=== PATIENT | female | born 1980 ===

== ENCOUNTER → 2019-11-25 14:48 | Outpatient (BNVA) | payer MEDICAID, SELFPAY | PROVIDERS: PCP Nurse Practitioner Family; Referring Provider Nurse Practitioner Family; Visit Provider Internal Medicine Gastroenterology | DX: K59.09 Other constipation (principal); K21.9 Gastro-esophageal reflux disease without esophagitis; K76.0 Fatty (change of) liver, not elsewhere classified; E73.9 Lactose intolerance, unspecified; D50.0 Iron deficiency anemia secondary to blood loss (chronic); N92.0 Excessive and frequent menstruation with regular cycle; Z79.899 Other long term (current) drug therapy | CPT/HCPCS: 99213 ==

== ENCOUNTER 2019-12-08 10:47 | Outpatient (REF) | payer MEDICAID, SELFPAY ==
[2019-12-08 11:55] LABS: MANUAL DIFF FLAG NO
[2019-12-08 12:06] LABS: Basophils Percent Auto 0.7 % (0-2); Eosinophils Absolute Auto 0.1 X10*3/uL (0.0-0.4); Eosinophils Percent Auto 1.3 % (0-4); Hematocrit 30.6 % (37-47); Hemoglobin 9.3 g/dl (12.0-16.0); Imm Gran Abs Auto 0.03 X10*3/uL (0.00-0.03); Imm Gran Pct Auto 0.6 % (0.0-0.4); Lymphocytes Percent Auto 36.5 % (20-40); Mean Corpuscular HGB Conc 30.4 g/dl (31.0-35.0); Mean Corpuscular Hemoglobin 23.3 pg (27.0-33.0); Mean Corpuscular Volume 76.7 fL (80-98); Mean Platelet Volume 9.5 fL (9.4-12.3); Monocytes Absolute Auto 0.5 X10*3/uL (0.1-1.2); Monocytes Percent Auto 9.3 % (2-11); Neutrophils Absolute Auto 2.8 X10*3/uL (2.0-8.3); Neutrophils Percent Auto 51.6 % (45-73); Platelet Count 429 X10*3/uL (160-400); Red Blood Count 3.99 X10*6/uL (4.20-5.50); Red Cell Distribution Width 25.5 % (11.0-16.0); White Blood Count 5.4 X10*3/uL (4.8-10.8)
[2019-12-08 12:50] LABS: Ferritin 25 ng/mL (10-122)
== END 2019-12-08 10:48 | disposition home or self-care (01) ==
LOC: HO.LAB 10:47
PROVIDERS: Internal Medicine Gastroenterology; PCP Nurse Practitioner Family; Visit Provider Obstetrics & Gynecology
DX: D64.9 Anemia, unspecified (principal); N92.6 Irregular menstruation, unspecified
CPT/HCPCS: 36415; 82728; 85025

== ENCOUNTER 2019-12-16 13:53 | Outpatient (REF) | payer MEDICAID, SELFPAY ==
[2019-12-17 09:00] LABS: CT PCR NOT DETECTED (Not Detect.); NG PCR NOT DETECTED (Not Detect.)
[2019-12-17 10:33] LABS: BV Int Neg Control Negative (Negative); BV Int Pos Control Positive (Positive)
== END 2019-12-16 13:54 | disposition home or self-care (01) ==
LOC: HO.LAB 13:53
PROVIDERS: Visit Provider Obstetrics & Gynecology
DX: N93.9 Abnormal uterine and vaginal bleeding, unspecified (principal); Z11.3 Encounter for screening for infections with a predominantly sexual mode of transmission
CPT/HCPCS: 58100; 87480; 87491; 87510; 87591; 87660; 88305; 99212

== ENCOUNTER 2019-12-25 10:50 | Outpatient (REF) | payer MEDICAID, SELFPAY | END 2019-12-25 10:51 | disposition home or self-care (01) | LOC: HO.LAB 10:50 | PROVIDERS: Visit Provider Internal Medicine | DX: Z20.828 Contact with and (suspected) exposure to other viral communicable diseases (principal) | CPT/HCPCS: C9803; U0003 ==

== ENCOUNTER 2019-12-26 22:12 | Emergency (ER) | payer MEDICAID, SELFPAY ==
--- NOTE | 2019-12-26 22:51 | ED_ITS ---
HPI - Chest Pain General Chief Complaint: Chest Pain Stated Complaint: chest pain Time Seen by Provider: 12/26/19 22:51 Source: patient Mode of arrival: ambulatory Limitations: no limitations History of Present Illness HPI narrative: chest pain improved with flovent, patient states that her symptoms also remind her of her GERD MD complaint: chest pain and chest heaviness Onset (ago): hour(s) (10) Timing of current episode: constant Onset: during rest Quality: tightness Risk Factors Coronary artery disease risk factors: none Related Data Home Medications Medication Instructions Recorded Confirmed albuterol sulfate 90 mcg/actuation 2 puff INHALATION Q6H PRN 11/25/19 11/25/19 aerosol inhaler ferrous sulfate 300 mg (60 mg 300 mg PO DAILY 11/25/19 11/25/19 iron)/5 mL oral liquid lidocaine 4 % topical patch 1 patch TOPICAL DAILY PRN 11/25/19 11/25/19 omeprazole 40 mg capsule,delayed 40 mg PO BID 11/25/19 11/25/19 release Previous Rx's Medication Instructions Recorded bisacodyl 5 mg tablet,delayed 5 mg PO BEDTIME 60 Days #60 tab 11/25/19 release senna 8.6 mg capsule 8.6 mg PO DAILY 60 Days #60 cap NS 11/25/19 metronidazole 500 mg tablet 500 mg PO BID 7 Days #14 tab 12/21/19 naproxen [Naprosyn] 500 mg PO BID #20 tab 12/26/19 Allergies Allergy/AdvReac Type Severity Reaction Status Date / Time mussels Allergy Severe DIFFICULTY Verified 12/26/19 22:55 BREATHING Review of Systems Constitutional: Constitutional: Reports no additional constitutional complaints Eyes: Eyes: Reports no additional eye complaints ENT: Denies dizziness Cardiovascular: Cardiovascular: Reports no additional cardiovascular complaints Respiratory: Respiratory: Reports as per HPI Gastrointestinal: Gastrointestinal: Reports no additional gastrointestinal complaints Genitourinary: Genitourinary: Reports no additional female genitourinary complaints Musculoskeletal: Musculoskeletal: Reports no additional musculoskeletal complaints Integumentary/Breasts: Skin/Breast: Denies rash Neurologic: Reports system reviewed and no additional complaints, except as documented, Denies dizziness and Denies Sensory deficit (Neuro) Psychiatric: Psychiatric: Denies anxiety 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 Social History Social History (Updated 11/25/19 @ 15:00 by Perri Sullivan MA) Alcohol intake: never Smoking Status: Never smoker Physical Exam Const: General: healthy appearing Nutritional Appearance: average body habitus Orientation/consciousness: oriented to person and patient oriented x3 Limitations: no limitations HENMT: Head: Yes normal to inspection Ears: external ears normal General nose exam: Normal external nose present Mouth: Normal oral and palatal mucosa present and oropharynx normal Throat: Yes posterior oropharynx normal Eyes: General: appearance normal, both eyes and all related structures Neck: Other: supple Neck: Yes normal visual inspection Chest: Other: reproducible chest pain on palpation Chest palpation & inspection: normal inspection of the chest Resp: Auscultation: clear to auscultation bilaterally Cardio: Jugular venous distension: no JVD Rate: regular rate Rhythm: regular rhythm Heart sounds: S1 normal heart sound present and S2 normal heart sound present GI: Inspection: Yes normal to inspection Palpation (GI): Soft to palpation, nontender and No hepatosplenomegaly present Auscultation: normal bowel sounds : General: Yes no CVA tenderness Back/Spine/Pelvis: Back: no CVA tenderness Skin: General skin exam: no rashes or lesions noted Neuro: General: oriented to person and patient oriented x3 Cranial nerves: Yes CN's II-XII intact bilaterally Motor exam (neuro): 5/5 motor strength present throughout Sensory Exam: No Sensory deficit (Neuro) Extrem: General: Yes normal to inspection Psych: Appearance: grossly normal Course Course Course Narrative: will give patient a toradol shot for costrochondritis MDM - Chest Pain MDM Narrative Medical decision making narrative: patient with normal EKG, normal vital, soft abdomen and reproducible chest pain to palpation, will dc on NSAIDS Differential Diagnosis Differential diagnosis: Likely atypical chest pain, costochondritis and chest pain ECG Data ECG #1: Attestation: I personally reviewed and interpreted this ECG as follows: Interpretation: normal sinus rhythm rate of 90, no st or twave changes Discharge Plan Discharge Clinical Impression: Costochondritis, acute Chest pain Qualifiers: Chest pain type: other chest pain Qualified Code(s): R07.89 - Other chest pain Patient Disposition: Home, Self-Care Instructions: Costochondritis (ED) Prescriptions: New naproxen [Naprosyn] 500 mg tablet 500 mg PO BID Qty: 20 RF: 0 No Action metronidazole [Flagyl] 500 mg tablet 500 mg PO BID 7 Days Qty: 14 RF: 0 ferrous sulfate 300 mg (60 mg iron)/5 mL liquid 300 mg PO DAILY RF: 0 lidocaine 4 % adhesive patch,medicated 1 patch topical DAILY PRNRF: 0 albuterol sulfate [ProAir HFA] 90 mcg/actuation HFA aerosol inhaler 2 puff inhalation Q6H PRNRF: 0 omeprazole 40 mg capsule,delayed release(DR/EC) 40 mg PO BID RF: 0 senna 8.6 mg capsule 8.6 mg PO DAILY 60 Days Qty: 60 RF: 3 bisacodyl [Dulcolax (bisacodyl)] 5 mg tablet,delayed release (DR/EC) 5 mg PO BEDTIME 60 Days Qty: 60 RF: 3
[2019-12-26 22:52] VITALS: BP 101/71; PULSE 98; RESP 18; TEMP 37.1; O2SAT 99; BMI 39.6
[2019-12-26] MEDS: Ketorolac Tromethamine 60 MG/2 ML VIAL IM (23:14)
--- NOTE | 2019-12-27 07:51 | ECG_ITS ---
Test Reason : CARDIAC STATUS Blood Pressure : / mmHG Vent. Rate : 092 BPM Atrial Rate : 092 BPM P-R Int : 150 ms QRS Dur : 088 ms QT Int : 348 ms P-R-T Axes : 053 012 031 degrees QTc Int : 430 ms Normal sinus rhythm Normal ECG When compared with ECG of 21-APR-2019 07:21, No significant change was found Referred By: Omkar Reynoso Electronically Signed By:CAMILLA REESE MD
== END 2019-12-26 23:26 | disposition home or self-care (01) ==
LOC: HO.ED 23:16
PROVIDERS: Emergency Provider Emergency Medicine
DX: M94.0 Chondrocostal junction syndrome [Tietze] (principal); R07.89 Other chest pain; Z79.899 Other long term (current) drug therapy
CPT/HCPCS: 93005; 96372; 99284; J1885

== ENCOUNTER → 2019-12-31 11:16 | Outpatient (BNVA) | payer MEDICAID, SELFPAY | PROVIDERS: Visit Provider Obstetrics & Gynecology | DX: Z76.89 Persons encountering health services in other specified circumstances (principal) ==

== ENCOUNTER 2020-01-06 15:41 | Outpatient (REF) | payer MEDICAID, SELFPAY | END 2020-01-06 15:42 | disposition home or self-care (01) | LOC: HO.LAB 15:41 | PROVIDERS: Visit Provider Internal Medicine | DX: Z20.828 Contact with and (suspected) exposure to other viral communicable diseases (principal) | CPT/HCPCS: C9803; U0003 ==

== ENCOUNTER → 2020-01-31 14:58 | Outpatient (BNVA) | payer MEDICAID, SELFPAY | PROVIDERS: Visit Provider Obstetrics & Gynecology | DX: N93.9 Abnormal uterine and vaginal bleeding, unspecified (principal) | CPT/HCPCS: 99212 ==

== ENCOUNTER 2020-02-03 07:08 | Day surgery (SDC) | payer MEDICAID, SELFPAY ==
--- NOTE | 2020-02-02 11:55 | P.CONAN_ITS ---
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 Surgical History Surgical History History of breast lump/mass excision History of colonoscopy History of esophagogastroduodenoscopy (EGD) Hx of arthroscopic knee surgery Status post laparoscopic cholecystectomy Social History Social History Alcohol intake: never Smoking Status: Never smoker Second Hand Smoke Exposure: No Use of substances other than those prescribed or required for medical reasons: No Advance Directives: No Advance Directives Information Provided: No Advance Directives on File: No Meds Allergies Allergy/AdvReac Type Severity Reaction Status Date / Time mussels Allergy Severe DIFFICULTY Verified 02/03/20 07:22 BREATHING Home Medications Medication Instructions Recorded Confirmed Type albuterol sulfate 90 mcg/actuation 2 puff INHALATION Q6H PRN 11/25/19 02/03/20 History aerosol inhaler ferrous sulfate 300 mg (60 mg 300 mg PO DAILY 11/25/19 02/03/20 History iron)/5 mL oral liquid lidocaine 4 % topical patch 1 patch TOPICAL DAILY PRN 11/25/19 02/03/20 History omeprazole 40 mg capsule,delayed 40 mg PO BID 11/25/19 02/03/20 History release Exam Exam Date and Time: February 02, 2020 1155 Narrative Narrative: EK 12/2019: NSR@92 Assessment and Plan Assessment Anesthesia Assessment: Chart Reviewed Documented by User: Alana Rowe 02/03/20 08:41 PMFSH Past Medical History Medical History Chronic constipation COVID-19 Depression Epigastric pain GERD (gastroesophageal reflux disease) 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 Surgical History Surgical History History of breast lump/mass excision History of colonoscopy History of esophagogastroduodenoscopy (EGD) Hx of arthroscopic knee surgery Status post laparoscopic cholecystectomy Social History Social History Alcohol intake: never Smoking Status: Never smoker Second Hand Smoke Exposure: No Use of substances other than those prescribed or required for medical reasons: No Advance Directives: No Advance Directives Information Provided: No Advance Directives on File: No Meds Allergies Allergy/AdvReac Type Severity Reaction Status Date / Time mussels Allergy Severe DIFFICULTY Verified 02/03/20 07:22 BREATHING Home Medications Medication Instructions Recorded Confirmed Type albuterol sulfate 90 mcg/actuation 2 puff INHALATION Q6H PRN 11/25/19 02/03/20 History aerosol inhaler ferrous sulfate 300 mg (60 mg 300 mg PO DAILY 11/25/19 02/03/20 History iron)/5 mL oral liquid lidocaine 4 % topical patch 1 patch TOPICAL DAILY PRN 11/25/19 02/03/20 History omeprazole 40 mg capsule,delayed 40 mg PO BID 11/25/19 02/03/20 History release Exam Airway Mallampati Class: II TM Dist: >3cm Neck ROM: Full Assessment and Plan Assessment Anesthesia Assessment: Anesthesia Plan Discussed and Chart Reviewed Final Anesthetic Review NPO: Yes ASA Class: II Final Preanesthetic Review: No Changes in Pt Med Stat, Meds/Allgs Chart Reviewed, Consent Obtained/Reviewed and Anes Risks/Benef Reviewed Patient Risk: Intermediate Procedure Risk: Low Assessment/Block/Sedation in SS: Assess/Block/Sedation-SS Anesthetic Plan Anesthetic Plan: MAC: Disposition: Standard PACU
[2020-02-02 14:53] VITALS: BMI 39.1
[2020-02-03 07:24] VITALS: BP 106/66; PULSE 91; RESP 16; TEMP 35.9; O2SAT 98
--- NOTE | 2020-02-03 07:31 | MHC.SHP ---
Pre-Procedural Eval Section A The patient is an INPATIENT: No Changes since office visit: No Cold of Flu in the past 2 weeks, No New Medical Problems, No Changes in Medication and No Patient answered all questions The History & Physical has been completed within 30 days and I have reviewed it.: Yes Section B Chief Complaint: uterine bleeding Allergies: Allergies Allergy/AdvReac Type Severity Reaction Status Date / Time mussels Allergy Severe DIFFICULTY Verified 02/03/20 07:22 BREATHING Plan I have reviewed the history and physical and performed a pertinent physical examination on my patient. No changes have occurred unless specified.
[2020-02-03] MEDS: Lactated Ringers 1,000 ML 100 ML IVCONT (07:33)
[2020-02-03 08:11] LABS: HCG Quantitative < 2 mIU/mL
--- NOTE | 2020-02-03 09:33 | W.PM.OPN ---
Operative Note Operative Note Date of Service: 02/03/20 Narrative: Ms. Funes is a 39 year old with abnormal uterine bleeding. She presents today for hysteroscopy d&c for abnormal uterine bleeding after endometrial biopsy performed in the office did not show definitive endometrial tissue. Surgical Risks: The patient was informed of the risks and benefits of a hysteroscopy with dilation and curettage. Risks included but were not limited to bleeding, infection, injury to the vulva, vagina, or cervix, and uterine perforation with possible need for further surgery. The patient expressed understanding of the risks involved, all questions were answered, and the patient consented to the procedure. The patient was taken to the operating room where a time out was confirmed to confirm correct patient and correct procedure. Adequate IV sedation was established. The patient was then positioned on the operating table in the dorsal lithotomy position with her legs supported using stirrups. All pressure points were padded and a warm blanket was placed to maintain control of core body temperature. The patient was then prepped and draped in the usual sterile fashion. A bimanual exam was performed and the uterus was found to be approximately 10 cm size, anteverted. No adnexal masses were palpated. A straight catheter was inserted into the bladder and urine was obtained. A bivalve speculum was then inserted into the vagina. The anterior lip of the cervix was visualized and grasped using a single tooth tenaculum. The cervix was adequately dilated using Atkinson dilators for the introduction of the hysteroscope. The hysteroscope was introduced under direct visualization using normal saline solution as the distending media. The hysteroscope was advanced to the fundus and the entire uterine cavity was inspected. The cavity appeared full of polypoid tissue. The hysteroscope was then removed and a sharp curetting was performed starting at the 12 o?clock position and rotating a total of 360 degrees in order to cover all surfaces. The hysteroscope was then reintroduced. Polypoid tissue was visualized on the posterior aspect of the uterine lining just distal to the fundus. The myosure was advanced and used to perform sharp curettage until no obvious polypoid tissue remained. The myosure was retracted and removed within the hysteroscope. A sharp curetting was then again performed starting at the 12 o?clock position and rotating a total of 360 degrees in order to cover all surfaces.Endometrial tissue was obtained and was sent to pathology. Following the curetting, good hemostasis was noted. The single-tooth tenaculum was removed from the anterior lip of the cervix and hemostasis was also noted at the tenaculum puncture sites. The speculum was then removed from the vagina. At the end of the procedure, all needle, sponge, and instrument counts were noted to be correct x2. The patient was transferred to the recovery room in stable condition. IVF: 600mL Fluid deficit: 385mL EBL: 10cc
[2020-02-03 09:36] VITALS: BP 122/72; PULSE 72; RESP 16; TEMP 36.1; O2SAT 98
[2020-02-03 09:51] VITALS: BP 110/64; PULSE 58; RESP 16; O2SAT 100
[2020-02-03] MEDS: Acetaminophen 325 MG TABLET 650 MG PO (09:56)
[2020-02-03] MEDS: oxyCODONE HCl Immed Release 5 MG TABLET PO (09:57)
[2020-02-03 10:06] VITALS: BP 109/71; PULSE 61; RESP 16; TEMP 36.1; O2SAT 100
--- NOTE | 2020-02-03 10:25 | HO.POSTANES ---
Post Anesthesia Evaluation Post Anesthesia Evaluation Vital Signs: Vital Signs Temp Pulse Resp BP Pulse Ox 02/03/20 10:06 96.9 F 61 16 109/71 100 02/03/20 09:51 58 16 110/64 100 02/03/20 09:36 96.9 F 72 16 122/72 98 02/03/20 07:24 96.7 F L 91 16 106/66 98 Anesthesia: Monitored Mental Status: Awake Pain Control: Satisfactory Nausea/Vomiting: None Hydration: Adequate Anesthesia-Related Issues: No Anes. Related Issues
== END 2020-02-03 10:56 | disposition home or self-care (01) ==
PROVIDERS: Visit Provider Obstetrics & Gynecology
PROC: 0UJD8ZZ Inspection of Uterus and Cervix, Via Natural or Artificial Opening Endoscopic (ICD-10-PCS; CPT 58555; principal; 2020-02-03 08:30)
DX: N93.9 Abnormal uterine and vaginal bleeding, unspecified (principal); D50.9 Iron deficiency anemia, unspecified; Z90.49 Acquired absence of other specified parts of digestive tract; Z79.899 Other long term (current) drug therapy
CPT/HCPCS: 58558; 84702; 88305; J2250; J2405; J3010

== ENCOUNTER → 2020-02-16 14:56 | Outpatient (BNVA) | payer MEDICAID, SELFPAY | PROVIDERS: Visit Provider Obstetrics & Gynecology | DX: Z76.89 Persons encountering health services in other specified circumstances (principal) ==

== ENCOUNTER → 2020-02-29 15:17 | Outpatient (BNVA) | payer MEDICAID, SELFPAY | PROVIDERS: Visit Provider Obstetrics & Gynecology | DX: Z76.89 Persons encountering health services in other specified circumstances (principal) ==

== ENCOUNTER → 2020-03-02 15:02 | Outpatient (BNVA) | payer MEDICAID, SELFPAY | PROVIDERS: PCP Nurse Practitioner Family; Visit Provider Internal Medicine Gastroenterology | DX: Z76.89 Persons encountering health services in other specified circumstances (principal) ==

== ENCOUNTER → 2020-03-27 15:36 | Outpatient (BNVA) | payer MEDICAID, SELFPAY | PROVIDERS: PCP Nurse Practitioner Family; Visit Provider Obstetrics & Gynecology ==

== ENCOUNTER 2020-04-25 13:56 | Outpatient (REF) | payer MEDICAID, SELFPAY ==
--- NOTE | ~2020-04-25 | XR_ITS ---
EXAMINATION: XR HAND, RIGHT XR HAND, LEFT CLINICAL INFORMATION: Bilateral pain. COMPARISON: Radiographs right wrist 10/07/2019, right hand wrist 01/05/2016, left hand and 04/04/2010 TECHNIQUE: Each hand is imaged in 3 views. There are a total of 6 views. FINDINGS: Right: No acute or healing fracture, dislocation, destructive process. The ulnar variance is neutral. The carpus shows no joint narrowing or erosive change or chondrocalcinosis. The MCP and interphalangeal joints are unremarkable. There is normal bony mineralization. No joint narrowing or erosive change. Left: No acute or healing fracture, dislocation, destructive process. The ulnar variance is neutral. The carpus shows no joint narrowing or erosive change or chondrocalcinosis. The MCP and interphalangeal joints are unremarkable. There is normal bony mineralization. No joint narrowing or erosive change. XR/XR hand LT min 3V IMPRESSION: Unremarkable bilateral hands. No joint narrowing or erosive change.
--- NOTE | ~2020-04-25 | XR_ITS ---
EXAMINATION: XR HAND, RIGHT XR HAND, LEFT CLINICAL INFORMATION: Bilateral pain. COMPARISON: Radiographs right wrist 10/07/2019, right hand wrist 01/05/2016, left hand and 04/04/2010 TECHNIQUE: Each hand is imaged in 3 views. There are a total of 6 views. FINDINGS: Right: No acute or healing fracture, dislocation, destructive process. The ulnar variance is neutral. The carpus shows no joint narrowing or erosive change or chondrocalcinosis. The MCP and interphalangeal joints are unremarkable. There is normal bony mineralization. No joint narrowing or erosive change. Left: No acute or healing fracture, dislocation, destructive process. The ulnar variance is neutral. The carpus shows no joint narrowing or erosive change or chondrocalcinosis. The MCP and interphalangeal joints are unremarkable. There is normal bony mineralization. No joint narrowing or erosive change. XR/XR hand RT min 3V IMPRESSION: Unremarkable bilateral hands. No joint narrowing or erosive change.
--- NOTE | ~2020-04-25 | XR_ITS ---
EXAMINATION: XR SHOULDER, LEFT CLINICAL INFORMATION: Left shoulder pain COMPARISON: Radiographs left shoulder 02/09/2016. CT chest 12/20/2018, portable chest 12/20/2018. TECHNIQUE: The left shoulder is imaged in 4 views. FINDINGS: There is no fracture or dislocation or destructive process. No visible rotator cuff calcifications. The glenohumeral joint appears normal. There is mild elevation distal left clavicle similar to prior study which may be related to old acromioclavicular sprain. Left lung apex appears clear. There is fullness of the cardiopericardial silhouette compared with the portable chest from 2019. Vascularity appears normal. XR/XR shoulder LT min 2V IMPRESSION: 1. Mild elevation distal left clavicle similar to prior exam 2016 suggesting old AC sprain. 2. Fullness cardiopericardial silhouette. Vascularity normal.
[2020-04-25 14:50] LABS: MANUAL DIFF FLAG NO
[2020-04-25 14:55] LABS: Basophils Absolute Auto 0.1 X10*3/uL (0.0-0.2); Basophils Percent Auto 0.7 % (0-2); Eosinophils Absolute Auto 0.1 X10*3/uL (0.0-0.4); Hematocrit 27.4 % (37-47); Hemoglobin 8.2 g/dl (12.0-16.0); Imm Gran Abs Auto 0.01 X10*3/uL (0.00-0.03); Imm Gran Pct Auto 0.1 % (0.0-0.4); Lymphocytes Absolute Auto 2.4 X10*3/uL (1.2-4.9); Lymphocytes Percent Auto 34.5 % (20-40); Mean Corpuscular HGB Conc 29.9 g/dl (31.0-35.0); Mean Corpuscular Hemoglobin 21.9 pg (27.0-33.0); Mean Corpuscular Volume 73.1 fL (80-98); Mean Platelet Volume 9.6 fL (9.4-12.3); Monocytes Absolute Auto 0.6 X10*3/uL (0.1-1.2); Monocytes Percent Auto 7.9 % (2-11); Neutrophils Absolute Auto 3.9 X10*3/uL (2.0-8.3); Neutrophils Percent Auto 55.8 % (45-73); Platelet Count 529 X10*3/uL (160-400); Red Blood Count 3.75 X10*6/uL (4.20-5.50); Red Cell Distribution Width 15.5 % (11.0-16.0); White Blood Count 6.9 X10*3/uL (4.8-10.8)
[2020-04-25 15:03] LABS: Estimated Average Glucose 111 mg/dL; Hemoglobin A1c % 5.5 %
[2020-04-25 15:23] LABS: Alanine Aminotransferase 12 U/L (0-31); Albumin Level 3.9 g/dL (3.5-5.0); Alkaline Phosphatase 59 U/L (39-117); Anion Gap 11 (12-20); Aspartate Amino Transferase 21 U/L (5-31); Bilirubin Total < 0.2 mg/dL (0.0-1.0); Blood Urea Nitrogen 15 mg/dL (9-16); C Reactive Protein 0.36 mg/dL (< or = 0.50); Calcium 9.1 mg/dL (8.4-10.2); Carbon Dioxide 28 mmol/L (22-29); Chloride 104 mmol/L (96-108); Cholesterol 153 mg/dL; Estimated Glomerular Filt Rate > 60; Glucose Random 83 mg/dL (60-115); HDL Cholesterol 64 mg/dL; LDL Cholesterol Calculated 79 mg/dl; Potassium 4.4 mmol/L (3.3-5.1); Rheumatoid Factor < 15.0 IU/mL (<15.0); Sodium 139 mmol/L (135-145); Total Protein 7.5 g/dL (6.5-8.0); Triglycerides 54 mg/dL
[2020-04-25 15:28] LABS: Creatinine Urine 79.53 mg/dL; Microalbumin Urine < 5.0 mg/L
[2020-04-25 15:45] LABS: Thyroid Stimulating Hormone 1.67 uIU/mL (0.32-4.0); Vitamin D 25-OH Total 14.6 ng/mL (>30)
[2020-04-25 15:48] LABS: Erythrocyte Sedimentation Rate 39 MM/HR (0-20)
[2020-04-25 16:19] LABS: Ferritin < 1 ng/mL (10-122)
[2020-04-26 14:57] LABS: Cyclic Citrullinated Peptide <16 UNITS
== END 2020-04-25 13:57 | disposition home or self-care (01) ==
LOC: HO.LAB 13:56
PROVIDERS: Absent Provider Internal Medicine Gastroenterology; PCP Family Medicine; Visit Provider Family Medicine
DX: Z00.00 Encounter for general adult medical examination without abnormal findings (principal); D50.0 Iron deficiency anemia secondary to blood loss (chronic); E55.9 Vitamin D deficiency, unspecified; M79.641 Pain in right hand; N39.3 Stress incontinence (female) (male)
CPT/HCPCS: 36415; 73030; 73130; 80053; 80061; 82043; 82306; 82728; 83036; 84443; 85025; 85652; 86140; 86200; 86431; 99212

== ENCOUNTER 2020-04-27 08:08 | Day surgery (SDC) | payer MEDICAID, SELFPAY ==
[2020-04-24 09:08] VITALS: BMI 39.1
--- NOTE | 2020-04-26 08:50 | P.CONAN_ITS ---
Documented by User: Cecile Gisele 04/26/20 08:51 HPI - Anesthesia Eval Consult details Narrative: 39yo F for Uterine Ablation w/Novasure s/p Hysteroscopy D&C with TIVA 01/2020 [facility] Active Problems Active Problems: All Active Problems (Updated 03/02/20 @ 15:18 by Osvaldo Wen MD) Abnormal uterine bleeding (Acute) NAFL (nonalcoholic fatty liver) (Acute) Chronic constipation (Acute) Iron deficiency anemia due to chronic blood loss (Acute) Epigastric pain (Acute) GERD (gastroesophageal reflux disease) (Acute) Lactose intolerance in adult (Acute) Past Medical History Medical History Chronic constipation COVID-19 Depression Epigastric pain GERD (gastroesophageal reflux disease) Hypothyroidism Iron deficiency anemia due to chronic blood loss Lab test negative for COVID-19 virus Lactose intolerance in adult Family History Family History Mother No problems noted. Father No problems noted. Maternal Aunt Hx of ovarian cancer Surgical History Surgical History History of breast lump/mass excision History of colonoscopy History of esophagogastroduodenoscopy (EGD) Hx of arthroscopic knee surgery Hx of dilation and curettage Status post laparoscopic cholecystectomy Social History Social History Household Members: Children Alcohol intake: current Alcohol intake frequency: a few times a month Alcohol type: beer Smoking Status: Never smoker Second Hand Smoke Exposure: No Advance Directives Information Provided: No Current occupational status: employed Current occupation: [employer] Allergies Allergy/AdvReac Type Severity Reaction Status Date / Time mussels Allergy Severe DIFFICULTY Verified 04/25/20 15:32 BREATHING Home Medications Medication Instructions Recorded Confirmed Last Taken Type albuterol sulfate 90 mcg/actuation 2 puff INHALATION Q6H PRN 11/25/19 04/24/20 Unknown History aerosol inhaler ferrous sulfate 300 mg (60 mg 300 mg PO DAILY 11/25/19 04/24/20 Unknown History iron)/5 mL oral liquid lidocaine 4 % topical patch 1 patch TOPICAL DAILY PRN 11/25/19 03/02/20 Unknown History omeprazole 40 mg capsule,delayed 40 mg PO BID 11/25/19 04/24/20 Unknown History release Exam Exam Date and Time: April 26, 2020 0850 Height,Weight and Vital Signs: Height 5 ft 1 in Weight 93.894 kg Pertinent Lab Results Pertinent Lab Results: Laboratory Tests 04/25/20 04/25/20 14:28 14:28 WBC 6.9 Hgb 8.2 L Hct 27.4 L Plt Count 529 H Sodium 139 Potassium 4.4 Chloride 104 Carbon Dioxide 28 BUN 15 Creatinine 0.69 Narrative Narrative: EKG 12/2019: NSR@92 Assessment and Plan Assessment Anesthesia Assessment: Chart Reviewed Documented by User: Pradip Jung 04/27/20 09:01 PMF Past Medical History Medical History Chronic constipation COVID-19 Depression Epigastric pain GERD (gastroesophageal reflux disease) Hypothyroidism Iron deficiency anemia due to chronic blood loss Lab test negative for COVID-19 virus Lactose intolerance in adult Family History Family History Mother No problems noted. Father No problems noted. Maternal Aunt Hx of ovarian cancer Family history of problems with anesthesia: No Surgical History Surgical History History of breast lump/mass excision History of colonoscopy History of esophagogastroduodenoscopy (EGD) Hx of arthroscopic knee surgery Hx of dilation and curettage Status post laparoscopic cholecystectomy History of Problems with Anesthesia: No Social History Social History Household Members: Children Alcohol intake: current Alcohol intake frequency: a few times a month Alcohol type: beer Smoking Status: Never smoker Second Hand Smoke Exposure: No Advance Directives Information Provided: No Current occupational status: employed Current occupation: [employer] Meds Allergies Allergy/AdvReac Type Severity Reaction Status Date / Time mussels Allergy Severe DIFFICULTY Verified 04/25/20 15:32 BREATHING Home Medications Medication Instructions Recorded Confirmed Last Taken Type albuterol sulfate 90 mcg/actuation 2 puff INHALATION Q6H PRN 11/25/19 04/24/20 Unknown History aerosol inhaler ferrous sulfate 300 mg (60 mg 300 mg PO DAILY 11/25/19 04/24/20 Unknown History iron)/5 mL oral liquid lidocaine 4 % topical patch 1 patch TOPICAL DAILY PRN 11/25/19 03/02/20 Unknown History omeprazole 40 mg capsule,delayed 40 mg PO BID 11/25/19 04/24/20 Unknown History release Exam Airway Mallampati Class: I TM Dist: >3cm Neck ROM: Full Loose/Missing/Broken Teeth: No Heart: ok Lungs: ok Assessment and Plan Assessment Anesthesia Assessment: Anesthesia Plan Discussed and Chart Reviewed Final Anesthetic Review NPO: Yes ASA Class: II Final Preanesthetic Review: No Changes in Pt Med Stat, Meds/Allgs Chart Reviewed, Consent Obtained/Reviewed and Anes Risks/Benef Reviewed Patient Risk: Low Procedure Risk: Low Anesthetic Plan Anesthetic Plan: GA and Agree w/ Assess. and Plan Disposition: Standard PACU
[2020-04-27] VITALS (11 sets, daily range): BP systolic 98–128; BP diastolic 49–83; PULSE 62–91; RESP 14–18; TEMP 36.8–36.9; O2SAT 96–98
[2020-04-27] MEDS: Lactated Ringers 1,000 ML 100 ML IVCONT (08:38)
[2020-04-27 09:05] LABS: HCG Quantitative < 2 mIU/mL
--- NOTE | 2020-04-27 09:06 | PC.NURSE ---
called lab awaiting for pending hcg results. drawn at 0820 am.
--- NOTE | 2020-04-27 10:09 | P.OP_ITS ---
Operative Note Operative Note Date of Service: 04/27/20 Narrative: Ms. Funes is a 39 year old with menorrhagia. Medical management was attempted with OCPs but was inadequate to resolve symptoms. An endometrial biopsy was performed, which was benign. The patient was counseled that endometrial ablation is not indicated if she desires future fertility. The patient expressed understanding of this and stated that her family planning is complete. Surgical Risks: The patient was informed of the risks and benefits of the procedure. Risks included but were not limited to bleeding, infection, injury to the vulva, vagina, or cervix, and uterine perforation. The patient was also informed of the risk that the Novasure ablation may not result in full resolution of symptoms. The patient expressed understanding of the risks involved, all questions were answered, and she consented to the procedure. The patient was taken to the operating room where a time out was performed to confirm correct patient and correct procedure. General anesthesia was established. The patient was then positioned on the operating table in the dorsal lithotomy position and her legs supported using stirrups. All pressure points were padded and a warm blanket was placed to maintain control of core body temperature. The patient was then prepped and draped in the usual sterile fashion. A bimanual exam was performed and the uterus was found to be anteverted. The adnexa were palpated bilaterally and there were no palpable masses. The bladder was emptied with a straight catheter and minimal urine was obtained. A bivalve speculum was inserted into the vagina. The anterior lip of the cervix was visualized and grasped using a single tooth tenaculum. The cervix was adequtely dilated with Atkinson dilators for introduction of the hysteroscope. The hysteroscope was introduced through the cervix and advanced to the fundus of the uterus under direct visualization using distending media. Inspection of the entire uterine cavity was performed. There were no abnormalities noted. The ostia were visualized bilaterally. The hysteroscope was then removed. The Novasure SureSound device was then inserted through the cervix. The malecot was then deployed and the device was anchored on the internal os. The cervical length was measured and found to be 5cm. The probe was then extended to the fundus and the uterine cavity was measured and found to be 6.5cm. The SureSound was then removed and the Novasure was introduced through the cervix and advanced to the fundus. The Novasure was released and rotated from side to side in order to measure the cavity width; it was found to be 4.4cm. The test was performed u sing the NovaSure and there was no leakage of gas noted. The NovaSure was then set and deployed. It was set to a power of 157W and a burn time of 1:03. The NovaSure was then fully retracted and the hysteroscope reintroduced through the cervix and global ablation to the entire cavity was noted. The procedure was felt to be successful. The hysteroscope was then removed and the single tooth tenaculum was removed from the anterior lip of the cervix. Good hemostasis was confirmed. All needle, sponge, and instrument counts were noted to be correct x2 at the end of the procedure. The patient was transferred to the recovery room in stable condition.
--- NOTE | 2020-04-27 10:09 | MHC.SHP ---
Pre-Procedural Eval Section A The patient is an INPATIENT: No Changes since office visit: No Cold of Flu in the past 2 weeks, No New Medical Problems, No Changes in Medication and No Patient answered all questions The History & Physical has been completed within 30 days and I have reviewed it.: Yes Section B Chief Complaint: Abnormal Uterine Bleeding Allergies: Allergies Allergy/AdvReac Type Severity Reaction Status Date / Time mussels Allergy Severe DIFFICULTY Verified 04/25/20 15:32 BREATHING Plan I have reviewed the history and physical and performed a pertinent physical examination on my patient. No changes have occurred unless specified.
[2020-04-27] MEDS: oxyCODONE HCl Immed Release 5 MG TABLET PO (10:17)
[2020-04-27] MEDS: Acetaminophen 325 MG TABLET 650 MG PO (10:17)
[2020-04-27] MEDS: fentaNYL citrate/PF 100 MCG/2 ML VIAL 25 MCG IVPUSH ×2 (10:19→10:26)
== END 2020-04-27 11:38 | disposition home or self-care (01) ==
LOC: HO.SSS 08:08
PROVIDERS: Visit Provider Obstetrics & Gynecology
PROC: (CPT 58563; principal; 2020-04-27 09:40)
DX: N93.9 Abnormal uterine and vaginal bleeding, unspecified (principal); N92.0 Excessive and frequent menstruation with regular cycle; N84.0 Polyp of corpus uteri; D50.0 Iron deficiency anemia secondary to blood loss (chronic); Z79.899 Other long term (current) drug therapy; Z86.16 Personal history of COVID-19; Z90.49 Acquired absence of other specified parts of digestive tract
CPT/HCPCS: 58563; 36415; 84702; 88305; J1100; J2250; J2405; J3010

== ENCOUNTER → 2020-05-12 11:01 | Outpatient (BNVA) | payer MEDICAID, SELFPAY | PROVIDERS: Visit Provider Obstetrics & Gynecology ==

== ENCOUNTER 2020-05-16 09:11 | Outpatient (REF) | payer MEDICAID, SELFPAY ==
[2020-05-16 14:20] LABS: CT PCR NOT DETECTED (Not Detect.); NG PCR NOT DETECTED (Not Detect.)
[2020-05-17 09:38] LABS: BV Int Neg Control Negative (Negative); BV Int Pos Control Positive (Positive)
== END 2020-05-16 09:12 | disposition home or self-care (01) ==
LOC: HO.LAB 09:11
PROVIDERS: Visit Provider Obstetrics & Gynecology
DX: Z11.3 Encounter for screening for infections with a predominantly sexual mode of transmission (principal); N89.8 Other specified noninflammatory disorders of vagina
CPT/HCPCS: 87480; 87491; 87510; 87591; 87660; 99212

== ENCOUNTER → 2020-05-24 13:57 | Outpatient (BNVA) | payer MEDICAID, SELFPAY | PROVIDERS: PCP Family Medicine; Visit Provider Physician Assistant | DX: M77.8 Other enthesopathies, not elsewhere classified (principal); D17.0 Benign lipomatous neoplasm of skin and subcutaneous tissue of head, face and neck | CPT/HCPCS: 20610; 99202; J1040 ==

== ENCOUNTER → 2020-06-22 14:42 | Outpatient (BNVA) | payer MEDICAID, SELFPAY | PROVIDERS: PCP Family Medicine; Referring Provider Family Medicine; Visit Provider Surgery | DX: D17.0 Benign lipomatous neoplasm of skin and subcutaneous tissue of head, face and neck (principal) | CPT/HCPCS: 99202 ==

== ENCOUNTER 2020-07-14 08:13 | Day surgery (SDC) | payer MEDICAID, SELFPAY ==
[2020-07-10 09:48] VITALS: BMI 37.5
--- NOTE | 2020-07-12 11:55 | HO.ANESPROP2 ---
Documented by User: Cecile Jaquez 07/12/20 11:56 HPI - Anesthesia Eval Consult details Narrative: 39yo F for Excision Lipoma,left neck PMFSH Active Problems Active Problems: All Active Problems (Updated 05/24/20 @ 14:35 by Barrett Swenson PA-C) Abnormal uterine bleeding (Acute) NAFL (nonalcoholic fatty liver) (Acute) Left shoulder tendonitis (Acute) Lipoma of neck (Acute) Chronic constipation (Acute) Iron deficiency anemia due to chronic blood loss (Acute) Epigastric pain (Acute) GERD (gastroesophageal reflux disease) (Acute) Lactose intolerance in adult (Acute) Past Medical History Medical History Asthma Chronic constipation COVID-19 Depression Epigastric pain GERD (gastroesophageal reflux disease) Hypothyroidism Iron deficiency anemia due to chronic blood loss Lab test negative for COVID-19 virus Lactose intolerance in adult Family History Family History Mother No problems noted. Father No problems noted. Maternal Aunt Hx of ovarian cancer Family history of problems with anesthesia: No Surgical History Surgical History History of breast lump/mass excision History of colonoscopy History of endometrial ablation History of esophagogastroduodenoscopy (EGD) Hx of arthroscopic knee surgery Hx of dilation and curettage Hx of tubal ligation Status post laparoscopic cholecystectomy History of Problems with Anesthesia: No Social History Social History Household Members: Children Alcohol intake: current Alcohol intake frequency: a few times a month Alcohol type: beer Second Hand Smoke Exposure: No Advance Directives Information Provided: No Recently lost weight without trying: No Eating poorly because of decreased appetite: No Nutrition Risks: No Nutritional Risk Current occupational status: employed 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 occupation: [employer] Med[employer] Allergies Allergy/AdvReac Type Severity Reaction Status Date / Time mussels Allergy Severe DIFFICULTY Verified 07/14/20 08:19 BREATHING lactose AdvReac Diarrhea Verified 07/14/20 08:21 Home Medications Medication Instructions Recorded Confirmed Last Taken Type albuterol sulfate 90 mcg/actuation 2 puff INHALATION Q6H PRN 11/25/19 07/10/20 Unknown History aerosol inhaler ferrous sulfate 300 mg (60 mg 300 mg PO DAILY 10/08/20 05/24/21 Unknown History iron)/5 mL oral liquid lidocaine 4 % topical patch 1 patch TOPICAL DAILY PRN 11/25/19 07/10/20 Unknown History Exam Exam Date and Time: July 12, 2020 1155 Height,Weight and Vital Signs: Height 5 ft 2 in Weight 93 kg Pertinent Lab Results Pertinent Lab Results: Laboratory Tests 04/25/20 04/25/20 14:28 14:28 WBC 6.9 Hgb 8.2 L Hct 27.4 L Plt Count 529 H Sodium 139 Potassium 4.4 Chloride 104 Carbon Dioxide 28 BUN 15 Creatinine 0.69 Narrative Narrative: EKG 12/2019: NSR@92 Assessment and Plan Assessment Anesthesia Assessment: Chart Reviewed Documented by User: Nicole Barbour 07/14/20 08:41 [facility] Past Medical History Medical History Asthma Chronic constipation COVID-19 Depression Epigastric pain GERD (gastroesophageal reflux disease) Hypothyroidism Iron deficiency anemia due to chronic blood loss Lab test negative for COVID-19 virus Lactose intolerance in adult Family History Family History Mother No problems noted. Father No problems noted. Maternal Aunt Hx of ovarian cancer Surgical History Surgical History History of breast lump/mass excision History of colonoscopy History of endometrial ablation History of esophagogastroduodenoscopy (EGD) Hx of arthroscopic knee surgery Hx of dilation and curettage Hx of tubal ligation Status post laparoscopic cholecystectomy Social History Social History Household Members: Children Alcohol intake: current Alcohol intake frequency: a few times a month Alcohol type: beer Second Hand Smoke Exposure: No Advance Directives Information Provided: No Recently lost weight without trying: No Eating poorly because of decreased appetite: No Nutrition Risks: No Nutritional Risk Current occupational status: employed 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 occupation: [employer] Med[employer] Allergies Allergy/AdvReac Type Severity Reaction Status Date / Time mussels Allergy Severe DIFFICULTY Verified 07/14/20 08:19 BREATHING lactose AdvReac Diarrhea Verified 07/14/20 08:21 Home Medications Medication Instructions Recorded Confirmed Last Taken Type albuterol sulfate 90 mcg/actuation 2 puff INHALATION Q6H PRN 11/25/19 07/10/20 Unknown History aerosol inhaler ferrous sulfate 300 mg (60 mg 300 mg PO DAILY 11/25/19 07/10/20 Unknown History iron)/5 mL oral liquid lidocaine 4 % topical patch 1 patch TOPICAL DAILY PRN 11/25/19 07/10/20 Unknown History Exam Airway Mallampati Class: I TM Dist: >3cm Neck ROM: Full
[2020-07-14 08:36] VITALS: BP 117/71; PULSE 85; RESP 15; TEMP 36.4; O2SAT 99
[2020-07-14] MEDS: Lactated Ringers 1,000 ML 100 ML IVCONT (08:47)
--- NOTE | 2020-07-14 09:09 | MHC.SHP ---
Pre-Procedural Eval Section B Chief Complaint: Lipoma of Neck Allergies: Allergies Allergy/AdvReac Type Severity Reaction Status Date / Time mussels Allergy Severe DIFFICULTY Verified 07/14/20 08:19 BREATHING lactose AdvReac Diarrhea Verified 07/14/20 08:21 Plan I have reviewed the history and physical and performed a pertinent physical examination on my patient. No changes have occurred unless specified.
[2020-07-14 10:05] VITALS: BP 104/66; PULSE 60; RESP 20; TEMP 36.4; O2SAT 97
--- NOTE | 2020-07-14 10:09 | W.PM.OPN ---
Operative Note Operative Note Date of Service: 07/14/20 Narrative: Preop diagnosis: Lipoma, left neck, supraclavicular area Postop diagnose: Lipoma, left neck, supraclavicular area Procedure: Excision of lipoma, left neck at the supraclavicular area Surgeon: Josesito Johnson MD The patient is a 39 year female who had a lipomatous mass on the left neck at the supraclavicular area measuring 3 x 4 cm. She wanted this excised. She understood the technique of excision under monitored anesthesia care. She was aware of the risks, benefits, and alternatives. She was brought to the operating room placed supine on table under monitored anesthesia care. A pillow was placed under the shoulder blade on the left to elevate this area. The lipomatous mass on the left supraclavicular was noticed. This was prepped and draped. A surgical time-out was done. The planned line of incision was infiltrated lidocaine 1%. I made an 4 cm long incision using blade 15. This was carried down through the full-thickness skin and subcutaneous fat using electrocautery. I continued to dissect with electrocautery and Metzenbaum scissors sharply until was able to visualize lipomatous tissue. I dissected this lipomatous tissue off of the rest of subcutaneous layer using Metzenbaum scissors. This lipomatous tissue was ablated and had a lot of fine adhesions. We had to do a section slowly in view of this therefore. We continued with gentle sharp dissection until were able to visualize the posterior aspect of lipoma and we continued to dissect the lipoma off of the deeper layers.. Eventually we were able to deliver the lipoma this was sent as specimen. I cauterized some oozing areas. I reapposed the deep subcutaneous layer with Dexon 3-0 interrupted sutures. Skin closure was achieved with Dexon 4-0 subcuticular sutures. Steri-Strips and dressings were applied. The incision was infiltrated with Marcaine 0.5% for postop analgesia The patient tolerated procedure well. There were no complications noted. Estimated blood loss about 3 cc. The patient was then transferred to the recovery room with stable vital signs.
[2020-07-14 10:20] VITALS: BP 109/71; PULSE 61; RESP 20; O2SAT 100
[2020-07-14 10:35] VITALS: BP 106/73; PULSE 57; RESP 20; TEMP 36.3; O2SAT 100
== END 2020-07-14 10:59 | disposition home or self-care (01) ==
PROVIDERS: Visit Provider Surgery
PROC: (CPT 21552; principal; 2020-07-14 09:50)
DX: D17.0 Benign lipomatous neoplasm of skin and subcutaneous tissue of head, face and neck (principal); J45.909 Unspecified asthma, uncomplicated; K21.9 Gastro-esophageal reflux disease without esophagitis; Z79.899 Other long term (current) drug therapy
CPT/HCPCS: 21552; 88304; J0690; J2250; J3010

== ENCOUNTER 2020-07-18 15:58 | Outpatient (REF) | payer MEDICAID, SELFPAY ==
--- NOTE | ~2020-07-18 | US_ITS ---
EXAMINATION: ULTRASOUND EXTREMITY NONVASCULAR CLINICAL INFORMATION: Mass/lump right lower limb COMPARISON: None TECHNIQUE: Limited ultrasound imaging to the right posterior thigh was performed. FINDINGS: Imaging of the palpable lump posterior distal thigh reveals no mass or mass effect. No obvious abnormality seen. Clinically palpable lump may be aggregation of adipose tissue. US/US extremity nonvascular IMPRESSION: Ultrasound is unremarkable through the right distal posterior thigh where a clinically palpable lump is noted
== END 2020-07-18 15:59 | disposition home or self-care (01) ==
LOC: HO.US 15:58
PROVIDERS: PCP Family Medicine; Visit Provider Family Medicine
DX: R22.41 Localized swelling, mass and lump, right lower limb (principal)
CPT/HCPCS: 76882

== ENCOUNTER → 2020-07-26 12:53 | Outpatient (BNVA) | payer MEDICAID, SELFPAY | PROVIDERS: Referring Provider Family Medicine; Visit Provider Surgery | DX: D17.0 Benign lipomatous neoplasm of skin and subcutaneous tissue of head, face and neck (principal) | CPT/HCPCS: 99212 ==

== ENCOUNTER → 2020-08-09 13:31 | Outpatient (REF) | payer MEDICAID, SELFPAY ==
--- NOTE | 2020-08-09 14:00 | ECG_ITS ---
Hook-up date: 2020-08-09 13:56:00 Duration: 41:58:00 Test Indications: dizziness Medications: 275603 QRS complexes * Ventricular ectopics which represent % of total QRS comp. 28 Supraventricular ectopics which represent <1 % of total QRS comp. * Paced QRS complexs which represent % of total QRS comp. VENTRICULAR ECTOPY * Isolated * Bigeminal Cycles * Couplets * Runs * Beats in Runs * Beats LONGEST at * BPM at :: -- * Beats FASTEST at * BPM at :: -- SUPRAVENTRICULAR ECTOPY 21 Isolated 2 Couplets 1 Runs 3 Beats in Runs 3 Beats LONGEST at 140 BPM at 06:51:32 2020-08-10 3 Beats FASTEST at 140 BPM at 06:51:32 2020-08-10 HEART RATES 52 MIN at 06:00:14 2020-08-10 82 AVG 144 MAX at 14:54:04 2020-08-09 LONGEST RR 1.2480 secs at 06:30:30 2020-08-10 S-T LEVELS Channel 1 - 128 mm at 13:56:00 2020-08-09 - 128 mm at 13:56:00 2020-08-09 Channel 2 - 128 mm at 13:56:00 2020-08-09 - 128 mm at 13:56:00 2020-08-09 Channel 3 - 128 mm at 03:31:51 -- - 128 mm at 03:31:51 Basic rhythm Normal sinus rhythm No long pause or profound bradycardia Rare Premature atrial complexes No diary submitted I was requested to read this study on 09/08/2020 Referred By: Jody Prajapati Overread By: MAIN WILSON MD
== END ==
LOC: HO.CARD 13:31
PROVIDERS: Visit Provider Family Medicine
DX: R42 Dizziness and giddiness (principal)
CPT/HCPCS: 93225; 93226

== ENCOUNTER → 2020-08-10 09:10 | Outpatient (BNVA) | payer MEDICAID, SELFPAY | PROVIDERS: PCP Nurse Practitioner Family; Visit Provider Internal Medicine Gastroenterology | DX: R10.13 Epigastric pain (principal); K76.0 Fatty (change of) liver, not elsewhere classified; K59.09 Other constipation; D50.0 Iron deficiency anemia secondary to blood loss (chronic); K21.9 Gastro-esophageal reflux disease without esophagitis; E73.9 Lactose intolerance, unspecified | CPT/HCPCS: 99212 ==

== ENCOUNTER 2020-08-31 13:33 | Outpatient (REF) | payer MEDICAID, SELFPAY ==
--- NOTE | ~2020-08-31 | XR_ITS ---
EXAMINATION: XR HIP, LEFT CLINICAL INFORMATION: Left hip pain. COMPARISON: Left hip radiographs dated 07/19/2018. TECHNIQUE: Two views of the left hip. FINDINGS: No fracture or dislocation. No joint space narrowing or marginal osteophytes. No osseous erosion. No abnormal soft tissue calcification. XR/XR hip LT min 2V IMPRESSION: Unremarkable examination.
[2020-08-31 14:21] LABS: Hematocrit 34.4 % (37-47); Hemoglobin 10.7 g/dl (12.0-16.0); Mean Corpuscular HGB Conc 31.1 g/dl (31.0-35.0); Mean Corpuscular Hemoglobin 25.2 pg (27.0-33.0); Mean Corpuscular Volume 81.1 fL (80-98); Mean Platelet Volume 9.6 fL (9.4-12.3); Platelet Count 371 X10*3/uL (160-400); Red Blood Count 4.24 X10*6/uL (4.20-5.50); Red Cell Distribution Width 16.4 % (11.0-16.0); White Blood Count 7.3 X10*3/uL (4.8-10.8)
[2020-08-31 14:48] LABS: Iron 65 mcg/dL (30-160); Percent Iron Saturation 16 % (15-50); Total Iron Binding Capacity 414 mcg/dL (228-428); Unsaturated Iron Binding 349 ug/dL
[2020-08-31 15:10] LABS: Ferritin 41 ng/mL (10-250)
== END 2020-08-31 13:34 | disposition home or self-care (01) ==
LOC: HO.LAB 13:33
PROVIDERS: PCP Family Medicine; Visit Provider Family Medicine
DX: D64.9 Anemia, unspecified (principal); M25.552 Pain in left hip
CPT/HCPCS: 36415; 73502; 82728; 83540; 85027

== ENCOUNTER 2020-10-31 13:46 | Outpatient (RCR) | payer MEDICAID, SELFPAY | END 2020-12-04 14:57 | disposition home or self-care (01) | LOC: HO.PT 13:46 | PROVIDERS: PCP Family Medicine; Visit Provider Emergency Medicine | DX: M25.512 Pain in left shoulder (principal) | CPT/HCPCS: 97110; 97162 ==

== ENCOUNTER → 2020-11-30 15:09 | Outpatient (BNVA) | payer MEDICAID, SELFPAY | PROVIDERS: PCP Family Medicine; Visit Provider Physician Assistant | DX: M54.50 Low back pain, unspecified (principal); M25.552 Pain in left hip; J45.909 Unspecified asthma, uncomplicated; K59.09 Other constipation; E03.9 Hypothyroidism, unspecified; D50.0 Iron deficiency anemia secondary to blood loss (chronic); Z91.011 Allergy to milk products; Z91.013 Allergy to seafood | CPT/HCPCS: 99212 ==

== ENCOUNTER → 2020-12-14 08:28 | Outpatient (BNVA) | payer MEDICAID, SELFPAY | PROVIDERS: PCP Physician Assistant; Visit Provider Internal Medicine Gastroenterology ==

== ENCOUNTER 2020-12-27 06:28 | Emergency (ER) | payer MEDICAID, SELFPAY ==
[2020-12-27 06:44] VITALS: BP 112/76; BP 98/50; PULSE 78; PULSE 90; RESP 19; TEMP 36.1; O2SAT 100; O2SAT 99; BMI 39.6
--- NOTE | 2020-12-27 07:07 | ED_ITS ---
HPI - General Adult General Chief complaint: Upper Respiratory Symptoms Stated complaint: SOB/dizziness Time Seen by Provider: 12/27/20 06:55 Source: patient Mode of arrival: EMS Limitations: no limitations History of Present Illness HPI narrative: 40-year-old female with history of asthma who presents emergency department for evaluation of shortness of breath. Patient states that she was feeling short of breath last week and her symptoms improved. She states that over the past 1-2 days she has become short of breath again. She states she woke up this morning short of breath, she used her inhaler with no relief therefore she called an ambulance was transported to the emergency department. The patient complains persistent cough which is productive of white sputum. Patient complains of chest pain. She points to her anterior chest and describes the pain as a intermittent pressure-like sensation which is worse with coughing and breathing. She feels short of breath at rest and does have dyspnea on ex ertion. She states that she is having body aches and feels fatigued. She denied fever, chills, diarrhea, loss of sense of taste or smell. Patient has received the Moderna 2 shot COVID-19 vaccination with her 2nd vaccination being in June of 2020. She states she was tested for COVID-19 yesterday but does not know the result. Related Data Home Medications Medication Instructions Recorded Confirmed albuterol sulfate 90 mcg/actuation 2 puff INHALATION Q6H PRN 11/25/19 12/14/20 aerosol inhaler (ProAir HFA) ferrous sulfate 300 mg (60 mg 300 mg PO DAILY 11/25/19 12/14/20 iron)/5 mL oral liquid lidocaine 4 % topical patch 1 patch TOPICAL DAILY PRN 11/25/19 12/14/20 Previous Rx's Medication Instructions Recorded senna 8.6 mg capsule (sennosides) 8.6 mg PO DAILY 60 Days #60 cap NS 11/25/19 acetaminophen 650 mg 650 mg PO Q8H PRN #60 tab 02/03/20 tablet,extended release (Tylenol 8 Hour) acetaminophen 650 mg 650 mg PO Q8H #60 tab 04/27/20 tablet,extended release (Tylenol 8 Hour) ibuprofen 800 mg tablet 800 mg PO Q8H #60 tab 04/27/20 oxycodone 5 mg capsule 5 mg PO Q6H PRN #10 cap 04/27/20 bisacodyl 5 mg tablet,delayed 5 mg PO BEDTIME 30 Days #30 tab 05/15/20 release (Dulcolax (bisacodyl)) tramadol 50 mg tablet 50 mg PO Q6H PRN #30 tab 07/14/20 omeprazole 40 mg capsule,delayed 40 mg PO BID 30 Days #60 cap 12/14/20 release azithromycin 250 mg tablet See Rx Instructions .ROUTE 12/27/20 (Zithromax Z-Josh) .COMPLEX #6 tab prednisone 20 mg tablet 60 mg PO DAILY 5 Days #15 tab 12/27/20 Allergies Allergy/AdvReac Type Severity Reaction Status Date / Time mussels Allergy Severe DIFFICULTY Verified 12/27/20 06:49 BREATHING lactose AdvReac Diarrhea Verified 12/27/20 06:49 Review of Systems Review of Systems: Yes all other systems are reviewed and are negative [facility] Past Medical History [facility] Narrative: Social history: The patient denies tobacco, alcohol and drug use. Medical History Asthma Chronic constipation COVID-19 Depression Epigastric pain GERD (gastroesophageal reflux disease) Hypothyroidism Iron deficiency anemia due to chronic blood loss Lab test negative for COVID-19 virus Lactose intolerance in adult Surgical History History of breast lump/mass excision History of colonoscopy History of endometrial ablation History of esophagogastroduodenoscopy (EGD) Hx of arthroscopic knee surgery Hx of dilation and curettage Hx of shoulder surgery Hx of tubal ligation Status post laparoscopic cholecystectomy Family History Family History Mother No problems noted. Father No problems noted. Maternal Aunt Hx of ovarian cancer Social History Social History Household Members: Children Alcohol intake: current Alcohol intake frequency: a few times a week Alcohol type: beer Patient Tobacco Use Status: Never used Tobacco Second Hand Smoke Exposure: No Use of substances other than those prescribed or required for medical reasons: No Substance Use Frequency: Socially Any prior treatment program specific to substance use: No Advance Directives: No Advance Directives Information Provided: Yes Patient : No Current occupational status: employed Current occupation: [employer] Physical Exam Vital Signs: Vital Signs: Last Vital Signs Temp 98.2 F 12/27/20 07:32 Pulse 85 12/27/20 07:32 Resp 18 12/27/20 07:32 BP 109/61 12/27/20 07:32 Pulse Ox 97 12/27/20 07:32 Body Mass Index 39.6 Const: General: cooperative and no acute distress Orie ntation/consciousness: oriented to person and oriented to place Limitations: no limitations HENMT: Head: Yes normal to inspection, Yes normocephalic and Yes atraumatic Ears: external ears normal General nose exam: Normal external nose present Face and sinus: Yes normal facial exam Mouth: Normal oral and palatal mucosa present Throat: Yes posterior oropharynx normal Eyes: General: appearance normal, both eyes and all related structures Pupils: Equal, round and reactive pupils present Neck: Neck: Yes normal visual inspection, Yes no lymphadenopathy, Yes trachea midline and Yes supple Chest: Chest palpation & inspection: normal inspection of the chest and normal palpation of entire chest wall Resp: Effort & Inspection: normal respiratory effort and able to speak in complete sentences Auscultation: wheezes (Diffuse) Cardio: Rate: regular rate Rhythm: regular rhythm Heart sounds: S1 normal heart sound present, S2 normal heart sound present and no murmurs GI: Inspection: Yes normal to inspection Palpation (GI): Soft to palpation, nontender and no guarding Auscultation: normal bowel sounds : General: Yes no CVA tenderness Back/Spine/Pelvis: Back: no CVA tenderness Skin: General skin exam: no rashes or lesions noted Neuro: General: oriented to person and oriented to place Cranial nerves: Yes CN's II-XII intact bilaterally and Yes Equal, round and reactive pupils present Cognition (Neuro): normal cognition Motor exam (neuro): 5/5 motor strength present throughout Extrem: General: Yes normal to inspection Psych: Appearance: grossly normal Speech and movement: Normal speech and movement present Affect: normal affect Attitude: cooperative Thought process: Normal thought process present Thought content: Normal thought content present Course Course Course Narrative: 40-year-old female who is you of asthma who presents emergency department for evaluation of shortness of breath x1 week which improved but then got worse 2 days prior. Patient also complains of fatigue, myalgias, pleuritic chest pain. Patient states the cough is productive. She has been using her albuterol inhaler with only minimal relief for shortness of breath. Patient has been vaccinated for COVID-19. Vital signs revealed an O2 saturation of 100% on room air and she was afebrile. Her lung exam revealed diffuse wheezing otherwise was unremarkable. Differential includes but not limited to COVID-19 infection, bronchitis, pneumonia. I did order a COVID-19 test on the patient. Patient was ordered to get an albuterol inhaler with spacer 4 puffs here in the emergency department. She is also given prednisone 60 mg orally and azithromycin 500 mg orally. 0807: The patient's COVID-19 test was negative. The patient will be treated for asthma exacerbation and acute bronchitis. Patient was given verbal and printed instructions and discharged home. Medical Decision Making Lab Data Labs: Lab Results 12/27/20 Range/Units 07:13 COVID-19 ([place]) Negative (Negative) COVID-19 Clin Com See Note Discharge Plan Discharge Clinical Impression: Bronchitis Asthma exacerbation Qualifiers: Asthma severity: moderate Asthma persistence: unspecified Qualified Code(s): J45.901 - Unspecified asthma with (acute) exacerbation Patient Disposition: Home, Self-Care Instructions: Asthma (ED), Acute Bronchitis (ED) Additional Instructions: Your COVID-19 test was negative. Your symptoms are consistent with bronchitis which is causing a flare-up of your asthma. Take prednisone 20 mg pills, 3 pills once a day for 5 days. Take azithromycin (Zithromax) as prescribed. You received a dose in the emergency department. Take your day 1 dose tomorrow morning and then complete the 5 day course. Follow-up with your doctor in 2 days. Please return to the emergency department if your symptoms get worse or if you develop any symptoms that are concerning to you. Prescriptions: New azithromycin [Zithromax Z-Josh] 250 mg tablet See Rx Instructions .ROUTE .COMPLEX Qty: 6 RF: 0 prednisone 20 mg tablet 60 mg PO DAILY 5 Days Qty: 15 RF: 0 No Action bisacodyl [Dulcolax (bisacodyl)] 5 mg tablet,delayed release (DR/EC) 5 mg PO BEDTIME 30 Days Qty: 30 RF: 3 acetaminophen [Tylenol 8 Hour] 650 mg tablet extended release 650 mg PO Q8H PRN (Reason: pain) Qty: 60 RF: 1 Hold Instructions: Resume on 05/11/20. ibuprofen 800 mg tablet 800 mg PO Q8H Qty: 60 RF: 0 acetaminophen [Tylenol 8 Hour] 650 mg tablet extended release 650 mg PO Q8H Qty: 60 RF: 0 oxycodone 5 mg capsule 5 mg PO Q6H PRN (Reason: pain) Qty: 10 RF: 0 tramadol 50 mg tablet 50 mg PO Q6H PRN (Reason: pain) Qty: 30 RF: 0 ferrous sulfate 300 mg (60 mg iron)/5 mL liquid 300 mg PO DAILY RF: 0 lidocaine 4 % adhesive patch,medicated 1 patch topical DAILY PRN (Reason: Pain) RF: 0 albuterol sulfate [ProAir HFA] 90 mcg/actuation HFA aerosol inhaler 2 puff inhalation Q6H PRN (Reason: Shortness Of Breath Or Wheezing) RF: 0 senna 8.6 mg capsule 8.6 mg PO DAILY 60 Days Qty: 60 RF: 3 omeprazole 40 mg capsule,delayed release(DR/EC) 40 mg PO BID 30 Days Qty: 60 RF: 3
[2020-12-27 07:32] VITALS: BP 109/61; PULSE 85; RESP 18; TEMP 36.8; O2SAT 97
[2020-12-27 07:40] LABS: COVID-19 Test Negative (Negative)
[2020-12-27] MEDS: Azithromycin 500 MG TABLET PO (07:41)
[2020-12-27] MEDS: predniSONE 20 MG TABLET 60 MG PO (07:41)
[2020-12-27] MEDS: Albuterol Sulfate 90 MCG 8 GM INHALER 4 PUFF INHALE (08:05)
== END 2020-12-27 08:30 | disposition home or self-care (01) ==
PROVIDERS: Emergency Provider Emergency Medicine Emergency Medical Services
DX: J45.901 Unspecified asthma with (acute) exacerbation (principal); J40 Bronchitis, not specified as acute or chronic; Z20.822 Contact with and (suspected) exposure to COVID-19
CPT/HCPCS: 36415; 87635; 94640; 99284

== ENCOUNTER → 2021-03-05 07:05 | Outpatient (REF) | payer MEDICAID, SELFPAY ==
--- NOTE | ~2021-03-05 | NM_ITS ---
EXAMINATION: RADIONUCLIDE SOLID FOOD GASTRIC EMPTYING 4-HOUR STUDY CLINICAL INFORMATION: Gastroesophageal reflux disease without esophagitis. COMPARISON: No previous gastric emptying study is available for comparison. TECHNIQUE: A standard meal consisting of 4 oz of Egg Beaters brand equivalent tagged was 1.0 mCi Tc-99m Sulfur Colloid, 8 oz water and 2 slices of toast with jelly was administered orally to the patient. Images were obtained using a dual head gamma camera in the anterior and posterior projections over of the stomach immediately post ingestion and at hourly intervals up to 4 hours post ingestion. The anterior and posterior counts at each time interval were averaged using the geometric mean and expressed as percentage of the immediate post ingestion counts. FINDINGS: There is good visualization of activity in the stomach immediately post ingestion. As the study progresses, there is good clearance of activity from the stomach and visualization of progressively increasing small bowel activity. By the end of the study, there is almost no retention noted in the stomach. Retention in the stomach at each time interval was: 1 hour 77% (normal 37%-90%) 2 hours 67% (normal 30%-60%) 3 hours 40% 4 hours 6% (normal 0%-10%) NM/NM gastric emptying study IMPRESSION: Normal 4-hour solid food gastric emptying study.
[2021-03-05 08:38] LABS: Hematocrit 33.6 % (37.0-47.0); Mean Corpuscular HGB Conc 32.7 g/dl (31.0-35.0); Mean Corpuscular Volume 88.7 fL (80.0-98.0); Mean Platelet Volume 10.2 fL (9.4-12.3); Platelet Count 351 X10*3/uL (160-400); Red Blood Count 3.79 X10*6/uL (4.20-5.50); Red Cell Distribution Width 12.4 % (11.0-16.0); White Blood Count 6.4 X10*3/uL (4.8-10.8)
[2021-03-05 09:01] LABS: Cholesterol 139 mg/dL; HDL Cholesterol 52 mg/dL; Iron 50 mcg/dL (30-160); LDL Cholesterol Calculated 72 mg/dl; Percent Iron Saturation 12 % (15-50); Total Iron Binding Capacity 406 mcg/dL (228-428); Triglycerides 77 mg/dL; Unsaturated Iron Binding 356 ug/dL
[2021-03-05 09:20] LABS: HIV AB/AG Nonreactive (Nonreactive); HIV Num 1 0.07 S/CO (0.00-0.99)
[2021-03-05 09:21] LABS: Syphilis Screen Nonreactive (Nonreactive)
[2021-03-05 09:26] LABS: Ferritin 32 ng/mL (10-250); TSH reflex Free T4 6.06 uIU/mL (0.32-4.0); Vitamin D 25-OH Total 12.1 ng/mL (>30)
[2021-03-05 09:31] LABS: HBS Num1 166.62 mIU/mL (0-7.99); HBc Num1 0.13 S/CO (0.00-0.79); Hepatitis B Core Antibody Nonreactive (Nonreactive); Hepatitis B Surface Antigen Negative (Negative); ~Hepatitis B Surface Antibody REACTIVE (Nonreactive)
[2021-03-05 10:05] LABS: Free T4 (Free Thyroxine) 0.84 ng/dL (0.71-1.85)
== END ==
LOC: HO.NUCMED 07:05
PROVIDERS: Absent Provider Registered Nurse; PCP Registered Nurse; Visit Provider Internal Medicine Gastroenterology
DX: Z00.00 Encounter for general adult medical examination without abnormal findings (principal); Z11.4 Encounter for screening for human immunodeficiency virus [HIV]; K21.9 Gastro-esophageal reflux disease without esophagitis; D50.9 Iron deficiency anemia, unspecified
CPT/HCPCS: 36415; 78264; 80061; 82306; 82728; 83540; 84439; 84443; 85027; 86704; 86706; 86780; 87340; 87389; A9541

== ENCOUNTER 2021-04-04 11:35 | Outpatient (REF) | payer MEDICAID, SELFPAY ==
--- NOTE | ~2021-04-04 | XR_ITS ---
EXAMINATION: XR knee LT 2V, XR knee RT 2V, XR knee standing BI CLINICAL INFORMATION: Knee pain COMPARISON: None TECHNIQUE: 2 views of the right knee and 2 views of the left knee, with one view of the bilateral knees standing XR/XR knee LT 2V FINDINGS/IMPRESSION: RIGHT KNEE: No acute fracture or dislocation. Joint spaces are maintained. No joint effusion. Soft tissues are unremarkable. LEFT KNEE: No acute fracture or dislocation. Joint spaces are maintained. Moderate suprapatellar joint effusion. Soft tissues are unremarkable.
--- NOTE | ~2021-04-04 | XR_ITS ---
EXAMINATION: XR knee LT 2V, XR knee RT 2V, XR knee standing BI CLINICAL INFORMATION: Knee pain COMPARISON: None TECHNIQUE: 2 views of the right knee and 2 views of the left knee, with one view of the bilateral knees standing XR/XR knee RT 2V FINDINGS/IMPRESSION: RIGHT KNEE: No acute fracture or dislocation. Joint spaces are maintained. No joint effusion. Soft tissues are unremarkable. LEFT KNEE: No acute fracture or dislocation. Joint spaces are maintained. Moderate suprapatellar joint effusion. Soft tissues are unremarkable.
--- NOTE | ~2021-04-04 | XR_ITS ---
EXAMINATION: XR knee LT 2V, XR knee RT 2V, XR knee standing BI CLINICAL INFORMATION: Knee pain COMPARISON: None TECHNIQUE: 2 views of the right knee and 2 views of the left knee, with one view of the bilateral knees standing XR/XR knee standing BI FINDINGS/IMPRESSION: RIGHT KNEE: No acute fracture or dislocation. Joint spaces are maintained. No joint effusion. Soft tissues are unremarkable. LEFT KNEE: No acute fracture or dislocation. Joint spaces are maintained. Moderate suprapatellar joint effusion. Soft tissues are unremarkable.
--- NOTE | ~2021-04-04 | XR_ITS ---
EXAMINATION: XR wrist LT min 3V CLINICAL INFORMATION: Pain COMPARISON: None TECHNIQUE: 3 views of the wrist XR/XR wrist LT min 3V FINDINGS/IMPRESSION: No fracture or dislocation. Joint spaces are maintained. No cortical erosion. Soft tissues are unremarkable.
== END 2021-04-04 11:36 | disposition home or self-care (01) ==
LOC: HO.HOSX 11:35
PROVIDERS: Visit Provider Physician Assistant
DX: M17.0 Bilateral primary osteoarthritis of knee (principal)
CPT/HCPCS: 73110; 73560; 73565; 99212

== ENCOUNTER 2021-04-10 08:19 | Outpatient (REF) | payer MEDICAID, SELFPAY ==
--- NOTE | ~2021-04-10 | XR_ITS ---
EXAMINATION: XR WRIST, LEFT CLINICAL INFORMATION: Pain COMPARISON: Previous x-ray 04/04/2021 TECHNIQUE: PA, lateral, and oblique views of the left wrist. FINDINGS: The bones and soft tissues are normal. No fracture. Alignment is anatomic with normal joint spaces. No erosions or abnormal soft tissue calcifications. XR/XR wrist LT min 3V IMPRESSION: Normal left wrist.
== END 2021-04-10 08:20 | disposition home or self-care (01) ==
LOC: HO.HOSX 08:19
PROVIDERS: Visit Provider Physician Assistant
DX: M25.532 Pain in left wrist (principal); S63.502A Unspecified sprain of left wrist, initial encounter; X58.XXXA Exposure to other specified factors, initial encounter; Y93.9 Activity, unspecified; Y92.9 Unspecified place or not applicable; E03.9 Hypothyroidism, unspecified; Y99.8 Other external cause status; Z91.011 Allergy to milk products; Z91.013 Allergy to seafood
CPT/HCPCS: 29085; 73110; 99212

== ENCOUNTER 2021-05-04 07:59 | Outpatient (REF) | payer MEDICAID, SELFPAY ==
--- NOTE | ~2021-05-04 | XR_ITS ---
EXAMINATION: XR WRIST, LEFT CLINICAL INFORMATION: Pain left wrist COMPARISON: None TECHNIQUE: PA, lateral, and oblique views of the left wrist. FINDINGS: The bones and soft tissues are normal. No fracture. Alignment is anatomic with normal joint spaces. No erosions or abnormal soft tissue calcifications. XR/XR wrist LT min 3V IMPRESSION: Normal left wrist.
== END 2021-05-04 08:00 | disposition home or self-care (01) ==
LOC: HO.HOSX 07:59
PROVIDERS: Visit Provider Physician Assistant
DX: S52.502D Unspecified fracture of the lower end of left radius, subsequent encounter for closed fracture with routine healing (principal)
CPT/HCPCS: 29085; 73110; 99212

== ENCOUNTER 2021-05-21 16:04 | Emergency (ER) | payer MEDICAID, SELFPAY ==
--- NOTE | ~2021-05-21 | XR_ITS ---
EXAMINATION: XR shoulder LT min 2V, XR clavicle LT CLINICAL INFORMATION: Reason for Exam pain, injury COMPARISON: Chest x-ray 01/14/2016. TECHNIQUE: Axial view of the left clavicle. 3 views left shoulder. FINDINGS: There is slight elevation of the distal clavicle relative to the acromion. A low-grade acromioclavicular joint separation could give this appearance. The clavicle is intact. The shoulder is intact. No fracture or dislocation seen. The visualized left lung and ribs are normal. XR/XR clavicle LT IMPRESSION: Slight elevation of the distal clavicle relative to the acromion which could represent a low-grade acromioclavicular joint separation.
--- NOTE | ~2021-05-21 | XR_ITS ---
EXAMINATION: XR shoulder LT min 2V, XR clavicle LT CLINICAL INFORMATION: Reason for Exam pain, injury COMPARISON: Chest x-ray 01/14/2016. TECHNIQUE: Axial view of the left clavicle. 3 views left shoulder. FINDINGS: There is slight elevation of the distal clavicle relative to the acromion. A low-grade acromioclavicular joint separation could give this appearance. The clavicle is intact. The shoulder is intact. No fracture or dislocation seen. The visualized left lung and ribs are normal. XR/XR shoulder LT min 2V IMPRESSION: Slight elevation of the distal clavicle relative to the acromion which could represent a low-grade acromioclavicular joint separation.
[2021-05-21 17:31] VITALS: BP 125/68; PULSE 70; RESP 16; TEMP 36.2; O2SAT 100; BMI 39.6
--- NOTE | 2021-05-21 19:08 | ED_ITS ---
HPI - Neck Pain/Injury General Chief Complaint: Neck Pain/Injury Stated Complaint: injury to neck and shoulder Time Seen by Provider: 05/21/21 18:23 Source: patient Mode of arrival: ambulatory Limitations: language barrier (Mosotho-speaking medical record librarians teacher utilized) History of Present Illness HPI Narrative: Patient is a 40-year-old female being evaluated in the emergency department for injury to the left neck and shoulder. She reports that yesterday she was lifting her mattress and bed frame up to prop it against the wall when her grandson bumped into the foramen causing it to fall with the wooden frame landing on top of her left shoulder. She did fall to the ground with the bed, denies head strike or loss of consciousness. Denies any additional joint or extremity pains. Denies numbness or tingling to the arm. She has not yet taken any medication for pain today. Of note she does have a distal radius fracture that she sustained 6 weeks ago, there is currently a hard cast in place and she is being followed by Orthopedics. Related Data Home Medications Medication Instructions Recorded Confirmed albuterol sulfate 90 mcg/actuation 2 puff INHALATION Q6H PRN 11/25/19 12/14/20 aerosol inhaler (ProAir HFA) ferrous sulfate 300 mg (60 mg 300 mg PO DAILY 11/25/19 12/14/20 iron)/5 mL oral liquid lidocaine 4 % topical patch 1 patch TOPICAL DAILY PRN 11/25/19 12/14/20 Previous Rx's Medication Instructions Recorded senna 8.6 mg capsule (sennosides) 8.6 mg PO DAILY 60 Days #60 cap NS 11/25/19 acetaminophen 650 mg 650 mg PO Q8H PRN #60 tab 02/03/20 tablet,extended release (Tylenol 8 Hour) acetaminophen 650 mg 650 mg PO Q8H #60 tab 04/27/20 tablet,extended release (Tylenol 8 Hour) ibuprofen 800 mg tablet 800 mg PO Q8H #60 tab 04/27/20 bisacodyl 5 mg tablet,delayed 5 mg PO BEDTIME 30 Days #30 tab 05/15/20 release (Dulcolax (bisacodyl)) tramadol 50 mg tablet 50 mg PO Q6H PRN #30 tab 07/14/20 prednisone 20 mg tablet 60 mg PO DAILY 5 Days #15 tab 12/27/20 omeprazole 40 mg capsule,delayed 40 mg PO BID #180 cap 03/08/21 release naproxen 500 mg tablet 500 mg PO BID 30 Days #60 tab 04/20/21 cyclobenzaprine 10 mg tablet 10 mg PO BID PRN #14 tab 05/21/21 Allergies Allergy/AdvReac Type Severity Reaction Status Date / Time mussels Allergy Severe DIFFICULTY Verified 05/04/21 13:13 BREATHING lactose AdvReac Diarrhea Verified 05/04/21 13:13 Review of Systems Review of Systems: Constitutional: No weight loss, fever, chills, weakness or fatigue. Skin: No rash or itching. Cardiovascular: No chest pain, chest pressure or chest discomfort. No palpitations or pedal edema. Respiratory: No shortness of breath, cough or sputum production. Gastrointestinal: No anorexia, nausea, vomiting or diarrhea. No abdominal pain. Genitourinary: No burning micturition. Musculoskeletal: Positive left shoulder pain, left neck pain Psychiatric: No depression or anxiety. Yes all other systems are reviewed and are negative PMFSH Past Medical History Attestation statement: The following information was validated with the patient. Source: old records reviewed Medical History Asthma Chronic constipation COVID-19 Depression Epigastric pain GERD (gastroesophageal reflux disease) Hypothyroidism Iron deficiency anemia due to chronic blood loss Lab test negative for COVID-19 virus Lactose intolerance in adult Surgical History History of breast lump/mass excision History of colonoscopy History of endometrial ablation History of esophagogastroduodenoscopy (EGD) Hx of arthroscopic knee surgery Hx of dilation and curettage Hx of shoulder surgery Hx of tubal ligation Status post laparoscopic cholecystectomy Family History Family History Mother No problems noted. Father No problems noted. Maternal Aunt Hx of ovarian cancer Social History Social History Household Members: Children Alcohol intake: current Alcohol intake frequency: a few times a week Alcohol type: beer Patient Tobacco Use Status: Never used Tobacco Second Hand Smoke Exposure: No Advance Directives: No Advance Directives Information Provided: No Patient : No Current occupational status: employed Current occupation: [employer] Physical Exam Vital Signs: Vital Signs: Last Vital Signs Temp 97.2 F 05/21/21 17:31 Pulse 70 05/21/21 17:31 Resp 16 05/21/21 17:31 BP 125/68 05/21/21 17:31 Pulse Ox 100 05/21/21 17:31 BMI result Body Mass Index 39.6 Vital signs have been reviewed as normal and appeared to be correct. Blood pressure normal.? Heart rate normal.? Respiration rate normal. Temperature normal.? Oxygen saturation normal. Appearance: Alert.?Oriented to person, place and time. No acute distress.?Normal affect. Eyes: Pupils equal, round and reactive to light.? ENT: Pharynx normal.?? Neck: Normal inspection.? Neck supple.? No palpable midline C-spine tenderness, step-offs, deformities. CVS: Heart sounds normal. Normal heart rate and rhythm.? Pulses normal, 2+ radial pulse palpable bilaterally Respiratory: No respiratory distress.? Lung sounds clear to auscultation bilaterally?? Abdomen: Soft and non-tender. ? Skin: Skin warm and dry.? Normal skin color.? Extremities: Limited AROM of left shoulder through wall motions, exam limited due to pain, no palpable deformities, notable bruising or swelling. Tenderness to palpation over the trapezius muscle. No lower extremity edema.? Neuro: Moves all extremities spontaneously. Sensation intact bilaterally. CN II- XII intact. No focal neuro deficits. Ambulates with normal steady gait. Course Course Course Narrative: Patient is a 40-year-old female being evaluated for evaluation of left lateral neck and left shoulder pain after an injury. XR of the left shoulder and left clavicle obtained which reveals slight elevation of the distal clavicle relative to the acromion which could represent a low-grade acromioclavicular joint separation. Patient received Toradol IM and Flexeril p.o. for pain, with improvement in pain.?Discussed findings with patient, and plan for discharge home and outpatient follow-up with orthopedics within 5 days, shoulder sling, naproxen twice daily, and Flexeril as needed for pain, topical ice and heat therapy, follow-up with orthopedics in 1 week, discussed reasons to return to the emergency department, all questions were answered, and patient agrees with plan. MDM - Neck Pain/Injury Medical Records Attestation: I reviewed the patient's medical records. Imaging Data shoulder XR: Radiologist's impression: FINDINGS: There is slight elevation of the distal clavicle relative to the acromion. A low-grade acromioclavicular joint separation could give this appearance. The clavicle is intact. The shoulder is intact. No fracture or dislocation seen. The visualized left lung and ribs are normal. XR/XR clavicle LT IMPRESSION: Slight elevation of the distal clavicle relative to the acromion which could represent a low-grade acromioclavicular joint separation. Discharge Plan Discharge Clinical Impression: Acromioclavicular joint separation Patient Disposition: Home, Self-Care Instructions: Acromioclavicular Separation (ED) Additional Instructions: Take naproxen as needed for pain, do not take with additional [id number] pain medications such as ibuprofen or Aleve, aspirin. You may use Flexeril as needed for pain if the naproxen not helping, this medication can make you drowsy therefore you should not drive for 8 hours after taking medication. Please leave the shoulder sling in place until re-evaluated. Please contact orthopedic provider to schedule an appointment within 1 week. Return to the emergency department for any new or worsening symptoms or concerns. Prescriptions: New cyclobenzaprine 10 mg tablet 10 mg PO BID PRN (Reason: muscle spasm) Qty: 14 0RF No Action bisacodyl [Dulcolax (bisacodyl)] 5 mg tablet,delayed release (DR/EC) 5 mg PO BEDTIME 30 Days Qty: 30 3RF omeprazole 40 mg capsule,delayed release(DR/EC) 40 mg PO BID Qty: 180 1RF naproxen 500 mg tablet 500 mg PO BID 30 Days Qty: 60 3RF acetaminophen [Tylenol 8 Hour] 650 mg tablet extended release 650 mg PO Q8H PRN (Reason: pain) Qty: 60 1RF Hold Instructions: Resume on 05/11/20. Rx Instructions: Use in addition to naproxen for post operative cramping ibuprofen 800 mg tablet 800 mg PO Q8H Qty: 60 0RF acetaminophen [Tylenol 8 Hour] 650 mg tablet extended release 650 mg PO Q8H Qty: 60 0RF Rx Instructions: Take 4 hours after ibuprofen and continue alternating tramadol 50 mg tablet 50 mg PO Q6H PRN (Reason: pain) Qty: 30 0RF Rx Instructions: 1-2 tablets every 6 hours as needed for pain prednisone 20 mg tablet 60 mg PO DAILY 5 Days Qty: 15 0RF ferrous sulfate 300 mg (60 mg iron)/5 mL liquid 300 mg PO DAILY 0RF lidocaine 4 % adhesive patch,medicated 1 patch topical DAILY PRN (Reason: Pain) 0RF Rx Instructions: may leave on for up to 12 hrs albuterol sulfate [ProAir HFA] 90 mcg/actuation HFA aerosol inhaler 2 puff inhalation Q6H PRN (Reason: Shortness Of Breath Or Wheezing) 0RF senna 8.6 mg capsule 8.6 mg PO DAILY 60 Days Qty: 60 3RF Referrals: Jad Ramirez MD [Physician] - 1 week Stand Alone Forms: Work/School Release Interventions: ED Discharge Assessment Last Done: 05/21/21 22:01 Discharge Date/Time: 05/21/21 22:01 Print Language: Mosotho
[2021-05-21] MEDS: Ketorolac Tromethamine 60 MG/2 ML VIAL IM (19:27)
[2021-05-21] MEDS: Cyclobenzaprine HCl 10 MG TABLET PO (19:27)
== END 2021-05-21 22:01 | disposition home or self-care (01) ==
PROVIDERS: Emergency Provider Emergency Medicine
DX: M25.812 Other specified joint disorders, left shoulder (principal); M25.512 Pain in left shoulder
CPT/HCPCS: 73000; 73030; 96372; 99283; 99284; J1885

== ENCOUNTER 2021-05-28 09:06 | Outpatient (REF) | payer MEDICAID, SELFPAY ==
--- NOTE | ~2021-05-28 | XR_ITS ---
EXAMINATION: XR WRIST, LEFT CLINICAL INFORMATION: Pain COMPARISON: Previous exams most recent April 2021 TECHNIQUE: PA, lateral, and oblique views of the left wrist. FINDINGS: The bones and soft tissues are normal. No fracture. Alignment is anatomic with normal joint spaces. No erosions or abnormal soft tissue calcifications. XR/XR wrist LT min 3V IMPRESSION: Normal left wrist.
== END 2021-05-28 09:07 | disposition home or self-care (01) ==
LOC: HO.HOSX 09:06
PROVIDERS: Visit Provider Physician Assistant
DX: M25.532 Pain in left wrist (principal); M17.12 Unilateral primary osteoarthritis, left knee; S52.502A Unspecified fracture of the lower end of left radius, initial encounter for closed fracture; S43.102A Unspecified dislocation of left acromioclavicular joint, initial encounter; W18.30XA Fall on same level, unspecified, initial encounter; Y93.9 Activity, unspecified; Y92.9 Unspecified place or not applicable; Y99.8 Other external cause status; Z91.011 Allergy to milk products; Z91.013 Allergy to seafood
CPT/HCPCS: 20610; 73110; 99212; J1040

== ENCOUNTER 2021-05-29 14:29 | Outpatient (REF) | payer MEDICAID, SELFPAY ==
--- NOTE | ~2021-05-29 | US_ITS ---
EXAMINATION: US THYROID CLINICAL INFORMATION: Nontoxic goiter. COMPARISON: Thyroid ultrasound 03/18/2017. Ultrasound soft tissue head and neck 01/28/2018. TECHNIQUE: Linear transducer grayscale and color Doppler examination with attention to the region of the thyroid. FINDINGS: SIZE: Measurements of the thyroid lobes and nodules are given in sagittal, anteroposterior and transverse dimensions respectively. Right Thyroid Lobe: 4.1 x 1.6 x 1.3 cm, volume 4.5 mL. Previously 4.7 x 1.4 x 1.4 cm, volume 4.7 mL. Parenchyma: The gland echotexture is homogeneous. Thyroid vascularity is normal. Left Thyroid Lobe: 3.4 x 0.7 x 1.2 cm, volume 1.5 mL. Previously 3.8 x 1.6 x 1.2 cm, volume 3.5 mL. Parenchyma: The gland echotexture is homogeneous. Thyroid vascularity is normal. Isthmus: 0.3 cm in maximum AP dimension. Previously 0.3 cm. No focal thyroid nodule is seen. NODES: No lymphadenopathy is seen in the tissue surrounding the thyroid gland. US/US thyroid IMPRESSION: Small left lobe. Otherwise unremarkable exam..
== END 2021-05-29 14:30 | disposition home or self-care (01) ==
LOC: HO.US 14:29
PROVIDERS: PCP Registered Nurse; Visit Provider Registered Nurse
DX: E04.9 Nontoxic goiter, unspecified (principal)
CPT/HCPCS: 76536

== ENCOUNTER 2021-07-10 13:48 | Outpatient (REF) | payer MEDICAID, SELFPAY ==
--- NOTE | ~2021-07-10 | MM_ITS ---
EXAMINATION: MM SCREENING DIGITAL BREAST TOMOSYNTHESIS, BILATERAL CLINICAL INFORMATION: Screening. Asymptomatic. 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 Prior excisional biopsy. The lifetime risk of breast cancer based on the Tyrer-Cuzick Model is 8%. COMPARISON: Mammography: 08/18/2015, 07/15/2014 TECHNIQUE: Digital breast tomosynthesis is performed in both the craniocaudal and mediolateral oblique views along with computer-aided detection (CAD). Synthesized 2D images are generated from the tomosynthesis. FINDINGS: The breasts are heterogeneously dense, which may obscure small masses (ACR BI-RADS breast composition Category c). Biopsy clip marker anterior upper outer left breast is no longer demonstrated consistent with history excision. There is a ribbon shaped biopsy clip marker overlying stable mass 12:00 right breast. There is inhomogeneous parenchymal pattern and minor asymmetries similar to prior studies. Again, there are numerous bilateral randomly distributed calcifications, greater on left, and bilateral increase since 2016. There is no focal suspicious grouping or ductal distribution. The axilla and skin contours are unremarkable. MM/MM tomosynthesis screening BI IMPRESSION: No mammographic evidence of malignancy. ASSESSMENT: BI-RADS 2: Benign RECOMMENDATION: Routine annual mammography screening. This patient's information was entered into a reminder system with a target due date for their next mammogram.
== END 2021-07-10 13:49 | disposition home or self-care (01) ==
LOC: HO.MAMMO 13:48
PROVIDERS: PCP Registered Nurse; Visit Provider Registered Nurse
DX: Z12.31 Encounter for screening mammogram for malignant neoplasm of breast (principal)
CPT/HCPCS: 77063; 77067

== ENCOUNTER 2021-07-13 14:30 | Outpatient (RCR) | payer MEDICAID, SELFPAY ==
--- NOTE | 2021-06-19 14:21 | MHC.OT.OEV ---
[address] [phone] F: [phone] Occupational Therapy Evaluation Diagnosis: Left DRF Date of Onset: 04/04/21 Attending Provider: Barrett Swenson PA-C Prescribed Treatment: Eval and Treat History of Current Condition: 40 yo female fell down the stairs, she was seen at [facility] for knee and wrist pain, placed in pre-bran orthosis for about a week, then casted on follow-up visit. Her cast was removed 05/29/21 and OT ordered to begin range and strengthening. 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 Living Situation, Family and/or Social Support: Lives w/ two grown daughters and two year old grandson Current Level of Function and Occupation Self Care, Employment, Leisure: Was out of work while she was casted, but has been back to work the past few weeks Sleep: Pins and needles in hand at night Driving: Does not drive at baseline Vision: Balance: Pain Assessment Pain Score: 0 Pain Scale Used: Numeric (0 - 10) Pain Location and Description: Pain free at rest 7-8/10 pain through volar wrist->forearm when carrying heavy items More pain at the end of the work day Aggravating Factors: Lifting heavy objects (cooking pots, boxes, etc) Alleviating Factors: Naproxen (good relief, only takes when she has a lot of pain) Nerve assessment Ulnar Nerve: Median Nerve: Radial Nerve: Comments: WNL Sensory Assessment Temperature: WNL Light Touch: WNL Proprioception: WNL Vibration: Comments: Edema Assessment Upper Extremity: WNL Lower Extremity: Comments: Dexterity Assessment Dexterity: WNL Comments: Special Tests Comments: AROM(PROM) Strength Cervical Cervical Flexion: Cervical Extension: Cervical Lateral Flexion: Cervical Rotation: Comments: WNL Shoulder Flexion: L 100(160) Extension: Abduction: Internal Rotation: External Rotation: Comments: RUE WNL Left shoulder 0-100 AROM w/ some pain due to injury about one month ago, passive to 160 w/ increased pain and stiffness towards end range, int/ext rot WFL Flexion: Extension: Abduction: Internal Rotation: External Rotation: Comments: Elbow Flexion: Extension: Pronation: Supination: Comments: WNL Flexion: Extension: Pronation: Supination: Comments: Wrist Flexion: R 62 L 62 Extension: R 72 L 75 Ulnar Deviation: Radial Deviation: Comments: Flexion: Extension: Ulnar Deviation: Radial Deviation: Comments: Thumb Thumb CMC Flexion: Thumb MCP Flexion: Thumb IP Flexion: Radial Abduction: Palmar Abduction: Bowie (Kapandji 0-10): Comments: WNL Digits Index MCP: PIP: DIP: Long MCP: PIP: DIP: Ring MCP: PIP: DIP: Small MCP: PIP: DIP: Comments: WNL Gross Grasp: R 60lb L 35lb Lateral Pinch: Two-Point Pinch: Three-Jaw Zane: Comments: Patient Education Primary Language: Private Branch Exchange Service Adviser Required: Yes Current Knowledge: Understands information with skills for self-management Teaching Method: Demonstration Handouts Verbal Education Needs Identified on Evaluation: ADL's Disease Information Equipment Use Exercise Pain Safety How did patient/family demonstrate learning? Patient demonstrates Patient verbalizes Barriers to Learning: None Readiness for Learning: Accepting Who was educated? Patient Comments: Daughter present and supportive, assists w/ translating Plan of Care Assessment: 40 yo female presents about 11 weeks s/p fall w/ possible left distal radius fracture. She was initially placed in prefab wrist orthosis, then casted for six week. Cast removed 05/29/21 and she has regained range but still has decreased superior court clerk strength and functional strength for lifting and use of left arm and hand. Course has been complicated by contusion to left shoulder about three weeks ago, and she also has decreased flexion and shoulder strength. She will benefit from cont'd therapy services services to address functional strengthening w/ goal of pain free use of left hand/wrist/arm for daily activities. STG Duration: 1 week Short Term Goals: Ind w/ HEP Ind w/ nighttime wrist orthosis to minimize sensory changes Left gross grasp >45lb Left shoulder AROM to 150 LTG Duration: 3 weeks Sprinkler Installer Goals: Quickdash score <40 Gross graso >55lb Left shoulder AROM >165 Pt to demo lift and carry >20lb w/ ease Pain free left wrist and shoulder range Frequency and Duration: The patient will be seen 2x/wk for 3 weeks Treatment Plan: Therapeutic Exercise Therapeutic Activity Home Exercise Program Splinting Patient Education ADL Training Fluidotherapy MHP Cold Packs Joint Mobilization Soft Tissue Mobilization Kinesiotaping Nighttime resting wrist orthosis PRN for CTS symptoms Electronically Signed By: PATRICIA Crespo/Ozzie SALGADOT Reviewed/agree with student documentation: N/A Therapist: Please sign and return to therapist, Thank you for your referral.
--- NOTE | 2021-07-17 09:14 | MHC.OT.DC ---
[address] [phone] F: [phone] Occupational Therapy Discharge Note Provider: Barrett Swenson PA-C Diagnosis: Left DRF Date of Evaluation: 06/19/21 Date of Discharge: 07/14/21 Treatments to Date: 5 Discharge Status: Achieved Goals Improved Function Independent with HEP Discharge Summary: Kasie was seen for course of OT after falling down flight of stairs in March. She has good improvement in shoulder ROM and reports mostly pain free. No change in gross grasp, but today is WFL compared to right grasp. Still limited w/ heavier lifting tasks (full cooking pot), especially w/ shoulder pain. Ind w/ home program and good understanding for self management and progression. Electronically Signed By: PATRICIA Crespo/Ozzie CHT Reviewed/agree with student documentation: N/A Therapist: Please Sign and return to therapist, thank you for your referral.
== END 2021-07-17 09:14 | disposition home or self-care (01) ==
LOC: HO.OT 14:30
PROVIDERS: PCP Registered Nurse; Visit Provider Physician Assistant
DX: S52.502D Unspecified fracture of the lower end of left radius, subsequent encounter for closed fracture with routine healing (principal)
CPT/HCPCS: 97110; 97165

== ENCOUNTER 2021-12-12 13:09 | Outpatient (REF) | payer MEDICAID, SELFPAY ==
--- NOTE | ~2021-12-12 | MM_ITS ---
EXAMINATION: BONE DENSITOMETRY CLINICAL INDICATION: History of fragility fracture. COMPARISON: This is the patient's baseline examination. TECHNIQUE: Using a [employer] DXA System (software version: 13.1) manufactured by [employer], dual-energy x-ray absorptiometry was performed of the lumbar spine and left hip. The images are of good technical quality. Based on ISCD (International Society for Clinical Densitometry) standards of reporting, Z-scores instead of T-scores are reported in this premenopausal woman. Summary results are attached. FINDINGS: AP SPINE L1-L4: BMD 1.372 g/cm2, T-score 1.6, Z-score 0.6, Z-score within expected range for age. LEFT FEMUR, NECK: BMD 1.227 g/cm2, T-score 1.4, Z-score 1.2, Z-score within expected range for age. LEFT FEMUR, TOTAL: BMD 1.193 g/cm2, T-score 1.5, Z-score 1.0, Z-score within expected range for age. IDENTIFIED RISK FACTORS: History of fracture (adult). HISTORY OF FRACTURE: Humerus, wrist. MEDICATIONS: Vitamin D. MM/XR DEXA axial skeleton IMPRESSION: 1. DIAGNOSIS: Based on the lowest Z-score value of 0.6 in the lumbar spine, the patient's bone density is within the expected range for age. 2. 10-YEAR FRACTURE RISK PREDICTION, FRAX: Not performed in this perimenopausal patient. 3. Treatment Recommendations: NOF guidelines recommend consideration for treatment in postmenopausal women and men age 50 and older presenting with the following: -A hip or vertebral (clinical or morphometric) fracture. -T-score less than or equal to -2.5 at the femoral neck or spine after appropriate evaluation to exclude secondary causes. -Low bone mass at the hip or spine and a 10-year fracture probability by FRAX of greater than or equal to 3% for hip fracture or greater than or equal to 20% for major osteoporotic fracture based on the [place] adapted WHO algorithm. 4. Other Recommendations: All treatment decisions require clinical judgment and consideration of individual patient factors, including patient preferences, comorbidities, previous drug use, risk factors not captured in the FRAX model (e.g. frailty, falls, vitamin D deficiency, increased bone turnover, interval significant decline in bone density) and possible under or overestimation of fracture risk by FRAX. FUTURE SCAN RECOMMENDATION: People with diagnosed cases of osteoporosis or at high risk for fracture should have regular bone mineral density tests. For patients eligible for Medicare, routine testing is allowed once every 2 years. The testing frequency can be increased to one year for patients who have rapidly progressing disease, those who are receiving or discontinuing medical therapy to restore bone mass, or have additional risk factors.
== END 2021-12-12 13:10 | disposition home or self-care (01) ==
LOC: HO.MAMMO 13:09
PROVIDERS: PCP Registered Nurse; Visit Provider Registered Nurse
DX: Z13.820 Encounter for screening for osteoporosis (principal); Z87.310 Personal history of (healed) osteoporosis fracture
CPT/HCPCS: 77080

== ENCOUNTER 2022-01-14 18:28 | Emergency (ER) | payer MEDICAID, SELFPAY ==
--- NOTE | ~2022-01-14 | XR_ITS ---
EXAMINATION: XR KNEE, LEFT CLINICAL INFORMATION: Left knee pain COMPARISON: Left knee radiographs 04/04/2021 TECHNIQUE: Four views of the left knee. FINDINGS: No acute fracture or dislocation. No knee joint effusion. Joint spaces are maintained. No osteophytes. Small enthesophyte at the superior patellar pole/distal quadriceps tendon insertion. No osseous lesion. XR/XR knee LT 4V IMPRESSION: 1. No acute osseous injury or knee joint effusion. 2. Preserved joint spaces.
--- NOTE | 2022-01-14 19:03 | ED_ITS ---
HPI - Fall General Chief Complaint: Extremity Injury, Lower <LEYID Stanford - Last Filed: 01/14/22 19:07> Stated Complaint: fall, knee injury <LEYDI Stanford - Last Filed: 01/14/22 19:07> Time Seen by Provider: 01/14/22 20:16 <LEYDI Stanfrod - Last Filed: 01/14/22 19:07> Source: patient <Chiqui uY CNP - Last Filed: 01/14/22 21:38> Mode of arrival: ambulatory <Chiqui Yu CNP - Last Filed: 01/14/22 21:38> Limitations: no limitations <Chiqui Yu CNP - Last Filed: 01/14/22 21:38> History of Present Illness HPI Narrative: Patient is a 41-year-old female who presents to the emergency department for evaluation of traumatic left knee pain. She states that she was playing with her grandchild when she accidentally got pushed off of her bed and she fell landing onto the left knee. Pain is diffuse throughout the knee, made worse with weight-bearing and movement. Pain improves with rest. She denies any prior injury to this knee. Denies any redness, warmth, numbness, tingling, fevers, chills. <Chiqui Yu CNP - Last Filed: 01/14/22 21:38> Related Data Home Medications: Home Medications Medication Instructions Recorded Confirmed albuterol sulfate 90 mcg/actuation 2 puff inhalation Q6H PRN 11/25/19 12/14/20 aerosol inhaler (ProAir HFA) Shortness Of Breath Or Wheezing ferrous sulfate 300 mg (60 mg 300 mg PO DAILY 11/25/19 12/14/20 iron)/5 mL oral liquid lidocaine 4 % topical patch 1 patch topical DAILY PRN Pain 11/25/19 12/14/20 Previous Rx's Medication Instructions Recorded senna 8.6 mg capsule (sennosides) 8.6 mg PO DAILY chronic 11/25/19 constipation 2 months #60 caps acetaminophen 650 mg 650 mg PO Q8H PRN pain #60 tabs 02/03/20 tablet,extended release (Tylenol 8 Hour) acetaminophen 650 mg 650 mg PO Q8H #60 tabs 04/27/20 tablet,extended release (Tylenol 8 Hour) ibuprofen 800 mg tablet 800 mg PO Q8H #60 tabs 04/27/20 bisacodyl 5 mg tablet,delayed 5 mg PO BEDTIME 30 days #30 tabs 05/15/20 release (Dulcolax (bisacodyl)) tramadol 50 mg tablet 50 mg PO Q6H PRN pain #30 tabs 07/14/20 prednisone 20 mg tablet 60 mg PO DAILY 5 days #15 tabs 12/27/20 naproxen 500 mg tablet 500 mg PO BID 30 days #60 tabs 04/20/21 cyclobenzaprine 10 mg tablet 10 mg PO BID PRN muscle spasm #14 05/21/21 tabs omeprazole 40 mg capsule,delayed 40 mg PO BID 90 days #180 caps 01/14/22 release <LEYDI Stanford - Last Filed: 01/14/22 19:07> Allergies/Adverse Reactions: Allergies Allergy/AdvReac Type Severity Reaction Status Date / Time mussels Allergy Severe DIFFICULTY Verified 01/14/22 19:07 BREATHING lactose AdvReac Diarrhea Verified 01/14/22 19:07 <LEYDI Stanford - Last Filed: 01/14/22 19:07> Review of Systems Review of Systems: Musculoskeletal: Positive knee pain as noted in HPI <Chiqui Yu CNP - Last Filed: 01/14/22 21:38> Yes all other systems are reviewed and are negative <Chiqui Yu CNP - Last Filed: 01/14/22 21:38> [facility] Past Medical History Attestation statement: The following information was validated with the patient. <Chiqui Yu CNP - Last Filed: 01/14/22 21:38> Source: old records reviewed <Chiqui Yu CNP - Last Filed: 01/14/22 21:38> Medical History: Medical History Asthma Chronic constipation COVID-19 Depression Epigastric pain GERD (gastroesophageal reflux disease) Hypothyroidism Iron deficiency anemia due to chronic blood loss Lab test negative for COVID-19 virus Lactose intolerance in adult <LEYDI Stanford - Last Filed: 01/14/22 19:07> Surgical History: Surgical History History of breast lump/mass excision History of colonoscopy History of endometrial ablation History of esophagogastroduodenoscopy (EGD) Hx of arthroscopic knee surgery Hx of dilation and curettage Hx of shoulder surgery Hx of tubal ligation Status post laparoscopic cholecystectomy <LEYDI Stanford - Last Filed: 01/14/22 19:07> Family History Family History: Family History Mother No problems noted. Father No problems noted. Maternal Aunt Hx of ovarian cancer <LEYDI Stanford - Last Filed: 01/14/22 19:07> Social History Social History: Social History Household Members: Children Alcohol intake: unknown Patient Tobacco Use Status: Never used Tobacco Smoked in Last 30 Days: No Second Hand Smoke Exposure: No Use of substances other than those prescribed or required for medical reasons: Unknown Advance Directives: No Advance Directives Information Provided: No Current occupational status: employed Current occupation: [email or web address] <LEYDI Stanford - Last Filed: 01/14/22 19:07> Physical Exam Vital Signs: Vital Signs: Last Vital Signs Temp 97.1 F 01/14/22 19:04 Pulse 88 01/14/22 19:04 Resp 16 01/14/22 19:04 BP 123/61 01/14/22 19:04 Pulse Ox 97 01/14/22 19:04 O2 Del Method 01/14/22 19:04 BMI result Body Mass Index 39.6 <LEYDI Stanford - Last Filed: 01/14/22 19:07> Vital Signs: Last Vital Signs Temp 97.1 F 01/14/22 19:04 Pulse 88 01/14/22 19:04 Resp 16 01/14/22 19:04 BP 123/61 01/14/22 19:04 Pulse Ox 97 01/14/22 19:04 O2 Del Method 01/14/22 19:04 BMI result Body Mass Index 39.6 <Chiqui Yu CNP - Last Filed: 01/14/22 21:38> Appearance: Alert.?Oriented to person, place and time. No acute distress.?Normal affect. Eyes: Pupils equal, round and reactive to light.? ENT: Pharynx normal.?? Neck: Normal inspection.? Neck supple.?? CVS: Heart sounds normal. Normal heart rate and rhythm.? Pulses normal.?? Respiratory: No respiratory distress.? Lung sounds clear to auscultation b ilaterally?? Abdomen: Soft and non-tender. Normoactive bowel sounds. ? Skin: Skin warm and dry.? Normal skin color.? Extremities: No lower extremity edema.? No calf ttp. Left knee no obvious deformity, no laxity upon examination, no effusion. No redness, warmth, rashes. 2+ patellar, DP/PT pulse bilaterally. Neuro: Moves all extremities spontaneously. Sensation intact bilaterally. No focal neuro deficits. Ambulates with antalgic gait. <Chiqui Yu CNP - Last Filed: 01/14/22 21:38> Course Course Course Narrative: Patient is a 41-year-old female presenting to emergency department for evaluation of traumatic left knee pain. Physical examination not consistent with septic joint. XR obtained from [facility] reveals no acute fracture dislocation. Upon examination there is no laxity, lower suspicion for significant ligamentous injury, discussed with patient that ligamentous injury is not well assessed on x-ray imaging. Advised rest, ice, acetaminophen/ibuprofen, Jeffrey bandage for compression, and elevation. Discussed worrisome signs and symptoms to return back to emergency department for. Advised outpatient follow-up with primary care provider. All questions answered. She was discharged in stable condition. <Chiqui Yu CNP - Last Filed: 01/14/22 21:38> Reevaluation(s) Reevaluation #1: E 41 year old female presents w/ left knee pain sp falling on it. Patient reports she got pushed off her bed while playing with grandchild and now has 10/10 pain worse w/ movement better at rest. Denies numbness and tingling, fevers & chills. No previous surgeries to L knee PE pain with rom of l knee no gross abnormalities, or distracting injury. No laxity. Normal strength. Normal popliteal pulses 2+ b/l Plan imaging <LEYDI Stanford - Last Filed: 01/14/22 19:07> Time: 19:07 <LEYDI Stanford - Last Filed: 01/14/22 19:07> MDM - Fall Medical Records Attestation: I reviewed the patient's medical records. <Chiqui Yu CNP - Last Filed: 01/14/22 21:38> Imaging Data XR knee: Radiologist's impression: XR/XR knee LT 4V IMPRESSION: 1.? No acute osseous injury or knee joint effusion. 2.? Preserved joint spaces. <Chiqui Yu CNP - Last Filed: 01/14/22 21:38> Discharge Plan Discharge Clinical Impression: Contusion of knee, left <LEYDI Stanford - Last Filed: 01/14/22 19:07> Patient Disposition: Home, Self-Care <LEYDI Stanford Last Filed: 01/14/22 19:07> Instructions: Contusion in Adults (ED), R.I.C.E. Treatment (ED) <LEYDI Stanford Last Filed: 01/14/22 19:07> Additional Instructions: Please be sure to rest, apply ice to the area for 10-15 minutes 4-6 times daily, use Jeffrey bandage for compression, elevate your leg when possible. You can take ibuprofen 200 mg, 3 tablets (600mg) every 6-8 hours as needed for pain, in addition to Tylenol 500 mg, 2 tablets (1,000mg) every 4-6 hours as needed for pain, but not to exceed 3 doses daily (3,000mg).? Follow-up with your primary care provider within the next 2 weeks for continued concerns. Return to the emergency department any new or worsening symptoms or concerns. <LEYDI Stanford Last Filed: 01/14/22 19:07> Prescriptions: No Action bisacodyl [Dulcolax (bisacodyl)] 5 mg tablet,delayed release (DR/EC) 5 mg PO BEDTIME 30 Days Qty: 30 3RF naproxen 500 mg tablet 500 mg PO BID 30 Days Qty: 60 3RF omeprazole 40 mg capsule,delayed release(DR/EC) 40 mg PO BID 90 Days Qty: 180 0RF acetaminophen [Tylenol 8 Hour] 650 mg tablet extended release 650 mg PO Q8H PRN (Reason: pain) Qty: 60 1RF Hold Instructions: Resume on 05/11/20. Rx Instructions: Use in addition to naproxen for post operative cramping ibuprofen 800 mg tablet 800 mg PO Q8H Qty: 60 0RF acetaminophen [Tylenol 8 Hour] 650 mg tablet extended release 650 mg PO Q8H Qty: 60 0RF Rx Instructions: Take 4 hours after ibuprofen and continue alternating tramadol 50 mg tablet 50 mg PO Q6H PRN (Reason: pain) Qty: 30 0RF Rx Instructions: 1-2 tablets every 6 hours as needed for pain prednisone 20 mg tablet 60 mg PO DAILY 5 Days Qty: 15 0RF cyclobenzaprine 10 mg tablet 10 mg PO BID PRN (Reason: muscle spasm) Qty: 14 0RF ferrous sulfate 300 mg (60 mg iron)/5 mL liquid 300 mg PO DAILY lidocaine 4 % adhesive patch,medicated 1 patch topical DAILY PRN (Reason: Pain) Rx Instructions: may leave on for up to 12 hrs albuterol sulfate [ProAir HFA] 90 mcg/actuation HFA aerosol inhaler 2 puff inhalation Q6H PRN (Reason: Shortness Of Breath Or Wheezing) senna 8.6 mg capsule 8.6 mg PO DAILY 60 Days Qty: 60 3RF <ELYDI Stanford - Last Filed: 01/14/22 19:07> Referrals: Physician,Unknown J [Primary Care Provider] - <LEYDI Stanford - Last Filed: 01/14/22 19:07> Stand Alone Forms: Work/School Release <LEYDI Stanford - Last Filed: 01/14/22 19:07> Interventions: ED Discharge Assessment Last Done: 01/14/22 21:34 <LEYDI Stanford - Last Filed: 01/14/22 19:07> Discharge Date/Time: 01/14/22 21:37 <LEYDI Stanford - Last Filed: 01/14/22 19:07>
[2022-01-14 19:04] VITALS: BP 123/61; PULSE 88; RESP 16; TEMP 36.2; O2SAT 97; BMI 39.6
== END 2022-01-14 21:37 | disposition home or self-care (01) ==
PROVIDERS: Emergency Provider Internal Medicine
DX: S80.02XA Contusion of left knee, initial encounter (principal); W06.XXXA Fall from bed, initial encounter; Y93.83 Activity, rough housing and horseplay; Y92.013 Bedroom of single-family (private) house as the place of occurrence of the external cause; Y99.9 Unspecified external cause status
CPT/HCPCS: 73564; 99283

== ENCOUNTER → 2022-01-23 15:15 | Outpatient (BNVA) | payer MEDICAID, SELFPAY | PROVIDERS: PCP Registered Nurse; Visit Provider Physician Assistant | DX: M17.12 Unilateral primary osteoarthritis, left knee (principal); M25.562 Pain in left knee | CPT/HCPCS: 99212 ==

== ENCOUNTER → 2022-02-07 08:22 | Outpatient (BNVA) | payer MEDICAID, SELFPAY | PROVIDERS: PCP Registered Nurse; Visit Provider Internal Medicine Gastroenterology | DX: Z13.89 Encounter for screening for other disorder (principal) ==

== ENCOUNTER 2022-03-01 13:59 | Outpatient (REF) | payer MEDICAID, SELFPAY ==
[2022-03-01 14:15] LABS: MANUAL DIFF FLAG NO
[2022-03-01 14:27] LABS: Basophils Absolute Auto 0.1 X10*3/uL (0.0-0.2); Basophils Percent Auto 0.7 % (0-2); Eosinophils Absolute Auto 0.1 X10*3/uL (0.0-0.4); Hematocrit 32.7 % (37.0-47.0); Imm Gran Abs Auto 0.03 X10*3/uL (0.00-0.03); Imm Gran Pct Auto 0.3 % (0.0-0.4); Lymphocytes Absolute Auto 2.8 X10*3/uL (1.2-4.9); Lymphocytes Percent Auto 31.8 % (20-40); Mean Corpuscular HGB Conc 33.6 g/dl (31.0-35.0); Mean Corpuscular Hemoglobin 29.2 pg (27.0-33.0); Mean Corpuscular Volume 86.7 fL (80.0-98.0); Mean Platelet Volume 9.6 fL (9.4-12.3); Monocytes Absolute Auto 0.8 X10*3/uL (0.1-1.2); Monocytes Percent Auto 8.6 % (2-11); Neutrophils Absolute Auto 5.1 x10*3/uL (2.0-8.3); Neutrophils Percent Auto 57.6 % (45-73); Platelet Count 337 X10*3/uL (160-400); Red Blood Count 3.77 X10*6/uL (4.20-5.50); Red Cell Distribution Width 12.1 % (11.0-16.0); White Blood Count 8.9 X10*3/uL (4.8-10.8)
[2022-03-01 15:01] LABS: Anion Gap 15 (12-20)
[2022-03-01 15:05] LABS: Carbon Dioxide 26 mmol/L (22-29)
[2022-03-01 15:11] LABS: Alanine Aminotransferase 75 U/L (0-31); Albumin Level 4.1 g/dL (3.5-5.0); Alkaline Phosphatase 71 U/L (39-117); Aspartate Amino Transferase 64 U/L (5-31); Bilirubin Total 0.3 mg/dL (0.0-1.0); Blood Urea Nitrogen 9 mg/dL (9-16); C Reactive Protein 0.79 mg/dL (< or = 0.50); Calcium 9.5 mg/dL (8.4-10.2); Chloride 104 mmol/L (96-108); Estimated Glomerular Filt Rate > 60; Glucose Random 107 mg/dL (60-115); Lipase 24 U/L (8-78); Potassium 4.2 mmol/L (3.3-5.1); Sodium 141 mmol/L (135-145); Total Protein 7.6 g/dL (6.5-8.0)
[2022-03-01 15:29] LABS: Ferritin 150 ng/mL (10-250); TSH reflex Free T4 2.44 uIU/mL (0.32-4.0); Vitamin D 25-OH Total 31.3 ng/mL (>30)
[2022-03-01 15:40] LABS: Folate 13.3 ng/mL (> or = 4.0); Vitamin B12 738 pg/mL (200-900)
[2022-03-02 14:53] LABS: Immunoglobulin A 266 mg/dL (47-310)
[2022-03-07 14:29] LABS: Transglutaminase Ab IgG 1.3 U/mL; Transglutaminase IgA <1.0 U/mL
== END 2022-03-01 14:00 | disposition home or self-care (01) ==
LOC: HO.LAB 13:59
PROVIDERS: PCP Registered Nurse; Visit Provider Internal Medicine Gastroenterology
DX: R10.10 Upper abdominal pain, unspecified (principal); K21.9 Gastro-esophageal reflux disease without esophagitis
CPT/HCPCS: 36415; 80053; 82306; 82607; 82728; 82746; 82784; 83690; 84443; 85025; 86140; 86364

== ENCOUNTER → 2022-03-07 12:43 | Outpatient (BNVA) | payer MEDICAID, SELFPAY | PROVIDERS: PCP Registered Nurse; Visit Provider Internal Medicine Gastroenterology | DX: R10.10 Upper abdominal pain, unspecified (principal) | CPT/HCPCS: 99212 ==

== ENCOUNTER 2022-03-08 13:14 | Day surgery (SDC) | payer MEDICAID, SELFPAY ==
--- NOTE | 2022-03-08 13:46 | P.CONAN_ITS ---
HPI - Anesthesia Eval Consult details Narrative: 41 yr old for upper endo PMFSH Active Problems Active Problems: All Active Problems (Updated 03/07/22 @ 16:38 by Osvaldo Wen MD) Morbid obesity with BMI of 40.0-44.9, adult (Acute) Upper abdominal pain (Acute) Patellofemoral arthritis of left knee (Acute) Separation of left acromioclavicular joint (Acute) Osteoarthritis of left knee (Acute) Distal radius fracture, left (Acute) Left wrist sprain (Acute) Left wrist pain (Acute) Osteoarthritis of knees, bilateral (Acute) Low back pain (Acute) Abnormal uterine bleeding (Acute) NAFL (nonalcoholic fatty liver) (Acute) Left shoulder tendonitis (Acute) Lipoma of neck (Acute) Chronic constipation (Acute) Iron deficiency anemia due to chronic blood loss (Acute) Epigastric pain (Acute) GERD (gastroesophageal reflux disease) (Acute) Lactose intolerance in adult (Acute) Past Medical History Medical History Asthma Chronic constipation COVID-19 Depression Epigastric pain GERD (gastroesophageal reflux disease) Hypothyroidism Iron deficiency anemia due to chronic blood loss Lab test negative for COVID-19 virus Lactose intolerance in adult Family History Family History Mother No problems noted. Father No problems noted. Maternal Aunt Hx of ovarian cancer Family history of problems with anesthesia: No Surgical History Surgical History History of breast lump/mass excision History of colonoscopy History of endometrial ablation History of esophagogastroduodenoscopy (EGD) Hx of arthroscopic knee surgery Hx of dilation and curettage Hx of shoulder surgery Hx of tubal ligation Status post laparoscopic cholecystectomy History of Problems with Anesthesia: No Social History Social History Household Members: Children Alcohol intake: unknown Patient Tobacco Use Status: Never used Tobacco Second Hand Smoke Exposure: No Advance Directives: No Advance Directives Information Provided: Yes Current occupational status: employed Current occupation: [employer] HIGH/ right hand dominant Meds Allergies Allergy/AdvReac Type Severity Reaction Status Date / Time mussels Allergy Severe DIFFICULTY Verified 03/07/22 13:01 BREATHING lactose AdvReac Diarrhea Verified 03/07/22 13:01 Active Medications: Current Medications Lactated Ringer's (Lr) 1,000 mls @ 100 mls/hr IVCONT .Q10H [facility] Home Medications Medication Instructions Recorded Confirmed Last Taken Type albuterol sulfate 90 mcg/actuation 2 puff inhalation Q6H PRN 11/25/19 03/07/22 Unknown History aerosol inhaler (ProAir HFA) Shortness Of Breath Or Wheezing lidocaine 4 % topical patch 1 patch topical DAILY PRN Pain 11/25/19 03/07/22 Unknown History cholecalciferol (vitamin D3) 50 50 mcg PO DAILY 03/07/22 03/07/22 Unknown History mcg (2,000 unit) tablet (Vitamin D3) epinephrine 0.3 mg/0.3 mL IM 03/07/22 03/07/22 Unknown History injection, auto-injector ferrous gluconate 324 mg (38 mg 324 mg PO DAILY 03/07/22 03/07/22 Unknown History iron) tablet fluticasone propionate 110 2 puff inhalation BID 03/07/22 03/07/22 Unknown History mcg/actuation HFA aerosol inhaler (Flovent HFA) levothyroxine 25 mcg capsule 25 mcg PO DAILY 03/07/22 03/07/22 Unknown History (Tirosint) Exam Exam Date and Time: March 08, 2022 1346 Air[address] Mallampati Class: II TM Dist: >3cm Neck ROM: Full Heart: rrr Lungs: cta Assessment and Plan Assessment Anesthesia Assessment: Anesthesia Plan Discussed and Chart Reviewed Final Anesthetic Review Family History of Problems with Anesthesia: No History of Problems with Anesthesia: No ASA Class: III Final Preanesthetic Review: No Changes in Pt Med Stat, Meds/Allgs Chart Reviewed, Consent Obtained/Reviewed and Anes Risks/Benef Reviewed Patient Risk: Low Procedure Risk: Low Anesthetic Plan Anesthetic Plan: MAC: and Agree w/ Assess. and Plan Disposition: Standard PACU
[2022-03-08 14:00] VITALS: BMI 41.1
[2022-03-08 14:06] VITALS: BP 121/80; PULSE 76; RESP 18; TEMP 36.6; O2SAT 99
[2022-03-08] MEDS: Lactated Ringers 1,000 ML 100 ML IVCONT (14:18)
--- NOTE | 2022-03-08 15:28 | PM.OP ---
Brief Operative Note Date of Service: 03/08/22 Pre-op diagnosis: GERD, ABDOMINAL PAIN Post-op diagnosis: other (GERD, gastritis) Procedure: EGD WITH BIOPSIES Surgeon: Osvaldo Wen MD Anesthesia: MAC Was an [employer] Support [employer]anner used for this Procedure?: No Estimated blood loss (mL): 0 Pathology: other (A. Small bowel biopsies, B. Gastric antrum, C. Gastric body, D. GE junction) Condition: stable Disposition: PACU
--- NOTE | 2022-03-08 15:29 | W.PM.OPN ---
Operative Note Operative Note Date of Service: 03/08/22 Narrative: Pre-op diagnosis: GERD, ABDOMINAL PAIN Post-op diagnosis:?other (GERD, hiatal hernia, gastritis) Surgeon: Osvaldo Wen MD Anesthesia:?MAC FLEXIBLE TRANSORAL UPPER GASTROINTESTINAL ENDOSCOPY WITH BIOPSIES Consent: Indications for the procedure and potential complications of bleeding, perforation, reaction to medications and missed diagnosis were discussed with the patient and informed consent was obtained. Instrument: Olympus GIF H 190 mid size upper endoscope Monitoring: Vital signs and clinical assessment, continuous EKG monitoring, Pulse oximetry, Carbon Dioxide monitoring and blood pressure monitoring were done throughout the procedure. Procedure: The patient was placed in the left lateral decubitis position and pre-procedure medications were administered and a bite block was placed. The endoscope was inserted into the mouth and advanced under direct vision to the third part of duodenum. A careful inspection was made as the upper endoscope was withdrawn including a retroflexed examination of the proximal stomach; Findings and interventions are described below. Findings: Larynx: Normal Esophagus: GE junction at 32 cms, small hiatal hernia 32 to 34 cms. One 1 cms tongue of possible Reno's - biopsied. Stomach: Mild diffuse gastric erythema. Biopsies were obtained from the antrum and body of the stomach. Grade 2 flap valve on retroflexed examination of the cardia. Duodenum: Normal bulb and descending duodenum. Biopsies were obtained from 3rd part of the duodenum to check for celiac sprue Intervention: Biopsies as noted above Impression and Post Procedure Diagnosis: Endoscopy Findings: ESOPHAGUS: GE junction at 32 cms, small hiatal hernia 32 to 34 cms. One 1 cms tongue of possible Reno's - biopsied. STOMACH: Mild diffuse gastric erythema. Biopsies were obtained from the antrum and body of the stomach. DUODENUM: Normal - biopsied to check for celiac sprue Plan: Await pathology results Patient has an appointment on 07/04/22 in the GI Clinic with Osvaldo Wen M.D. Above findings were reviewed with the patient and GERD handout was given in the discharge area. Schedule an abdominal CT scan for evaluation of abdominal pain and WINNIE anemia if biopsies are normal.
[2022-03-08 16:05] VITALS: BP 107/43; PULSE 83; RESP 16; TEMP 36.3; O2SAT 98
[2022-03-08 16:20] VITALS: BP 101/55; PULSE 69; RESP 16; TEMP 36.3; O2SAT 99
== END 2022-03-08 16:35 | disposition home or self-care (01) ==
PROVIDERS: PCP Registered Nurse; Visit Provider Internal Medicine Gastroenterology
PROC: 0DJ08ZZ Inspection of Upper Intestinal Tract, Via Natural or Artificial Opening Endoscopic (ICD-10-PCS; CPT 43235; principal; 2022-03-08 14:40)
DX: R10.10 Upper abdominal pain, unspecified (principal); K29.50 Unspecified chronic gastritis without bleeding; K59.09 Other constipation; K21.9 Gastro-esophageal reflux disease without esophagitis; D50.0 Iron deficiency anemia secondary to blood loss (chronic); K44.9 Diaphragmatic hernia without obstruction or gangrene; E73.9 Lactose intolerance, unspecified; K76.0 Fatty (change of) liver, not elsewhere classified; J45.909 Unspecified asthma, uncomplicated; Z79.51 Long term (current) use of inhaled steroids; Z79.899 Other long term (current) drug therapy; Z90.49 Acquired absence of other specified parts of digestive tract
CPT/HCPCS: 43239; 88305; 88342

== ENCOUNTER 2022-03-18 14:10 | Outpatient (REF) | payer MEDICAID, SELFPAY ==
--- NOTE | ~2022-03-18 | MM_ITS ---
EXAMINATION: MM DIAGNOSTIC DIGITAL BREAST TOMOSYNTHESIS, BILATERAL US DIAGNOSTIC ULTRASOUND BREAST, LEFT CLINICAL INFORMATION: Palpable concern noted by patient and clinical exam. Several weeks lateral left breast. Prior bilateral benign breast biopsies 2014, fibroadenoma left 1:00 and right 12:00. Prior excisional biopsy. The lifetime risk of breast cancer based on the Tyrer-Cuzick Model is 8%. COMPARISON: Mammography: 07/10/2021, 08/18/2015 TECHNIQUE: Digital breast tomosynthesis is performed in both the craniocaudal and mediolateral oblique views along with computer-aided detection (CAD). Synthesized 2D images are generated from the tomosynthesis. Additional left MLO view is provided. Ultrasound left breast is targeted to the area of clinical concern upper outer and outer left breast using grayscale imaging and color Doppler without and with harmonics. FINDINGS: Mammography: The breasts are heterogeneously dense, which may obscure small masses (ACR BI-RADS breast composition Category c). There is fibrocystic parenchymal pattern similar to prior studies. Right breast is stable oval mass anterior 1:00 position with overlying rib and shape biopsy clip marker. There is no architectural abnormality. Scattered bilateral numerous calcifications are again demonstrated similar to previous exam. No significant change. Ultrasound: Ultrasound left breast demonstrates multiple small simple cysts in area of clinical concern outer left breast 2:00-3:00 position, largest 0.7 cm. The cysts are anechoic and show increased through-transmission of sound. There is also a probable benign benign-appearing acorn cyst 2:00 position measuring 0.9 cm with circumscribed margins and partial geographic internal homogeneous echogenicity. No associated peripheral or internal color flow. There is increased through-transmission of sound. No solid mass or architectural abnormality on ultrasound. Management. Results are discussed with the patient at time of visit. The palpable concern corresponds to benign simple cysts. The probable benign acorn cyst will be reassessed again with targeted ultrasound in 6 months. MM/MM tomosynthesis diagnostic BI IMPRESSION: -No mammographic evidence of malignancy. -Small simple cysts corresponding to palpable concern outer left breast. -Probable benign acorn cyst outer left breast - to follow up with ultrasound in 6 months. ASSESSMENT: BI-RADS 3: Probably Benign RECOMMENDATION: Left breast ultrasound in 6 months. This patient's information was entered into a reminder system with a target due date for their next mammogram.
== END 2022-03-18 14:11 | disposition home or self-care (01) ==
LOC: HO.MAMMO 14:10
PROVIDERS: PCP Registered Nurse; Visit Provider Advanced Practice Midwife
DX: N63.23 Unspecified lump in the left breast, lower outer quadrant (principal); N64.4 Mastodynia
CPT/HCPCS: 76642; 77062; 77066

== ENCOUNTER 2022-03-19 17:57 | Emergency (ER) | payer MEDICAID, SELFPAY ==
--- NOTE | ~2022-03-19 | XR_ITS ---
EXAMINATION: XR CHEST CLINICAL INFORMATION: Pneumonia with chest discomfort COMPARISON: 12/20/2018 TECHNIQUE: 2 views of the chest were obtained. FINDINGS: Since the prior study, the multifocal patchy infiltrates have all cleared. No significant abnormality is noted involving the heart, lungs, mediastinum, bony thorax or soft tissues. Surgical clips are noted in the gallbladder fossa. XR/XR chest 2V IMPRESSION: No acute intrathoracic disease.
--- NOTE | 2022-03-19 18:32 | ECG_ITS ---
Test Reason : CP Blood Pressure : / mmHG Vent. Rate : 071 BPM Atrial Rate : 071 BPM P-R Int : 168 ms QRS Dur : 090 ms QT Int : 376 ms P-R-T Axes : 038 -01 014 degrees QTc Int : 408 ms Normal sinus rhythm Normal ECG When compared with ECG of 26-DEC-2019 22:20, No significant change was found Referred By: Christian Whittaker Electronically Signed By:[place]
[2022-03-19 19:05] VITALS: BP 112/71; PULSE 72; RESP 18; TEMP 36.4; O2SAT 98; BMI 41.1
--- NOTE | 2022-03-19 19:09 | ED.GENADULT ---
HPI - General Adult General Chief complaint: Back Pain/Injury <LEYDI Portillo - Last Filed: 03/25/22 12:53> Stated complaint: chest/ back pain <LEYDI Portillo - Last Filed: 03/25/22 12:53> Time Seen by Provider: 03/19/22 22:57 <LEYDI Portillo - Last Filed: 03/25/22 12:53> Source: patient <Meng Riley MD - Last Filed: 03/20/22 00:32> Mode of arrival: ambulatory <Meng Riley MD - Last Filed: 03/20/22 00:32> Limitations: no limitations <Meng Riley MD - Last Filed: 03/20/22 00:32> History of Present Illness HPI narrative: Patient with no known back pain history or trauma noticed pain left rhomboids area for last 1 increases on movement and deep breaths no cough no shortness of breath no urinary complaints no fever or chills no rash <Meng Riley MD - Last Filed: 03/20/22 00:32> Related Data Home medications: Home Medications Medication Instructions Recorded Confirmed albuterol sulfate 90 mcg/actuation 2 puff inhalation Q6H PRN 11/25/19 03/07/22 aerosol inhaler (ProAir HFA) Shortness Of Breath Or Wheezing lidocaine 4 % topical patch 1 patch topical DAILY PRN Pain 11/25/19 03/07/22 cholecalciferol (vitamin D3) 50 50 mcg PO DAILY 03/07/22 03/07/22 mcg (2,000 unit) tablet (Vitamin D3) epinephrine 0.3 mg/0.3 mL IM 03/07/22 03/07/22 injection, auto-injector ferrous gluconate 324 mg (38 mg 324 mg PO DAILY 03/07/22 03/07/22 iron) tablet fluticasone propionate 110 2 puff inhalation BID 03/07/22 03/07/22 mcg/actuation HFA aerosol inhaler (Flovent HFA) levothyroxine 25 mcg capsule 25 mcg PO DAILY 03/07/22 03/07/22 (Tirosint) Previous Rx's Medication Instructions Recorded bisacodyl 5 mg tablet,delayed 5 mg PO BEDTIME 30 days #30 tabs 05/15/20 release (Dulcolax (bisacodyl)) cyclobenzaprine 10 mg tablet 10 mg PO BID PRN muscle spasm #14 05/21/21 tabs omeprazole 40 mg capsule,delayed 40 mg PO BID 90 days #180 caps 01/14/22 release sennosides 8.6 mg-docusate sodium 2 tab-cap PO BEDTIME 60 days #120 03/07/22 50 mg capsule (Senna Plus) caps cyclobenzaprine 10 mg tablet 10 mg PO Q8H #20 tabs 03/20/22 tramadol 50 mg tablet 50 mg PO Q6H PRN pain #20 tabs 03/20/22 <LEYDI Portillo - Last Filed: 03/25/22 12:53> Allergies/adverse reactions: Allergies Allergy/AdvReac Type Severity Reaction Status Date / Time mussels Allergy Severe DIFFICULTY Verified 03/19/22 19:09 BREATHING lactose AdvReac Diarrhea Verified 03/19/22 19:09 <LEYDI Portillo - Last Filed: 03/25/22 12:53> Review of Systems Review of Systems: Yes all other systems are reviewed and are negative <Meng Riley MD - Last Filed: 03/20/22 00:32> [facility] Past Medical History Medical History: Medical History Asthma Chronic constipation COVID-19 Depression Epigastric pain GERD (gastroesophageal reflux disease) Hypothyroidism Iron deficiency anemia due to chronic blood loss Lab test negative for COVID-19 virus Lactose intolerance in adult <LEYDI Portillo - Last Filed: 03/25/22 12:53> Surgical History: Surgical History History of breast lump/mass excision History of colonoscopy History of endometrial ablation History of esophagogastroduodenoscopy (EGD) Hx of arthroscopic knee surgery Hx of dilation and curettage Hx of shoulder surgery Hx of tubal ligation Status post laparoscopic cholecystectomy <LEYDI Portillo - Last Filed: 03/25/22 12:53> Family History Family History: Family History Mother No problems noted. Father No problems noted. Maternal Aunt Hx of ovarian cancer <LEYDI Portillo - Last Filed: 03/25/22 12:53> Social History Social History: Social History Household Members: Children Alcohol intake: unknown Patient Tobacco Use Status: Never used Tobacco Second Hand Smoke Exposure: No Advance Directives: No Advance Directives Information Provided: No Current occupational status: employed Current occupation: [employer] HIGH/ right hand dominant <LEYDI Portillo - Last Filed: 03/25/22 12:53> Physical Exam ED Vital Signs: Vital Signs - 24 hr 03/19/22 19:05 03/19/22 23:52 Temperature 97.5 F 98.3 F Pulse Rate 72 71 Respiratory Rate 18 14 Blood Pressure 112/71 109/66 Pulse Oximetry 98 98 Oxygen Delivery Method Room Air Room Air BMI result Body Mass Index 41.1 <LEYDI Portillo - Last Filed: 03/25/22 12:53> Vital Signs - 24 hr 03/19/22 19:05 03/19/22 23:52 Temperature 97.5 F 98.3 F Pulse Rate 72 71 Respiratory Rate 18 14 Blood Pressure 112/71 109/66 Pulse Oximetry 98 98 Oxygen Delivery Method Room Air Room Air BMI result Body Mass Index 41.1 <Meng Riley MD - Last Filed: 03/20/22 00:32> Appearance: Alert. Oriented X3. No acute distress. ENT: Pharynx normal. Oral Mucosa moist Neck: Normal inspection. Neck supple. CVS: Normal heart rate and rhythm. Pulses normal. Respiratory: No respiratory distress. Equal air entry bilateral, no wheezing/rales/rhonchi Abdomen: Soft and nontender. Bowel sounds are present, no mass palpable, no CVA tenderness Back: Tenderness in the left rhomboids area no midline tenderness Skin: Skin warm and dry. Normal skin color. Normal skin turgor. Extremities: No lower extremity edema. No calf tenderness Neuro: Oriented X 3. No motor deficit. No sensory deficit.No cerebellar signs , cranial nerves II-XII intact <Meng Riley MD - Last Filed: 03/20/22 00:32> Course Course Course Narrative: RME: 41 yold female presents to the ED for left sided back pain radiating to the epigastric area for one week. No SOB, nausea, or abdominal pain. patient states mild chestpain, but no ripping chest pain radiating to the back. EKG, labs chest xray ordered <LEYDI Portillo - Last Filed: 03/25/22 12:53> Medications Administered Discontinued Medications Generic Name Dose Route Start Last Admin Trade Name Freq PRN Reason Stop Dose Admin Cyclobenzaprine HCl 10 mg 03/19/22 23:40 03/20/22 00:26 Cyclobenzaprine Hcl 10 Mg Tablet PO 03/19/22 23:41 10 mg ONCE ONE Administration Tramadol HCl 50 mg 03/19/22 23:40 03/20/22 00:26 Tramadol Hcl 50 Mg Tablet PO 03/19/22 23:41 50 mg ONCE ONE Administration <LEYDI Portillo - Last Filed: 03/25/22 12:53> Medications Administered Discontinued Medications Generic Name Dose Route Start Last Admin Trade Name Freq PRN Reason Stop Dose Admin Cyclobenzaprine HCl 10 mg 03/19/22 23:40 03/20/22 00:26 Cyclobenzaprine Hcl 10 Mg Tablet PO 03/19/22 23:41 10 mg ONCE ONE Administration Tramadol HCl 50 mg 03/19/22 23:40 03/20/22 00:26 Tramadol Hcl 50 Mg Tablet PO 03/19/22 23:41 50 mg ONCE ONE Administration <Meng Riley MD - Last Filed: 03/20/22 00:32> Medical Decision Making Medical Decision Making [facility] Narrative: Patient clinically with left rhomboid strain discharge patient home on tramadol and Flexeril workup otherwise negative <Meng Riley MD - Last Filed: 03/20/22 00:32> Lab Data [facility] Lab Attestation statement: I reviewed the patient's lab results. <Meng Riley MD - Last Filed: 03/20/22 00:32> Result Diagrams: 03/19/22 19:33 03/19/22 19:33 <LEYDI Portillo - Last Filed: 03/25/22 12:53> Labs: Lab Results 03/19/22 03/19/22 03/19/22 Range/Units 19:33 19:33 19:33 WBC 7.9 (4.8-10.8) X10*3/uL RBC 4.33 (4.20-5.50) X10*6/uL Hgb 12.6 (12.0-16.0) g/dl Hct 37.5 (37.0-47.0) % MCV 86.6 (80.0-98.0) fL MCH 29.1 (27.0-33.0) pg MCHC 33.6 (31.0-35.0) g/dl RDW 12.2 (11.0-16.0) % Plt Count 388 (160-400) X10*3/uL MPV 9.2 L (9.4-12.3) fL Immature Gran % (Auto) 0.4 (0.0-0.4) % Neut % (Auto) 51.8 (45-73) % Lymph % (Auto) 37.5 (20-40) % Major % (Auto) 8.1 (2-11) % Eos % (Auto) 1.4 (0-4) % Baso % (Auto) 0.8 (0-2) % Lymph # (Auto) 3.0 (1.2-4.9) X10*3/uL Major # (Auto) 0.6 (0.1-1.2) X10*3/uL Eos # (Auto) 0.1 (0.0-0.4) X10*3/uL Baso # (Auto) 0.1 (0.0-0.2) X10*3/uL Abs Immat Gran (auto) 0.03 (0.00-0.03) X10*3/uL Absolute Neuts (auto) 4.1 (2.0-8.3) x10*3/uL Absolute Nucleated RBC 0.000 (0.0-0.012) X10*3/uL Nucleated RBC % (auto) 0.0 (0.0-0.2) /100WBC Sodium 139 (135-145) mmol/L Potassium 3.6 (3.3-5.1) mmol/L Chloride 102 (96-108) mmol/L Carbon Dioxide 27 (22-29) mmol/L Anion Gap 14 (12-20) BUN 13 (9-16) mg/dL Creatinine 0.72 (0.5-1.4) mg/dL Estim Creat Clear Calc 110.8 Estimated GFR > 60 Random Glucose 92 (60-115) mg/dL Calcium 9.8 (8.4-10.2) mg/dL Total Bilirubin 0.5 (0.0-1.0) mg/dL AST 37 H (5-31) U/L ALT 49 H (0-31) U/L Alkaline Phosphatase 70 (39-117) U/L Troponin I High Sens < 3.5 (<3.5-17.0) ng/L Total Protein 8.1 H (6.5-8.0) g/dL Albumin 4.3 (3.5-5.0) g/dL Lipase (8-78) U/L Beta HCG, Quant mIU/mL Urine Color Urine Appearance Urine pH (5.0-9.0) Ur Specific [place] (1.005-1.025) Urine Protein (Neg-Trace) mg/dL Urine Glucose (UA) (Negative) mg/dL Urine Ketones (Negative) mg/dL Urine Blood (Negative) Urine Nitrite (Negative) Ur Leukocyte Esterase (Negative) Urine RBC (0-2) /HPF Urine WBC (0-5) /HPF Ur Squamous Epith Cells (0-2) /HPF Urine Bacteria (None Seen) Hyaline Casts (0-2) /LPF Urine Test (NEGATIVE) 03/19/22 03/19/22 03/19/22 Range/Units 19:33 23:34 23:34 WBC (4.8-10.8) X10*3/uL RBC (4.20-5.50) X10*6/uL Hgb (12.0-16.0) g/dl Hct (37.0-47.0) % MCV (80.0-98.0) fL MCH (27.0-33.0) pg MCHC (31.0-35.0) g/dl RDW (11.0-16.0) % Plt Count (160-400) X10*3/uL MPV (9.4-12.3) fL Immature Gran % (Auto) (0.0-0.4) % Neut % (Auto) (45-73) % Lymph % (Auto) (20-40) % Major % (Auto) (2-11) % Eos % (Auto) (0-4) % Baso % (Auto) (0-2) % Lymph # (Auto) (1.2-4.9) X10*3/uL Major # (Auto) (0.1-1.2) X10*3/uL Eos # (Auto) (0.0-0.4) X10*3/uL Baso # (Auto) (0.0-0.2) X10*3/uL Abs Immat Gran (auto) (0.00-0.03) X10*3/uL Absolute Neuts (auto) (2.0-8.3) x10*3/uL Absolute Nucleated RBC (0.0-0.012) X10*3/uL Nucleated RBC % (auto) (0.0-0.2) /100WBC Sodium (135-145) mmol/L Potassium (3.3-5.1) mmol/L Chloride (96-108) mmol/L Carbon Dioxide (22-29) mmol/L Anion Gap (12-20) BUN (9-16) mg/dL Creatinine (0.5-1.4) mg/dL Estim Creat Clear Calc Estimated GFR Random Glucose (60-115) mg/dL Calcium (8.4-10.2) mg/dL Total Bilirubin (0.0-1.0) mg/dL AST (5-31) U/L ALT (0-31) U/L Alkaline Phosphatase (39-117) U/L Troponin I High Sens (<3.5-17.0) ng/L Total Protein (6.5-8.0) g/dL Albumin (3.5-5.0) g/dL Lipase 25 (8-78) U/L Beta HCG, Quant < 2 mIU/mL Urine Color Yellow Urine Appearance Clear Urine pH 6.0 (5.0-9.0) Ur Specific [place] 1.010 (1.005-1.025) Urine Protein Negative (Neg-Trace) mg/dL Urine Glucose (UA) Negative (Negative) mg/dL Urine Ketones Negative (Negative) mg/dL Urine Blood Small (1+) H (Negative) Urine Nitrite Negative (Negative) Ur Leukocyte Esterase Negative (Negative) Urine RBC 0-2 (0-2) /HPF Urine WBC 0-5 (0-5) /HPF Ur Squamous Epith Cells 0-2 (0-2) /HPF Urine Bacteria Trace (None Seen) Hyaline Casts 0-2 (0-2) /LPF Urine Test NEGATIVE (NEGATIVE) <LEYDI Portillo - Last Filed: 03/25/22 12:53> Lab Results 03/19/22 03/19/22 03/19/22 Range/Units 19:33 19:33 19:33 WBC 7.9 (4.8-10.8) X10*3/uL RBC 4.33 (4.20-5.50) X10*6/uL Hgb 12.6 (12.0-16.0) g/dl Hct 37.5 (37.0-47.0) % MCV 86.6 (80.0-98.0) fL MCH 29.1 (27.0-33.0) pg MCHC 33.6 (31.0-35.0) g/dl RDW 12.2 (11.0-16.0) % Plt Count 388 (160-400) X10*3/uL MPV 9.2 L (9.4-12.3) fL Immature Gran % (Auto) 0.4 (0.0-0.4) % Neut % (Auto) 51.8 (45-73) % Lymph % (Auto) 37.5 (20-40) % Major % (Auto) 8.1 (2-11) % Eos % (Auto) 1.4 (0-4) % Baso % (Auto) 0.8 (0-2) % Lymph # (Auto) 3.0 (1.2-4.9) X10*3/uL Major # (Auto) 0.6 (0.1-1.2) X10*3/uL Eos # (Auto) 0.1 (0.0-0.4) X10*3/uL Baso # (Auto) 0.1 (0.0-0.2) X10*3/uL Abs Immat Gran (auto) 0.03 (0.00-0.03) X10*3/uL Absolute Neuts (auto) 4.1 (2.0-8.3) x10*3/uL Absolute Nucleated RBC 0.000 (0.0-0.012) X10*3/uL Nucleated RBC % (auto) 0.0 (0.0-0.2) /100WBC Sodium 139 (135-145) mmol/L Potassium 3.6 (3.3-5.1) mmol/L Chloride 102 (96-108) mmol/L Carbon Dioxide 27 (22-29) mmol/L Anion Gap 14 (12-20) BUN 13 (9-16) mg/dL Creatinine 0.72 (0.5-1.4) mg/dL Estim Creat Clear Calc 110.8 Estimated GFR > 60 Random Glucose 92 (60-115) mg/dL Calcium 9.8 (8.4-10.2) mg/dL Total Bilirubin 0.5 (0.0-1.0) mg/dL AST 37 H (5-31) U/L ALT 49 H (0-31) U/L Alkaline Phosphatase 70 (39-117) U/L Troponin I High Sens < 3.5 (<3.5-17.0) ng/L Total Protein 8.1 H (6.5-8.0) g/dL Albumin 4.3 (3.5-5.0) g/dL Lipase (8-78) U/L Beta HCG, Quant mIU/mL Urine Color Urine Appearance Urine pH (5.0-9.0) Ur Specific [place] (1.005-1.025) Urine Protein (Neg-Trace) mg/dL Urine Glucose (UA) (Negative) mg/dL Urine Ketones (Negative) mg/dL Urine Blood (Negative) Urine Nitrite (Negative) Ur Leukocyte Esterase (Negative) Urine RBC (0-2) /HPF Urine WBC (0-5) /HPF Ur Squamous Epith Cells (0-2) /HPF Urine Bacteria (None Seen) Hyaline Casts (0-2) /LPF Urine Test (NEGATIVE) 03/19/22 03/19/22 03/19/22 Range/Units 19:33 23:34 23:34 WBC (4.8-10.8) X10*3/uL RBC (4.20-5.50) X10*6/uL Hgb (12.0-16.0) g/dl Hct (37.0-47.0) % MCV (80.0-98.0) fL MCH (27.0-33.0) pg MCHC (31.0-35.0) g/dl RDW (11.0-16.0) % Plt Count (160-400) X10*3/uL MPV (9.4-12.3) fL Immature Gran % (Auto) (0.0-0.4) % Neut % (Auto) (45-73) % Lymph % (Auto) (20-40) % Major % (Auto) (2-11) % Eos % (Auto) (0-4) % Baso % (Auto) (0-2) % Lymph # (Auto) (1.2-4.9) X10*3/uL Major # (Auto) (0.1-1.2) X10*3/uL Eos # (Auto) (0.0-0.4) X10*3/uL Baso # (Auto) (0.0-0.2) X10*3/uL Abs Immat Gran (auto) (0.00-0.03) X10*3/uL Absolute Neuts (auto) (2.0-8.3) x10*3/uL Absolute Nucleated RBC (0.0-0.012) X10*3/uL Nucleated RBC % (auto) (0.0-0.2) /100WBC Sodium (135-145) mmol/L Potassium (3.3-5.1) mmol/L Chloride (96-108) mmol/L Carbon Dioxide (22-29) mmol/L Anion Gap (12-20) BUN (9-16) mg/dL Creatinine (0.5-1.4) mg/dL Estim Creat Clear Calc Estimated GFR Random Glucose (60-115) mg/dL Calcium (8.4-10.2) mg/dL Total Bilirubin (0.0-1.0) mg/dL AST (5-31) U/L ALT (0-31) U/L Alkaline Phosphatase (39-117) U/L Troponin I High Sens (<3.5-17.0) ng/L Total Protein (6.5-8.0) g/dL Albumin (3.5-5.0) g/dL Lipase 25 (8-78) U/L Beta HCG, Quant < 2 mIU/mL Urine Color Yellow Urine Appearance Clear Urine pH 6.0 (5.0-9.0) Ur Specific [place] 1.010 (1.005-1.025) Urine Protein Negative (Neg-Trace) mg/dL Urine Glucose (UA) Negative (Negative) mg/dL Urine Ketones Negative (Negative) mg/dL Urine Blood Small (1+) H (Negative) Urine Nitrite Negative (Negative) Ur Leukocyte Esterase Negative (Negative) Urine RBC 0-2 (0-2) /HPF Urine WBC 0-5 (0-5) /HPF Ur Squamous Epith Cells 0-2 (0-2) /HPF Urine Bacteria Trace (None Seen) Hyaline Casts 0-2 (0-2) /LPF Urine Test NEGATIVE (NEGATIVE) <Meng Riley MD - Last Filed: 03/20/22 00:32> Discharge Plan Discharge Clinical Impression: Strain of thoracic back region <LEYDI Portillo - Last Filed: 03/25/22 12:53> Patient Disposition: Home, Self-Care <LEYDI Portillo - Last Filed: 03/25/22 12:53> Instructions: Thoracic Back Strain (ED) <LEYDI Portillo - Last Filed: 03/25/22 12:53> Additional Instructions: Take pain medication and muscle relaxants as adv Apply ice pack <LEYDI Portillo - Last Filed: 03/25/22 12:53> Prescriptions: New cyclobenzaprine 10 mg tablet 10 mg PO Q8H Qty: 20 0RF tramadol 50 mg tablet 50 mg PO Q6H PRN (Reason: pain) Qty: 20 0RF No Action bisacodyl [Dulcolax (bisacodyl)] 5 mg tablet,delayed release (DR/EC) 5 mg PO BEDTIME 30 Days Qty: 30 3RF omeprazole 40 mg capsule,delayed release(DR/EC) 40 mg PO BID 90 Days Qty: 180 0RF cyclobenzaprine 10 mg tablet 10 mg PO BID PRN (Reason: muscle spasm) Qty: 14 0RF lidocaine 4 % adhesive patch,medicated 1 patch topical DAILY PRN (Reason: Pain) Rx Instructions: may leave on for up to 12 hrs albuterol sulfate [ProAir HFA] 90 mcg/actuation HFA aerosol inhaler 2 puff inhalation Q6H PRN (Reason: Shortness Of Breath Or Wheezing) cholecalciferol (vitamin D3) [Vitamin D3] 50 mcg (2,000 unit) tablet 50 mcg PO DAILY fluticasone propionate [Flovent HFA] 110 mcg/actuation HFA aerosol inhaler 2 puff inhalation BID ferrous gluconate 324 mg (38 mg iron) tablet 324 mg PO DAILY levothyroxine [Tirosint] 25 mcg capsule 25 mcg PO DAILY epinephrine 0.3 mg/0.3 mL auto-injector IM Senna Plus 8.6-50 mg capsule 2 tab-cap PO BEDTIME 60 Days Qty: 120 1RF <LEYDI Portillo - Last Filed: 03/25/22 12:53> Interventions: ED Discharge Assessment Last Done: 03/20/22 00:34 <LEYDI Portillo - Last Filed: 03/25/22 12:53> Discharge Date/Time: 03/20/22 00:35 <LEYDI Portillo - Last Filed: 03/25/22 12:53>
[2022-03-19 19:39] LABS: Basophils Absolute Auto 0.1 X10*3/uL (0.0-0.2); Basophils Percent Auto 0.8 % (0-2); Eosinophils Absolute Auto 0.1 X10*3/uL (0.0-0.4); Eosinophils Percent Auto 1.4 % (0-4); Hematocrit 37.5 % (37.0-47.0); Hemoglobin 12.6 g/dl (12.0-16.0); Imm Gran Abs Auto 0.03 X10*3/uL (0.00-0.03); Imm Gran Pct Auto 0.4 % (0.0-0.4); Lymphocytes Percent Auto 37.5 % (20-40); MANUAL DIFF FLAG NO; Mean Corpuscular HGB Conc 33.6 g/dl (31.0-35.0); Mean Corpuscular Hemoglobin 29.1 pg (27.0-33.0); Mean Corpuscular Volume 86.6 fL (80.0-98.0); Mean Platelet Volume 9.2 fL (9.4-12.3); Monocytes Absolute Auto 0.6 X10*3/uL (0.1-1.2); Monocytes Percent Auto 8.1 % (2-11); Neutrophils Absolute Auto 4.1 x10*3/uL (2.0-8.3); Neutrophils Percent Auto 51.8 % (45-73); Platelet Count 388 X10*3/uL (160-400); Red Blood Count 4.33 X10*6/uL (4.20-5.50); Red Cell Distribution Width 12.2 % (11.0-16.0); White Blood Count 7.9 X10*3/uL (4.8-10.8)
[2022-03-19 19:58] LABS: Alanine Aminotransferase 49 U/L (0-31); Albumin Level 4.3 g/dL (3.5-5.0); Alkaline Phosphatase 70 U/L (39-117); Anion Gap 14 (12-20); Aspartate Amino Transferase 37 U/L (5-31); Bilirubin Total 0.5 mg/dL (0.0-1.0); Blood Urea Nitrogen 13 mg/dL (9-16); Calcium 9.8 mg/dL (8.4-10.2); Carbon Dioxide 27 mmol/L (22-29); Chloride 102 mmol/L (96-108); Creatinine Clr Calc Pharmacy 110.8; Estimated Glomerular Filt Rate > 60; Glucose Random 92 mg/dL (60-115); Potassium 3.6 mmol/L (3.3-5.1); Sodium 139 mmol/L (135-145); Total Protein 8.1 g/dL (6.5-8.0)
[2022-03-19 20:02] LABS: Lipase 25 U/L (8-78)
[2022-03-19 20:03] LABS: Troponin-I High Sensitivity < 3.5 ng/L (<3.5-17.0)
[2022-03-19 20:05] LABS: HCG Quantitative < 2 mIU/mL
[2022-03-19 23:48] LABS: Appearance Urine Clear; Color Urine Yellow; Glucose Urine UA Negative (Negative); Leukocyte Esterase Urine Negative (Negative); Nitrite Urine Negative (Negative); UMIC TRIGGER UACC YES; Urine Blood Small (1+) (Negative); Urine Ketones Negative (Negative); Urine Protein Negative (Neg-Trace)
[2022-03-19 23:50] LABS: UPreg QC Valid YES; Urine Pregnancy NEGATIVE (NEGATIVE)
[2022-03-19 23:52] VITALS: BP 109/66; PULSE 71; RESP 14; TEMP 36.8; O2SAT 98
[2022-03-20 00:02] LABS: Bacteria Urine Trace (None Seen); Hyaline Casts Urine 0-2 /LPF (0-2); RBC Urine 0-2 /HPF (0-2); Squamous Epithelial Cell Urine 0-2 /HPF (0-2); WBC Urine 0-5 /HPF (0-5)
[2022-03-20] MEDS: Cyclobenzaprine HCl 10 MG TABLET PO (00:26)
[2022-03-20] MEDS: traMADoL HCL 50 MG TABLET PO (00:26)
== END 2022-03-20 00:35 | disposition home or self-care (01) ==
PROVIDERS: Physician Assistant; Emergency Provider Internal Medicine; PCP Registered Nurse
DX: S29.012A Strain of muscle and tendon of back wall of thorax, initial encounter (principal); X58.XXXA Exposure to other specified factors, initial encounter; E66.9 Obesity, unspecified; Z68.41 Body mass index [BMI] 40.0-44.9, adult; Y93.9 Activity, unspecified; Y92.9 Unspecified place or not applicable; Y99.9 Unspecified external cause status
CPT/HCPCS: 36415; 71046; 80053; 81001; 81025; 83690; 84484; 84702; 85025; 93005; 99283; 99284

== ENCOUNTER 2022-04-26 11:18 | Outpatient (REF) | payer MEDICAID, SELFPAY ==
--- NOTE | ~2022-04-26 | US_ITS ---
EXAMINATION: US ABDOMEN COMPLETE CLINICAL INFORMATION: Upper abdominal pain, unspecified. COMPARISON: X-ray abdomen KUB 09/30/2018. Ultrasound abdomen complete 04/28/2018 and 10/22/2017. CT abdomen and pelvis without contrast 06/06/2016. TECHNIQUE: Real-time imaging of the abdominal viscera. FINDINGS: PANCREAS: Visualized portions of the pancreas are unremarkable. The pancreatic tail is obscured by bowel gas. ABDOMINAL AORTA: The proximal, mid, and distal segments are normal in caliber. INFERIOR VENA CAVA: Visualized portions are normal. LIVER: The liver is normal in size. The liver contour is normal. Diffuse increased echogenicity of the liver parenchyma. No focal hepatic lesion. There is no intrahepatic biliary duct dilatation seen. GALLBLADDER: Surgically absent. COMMON BILE DUCT: Normal in caliber measuring 0.6 cm in diameter. RIGHT KIDNEY: Normal. No hydronephrosis. No renal calculi or focal parenchymal lesions. The kidney measures 11.6 cm in maximum dimension. LEFT KIDNEY: Normal. No hydronephrosis. No renal calculi or focal parenchymal lesions. The kidney measures 11.0 cm in maximum dimension. SPLEEN: Normal. The spleen measures 9.1 cm in maximum dimension. FREE FLUID: None. US/US abdomen complete IMPRESSION: Diffuse increased echogenicity of the liver parenchyma likely reflects hepatic steatosis.
== END 2022-04-26 11:19 | disposition home or self-care (01) ==
LOC: HO.US 11:18
PROVIDERS: PCP Registered Nurse; Visit Provider Internal Medicine Gastroenterology
DX: R10.10 Upper abdominal pain, unspecified (principal)
CPT/HCPCS: 76700

== ENCOUNTER → 2022-07-11 12:54 | Outpatient (BNVA) | payer MEDICAID, SELFPAY | PROVIDERS: PCP Registered Nurse; Visit Provider Internal Medicine Gastroenterology | DX: R10.13 Epigastric pain (principal); K76.0 Fatty (change of) liver, not elsewhere classified; D50.0 Iron deficiency anemia secondary to blood loss (chronic); K21.9 Gastro-esophageal reflux disease without esophagitis; E73.9 Lactose intolerance, unspecified; K59.09 Other constipation; K29.70 Gastritis, unspecified, without bleeding; B96.81 Helicobacter pylori [H. pylori] as the cause of diseases classified elsewhere | CPT/HCPCS: 99212 ==

== ENCOUNTER 2022-08-23 13:52 | Emergency (ER) | payer MEDICAID, SELFPAY ==
[2022-08-23 13:57] VITALS: BP 118/85; PULSE 86; RESP 19; TEMP 36.6; O2SAT 98; BMI 37.2
--- NOTE | 2022-08-23 13:57 | ED_ITS ---
HPI - General Adult General Chief complaint: General Medical Stated complaint: L knee inj Time Seen by Provider: 08/23/22 15:00 Source: patient Mode of arrival: ambulatory Limitations: no limitations History of Present Illness HPI narrative: 42 Year old female presents to ED for left knee pain and right shoulder pain. Patient states on August 20 she jumped into a very shallow pool feet and since then has had left knee and right shoulder pain. Patient denies hitting head, drowning, needing resuscitation, cracking in the feet, chest pain, shortness of breath, or trouble walking. Patient states some relief with Tylenol. Patient denies any abdominal pain or any other complaints. Related Data Home Medications Medication Instructions Recorded Confirmed albuterol sulfate 90 mcg/actuation 2 puff inhalation Q6H PRN 11/25/19 07/11/22 aerosol inhaler (ProAir HFA) Shortness Of Breath Or Wheezing lidocaine 4 % topical patch 1 patch topical DAILY PRN Pain 11/25/19 07/11/22 cholecalciferol (vitamin D3) 50 50 mcg PO DAILY 03/07/22 07/11/22 mcg (2,000 unit) tablet (Vitamin D3) epinephrine 0.3 mg/0.3 mL IM 03/07/22 07/11/22 injection, auto-injector ferrous gluconate 324 mg (38 mg 324 mg PO DAILY 03/07/22 07/11/22 iron) tablet fluticasone propionate 110 2 puff inhalation BID 03/07/22 07/11/22 mcg/actuation HFA aerosol inhaler (Flovent HFA) levothyroxine 25 mcg capsule 25 mcg PO DAILY 03/07/22 07/11/22 (Tirosint) Previous Rx's Medication Instructions Recorded bisacodyl 5 mg tablet,delayed 5 mg PO BEDTIME 30 days #30 tabs 05/15/20 release (Dulcolax (bisacodyl)) cyclobenzaprine 10 mg tablet 10 mg PO BID PRN muscle spasm #14 05/21/21 tabs sennosides 8.6 mg-docusate sodium 2 tab-cap PO BEDTIME 60 days #120 03/07/22 50 mg capsule (Senna Plus) caps cyclobenzaprine 10 mg tablet 10 mg PO Q8H #20 tabs 03/20/22 tramadol 50 mg tablet 50 mg PO Q6H PRN pain #20 tabs 03/20/22 omeprazole 40 mg capsule,delayed 40 mg PO BID 90 days #180 caps 05/27/22 release amoxicillin 500 mg tablet 1,000 mg PO Q12H 10 days #40 tabs 07/11/22 clarithromycin 500 mg tablet 500 mg PO Q12H 10 days #20 tabs 07/11/22 naproxen 500 mg tablet 500 mg PO BID PRN pain 7 days #14 08/23/22 tabs prednisone 20 mg tablet 40 mg PO DAILY 5 days #10 tabs 08/23/22 Allergies Allergy/AdvReac Type Severity Reaction Status Date / Time mussels Allergy Severe DIFFICULTY Verified 08/23/22 13:57 BREATHING lactose AdvReac Diarrhea Verified 08/23/22 13:57 Review of Systems Review of Systems: Left knee and right shoulder pain Yes all other systems are reviewed and are negative [facility] Past Medical History Medical History (Updated 08/23/22 @ 17:00 by LEYDI Portillo) Asthma Chronic constipation COVID-19 Depression Epigastric pain GERD (gastroesophageal reflux disease) Hypothyroidism Iron deficiency anemia due to chronic blood loss Lab test negative for COVID-19 virus Lactose intolerance in adult Surgical History History of breast lump/mass excision History of colonoscopy History of endometrial ablation History of esophagogastroduodenoscopy (EGD) Hx of arthroscopic knee surgery Hx of dilation and curettage Hx of shoulder surgery Hx of tubal ligation Status post laparoscopic cholecystectomy Family History Family History Mother No problems noted. Father No problems noted. Maternal Aunt Hx of ovarian cancer Social History Social History Household Members: Children Alcohol intake: unknown Patient Tobacco Use Status: Never used Tobacco Second Hand Smoke Exposure: No Advance Directives: No Advance Directives Information Provided: Yes Current occupational status: employed Current occupation: [employer] HIGH/ right hand dominant Physical Exam ED Vital Signs: Vital Signs - 24 hr 08/23/22 13:57 08/23/22 15:36 Temperature 98 F 97.8 F Pulse Rate 86 69 Respiratory Rate 19 19 Blood Pressure 118/85 119/70 Pulse Oximetry 98 99 Oxygen Delivery Method Room Air Room Air BMI result Body Mass Index 37.2 Const General: cooperative, healthy appearing, comfortable, no acute distress, well developed, alert, awake and Physically active Orientation/consciousness: oriented to person, oriented to place, oriented to time and patient oriented x3 [facility] Head: Yes normal to inspection, Yes No palpable skull fracture present, Yes normocephalic, Yes atraumatic and No abrasion Ears: hearing grossly normal bilaterally, external ears normal, TM's normal bilaterally, TM normal on the right, TM normal on the left, EAC's normal, mast oids normal and no periauricular adenopathy Eyes General: appearance normal, both eyes and all related structures Neck Neck: Yes normal visual inspection, Yes full ROM, Yes no lymphadenopathy, Yes no meningeal signs, Yes trachea midline, Yes supple, No anterior neck swelling and No tender Chest Chest palpation & inspection: normal inspection of the chest and normal palpation of entire chest wall Resp Effort & Inspection: normal respiratory effort and able to speak in complete sentences Auscultation: clear to auscultation bilaterally Cardio Jugular venous distension: no JVD Heart sounds: S1 normal heart sound present and S2 normal heart sound present GI Inspection: Yes normal to inspection and No abdominal wall ecchymosis Palpation (GI): Soft to palpation, not firm, nontender, no guarding and not rigid General: No CVA tenderness and Yes no CVA tenderness Back/Spine/Pelvis Back: no CVA tenderness, No CVA tenderness and No back tenderness Skin General skin exam: no rashes or lesions noted, elasticity normal and turgor normal Neuro General: oriented to person, oriented to place, oriented to time, patient oriented x3, gait normal, tone normal, moves all extremities, Normal light touch and pain sensation, no meningeal signs, no focal motor deficits, CN's II-XI intact bilaterally and normal sensation to monofilament Extrem General: Yes normal to inspection and Yes full ROM Shoulder/upper arm images: 1. Positive for pain on palpation and range of motion. Negative for erythema, warmth, swelling, ecchymosis, crepitus, or deformity. Rest of extremity normal. Motor/ neuro/vascular exam intact. Knee images: 1. positive for tenderness on palpation. Negative for ecchymosis, crepitus, deformity, erythema, redness, swelling. Rest of extremity normal. Motor/ neuro/vascular exam intact. Psych Appearance: grossly normal and well kempt Course Course Course Narrative: This is an RME: Additional HPI, ROS, PE not included below will be deferred to primary provider. 42 year old female presents with left knee pain following swimming on Friday and pain to the right shoulder, atraumatic, worse with overhead movements. Patient reports 10/10 pain. patient denies nausea, vomiting, fever, chills, numbness, tingling, headache, or vision changes. Plan: imaging Medical Decision Making Medical Decision Making [facility] Narrative: 42-year-old female presents to ED for left knee and right shoulder pain since August 20 due to swimming incident. Patient denies any other complaints. X-rays negative. Patient is safe for discharge. patient discharged with pain medication. Patient denies any head trauma. patient denies any other life-threatening concerning symptoms. Differential Diagnosis Differential Diagnoses: The differential diagnosis associated with the presentation includes ( Knee fracture, knee dislocation, septic joint, shoulder dislocation, humerus fracture, septic joint, DVT, cellulitis, compartment syndrome,) Admission/Observation Consideration of admission/observation: Escalation of care including admission/observation considered Independent Interpretation I performed an independent interpretation of an: Plain X-Ray Radiology Impression Discussion of test interpretation with radiology: I have reviewed the radiolo gist's reading. Prescription Management I considered prescription management with: Pain Medication and Other Discharge Plan Discharge Clinical Impression: Knee sprain, Sprain of right shoulder Patient Disposition: Home, Self-Care Instructions: Knee Sprain (ED), Shoulder Sprain (ED) Additional Instructions: regrese al servicio de urgencias por cualquier dolor en el pecho, dificultad para respirar, hinchaz?n de las extremidades, dolor en la pantorrilla, fiebre, escalofr?os, decoloraci?n de color sudha azulado, dolor abdominal, sangrado rectal, v?mitos con dmitry, mareos, par?lisis de las extremidades, dificultad para caminar, hombro congelado o cualquier otro s?ntoma preocupante. Lizbet un seguimiento con el proveedor de atenci?n primaria para [place] posible resonancia magn?vanessa si no mejora. Prescriptions: New naproxen 500 mg tablet 500 mg PO BID PRN (Reason: pain) 7 Days Qty: 14 0RF prednisone 20 mg tablet 40 mg PO DAILY 5 Days Qty: 10 0RF No Action bisacodyl [Dulcolax (bisacodyl)] 5 mg tablet,delayed release (DR/EC) 5 mg PO BEDTIME 30 Days Qty: 30 3RF omeprazole 40 mg capsule,delayed release(DR/EC) 40 mg PO BID 90 Days Qty: 180 0RF cyclobenzaprine 10 mg tablet 10 mg PO BID PRN (Reason: muscle spasm) Qty: 14 0RF cyclobenzaprine 10 mg tablet 10 mg PO Q8H Qty: 20 0RF tramadol 50 mg tablet 50 mg PO Q6H PRN (Reason: pain) Qty: 20 0RF lidocaine 4 % adhesive patch,medicated 1 patch topical DAILY PRN (Reason: Pain) Rx Instructions: may leave on for up to 12 hrs albuterol sulfate [ProAir HFA] 90 mcg/actuation HFA aerosol inhaler 2 puff inhalation Q6H PRN (Reason: Shortness Of Breath Or Wheezing) amoxicillin 500 mg tablet 1,000 mg PO Q12H 10 Days Qty: 40 0RF clarithromycin 500 mg tablet 500 mg PO Q12H 10 Days Qty: 20 0RF cholecalciferol (vitamin D3) [Vitamin D3] 50 mcg (2,000 unit) tablet 50 mcg PO DAILY fluticasone propionate [Flovent HFA] 110 mcg/actuation HFA aerosol inhaler 2 puff inhalation BID ferrous gluconate 324 mg (38 mg iron) tablet 324 mg PO DAILY levothyroxine [Tirosint] 25 mcg capsule 25 mcg PO DAILY epinephrine 0.3 mg/0.3 mL auto-injector IM Senna Plus 8.6-50 mg capsule 2 tab-cap PO BEDTIME 60 Days Qty: 120 1RF Stand Alone Forms: Work/School Release Interventions: ED Discharge Assessment Last Done: 08/23/22 17:12 Discharge Date/Time: 08/23/22 17:13 Print Language: Malawian
[2022-08-23 15:36] VITALS: BP 119/70; PULSE 69; RESP 19; TEMP 36.6; O2SAT 99
== END 2022-08-23 17:13 | disposition home or self-care (01) ==
PROVIDERS: Emergency Provider Emergency Medicine Emergency Medical Services; PCP Registered Nurse
DX: S83.92XA Sprain of unspecified site of left knee, initial encounter (principal); S43.401A Unspecified sprain of right shoulder joint, initial encounter; M25.562 Pain in left knee; M25.511 Pain in right shoulder; X58.XXXA Exposure to other specified factors, initial encounter; Y93.9 Activity, unspecified; Y92.9 Unspecified place or not applicable; Y99.9 Unspecified external cause status; Z79.899 Other long term (current) drug therapy
CPT/HCPCS: 73030; 73564; 99282; 99283

== ENCOUNTER 2022-09-03 14:12 | Outpatient (AMB) | payer MEDICAID, SELFPAY ==
--- NOTE | 2022-09-03 14:46 | A.OFFVIS_ITS ---
Intake VS Expanded 09/03/22 14:47 Height 5 ft 3 in Weight 221 lb 12.56 oz BMI 39.3 Intake Visit Reasons: Obesity,Fatty Liver Allergies mussels Allergy (Severe, Verified 08/23/22 13:57) DIFFICULTY BREATHING lactose Adverse Reaction (Verified 08/23/22 13:57) Diarrhea HPI Nutrition Presentation Details Pt presents for MNT for fatty liver and obesity. 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 Pt reports having increased appetite,more so in the evening food frequency fruits: 0- 1/d non starchy vegetables: 1-2 servings 3 x/wk dairy: 0-1/d protein foods: beef/pork/poultry/eggs/cheese 6-10 oz/d , fish may have 1-2 x/month starches > 20 serving/d physical activity: none additional to daily life activities ETOH/Smoking ;denies fried foods: 4-5 x/wk pastries: daily beverages: juices/milk/water > 6 oz of juices/d [id number]-Pq.Jeor Equation Height 5 ft 3 in Weight 222 lb Resting Metabolic Rate 1638.45 Calculated Activity Level Sedentary Calories Needed to Maintain Weight 1966.14 Diagnosis Nutrition problem #1 food nutri know defi As related to (etiology) #1 diagnosis (obesity/fatty liver ) As evidenced by (sign/symptom) #1 no prior educ - nutri rec Monitoring/Goals Nutrition problem monitoring level of knowledge/skill and weight Nutrition goal/outcome list 3 CHO foods and wt loss 5lbs in 2 months Outcome progress verbalized understanding Learning/Education Readiness to learn good Stages of change preparation Educational materials provided Yes (meal planning) Most Recent Diabetes Results: Creatinine 0.72 mg/dL (0.5-1.4) 03/19/22 Blood Urea Nitrogen 13 mg/dL (9-16) 03/19/22 Sodium 139 mmol/L (135-145) 03/19/22 Potassium 3.6 mmol/L (3.3-5.1) 03/19/22 Chloride 102 mmol/L (96-108) 03/19/22 Carbon Dioxide 27 mmol/L (22-29) 03/19/22 Calcium 9.8 mg/dL (8.4-10.2) 03/19/22 AST 37 U/L (5-31) H 03/19/22 ALT 49 U/L (0-31) H 03/19/22 Total Protein 8.1 g/dL (6.5-8.0) H 03/19/22 Albumin 4.3 g/dL (3.5-5.0) 03/19/22 [facility] Medical History (Updated 08/24/22 @ 00:09 by Darcy Aaron) Asthma Chronic constipation COVID-19 Depression Epigastric pain GERD (gastroesophageal reflux disease) Hypothyroidism Iron deficiency anemia due to chronic blood loss Lab test negative for COVID-19 virus Lactose intolerance in adult Surgical History History of breast lump/mass excision History of colonoscopy History of endometrial ablation History of esophagogastroduodenoscopy (EGD) Hx of arthroscopic knee surgery Hx of dilation and curettage Hx of shoulder surgery Hx of tubal ligation Status post laparoscopic cholecystectomy Family History Mother No problems noted. Father No problems noted. Maternal Aunt Hx of ovarian cancer Social History Household Members: Children Alcohol intake: unknown Patient Tobacco Use Status: Never used Tobacco Second Hand Smoke Exposure: No Current occupational status: employed Current occupation: [employer] HIGH/ right hand dominant Female Reproductive History Menstrual Age of Menarche: 11 Assessment & Plan Assessment & Plan (1) Morbid obesity with BMI of 40.0-44.9, adult: Code(s): E66.01 - Morbid (severe) obesity due to excess calories; Z68.41 - Body mass index [BMI] 40.0-44.9, adult Plan: used wt : 101 kg Est kcal needs as per MSJ: 2000 (40% carb, 30% protein/fat) Est fluid needs as per 25-30 ml/d: 2522- 3030 ml/d Est prot per day as per 1 g/kg bw: 101 Recommend fiber intake : 8-10 g per day and gradually increase to 25-28 g per day for women and 35-38 g for men or as tolerated Recommend sodium intake per day : less than 2000 mg Educated patient on: ( R = reviewed V = verbalizes understanding N/R = needs review N/A = not applicable * Food sources of carbohydrate, adequate serving sizes and its role in various health conditions: R * Differences between complex carbohydrates a simple carbohydrates, role of fiber in diet: R * Differences between types of fats and role in diet (mono on saturated fat fatty acids, saturated fatty acids, trans fats): R * Food sources of sodium in salt and healthy modifications for heart health in kidney health: NR * Vitamins and minerals: NR * Healthy plate method concept: R V * Physical activity: Benefits a precaution: R Patient Instructions: Reduce on fat intake by reducing fried foods to once a week , choose grilled/baked/steamed opitons Practice mindful eating Choose a fruit in place of pastries Coding Level of Care Code Nutr Indiv Intake (99532) Diagnoses Morbid obesity with BMI of 40.0-44.9, adult E66.01; Z68.41 Time Spent (min) 40
[2022-09-03 14:47] VITALS: BMI 39.3
[2022-09-16 21:28] VITALS: BMI 39.3
== END 2022-09-03 15:18 | disposition home or self-care (01) ==
PROVIDERS: PCP Registered Nurse; Visit Provider Dietitian, Registered
DX: E66.01 Morbid (severe) obesity due to excess calories (principal); Z68.41 Body mass index [BMI] 40.0-44.9, adult

== ENCOUNTER → 2022-09-03 14:12 | Outpatient (BNVA) | payer MEDICAID, SELFPAY | PROVIDERS: PCP Registered Nurse; Visit Provider Dietitian, Registered | DX: E66.01 Morbid (severe) obesity due to excess calories (principal); Z68.39 Body mass index [BMI] 39.0-39.9, adult | CPT/HCPCS: 97802 ==

== ENCOUNTER 2022-09-19 15:23 | Outpatient (REF) | payer MEDICAID, SELFPAY ==
[2022-09-19 16:52] LABS: Estimated Average Glucose 114 mg/dL; Hemoglobin A1c % 5.6 %
[2022-09-19 17:34] LABS: TSH reflex Free T4 2.83 uIU/mL (0.32-4.0)
== END 2022-09-19 15:24 | disposition home or self-care (01) ==
LOC: HO.HHCL 15:23
PROVIDERS: Visit Provider Registered Nurse
DX: R73.03 Prediabetes (principal); E07.9 Disorder of thyroid, unspecified
CPT/HCPCS: 36415; 83036; 84443

== ENCOUNTER 2022-10-17 13:36 | Outpatient (REF) | payer MEDICAID, SELFPAY ==
--- NOTE | ~2022-10-17 | US_ITS ---
EXAMINATION: US DIAGNOSTIC ULTRASOUND BREAST, LEFT CLINICAL INFORMATION: 6 month (first) Follow-up complicated cyst left breast 2:00 axis, 7 cm from nipple.. COMPARISON: 03/18/2022. TECHNIQUE: Ultrasound of the left breast is performed with special attention to the 2:00 axis utilizing real-time ness scale imaging and color Doppler. FINDINGS: Within the left breast at the 2:00 axis, 7 cm from the nipple, there is a stable acorn cyst measuring 0.6 x 0.8 x 0.7 cm, with good through transmission, no internal color Doppler flow, and a fairly classic acorn cyst appearance. This is surrounded by stable fibrocystic changes. There has been no interval change. No suspicious abnormalities identified. Results were discussed with the patient at time of visit. US/US breast LT limited mamm only IMPRESSION: Stable complicated acorn cyst left breast 2:00 axis, 7 cm from the nipple, remaining probably benign. Recommend six-month interval follow-up (second) ultrasound to ensure stability over one year. At that time the patient will be due for routine bilateral screening mammography. ASSESSMENT: BI-RADS 3: Probably Benign RECOMMENDATION: Diagnostic left ultrasound in 6 months. This patient's information was entered into a reminder system with a target due date for their next mammogram.
== END 2022-10-17 13:37 | disposition home or self-care (01) ==
LOC: HO.MAMMO 13:36
PROVIDERS: PCP Registered Nurse; Visit Provider Registered Nurse
DX: R92.2 Inconclusive mammogram (principal)
CPT/HCPCS: 76642

== ENCOUNTER → 2022-10-17 14:00 | Outpatient (BNV) | payer MEDICAID, SELFPAY | PROVIDERS: PCP Registered Nurse; Visit Provider Radiology Diagnostic Radiology | DX: N60.02 Solitary cyst of left breast (principal) | CPT/HCPCS: 76642 ==

== ENCOUNTER 2022-10-25 12:42 | Outpatient (AMB) | payer MEDICAID, SELFPAY ==
[2022-10-25 13:01] VITALS: BP 120/65; BMI 41.7
--- NOTE | 2022-10-25 13:01 | MHC.OFFVIS ---
Intake Vital Signs 10/25/22 13:01 Height 5 ft 1 in Weight 220 lb 7.396 oz BMI 41.7 BP 120/65 Blood Pressure Location Rt brachial Position Sitting Intake Visit Reasons: 4 month follow up Intake Note: Patient follow up for 4 months follow up. CC: Patient reports she gets pain when she eats spicy foods. She also reports constipation and acid reflux. Scale Installer Required: Yes Scale Installer Name: [id number] Sinclair Accompanied by: Self / Same As Patient Allergies mussels Allergy (Severe, Verified 10/25/22 13:05) DIFFICULTY BREATHING lactose Adverse Reaction (Verified 10/25/22 13:05) Diarrhea Medication List - Last Reconciled 10/25/22 by Osvaldo Wen MD albuterol sulfate 90 mcg/actuation (ProAir HFA) 2 puffs inhalation Q6H PRN bisacodyl (Dulcolax (bisacodyl)) 5 mg PO BEDTIME 30 days cholecalciferol (vitamin D3) (Vitamin D3) 50 mcg PO DAILY cyclobenzaprine 10 mg PO Q8H epinephrine IM ferrous gluconate 324 mg PO DAILY fluticasone propionate 110 mcg/actuation (Flovent HFA) 2 puffs inhalation BID levothyroxine (Tirosint) 25 mcg PO DAILY lidocaine 4% 1 patch topical DAILY PRN naproxen 500 mg PO BID PRN 7 days omeprazole 40 mg PO BID 90 days prednisone 40 mg (2 x 20 mg) PO DAILY 5 days sennosides-docusate sodium 8.6-50 mg (Senna Plus) 2 tab-caps (2 x 8.6-50 mg) PO BEDTIME 60 days tramadol 50 mg PO Q6H PRN HPI 4 month follow up HPI Details GI CLINIC VISIT FOR THIS 42-YEAR-OLD FRENCH-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 Pt was scheduled for an urgent telemedicine visit in 01/2022 after a hiatus of 14 months (after pt called with abdominal pain) ?LABS IN [facility]:?09/29/19 CBC showed worsening anemia with H&H of 7.5 and 26, platelet 634, ferritin of 3, normal LFTS, ? 01/05 INR 1.1, hepatitis serologies showed immunity to hepatitis B and negative hepatitis-C antibody ? 09/2017 liver fibrosis score of 0.05, liver fibrosis stage F0, necroinflammatory score 0.25 ?IMAGING STUDIES: 04/26/22 ABD US SHOWED: LIVER: The liver is normal in size. The liver contour is normal. Diffuse increased echogenicity of the liver parenchyma. No focal hepatic lesion. There is no intrahepatic biliary duct dilatation seen. GALLBLADDER: Surgically absent. COMMON BILE DUCT: Normal in caliber measuring 0.6 cm in diameter. Feb, 2021 Gastric Emptying Study was normal ? 04/2018 abdominal ultrasound showed: ? The liver demonstrates increased echogenicity consistent with underlying liver disease. No focal mass is seen. ? KUB SHOWED:? Moderate volume intracolonic stool. There is no bowel obstruction. ? Air is seen to the level of the rectum. A few calcifications projecting over the pelvis most likely reflect phleboliths. ? Surgical clips within the right upper quadrant. Imaged lung bases are clear. No acute osseous findings. ? IMPRESSION:? Moderate volume intracolonic stool. No bowel obstruction. ?ENDOSCOPIC STUDIES: FEB, 2022 EGD SHOWED: ESOPHAGUS: GE junction at 32 cms, small hiatal hernia 32 to 34 cms. One 1 cms tongue of possible [place]'s - biopsied. STOMACH: Mild diffuse gastric erythema. Biopsies were obtained from the antrum and body of the stomach. DUODENUM: Normal - biopsied to check for celiac sprue Plan: Above findings were reviewed with the patient and GERD handout was given in the discharge area. Schedule an abdominal CT scan for evaluation of abdominal pain and WINNIE anemia if biopsies are normal. 09/13/19 colonoscopy showed: ? One diminutive polyp removed ? Moderate diverticulosis seen in the sigmoid colon ? Moderate hemorrhoids on retroflexed exam. ? Plan: ? Repeat Colonoscopy interval based on path results in 5 years if ? polyps are adenomatous and 10 years if polyps are hyperplastic. ? Above findings were reviewed with the patient and colon polyps and diverticulosis handouts ? were given in the discharge area ? Colon, transverse polyp, polypectomy: Polypoid colonic mucosa within normal limits; ? negative for dysplasia; deeper levels evaluated. ?09/2017 PATIENT HAD AN UPPER ENDOSCOPY BY DR. VIDAL: ? GENERAL IMPRESSION: 1. Food residue in the stomach. Question is raised of potential for delayed? gastric emptying. 2. Small hiatal hernia. ? PLAN: Currently, patient will be re-seen in our office in approximately 4 weeks. I did review the patient's records. She does have a history of a chronic anemia in May 2017: Hemoglobin 9.5 and hematocrit 30.2. November of 2016: Hemoglobin A1c was 5.6. Patient did have an elevated ALT at that time of 78 and AST of 62. She has had abdominopelvic CT's in the past. In 2016, there was reading of mild decreased ? echogenicity consistent with fatty liver change. There was no hepatosplenomegaly at that time. A 2017 CT was read out as negative; although, they were looking for urinary problems at that time. There was no description of degenerative changes in the spine. She does have some history of [facility] hospitalization in 2012 for depressive disorder and was diagnosed with PTSD. I have taken the liberty of ordering some ? laboratory testing to re-evaluate her serum transaminases, as well as to assess current pattern of anemia. TODAY[facility]ISIT [facility] CC: Patient reports she gets pain when she eats spicy foods. She also reports constipation and acid reflux. Continues to have constipation. Has a BM every 1-2 days. Sometimes she feels there is stool in the rectum and unable to push it out Has not tried to use a suppository Ran out of medications for constipation and advised to resume. PAST VISITS: Patient follow up for Constipation and EGD ad US results. Ptient cc: acid reflex on and off. Has been doing pretty good Not too much pain lately Patient cc: center of abdominal pain with bloating, and diarrhea. Denies any other GI issues. Continues to have some abdominal pain. When she eats something hot it woodard Notes acid reflux after spicy food. Denies diarrhea and no BM for the past 2 days Has a BM once a day with straining. Denies rectal bleeding or black stools. Had a period Feb 02 and again on the Feb and last 3 days. Denies heavy bleeding or clots Has noted abdominal pain for the past week. Did not have abd pain in the past since she was taking medications Still taking the medications and unclear why the pain came back. Notes a lot of pain after she eats something - notes pressure Had some diarrhea yesterday. Denies heavy menstrual blood. Denies taking Ibuprofen and taking Omeprazole 40 mg once a day (advised to increase to twice daily). PAST VISIT: CC: Stomach pains, When she eats something her stomach woodard. Heartburn, burning in throat and chest - avoiding fried foods and tomatoes. Complains of pain in the middle of her chest? - notes the pain daily. Had pain when she drank some coffee. Pain can last until she takes a pill (she bought over the counter) Takes Oxycodone and Tramadol once a day - unable to recall why it was prescribed ? back, shoulder and neck pain. Denies irregular bowel movements. Doing good. Had endometrial ablation on 05/16/20 with decrease in menstrual blood loss Continues to have intermittent heartburn whenever she has greasy foods or tomatoes. 02/03/20 Pt had a hysteroscopy with d&c for abnormal uterine bleeding after endometrial biopsy performed in the office did not show definitive endometrial tissue. She was called by her Automotive Glass Installer and given 3 options to control the bleeding - BCP, surgery versus? hysterectomy. She has not made a decision yet. Continues to have constipation. Notes heartburn when she takes spicy foods. taking iron once a day. ? She has completed her IV iron treatment and notes improvement in dizziness. Periods continue to be heavy and has not seen ObGyn yet. ? Saw DR Lin in the past. ?Not taking taking iron and was advised to resume taking iron pills once a day. ?Periods are heavy and last 8 days. ? Waiting for an appt to see ObGyn ?? Continues to have constipation since she ran out of her medications. ? Constipation is better since she has been taking medications - having a BM twice a week without hard stools. ? Denies straining or hard stools - sometimes no BM for 2 days. ? Notes some bloating. ? Takes iron pills twice a day. ? Denies nausea, vomiting or heartburn. ? Intermittent black stools - likely due to oral iron. ? Periods are heavy - has them once a month and last 8 days - saw OBGyn 1-2 yrs ago. ? Pt denies any change in her FH and denies history of colon polyps or?cancer PFSH Medical History Asthma Lab test negative for COVID-19 virus COVID-19 Chronic constipation Iron deficiency anemia due to chronic blood loss Epigastric pain GERD (gastroesophageal reflux disease) Lactose intolerance in adult Depression Hypothyroidism Surgical History Hx of shoulder surgery Hx of tubal ligation History of endometrial ablation Hx of dilation and curettage History of breast lump/mass excision Hx of arthroscopic knee surgery History of esophagogastroduodenoscopy (EGD) Status post laparoscopic cholecystectomy History of colonoscopy Family History Mother No problems noted. Father No problems noted. Maternal Aunt Hx of ovarian cancer Social History Household Members: Children Alcohol intake: unknown Patient Tobacco Use Status: Never used Tobacco Second Hand Smoke Exposure: No Current occupational status: employed Current occupation: [employer]/ right hand dominant Female Reproductive History Menstrual Age of Menarche: 11 Review of Systems Const All systems reviewed & are unremarkable except as noted in HPI and below Physical Exam Vital Signs: Last Vital Signs BP 120/65 10/25/22 13:01 BMI result Body Mass Index 41.7 Const General: healthy appearing and no acute distress Nutritional Appearance: obese Orientation/consciousness: patient oriented x3 Limitations: no limitations HEENT Head: Yes normal to inspection Ears: hearing grossly normal bilaterally Eyes Sclerae: sclerae normal Pupils: Equal, round and reactive pupils present Neck Neck: Yes normal visual inspection Chest Chest palpation & inspection: normal inspection of the chest Resp Effort & Inspection: normal respiratory effort Auscultation: clear to auscultation bilaterally Cardio Palpation: normal PMI Rate: regular rate Rhythm: regular rhythm Heart sounds: S1 normal heart sound present, S2 normal heart sound present and no murmurs GI Palpation (GI): Soft to palpation, nontender and No hepatosplenomegaly present Auscultation: normal bowel sounds Rectal Exam - Female: deferred Skin General skin exam: no rashes or lesions noted Neuro General: patient oriented x3, gait normal and moves all extremities Cranial nerves: Yes Equal, round and reactive pupils present Psych Appearance: grossly normal Mental Status: mental status grossly normal Assessment & Plan Assessment & Plan (1) Helicobacter pylori gastritis: Code(s): K29.70 - Gastritis, unspecified, without bleeding; B96.81 - Helicobacter pylori [H. pylori] as the cause of diseases classified elsewhere (2) Upper abdominal pain: Code(s): R10.10 - Upper abdominal pain, unspecified (3) NAFL (nonalcoholic fatty liver): Code(s): K76.0 - Fatty (change of) liver, not elsewhere classified (4) Chronic constipation: Code(s): K59.09 - Other constipation (5) Iron deficiency anemia due to chronic blood loss: Code(s): D50.0 - Iron deficiency anemia secondary to blood loss (chronic) (6) Epigastric pain: Code(s): R10.13 - Epigastric pain (7) GERD (gastroesophageal reflux disease): Code(s): K21.9 - Gastro-esophageal reflux disease without esophagitis (8) Lactose intolerance in adult: Code(s): E73.9 - Lactose intolerance, unspecified Plan ear old Vincentian-speaking female with anemia, depression, Hypothyroidism, Lactose intolerance, S/P laparoscopic cholecystectomy followed in GI for Hepatic steatosis, GERD, WINNIE and Epigastric pain. EGD in September [address] Vidal showed a small hiatal hernia and food residue in the stomach suggestive of delayed gastric emptying. Gastric biopsies showed mild chronic gastritis without Helicobacter pylori. 09/13/19 colonoscopy was negative. Patient was advised to continue senna with docusate for constipation and continue taking omeprazole 40 mg twice daily and I will arrange for IV iron infusion for worsening iron deficiency anemia. Iron deficiency anemia due to chronic blood loss: Likely due to heavy menstrual bleeding patient was referred to OBGYN urgently due to worsening anemia. She underwent endometrial ablation with decrease in menstrual bleeding. Feb, 2021 Gastric Emptying study was normal. 02/07 pt complains of post prandial upper abdominal pain. She was advised to increase Omeprazole to twice a day and have labs checked. 03/11 Abdominal US showed fatty liver EGD showed reactive gastropathy with mild chronic inactive inflammation and rare forms suspicious for H pylori identified. Patient was treated with amoxicillin and clarithromycin for 10 days. She was referred to the government affairs fellow for a diet plan to help her loose weight - seen on 09/03/22. 10/25/22 Ran out of medications for constipation and advised to resume. Follow-up in 4 months Medications: Refilled bisacodyl (Dulcolax (bisacodyl)) 5 mg PO BEDTIME 30 tabs 3RF 30 days K59.09 - Other constipation omeprazole 40 mg PO BID 180 caps 0RF 90 days sennosides-docusate sodium 8.6-50 mg (Senna Plus) 2 tab-caps (2 x 8.6-50 mg) PO BEDTIME 120 caps 1RF 60 days Coding Level of Care Code Est Pt Level 4 (70203) Diagnoses Helicobacter pylori gastritis K29.70; B96.81 Upper abdominal pain R10.10 NAFL (nonalcoholic fatty liver) K76.0 Chronic constipation K59.09 Iron deficiency anemia due to chronic blood loss D50.0 Epigastric pain R10.13 GERD (gastroesophageal reflux disease) K21.9 Lactose intolerance in adult E73.9 Time Spent (min) 21
== END 2022-10-25 13:33 | disposition home or self-care (01) ==
PROVIDERS: Visit Provider Internal Medicine Gastroenterology
DX: K29.70 Gastritis, unspecified, without bleeding (principal); B96.81 Helicobacter pylori [H. pylori] as the cause of diseases classified elsewhere; R10.10 Upper abdominal pain, unspecified; K76.0 Fatty (change of) liver, not elsewhere classified; K59.09 Other constipation; D50.0 Iron deficiency anemia secondary to blood loss (chronic); R10.13 Epigastric pain; K21.9 Gastro-esophageal reflux disease without esophagitis; E73.9 Lactose intolerance, unspecified
CPT/HCPCS: 99214

== ENCOUNTER → 2022-10-25 12:42 | Outpatient (BNVA) | payer MEDICAID, SELFPAY | PROVIDERS: Visit Provider Internal Medicine Gastroenterology | DX: K29.70 Gastritis, unspecified, without bleeding (principal); B96.81 Helicobacter pylori [H. pylori] as the cause of diseases classified elsewhere; R10.10 Upper abdominal pain, unspecified; K76.0 Fatty (change of) liver, not elsewhere classified; K59.09 Other constipation; D50.0 Iron deficiency anemia secondary to blood loss (chronic); R10.13 Epigastric pain; K21.9 Gastro-esophageal reflux disease without esophagitis; E73.9 Lactose intolerance, unspecified | CPT/HCPCS: 99212 ==

== ENCOUNTER 2022-11-14 15:17 | Outpatient (AMB) | payer MEDICAID, SELFPAY ==
[2022-11-14 15:21] VITALS: BP 105/69; PULSE 77
--- NOTE | 2022-11-14 15:21 | A.OFFVIS_ITS ---
Intake Vital Signs 11/14/22 15:21 Height 5 ft 3 in BMI Reason not done Patient refused/unable BP 105/69 Blood Pressure Location Rt brachial Position Sitting Pulse 77 Intake Visit Reasons: mass rt arm Intake Note: This patient presents for an assessment for mass on the right arm. Patient c/o; Onset 4 months, reports pain, right upper arm. 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 Accompanied by: Daughter Allergies mussels Allergy (Severe, Verified 11/14/22 15:28) DIFFICULTY BREATHING lactose Adverse Reaction (Verified 11/14/22 15:28) Diarrhea Medication List - Last Reconciled 11/14/22 by Josesito Johnson MD albuterol sulfate 90 mcg/actuation (ProAir HFA) 2 puffs inhalation Q6H PRN bisacodyl (Dulcolax (bisacodyl)) 5 mg PO BEDTIME 30 days cholecalciferol (vitamin D3) (Vitamin D3) 50 mcg PO DAILY cyclobenzaprine 10 mg PO Q8H epinephrine IM ferrous gluconate 324 mg PO DAILY fluticasone propionate 110 mcg/actuation (Flovent HFA) 2 puffs inhalation BID levothyroxine (Tirosint) 25 mcg PO DAILY lidocaine 4% 1 patch topical DAILY PRN naproxen 500 mg PO BID PRN 7 days omeprazole 40 mg PO BID 90 days prednisone 40 mg (2 x 20 mg) PO DAILY 5 days sennosides-docusate sodium 8.6-50 mg (Senna Plus) 2 tab-caps (2 x 8.6-50 mg) PO BEDTIME 60 days tramadol 50 mg PO Q6H PRN HPI mass rt arm HPI Details 42-year-old female referred for a right arm mass. She says she has noticed this about 2 months ago. She points to the right upper arm near the axilla. She says that she has pain with this. She wants this removed She denies any skin changes. She denies any drainage or swelling. She has history of removal of lipomas in the past. [facility] Medical History (Updated 11/14/22 @ 15:42 by Josesito Johnson MD) Lipoma of arm Asthma Lab test negative for COVID-19 virus COVID-19 Chronic constipation Iron deficiency anemia due to chronic blood loss Epigastric pain GERD (gastroesophageal reflux disease) Lactose intolerance in adult Depression Hypothyroidism Surgical History Hx of shoulder surgery Hx of tubal ligation History of endometrial ablation Hx of dilation and curettage History of breast lump/mass excision Hx of arthroscopic knee surgery History of esophagogastroduodenoscopy (EGD) Status post laparoscopic cholecystectomy History of colonoscopy Family History Mother No problems noted. Father No problems noted. Maternal Aunt Hx of ovarian cancer Social History Household Members: Children Alcohol intake: unknown Patient Tobacco Use Status: Never used Tobacco Second Hand Smoke Exposure: No Current occupational status: employed Current occupation: [employer]/ right hand dominant Female Reproductive History Menstrual Age of Menarche: 11 Review of Systems Const Denies chills and Denies fever(s) Card Denies chest pain, Denies dyspnea and Denies dyspnea on exertion Resp Denies cough, Denies dyspnea and Denies dyspnea on exertion GI Denies hematochezia and Denies change in bowel habits Denies hematuria Musc Denies back pain and Denies limited range of motion Neuro Denies focal weakness and Denies convulsions Psych Denies depression and Denies mood swings Physical Exam Vital Signs: Last Vital Signs Pulse 77 11/14/22 15:21 BP 105/69 11/14/22 15:21 Const General: comfortable and no acute distress Orientation/consciousness: patient oriented x3 Neck Neck: Yes no lymphadenopathy Resp Auscultation: clear to auscultation bilaterally Cardio Rhythm: regular rhythm GI Palpation (GI): Soft to palpation, nontender and no guarding Neuro General: patient oriented x3 Extrem Other: Small probably 4 mm mass in the subcutaneous tissue on the right upper arm near the axilla likely a lipoma Assessment & Plan Assessment & Plan (1) Lipoma of arm: Code(s): D17.20 - Benign lipomatous neoplasm of skin and subcutaneous tissue of unspecified limb Plan: I explained to her the technique of excision under local anesthesia. I reviewed the risks including but not limited to bleeding, infections, postop pain, poor healing, as well as the benefits and alternatives. She has given consent. This will be done on her next visit here in the office. Coding Level of Care Code Est Pt Level 3 (46825) Diagnoses Lipoma of arm D17.20
== END 2022-11-14 15:38 | disposition home or self-care (01) ==
PROVIDERS: PCP Registered Nurse; Visit Provider Surgery
DX: D17.20 Benign lipomatous neoplasm of skin and subcutaneous tissue of unspecified limb (principal)
CPT/HCPCS: 99214

== ENCOUNTER → 2022-11-14 15:17 | Outpatient (BNVA) | payer MEDICAID, SELFPAY | PROVIDERS: PCP Registered Nurse; Visit Provider Surgery | DX: D17.21 Benign lipomatous neoplasm of skin and subcutaneous tissue of right arm (principal) | CPT/HCPCS: 99212 ==

== ENCOUNTER 2022-11-27 14:17 | Outpatient (REF) | payer MEDICAID, SELFPAY | END 2022-11-27 14:18 | disposition home or self-care (01) | LOC: HO.LNP 14:17 | PROVIDERS: PCP Registered Nurse; Visit Provider Surgery | DX: D17.21 Benign lipomatous neoplasm of skin and subcutaneous tissue of right arm (principal) | CPT/HCPCS: 11402; 88304 ==

== ENCOUNTER 2022-11-27 14:17 | Outpatient (AMB) | payer MEDICAID, SELFPAY ==
--- NOTE | 2022-11-27 14:18 | A.OFFVIS_ITS ---
Intake Vital Signs 11/27/22 14:35 Height 5 ft 3 in BP 130/60 Blood Pressure Location Lt brachial Position Sitting Pulse 83 Intake Visit Reasons: Excision of lipoma right upper arm Intake Note: This patient presents for in-office procedure for excision of lipoma of the right upper arm. Patient c/o; reports no changes. Felt Finishing Supervisor Required: Yes Felt Finishing Supervisor Language: Band Cutting Machine Operator Name: Ryan Information Interpreted: non-clinical & clinical Accompanied by: Other Relationship Allergies mussels Allergy (Severe, Verified 11/27/22 14:36) DIFFICULTY BREATHING lactose Adverse Reaction (Verified 11/27/22 14:36) Diarrhea HPI Excision of lipoma right upper arm HPI Details She is here for excision of a lipoma from right upper arm. [facility] Medical History (Updated 11/14/22 @ 15:42 by Josesito Johnson MD) Lipoma of arm Asthma Lab test negative for COVID-19 virus COVID-19 Chronic constipation Iron deficiency anemia due to chronic blood loss Epigastric pain GERD (gastroesophageal reflux disease) Lactose intolerance in adult Depression Hypothyroidism Surgical History Hx of shoulder surgery Hx of tubal ligation History of endometrial ablation Hx of dilation and curettage History of breast lump/mass excision Hx of arthroscopic knee surgery History of esophagogastroduodenoscopy (EGD) Status post laparoscopic cholecystectomy History of colonoscopy Family History Mother No problems noted. Father No problems noted. Maternal Aunt Hx of ovarian cancer Social History Household Members: Children Alcohol intake: unknown Patient Tobacco Use Status: Never used Tobacco Second Hand Smoke Exposure: No Current occupational status: employed Current occupation: [employer] HIGH/ right hand dominant Female Reproductive History Menstrual Age of Menarche: 11 Physical Exam Vital Signs: Last Vital Signs Pulse 83 11/27/22 14:35 BP 130/60 11/27/22 14:35 Office Procedures Excision Details: She was placed in a reclining position with the right arm position to expose the area of the lipoma. This was on the inner aspect of the right upper arm towards the axilla. This area was prepped and draped. Lidocaine 1% was used for local anesthesia. I made a short incision on the skin overlying this lipoma using a blade 15. This carried down the full-thickness of the skin subcutaneous fat. Then proceeded to gently dissect with the Metzenbaum scissors to the subcutaneous layer until I was able to visualize and feel the lipoma. This was extracted with an Allis clamp. This was at 2 cm lipomatous mass. I then closed the incision with full-thickness nylon 3-0 interrupted sutures. Dressings were applied. The procedure was completed. She tolerated procedure well. There were no immediate complications. She was given wound care instructions. [id number]/arms/legs 1.1-2cm Procedure code (CPT) selection complete Assessment & Plan Assessment & Plan (1) Lipoma of arm: Code(s): D17.20 - Benign lipomatous neoplasm of skin and subcutaneous tissue of unspecified limb Plan: Excision was done under local anesthesia and she tolerated this well. She was given wound care instructions. Coding Level of Care Code Procedure Only Diagnoses Lipoma of arm D17.20 CPT Codes Trunk/Arms/Legs - CPT: 02846-yfckn/arms/legs 1.1-2cm ([id number])
[2022-11-27 14:35] VITALS: BP 130/60; PULSE 83
== END 2022-11-27 15:16 | disposition home or self-care (01) ==
PROVIDERS: PCP Registered Nurse; Visit Provider Surgery
DX: D17.21 Benign lipomatous neoplasm of skin and subcutaneous tissue of right arm (principal)
CPT/HCPCS: 11402

== ENCOUNTER 2022-12-09 13:31 | Outpatient (AMB) | payer MEDICAID, SELFPAY ==
--- NOTE | 2022-12-09 13:33 | MHC.OFFVIS ---
Intake Vital Signs 12/09/22 13:38 Height 5 ft 3 in BP 111/59 L Blood Pressure Location Lt brachial Position Sitting Pulse 89 Intake Visit Reasons: s/p excision of lipoma right upper arm Intake Note: This patient presents for a post-op assessment status post in-office procedure; excision of lipoma right upper arm. Patient c/o; reports no complaints at this time. 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 She is doing well and denies significant complaints. [facility] Medical History Lipoma of arm Asthma Lab test negative for COVID-19 virus COVID-19 Chronic constipation Iron deficiency anemia due to chronic blood loss Epigastric pain GERD (gastroesophageal reflux disease) Lactose intolerance in adult Depression Hypothyroidism Surgical History Status post excision of lipoma (~11/27/22) Hx of shoulder surgery Hx of tubal ligation History of endometrial ablation Hx of dilation and curettage History of breast lump/mass excision Hx of arthroscopic knee surgery History of esophagogastroduodenoscopy (EGD) Status post laparoscopic cholecystectomy History of colonoscopy Family History Mother No problems noted. Father No problems noted. Maternal Aunt Hx of ovarian cancer Social History Household Members: Children Alcohol intake: unknown Patient Tobacco Use Status: Never used Tobacco Second Hand Smoke Exposure: No Current occupational status: employed Current occupation: [employer] HIGH/ right hand dominant Female Reproductive History Menstrual Age of Menarche: 11 Review of Systems Const Denies chills and Denies fever(s) Physical Exam Vital Signs: Last Vital Signs Pulse 89 12/09/22 13:38 BP 111/59 L 12/09/22 13:38 Const General: comfortable and no acute distress Resp Effort & Inspection: normal respiratory effort Extrem Other: Excision site on the right upper arm is well healed, not infected, sutures in place Assessment & Plan Assessment & Plan (1) Lipoma of arm: Code(s): D17.20 - Benign lipomatous neoplasm of skin and subcutaneous tissue of unspecified limb Plan: Status post excision. I removed all her sutures. The incision is well healed. Her path report shows an angiolipoma. She can follow up on a p.r.n. basis. Coding Level of Care Code Global (33642) Diagnoses Lipoma of arm D17.20
[2022-12-09 13:38] VITALS: BP 111/59; PULSE 89
== END 2022-12-09 13:44 | disposition home or self-care (01) ==
PROVIDERS: PCP Registered Nurse; Visit Provider Surgery
DX: D17.20 Benign lipomatous neoplasm of skin and subcutaneous tissue of unspecified limb (principal)
CPT/HCPCS: 99024

== ENCOUNTER 2022-12-09 13:31 | Outpatient (REF) | payer MEDICAID, SELFPAY ==
[2022-12-09 14:24] LABS: Hematocrit 35.8 % (37.0-47.0); Hemoglobin 11.9 g/dl (12.0-16.0); Mean Corpuscular HGB Conc 33.2 g/dl (31.0-35.0); Mean Corpuscular Volume 87.3 fL (80.0-98.0); Mean Platelet Volume 9.7 fL (9.4-12.3); Platelet Count 329 X10*3/uL (160-400); White Blood Count 7.7 X10*3/uL (4.8-10.8)
[2022-12-09 14:54] LABS: Alanine Aminotransferase 36 U/L (0-31); Albumin Level 4.1 g/dL (3.5-5.0); Alkaline Phosphatase 64 U/L (39-117); Aspartate Amino Transferase 30 U/L (5-31); Bilirubin Direct 0.2 mg/dL (0.0-0.5); Bilirubin Total 0.3 mg/dL (0.0-1.0); Total Protein 7.8 g/dL (6.5-8.0)
[2022-12-09 15:09] LABS: Ferritin 80 ng/mL (10-250)
[2022-12-11 14:39] LABS: Anti Nuclear Antibody Screen NEGATIVE (NEGATIVE)
== END 2022-12-09 13:32 | disposition home or self-care (01) ==
LOC: HO.LAB 13:31
PROVIDERS: Internal Medicine Gastroenterology; PCP Registered Nurse; Visit Provider Surgery
DX: R10.10 Upper abdominal pain, unspecified (principal); K76.0 Fatty (change of) liver, not elsewhere classified; D17.20 Benign lipomatous neoplasm of skin and subcutaneous tissue of unspecified limb
CPT/HCPCS: 36415; 80076; 82728; 85027; 86038; 86140

== ENCOUNTER 2022-12-25 13:33 | Outpatient (AMB) | payer MEDICAID, SELFPAY ==
--- NOTE | 2022-12-25 13:38 | A.OFFVIS_ITS ---
Intake Vital Signs 12/25/22 13:49 Height 5 ft 3 in Weight 220 lb BMI 39.0 Intake Visit Reasons: ov- Ov- Lt.knee pain, last inj 01/23/22 Intake Note: Kasie 42 yr old female presents today for her follow up visit for her left knee s/p injection from 01/23/22. States she had relief untilabout a few weeks ago. Patient would like to repeat injection today. 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 She had her last injection on 01/23/23 which provided her relief until about a few weeks ago and she experiences pain in her left knee with daily activities. She is also experiencing pain in the left wrist. I saw her in the past for left wrist pain and she was doing well up until recently. 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 [facility] Medical History Lipoma of arm Asthma Lab test negative for COVID-19 virus COVID-19 Chronic constipation Iron deficiency anemia due to chronic blood loss Epigastric pain GERD (gastroesophageal reflux disease) Lactose intolerance in adult Depression Hypothyroidism Surgical History Status post excision of lipoma (~11/27/22) Hx of shoulder surgery Hx of tubal ligation History of endometrial ablation Hx of dilation and curettage History of breast lump/mass excision Hx of arthroscopic knee surgery History of esophagogastroduodenoscopy (EGD) Status post laparoscopic cholecystectomy History of colonoscopy Family History Mother No problems noted. Father No problems noted. Maternal Aunt Hx of ovarian cancer Social History Household Members: Children Alcohol intake: unknown Patient Tobacco Use Status: Never used Tobacco Second Hand Smoke Exposure: No Current occupational status: employed Current occupation: [employer] HIGH/ right hand dominant Female Reproductive History Menstrual Age of Menarche: 11 Review of Systems Const All systems reviewed & are unremarkable except as noted in HPI and below Physical Exam Vital Signs: BMI result Body Mass Index 39.0 Extrem Other: Left knee: Skin intact, no erythema or joint effusion. Tenderness along the medial and lateral joint line. Full ROM with crepitus. Negative Jesus?s. No ligamentous laxity. NVI. Left wrist: Without deformity. No swelling. Mild tenderness over the radial styloid. Positive Adarsh?s. No pain with CMC grind. She is able to make a full fist and fully extend all digits. NVI. Office Procedures Joint Injection/Drain Joint Injection/Drain Primary Site: left knee Prep: site was prepped using aseptic technique, ethochloride spray was applied and injection warnings given Injected: 80 mg of, DepoMedrol, with 8 mL of, 1% plain lidocaine and in the joint Approach Used: anterolateral Procedure: The patient tolerated the procedure well and there was some relief with the local anesthesia Coding 00818 - Glenohumeral/Tronchanteric Bursa/Intraarticular Procedure code (CPT) selection complete Results Reviewed Results Reviewed: 12/25/22 13:46 Lidocaine HCl 2 % MPF [Xylocaine 2 % MPF] 5 ml .ROUTE .STK-MED ONE methylPREDNISolone acetate [DEPO-MedroL] 80 mg .ROUTE .STK-MED ONE Assessment & Plan Assessment & Plan (1) Patellofemoral arthritis of left knee: Code(s): M17.12 - Unilateral primary osteoarthritis, left knee Plan We discussed options today which include steroid injection. They did consent to move forward with the left knee injection, which was tolerated well. I recommended rest, ice and elevation and OTC anti-inflammatories PRN for discomfort. If symptoms persist or worsens over the next 6-8 weeks, patient will contact the office, otherwise follow-up as needed. For her left wrist, she was given a thumb spica in the office today to use while sleeping and lifting activities. Patient Instructions: Scribed for Barrett Swenson PA-C, by Steven Roldan chief medical officer, on 12/25/2022 at 1:45 PM EST. Barrett Hawkins PA-C, have personally reviewed and agree with the information entered by the scribe. Coding Level of Care Code Est Pt Level 3 (33177) Diagnoses Patellofemoral arthritis of left knee M17.12 CPT Codes Coding - Joint 7: 67176 - Glenohumeral/Tronchanteric Bursa/Intraarticular ([id number])
[2022-12-25 13:49] VITALS: BMI 39.0
== END 2022-12-25 14:29 | disposition home or self-care (01) ==
PROVIDERS: PCP Registered Nurse; Visit Provider Physician Assistant
DX: M17.12 Unilateral primary osteoarthritis, left knee (principal)
CPT/HCPCS: 20610; 99213

== ENCOUNTER → 2022-12-25 13:33 | Outpatient (BNVA) | payer MEDICAID, SELFPAY | PROVIDERS: PCP Registered Nurse; Visit Provider Physician Assistant | DX: M17.12 Unilateral primary osteoarthritis, left knee (principal) | CPT/HCPCS: 20610; 99212; J1040 ==

== ENCOUNTER 2023-02-26 10:20 | Emergency (ER) | payer MEDICAID, SELFPAY ==
[2023-02-26 11:14] VITALS: BP 121/76; PULSE 98; RESP 17; TEMP 36.8; O2SAT 98; BMI 40.4
[2023-02-26 12:36] LABS: Influenza A PCR NEGATIVE (Negative); Influenza B PCR NEGATIVE (Negative); Resp Syncy Virus RNA Qual PCR NEGATIVE (Negative); SARS COV2 PCR INHOUSE NEGATIVE (Negative)
--- NOTE | 2023-02-26 13:42 | ED.URI ---
HPI - URI/Sore Throat General Chief Complaint: Upper Respiratory Symptoms Stated Complaint: Headache, cough, vomiting Time Seen by Provider: 02/26/23 13:41 Source: patient, RN notes reviewed and old records reviewed Mode of arrival: ambulatory History of Present Illness HPI Narrative: 42-year-old female with a past medical history of asthma, GERD, depression, hypothyroid, presenting to the ED complaining of dry cough, congestion, SOB, subjective fever, headache, myalgias/body aches, nausea and vomiting x 3 days. Denies chest pain, abdominal pain, travel, ear pain, sore throat. + multiple sick contacts. MD elicited complaint: fever, cough, rhinorrhea and nasal congestion Related Data Home Medications Medication Instructions Recorded Confirmed albuterol sulfate 90 mcg/actuation 2 puff inhalation Q6H PRN 11/25/19 11/14/22 aerosol inhaler (ProAir HFA) Shortness Of Breath Or Wheezing lidocaine 4 % topical patch 1 patch topical DAILY PRN Pain 11/25/19 11/14/22 cholecalciferol (vitamin D3) 50 50 mcg PO DAILY 03/07/22 11/14/22 mcg (2,000 unit) tablet (Vitamin D3) epinephrine 0.3 mg/0.3 mL IM 03/07/22 11/14/22 injection, auto-injector ferrous gluconate 324 mg (38 mg 324 mg PO DAILY 03/07/22 11/14/22 iron) tablet fluticasone propionate 110 2 puff inhalation BID 03/07/22 11/14/22 mcg/actuation HFA aerosol inhaler (Flovent HFA) levothyroxine 25 mcg capsule 25 mcg PO DAILY 03/07/22 11/14/22 (Tirosint) Previous Rx's Medication Instructions Recorded cyclobenzaprine 10 mg tablet 10 mg PO Q8H #20 tabs 03/20/22 tramadol 50 mg tablet 50 mg PO Q6H PRN pain #20 tabs 03/20/22 naproxen 500 mg tablet 500 mg PO BID PRN pain 7 days #14 08/23/22 tabs prednisone 20 mg tablet 40 mg (2 x 20 mg) PO DAILY 5 days 08/23/22 #10 tabs bisacodyl 5 mg tablet,delayed 5 mg PO BEDTIME 30 days #30 tabs 10/25/22 release (Dulcolax (bisacodyl)) sennosides 8.6 mg-docusate sodium 2 tab-cap (2 x 8.6-50 mg) PO 10/25/22 50 mg capsule (Senna Plus) BEDTIME 60 days #120 caps omeprazole 40 mg capsule,delayed 40 mg PO BID #180 caps 01/23/23 release ondansetron 4 mg disintegrating 4 mg PO Q8H PRN nausea and 02/26/23 tablet vomiting #10 tabs Allergies Allergy/AdvReac Type Severity Reaction Status Date / Time mussels Allergy Severe DIFFICULTY Verified 02/26/23 11:14 BREATHING lactose AdvReac Diarrhea Verified 02/26/23 11:14 Review of Systems Review of Systems: Constitutional: + Fever, + Chills, +fatigue ENT/Mouth: No Ear Pain, +nasal Congestion, No Sinus Pain, No Hoarseness, No sore throat, + Rhinorrhea, No Swallowing Difficulty Cardiovascular: No Chest Pain, No SOB Respiratory: + Cough, No Sputum, No Wheezing Gastrointestinal: + Nausea, + Vomiting, No Diarrhea, No Constipation, No Abdominal pain Genitourinary: No Dysuria, No Urinary Frequency, No Hematuria, No Flank Pain Musculoskeletal: No joint pain, + Myalgias, No Joint Swelling Skin: No Skin Lesions, No rash Neuro: No Weakness, No Numbness, No Paresthesias, +YODER Yes all other systems are reviewed and are negative Constitutional: Constitutional: Reports as per [facility] Past Medical History Attestation statement: The following information was validated with the patient. Source: old records reviewed Onset Date is defined in the Problem List Problems that require an onset date and time if occurred within 24 hrs of arrival to the ED Aortic Dissection and Rupture; Neurologic impairment; Cardiopulmonary Arrest; Endotracheal Intubation; Insertion or Replacement of Mechanical Circulatory Assist Device Medical History Lipoma of arm Asthma Lab test negative for COVID-19 virus COVID-19 Chronic constipation Iron deficiency anemia due to chronic blood loss Epigastric pain GERD (gastroesophageal reflux disease) Lactose intolerance in adult Depression Hypothyroidism Surgical History Status post excision of lipoma (~11/27/22) Hx of shoulder surgery Hx of tubal ligation History of endometrial ablation Hx of dilation and curettage History of breast lump/mass excision Hx of arthroscopic knee surgery History of esophagogastroduodenoscopy (EGD) Status post laparoscopic cholecystectomy History of colonoscopy Family History Family History Mother No problems noted. Father No problems noted. Maternal Aunt Hx of ovarian cancer Social History Social History Household Members: Children Alcohol intake: unknown Patient Tobacco Use Status: Never used Tobacco Second Hand Smoke Exposure: No Advance Directives: No Advance Directives Information Provided: No Current occupational status: employed Current occupation: [employer] HIGH/ right hand dominant Physical Exam Vital Signs: Vital Signs: Last Vital Signs Temp 98.3 F 02/26/23 11:14 Pulse 98 02/26/23 11:14 Resp 17 02/26/23 11:14 BP 121/76 02/26/23 11:14 Pulse Ox 98 02/26/23 11:14 O2 Del Method Room Air 02/26/23 11:14 BMI result Body Mass Index 40.4 Const: General: cooperative, healthy appearing and no acute distress Orientation/consciousness: patient oriented x3 Limitations: no limitations HEENT: Head: Yes normal to inspection and Yes atraumatic Ears: hearing grossly normal bilaterally, external ears normal and TM's normal bilaterally General nose exam: Normal external nose present Face and sinus: Yes normal facial exam Mouth: Normal oral and palatal mucosa present Throat: Yes posterior oropharynx normal, Yes tonsils normal, Yes uvula midline and No peritonsillar mass Eyes: General: appearance normal, both eyes and all related structures EOM: EOMs intact bilaterally Neck: Neck: Yes normal visual inspection and Yes no meningeal signs Resp: Effort & Inspection: normal respiratory effort, no respiratory distress and no stridor Auscultation: clear to auscultation bilaterally, no crackles, no rhonchi and no wheezes Cardio: Rate: regular rate Heart sounds: S1 normal heart sound present and S2 normal heart sound present Skin: Rashes: no rashes Wounds: no wounds Neuro: General: patient oriented x3, tone normal and no meningeal signs Cranial nerves: Yes CN's II-XII intact bilaterally Gait exam (Neuro): Normal gait present Extrem: General: Yes normal to inspection Course Course Course Narrative: -COVID/FLU/RSV negative Results discussed with patient including worrisome signs and symptoms and strict return precautions, and when to return to the emergency department. They verbalized understanding and feel safe for discharge at this time. Medical Decision Making Medical Decision Making [facility] Narrative: 42-year-old female with a past medical history of asthma, GERD, depression, hypothyroid, presenting to the ED complaining of dry cough, congestion, SOB, subjective fever, headache, myalgias/body aches, nausea and vomiting x 3 days. On exam vital signs stable, NAD, nontoxic appearing, abdomen soft/nontender, lungs CTA. Concern for viral illness. Low suspicion for meningitis/encephalitis or pneumonia. Low suspicion for intra-abdominal pathology including appendicitis/diverticulitis, pancreatitis or cholecystitis without tenderness on exam. Plan: Viral testing Please refer to course for remaining clinical decision making, interpretation of labs/imaging results, and discussions with consultants and/or family members. Differential Diagnosis Differential Diagnoses: The differential diagnosis associated with the presentation includes As above Admission/Observation Consideration of admission/observation: Escalation of care including admission/observation considered Lab Data [facility] Lab Attestation statement: I reviewed the patient's lab results. Labs: Lab Results 02/26/23 Range/Units 11:42 Influenza Type A (PCR) NEGATIVE (Negative) Influenza Type B (PCR) NEGATIVE (Negative) RSV RNA Qual (PCR) NEGATIVE (Negative) SARS-CoV-2 RNA (RT-PCR) NEGATIVE (Negative) Radiology Impression Discussion of test interpretation with radiology: I have reviewed the radiologist's reading. External Record Review External record reviewed: Inpatient record, Office record, Outpatient record, Prior outpatient labs, Prior outpatient radiology, Primary care record and Outside ED record Tests considered The following testing was considered but not selected: As above Discharge Plan Discharge Clinical Impression: Viral infection Patient Disposition: Home, Self-Care Instructions: Viral Syndrome (ED) Additional Instructions: You have a virus No antibiotics are indicated at this time Make sure you are staying hydrated. Drink plenty of fluids. Rest Alternate Tylenol and Motrin at home as needed for body aches and fever Follow-up with your doctor. If symptoms persist or worsen return to the emergency department *If you are a child & not tolerating liquid or urinating for more than 6 hours, or fevers are uncontrolled with medications at home, return to the emergency department* tienes un virus No est?n indicados antibi?ticos en xochilt momento. Aseg?rate de mantenerte hidratado. Beber mucho l?quido. Descansar Alterne Tylenol y Motrin en casa seg?n sea necesario para los joanna corporales y la fiebre. Lizbet un seguimiento con abdalla m?dico. Si los s?ntomas persisten o empeoran, regrese al departamento de emergencias. *Si es ni?o y no tolera l?quidos ni orina curtis m?s de 6 horas, o la fiebre no se controla con medicamentos en casa, regrese al departamento de emergencias* Prescriptions: New ondansetron 4 mg tablet,disintegrating 4 mg PO Q8H PRN (Reason: nausea and vomiting) Qty: 10 0RF No Action omeprazole 40 mg capsule,delayed release(DR/EC) 40 mg PO BID Qty: 180 3RF cyclobenzaprine 10 mg tablet 10 mg PO Q8H Qty: 20 0RF tramadol 50 mg tablet 50 mg PO Q6H PRN (Reason: pain) Qty: 20 0RF naproxen 500 mg tablet 500 mg PO BID PRN (Reason: pain) 7 Days Qty: 14 0RF prednisone 20 mg tablet 40 mg PO DAILY 5 Days Qty: 10 0RF lidocaine 4 % adhesive patch,medicated 1 patch topical DAILY PRN (Reason: Pain) Rx Instructions: may leave on for up to 12 hrs albuterol sulfate [ProAir HFA] 90 mcg/actuation HFA aerosol inhaler 2 puff inhalation Q6H PRN (Reason: Shortness Of Breath Or Wheezing) cholecalciferol (vitamin D3) [Vitamin D3] 50 mcg (2,000 unit) tablet 50 mcg PO DAILY fluticasone propionate [Flovent HFA] 110 mcg/actuation HFA aerosol inhaler 2 puff inhalation BID ferrous gluconate 324 mg (38 mg iron) tablet 324 mg PO DAILY levothyroxine [Tirosint] 25 mcg capsule 25 mcg PO DAILY epinephrine 0.3 mg/0.3 mL auto-injector IM bisacodyl [Dulcolax (bisacodyl)] 5 mg tablet,delayed release (DR/EC) 5 mg PO BEDTIME 30 Days Qty: 30 3RF Senna Plus 8.6-50 mg capsule 2 tab-cap PO BEDTIME 60 Days Qty: 120 1RF Referrals: Pooja Medina, MALINI [Primary Care Provider] - Stand Alone Forms: Work/School Release Discharge Date/Time: 02/26/23 13:51 Print Language: Venezuelan
== END 2023-02-26 13:51 | disposition home or self-care (01) ==
PROVIDERS: Emergency Provider Emergency Medicine; PCP Registered Nurse
DX: B34.9 Viral infection, unspecified (principal); R51.9 Headache, unspecified; Z20.822 Contact with and (suspected) exposure to COVID-19; Z20.828 Contact with and (suspected) exposure to other viral communicable diseases
CPT/HCPCS: 0241U; 99282; 99283

== ENCOUNTER 2023-03-26 10:27 | Outpatient (REF) | payer MEDICAID, SELFPAY ==
--- NOTE | ~2023-03-26 | XR_ITS ---
EXAMINATION: XR LUMBOSACRAL SPINE CLINICAL INFORMATION: Chronic midline lower back pain with bilateral sciatica. COMPARISON: Lumbar spine radiographs dated 11/13/2015. TECHNIQUE: AP, lateral, and both oblique views of the lumbosacral spine. FINDINGS: The vertebral bodies and posterior elements are normal. The disc spaces are preserved and the vertebral alignment is normal. The paraspinal soft tissues are normal. There are right upper quadrant surgical clips. XR/XR lumbar spine 2-3V IMPRESSION: Unremarkable examination.
== END 2023-03-26 10:28 | disposition home or self-care (01) ==
LOC: HO.XRAY 10:27
PROVIDERS: Absent Provider Registered Nurse; PCP Registered Nurse; Visit Provider Physician Assistant
DX: M54.41 Lumbago with sciatica, right side (principal); M54.42 Lumbago with sciatica, left side; M17.11 Unilateral primary osteoarthritis, right knee
CPT/HCPCS: 72100; 99212

== ENCOUNTER 2023-03-26 10:27 | Outpatient (AMB) | payer MEDICAID, SELFPAY ==
--- NOTE | 2023-03-26 10:47 | A.OFFVIS_ITS ---
Intake Vital Signs 03/26/23 10:52 Height 5 ft 1 in Weight 213 lb BMI 40.2 Intake Visit Reasons: Newprob- RT Knee pain Intake Note: Kasie angel 41 year old female presents today for an evaluation of right knee pain. Patient reports pain has been present for about a month, that has increased the past month, stating constant pain. Intermittent swelling. Denies injury. Hx of right injections with the last one providing relief for a couple of months. Allergies mussels Allergy (Severe, Verified 03/26/23 10:47) DIFFICULTY BREATHING lactose Adverse Reaction (Verified 03/26/23 10:47) Diarrhea HPI Newprob- RT Knee pain HPI Details 42-year-old female who [facility] for evaluation of right knee pain for about a month. She states she has worsening constant pain as well as intermittent swelling in her right knee. She also reports cracking, catching and locking in her knee with ambulation. She has tried right knee injections in the past with the last one providing relief for about 2 months. 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 INCLUDES THE [facility] Medical History Lipoma of arm Asthma Lab test negative for COVID-19 virus COVID-19 Chronic constipation Iron deficiency anemia due to chronic blood loss Epigastric pain GERD (gastroesophageal reflux disease) Lactose intolerance in adult Depression Hypothyroidism Surgical History Status post excision of lipoma (~11/27/22) Hx of shoulder surgery Hx of tubal ligation History of endometrial ablation Hx of dilation and curettage History of breast lump/mass excision Hx of arthroscopic knee surgery History of esophagogastroduodenoscopy (EGD) Status post laparoscopic cholecystectomy History of colonoscopy Family History Mother No problems noted. Father No problems noted. Maternal Aunt Hx of ovarian cancer Social History Household Members: Children Alcohol intake: unknown Patient Tobacco Use Status: Never used Tobacco Second Hand Smoke Exposure: No Current occupational status: employed Current occupation: [employer] HIGH/ right hand dominant Female Reproductive History Menstrual Age of Menarche: 11 Review of Systems Const All systems reviewed & are unremarkable except as noted in HPI and below Physical Exam Vital Signs: BMI result Body Mass Index 40.2 Extrem Other: Right knee: Skin intact, no erythema or joint effusion. Tenderness along the medial joint line. Full ROM with crepitus. Negative Jesus?s. No ligamentous laxity. NVI. Results Reviewed Results Reviewed: Xrays were obtained in the office today and personally reviewed by me of the right knee show milf pf oa Assessment & Plan Assessment & Plan (1) Patellofemoral arthritis of right knee: Code(s): M17.11 - Unilateral primary osteoarthritis, right knee Plan We discussed options which include steroid injection which she would like to hold off on at this time as she has not had any relief with this in the past. An MRI of the right knee has been ordered to further evaluate the surrounding structures. She will see me back once the scan is complete. Orders: Orders MR knee RT wo con Today M17.11 - Unilateral primary osteoarthritis, right knee Medications: New celecoxib (Celebrex) 200 mg PO BID 60 caps 3RF 30 days Patient Instructions: Scribed for Barrett Swenson PA-C, by Steven Roldan medical office representative, on 03/26/2023 at 10:30 AM EST. I, Barrett Swenson PA-C, have personally reviewed and agree with the information entered by the scribe. Coding Level of Care Code Est Pt Level 3 (52550) Diagnoses Patellofemoral arthritis of right knee M17.11
[2023-03-26 10:52] VITALS: BMI 40.2
== END 2023-03-26 11:12 | disposition home or self-care (01) ==
PROVIDERS: PCP Registered Nurse; Visit Provider Physician Assistant
DX: M17.11 Unilateral primary osteoarthritis, right knee (principal)
CPT/HCPCS: 99213

== ENCOUNTER 2023-04-05 13:40 | Outpatient (REF) | payer MEDICAID, SELFPAY ==
--- NOTE | ~2023-04-05 | MR_ITS ---
EXAMINATION: MR KNEE WITHOUT CONTRAST, RIGHT CLINICAL INFORMATION: Anterior right knee pain. Prior arthroscopic surgery. COMPARISON: Right knee radiographs dated 04/04/2021 and right knee MRI dated 02/06/2018. TECHNIQUE: MRI of the knee without contrast was performed using routine sequences on a high-field scanner. FINDINGS: MENISCI: Medial Meniscus: Degenerative intrasubstance signal within the posterior horn, slightly increased when compared to the prior examination without clear extension to the articular surface to suggest tearing. Lateral Meniscus: Inner margin fraying of the posterior root, new when compared to the prior examination. LIGAMENTS: Cruciate: Intact. Collateral: Intact. EXTENSOR MECHANISM: Intact. ARTICULAR CARTILAGE/BONE: Patellofemoral Compartment: Patellar median ridge articular cartilage thinning with signal heterogeneity and surface irregularity. Central trochlear signal heterogeneity and surface irregularity with areas of full-thickness fissuring extending to the medial trochlea. Tiny marginal osteophytes. Findings are new when compared to the prior examination. Medial Compartment: Focal partial-thickness posterior weightbearing medial femoral condyle articular cartilage loss measuring up to 1.0 cm in AP dimension, similar when compared to the prior examination. Anteromedial medial femoral condyle articular cartilage thinning with minimal subchondral cystic change. Tiny marginal osteophytes. Overall, findings are slightly more prominent when compared to the prior examination. Lateral Compartment: Posterior weightbearing lateral femoral condyle full-thickness articular cartilage defect measuring approximately 0.5 cm in AP dimension, new when compared to the prior examination. Tiny marginal osteophytes. JOINT FLUID AND BURSAE: [id number]-ry-ndksqvvr joint effusion. Synovial recess anterior to the lateral meniscus anterior root measuring up to 1.1 cm. MR/MR knee RT wo con IMPRESSION: 1. Inner margin fraying of the lateral meniscus posterior root, new when compared to the prior examination. 2. Degenerative intrasubstance signal within the medial meniscus posterior horn, slightly increased when compared to the prior examination without clear articular surface tearing. 3. Mild tricompartmental osteoarthritis, new when compared to the prior examination. [id number] joint effusion. Synovial recess anterior to the lateral meniscus anterior root measuring up to 1.1 cm.
== END 2023-04-05 13:41 | disposition home or self-care (01) ==
LOC: HO.MRI 13:40
PROVIDERS: PCP Registered Nurse; Visit Provider Physician Assistant
DX: M17.11 Unilateral primary osteoarthritis, right knee (principal)
CPT/HCPCS: 73721

== ENCOUNTER 2023-04-14 14:29 | Emergency (ER) | payer MEDICAID, SELFPAY ==
--- NOTE | 2023-04-14 14:39 | ECG_ITS ---
Test Reason : chest pain Blood Pressure : / mmHG Vent. Rate : 078 BPM Atrial Rate : 078 BPM P-R Int : 158 ms QRS Dur : 088 ms QT Int : 370 ms P-R-T Axes : 025 -11 004 degrees QTc Int : 421 ms Normal sinus rhythm Normal ECG When compared with ECG of 19-MAR-2022 18:58, No significant change was found Referred By: Generic ED Physician Electronically Signed By:JESSICA MORALES
[2023-04-14 15:39] VITALS: BP 117/78; PULSE 74; RESP 16; O2SAT 97; BMI 38.0
--- NOTE | 2023-04-14 15:39 | ED.GENADULT ---
HPI - General Adult General Chief complaint: Upper Respiratory Symptoms Stated complaint: chest pain fever abd pain Time Seen by Provider: 04/14/23 16:42 Source: patient Mode of arrival: ambulatory Limitations: no limitations History of Present Illness HPI narrative: Patient is a 42 year old assigned female at with a history of GERD presenting to the emergency department today with body aches. Patient states that she has been having body aches. Patient states that her coworkers tested positive for influenza. Patient denies any dizziness, lightheadedness, abdominal pain, nausea, vomiting, blurry vision, double vision, loss of vision, chest pain, difficulty breathing, shortness of breath, back pain, night sweats, pain with urination, increased urinary frequency, increased urinary urgency, blood in her urine or stool, syncope or a near syncopal episode, recent trauma or falls, bowel incontinence, bladder incontinence, bowel retention, bladder retention, or any other complaints at this time. Onset (ago): day(s) Severity: mild Severity scale (1-10): 2 Quality: aching Pain Consistency: constant Relieving factors: none Exacerbating factors: none Associated symptoms: fever/chills Treatments prior to arrival: none Related Data Home Medications Medication Instructions Recorded Confirmed albuterol sulfate 90 mcg/actuation 2 puff inhalation Q6H PRN 11/25/19 11/14/22 aerosol inhaler (ProAir HFA) Shortness Of Breath Or Wheezing cholecalciferol (vitamin D3) 50 50 mcg PO DAILY 03/07/22 11/14/22 mcg (2,000 unit) tablet (Vitamin D3) epinephrine 0.3 mg/0.3 mL IM 03/07/22 11/14/22 injection, auto-injector ferrous gluconate 324 mg (38 mg 324 mg PO DAILY 03/07/22 11/14/22 iron) tablet fluticasone propionate 110 2 puff inhalation BID 03/07/22 11/14/22 mcg/actuation HFA aerosol inhaler (Flovent HFA) levothyroxine 25 mcg capsule 25 mcg PO DAILY 03/07/22 11/14/22 (Tirosint) Previous Rx's Medication Instructions Recorded cyclobenzaprine 10 mg tablet 10 mg PO Q8H #20 tabs 03/20/22 tramadol 50 mg tablet 50 mg PO Q6H PRN pain #20 tabs 03/20/22 naproxen 500 mg tablet 500 mg PO BID PRN pain 7 days #14 08/23/22 tabs bisacodyl 5 mg tablet,delayed 5 mg PO BEDTIME 30 days #30 tabs 10/25/22 release (Dulcolax (bisacodyl)) sennosides 8.6 mg-docusate sodium 2 tab-cap (2 x 8.6-50 mg) PO 10/25/22 50 mg capsule (Senna Plus) BEDTIME 60 days #120 caps omeprazole 40 mg capsule,delayed 40 mg PO BID #180 caps 01/23/23 release celecoxib 200 mg capsule (Celebrex) 200 mg PO BID 30 days #60 caps 03/26/23 Allergies Allergy/AdvReac Type Severity Reaction Status Date / Time mussels Allergy Severe DIFFICULTY Verified 03/26/23 10:47 BREATHING lactose AdvReac Diarrhea Verified 03/26/23 10:47 Review of Systems Constitutional: Constitutional: Reports no additional constitutional complaints, Reports body ache(s), Denies chills, Reports fever(s) and Denies night sweats Eyes: Eyes: Reports no additional eye complaints, Denies blurry vision, Denies change in vision, Denies diplopia, Denies eye discharge, Denies loss of vision and Denies eye pain ENT: Denies dizziness Cardiovascular: Cardiovascular: Reports no additional cardiovascular complaints, Denies chest pain, Denies lightheadedness, Denies Loss of Consciousness and Denies dyspnea Respiratory: Respiratory: Reports no additional respiratory complaints and Denies dyspnea Gastrointestinal: Gastrointestinal: Reports no additional gastrointestinal complaints, Denies abdominal pain, Denies melena, Denies hematochezia, Denies change in bowel habits and Denies change in stool character Genitourinary: Genitourinary: Denies hematuria, Denies urinary frequency, Denies dysuria, Denies urinary incontinence, Denies urinary hesitancy and Denies urinary urgency Musculoskeletal: Musculoskeletal: Reports no additional musculoskeletal complaints, Denies numbness and Denies tingling Neurologic: Denies dizziness, Denies loss of vision, Denies numbness and Denies tingling Psychiatric: Psychiatric: Reports no additional psychiatric complaints Endocrine: Endocrine: Reports no additional endocrine complaints Hematologic/Lymphatic: Hematologic/Lymphatic: Reports no additional hematologic/lymphatic complaints Allergic/Immunologic: Allergic/Immunologic: Reports no additional allergic/immunologic complaints PMFSH Past Medical History Attestation statement: The following information was validated with the patient. Source: old records reviewed and nursing notes reviewed Medical History Lipoma of arm Asthma Lab test negative for COVID-19 virus COVID-19 Chronic constipation Iron deficiency anemia due to chronic blood loss Epigastric pain GERD (gastroesophageal reflux disease) Lactose intolerance in adult Depression Hypothyroidism Surgical History Status post excision of lipoma (~11/27/22) Hx of shoulder surgery Hx of tubal ligation History of endometrial ablation Hx of dilation and curettage History of breast lump/mass excision Hx of arthroscopic knee surgery History of esophagogastroduodenoscopy (EGD) Status post laparoscopic cholecystectomy History of colonoscopy Family History Family History Mother No problems noted. Father No problems noted. Maternal Aunt Hx of ovarian cancer Social History Social History Household Members: Children Alcohol intake: unknown Patient Tobacco Use Status: Never used Tobacco Second Hand Smoke Exposure: No Advance Directives: No Advance Directives Information Provided: No Current occupational status: employed Current occupation: [employer] HIGH/ right hand dominant Physical Exam ED Vital Signs: Vital Signs - 24 hr 04/14/23 15:39 Pulse Rate 74 Respiratory Rate 16 Blood Pressure 117/78 Pulse Oximetry 97 Oxygen Delivery Method Room Air BMI result Body Mass Index 38.0 Const General: cooperative, no acute distress, alert and awake Nutritional Appearance: well nourished Orientation/consciousness: patient oriented x3 Limitations: no limitations [facility] Head: Yes normal to inspection and Yes atraumatic Ears: hearing grossly normal bilaterally and external ears normal General nose exam: Normal external nose present, no nasal discharge noted and no epistaxis Face and sinus: Yes normal facial exam, No abrasion and No laceration Mouth: Normal oral and palatal mucosa present, no drooling and no muffled voice Eyes General: appearance normal, both eyes and all related structures Periorbital: periorbital findings normal Eyelids: Yes eyelids normal Conjunctivae: conjunctivae normal Pupils: Equal, round and reactive pupils present EOM: EOMs intact bilaterally Neck Neck: Yes normal visual inspection, Yes full ROM and Yes no lymphadenopathy Chest Chest palpation & inspection: normal inspection of the chest Resp Effort & Inspection: normal respiratory effort and able to speak in complete sentences GI Inspection: Yes normal to inspection Neuro General: patient oriented x3 and moves all extremities Cranial nerves: Yes Equal, round and reactive pupils present Cognition (Neuro): normal cognition Motor exam (neuro): 5/5 motor strength present throughout Sensory Exam: Normal double simultaneous stimulation for sensation Coordination: [id number] test normal Extrem General: Yes normal to inspection, Yes full ROM and Yes capillary refill normal Psych Appearance: grossly normal Mental Status: mental status grossly normal Affect: normal affect Attitude: cooperative Thought process: Normal thought process present Thought content: Normal thought content present Insight: Good insight present (Psych) Course Course Course Narrative: RME:?42 yo female here w/ fever, body aches x4 days. tmax 103F. COVID neg at home. co-worker ill with same symptoms tested positive for flu. no n/v/d. took motrin last night at 2200. serology ordered. Full HPI, ROS and PE to be performed by the primary ED provider. Medical Decision Making Medical Decision Making [facility] Narrative: Patient is a 42 year old assigned female at with a history of GERD presenting to the emergency department today with body aches. Patient's physical exam was unremarkable. Patient's COVID-19, influenza, and RSV test was negative. Patient's EKG was unremarkable. I explained my physical exam findings as well as all test results to the patient. I answered all questions asked by the patient. I stressed the importance of the patient taking her medication as prescribed. I stressed the importance of the patient following up with her primary care provider. I stressed the importance of the patient returning to the emergency department immediately if her symptoms were to worsen or if she were to develop any dizziness, shortness of breath, difficulty breathing, chest pain, blurry vision, loss of vision, nausea, vomiting, abdominal pain, fever, chills, back pain, or any other complaints. Patient verbalized agreement and understanding with this treatment plan and discharge. Differential Diagnosis Differential Diagnoses: The differential diagnosis associated with the presentation includes Influenza COVID-19 RSV Viral illness Admission/Observation Consideration of admission/observation: Escalation of care including admission/observation considered Patient would have been admitted to the hospital had her work up had any findings where hospital admission was appropriate and her clinical presentation warranted hospital admission. Lab Data MDM Lab Attestation statement: I reviewed the patient's lab results. My interpretation of these studies and their corresponding values is that they are grossly normal. Labs: Lab Results 04/14/23 Range/Units 16:53 Influenza Type A (PCR) NEGATIVE (Negative) Influenza Type B (PCR) NEGATIVE (Negative) RSV RNA Qual (PCR) NEGATIVE (Negative) SARS-CoV-2 RNA (RT-PCR) NEGATIVE (Negative) Independent Interpretation I performed an independent interpretation of an: EKG Interpretation: Vent. Rate: 078 BPM Atrial Rate: 078 BPM P-R Int: 158 ms QRS Dur: 088 ms QT Int: 370 ms P-R-T Axes: 025 -11 004 degrees QTc Int: 421 ms Normal sinus rhythm Normal ECG When compared with ECG of 19-MAR-2022 18:58, No significant change was found Electronically Signed By:MARSHAL MORALES Dictated By: Marshal Morales MD Signed By: Electronically signed by Marshal Morales MD 04/14/23 [id number] Discharge Plan Discharge Clinical Impression: URI (upper respiratory infection) Patient Disposition: Home, Self-Care Instructions: Upper Respiratory Infection (DC) Additional Instructions: Follow up with your primary care provider. Return to the emergency department immediately if your symptoms worsen or if you develop any dizziness, shortness of breath, difficulty breathing, chest pain, blurry vision, loss of vision, nausea, vomiting, abdominal pain, fever, chills, back pain, or any other complaints. Lizbet un seguimiento con abdalla proveedor de atenci?n primaria. Regrese al departamento de emergencias inmediatamente si danish s?ntomas empeoran o si presenta mareos, dificultad para respirar, dificultad para respirar, dolor en el pecho, visi?n borrosa, p?rdida de la visi?n, n?useas, v?mitos, dolor abdominal, fiebre, escalofr?os, dolor de espalda o cualquier otras quejas. Prescriptions: No Action omeprazole 40 mg capsule,delayed release(DR/EC) 40 mg PO BID Qty: 180 3RF cyclobenzaprine 10 mg tablet 10 mg PO Q8H Qty: 20 0RF tramadol 50 mg tablet 50 mg PO Q6H PRN (Reason: pain) Qty: 20 0RF naproxen 500 mg tablet 500 mg PO BID PRN (Reason: pain) 7 Days Qty: 14 0RF albuterol sulfate [ProAir HFA] 90 mcg/actuation HFA aerosol inhaler 2 puff inhalation Q6H PRN (Reason: Shortness Of Breath Or Wheezing) cholecalciferol (vitamin D3) [Vitamin D3] 50 mcg (2,000 unit) tablet 50 mcg PO DAILY fluticasone propionate [Flovent HFA] 110 mcg/actuation HFA aerosol inhaler 2 puff inhalation BID ferrous gluconate 324 mg (38 mg iron) tablet 324 mg PO DAILY levothyroxine [Tirosint] 25 mcg capsule 25 mcg PO DAILY epinephrine 0.3 mg/0.3 mL auto-injector IM bisacodyl [Dulcolax (bisacodyl)] 5 mg tablet,delayed release (DR/EC) 5 mg PO BEDTIME 30 Days Qty: 30 3RF Senna Plus 8.6-50 mg capsule 2 tab-cap PO BEDTIME 60 Days Qty: 120 1RF celecoxib [Celebrex] 200 mg capsule 200 mg PO BID 30 Days Qty: 60 3RF Referrals: Pooja Medina, MARKETING BUSINESS ANALYST [Primary Care Provider] - Stand Alone Forms: Work/School Release Interventions: ED Discharge Assessment Last Done: 04/14/23 18:10 Discharge Date/Time: 04/14/23 18:10 Print Language: [place]
[2023-04-14 17:51] LABS: Influenza A PCR NEGATIVE (Negative); Influenza B PCR NEGATIVE (Negative); Resp Syncy Virus RNA Qual PCR NEGATIVE (Negative); SARS COV2 PCR INHOUSE NEGATIVE (Negative)
== END 2023-04-14 18:10 | disposition home or self-care (01) ==
PROVIDERS: Physician Assistant Medical; Emergency Provider Emergency Medicine Emergency Medical Services; PCP Registered Nurse
DX: J06.9 Acute upper respiratory infection, unspecified (principal); Z11.52 Encounter for screening for COVID-19; Z20.828 Contact with and (suspected) exposure to other viral communicable diseases
CPT/HCPCS: 0241U; 93005; 99283

== ENCOUNTER → 2023-04-14 14:39 | Outpatient (BNV) | payer MEDICAID, SELFPAY | PROVIDERS: Emergency Provider Emergency Medicine Emergency Medical Services; PCP Registered Nurse; Visit Provider Internal Medicine | DX: R07.9 Chest pain, unspecified (principal) | CPT/HCPCS: 93010 ==

== ENCOUNTER 2023-04-22 13:55 | Outpatient (REF) | payer MEDICAID, SELFPAY ==
--- NOTE | ~2023-04-22 | US_ITS ---
EXAMINATION: MM DIAGNOSTIC DIGITAL BREAST TOMOSYNTHESIS, BILATERAL US BREAST LIMITED, LEFT MAMMOGRAPHY: CLINICAL INFORMATION: Patient due for bilateral screening. Also, six-month follow-up (1 year total follow-up) left breast acorn cyst 2:00 axis, 7 cm from the nipple. Prior bilateral benign breast biopsies 2014, fibroadenoma left 1:00 and right 12:00. Prior excisional biopsy. COMPARISON: Mammography: 03/18/2022 07/10/2021, 08/18/2015. ULTRASOUND Left: 03/18/2022, 10/17/2022. TECHNIQUE: Digital breast tomosynthesis is performed in both the craniocaudal and mediolateral oblique views along with computer-aided detection (CAD). Synthesized 2D images are generated from the tomosynthesis. This was followed by targeted left breast ultrasound. FINDINGS: The breasts are heterogeneously dense, which may obscure small masses (ACR BI-RADS breast composition Category c). Breast parenchyma is bilateral heterogeneously dense and nodular. There are bilateral numerous circumscribed round and oval isodense masses, consistent with fibrocystic changes/waxing and waning cysts. Previously biopsied fibroadenoma noted in the 1:00 axis of the right breast. There are bilateral relatively diffuse scattered punctate calcifications, in keeping with adenosis or apocrine changes. These are stable and benign. No suspicious grouping. There are no suspicious masses, or areas of architectural distortion.The overall heterogeneously dense and nodular parenchymal pattern is grossly unchanged from prior exams, with the exception of an oval mass in the posterior lateral left breast previously seen is no longer evident. This is likely a resolved cyst. There is no axillary or skin abnormality. ULTRASOUND: CLINICAL INFORMATION: Fibrocystic changes bilateral breasts. Follow-up complicated acorn cyst left breast 2:00 axis, 7 cm from the nipple. COMPARISON: 02/19/2022, 10/17/2022. TECHNIQUE: Targeted left breast sonographic evaluation was performed using a high frequency linear transducer. Attention was given to the 2:00 region, in the region of the known acorn cyst. Selected archived documentation. FINDINGS: LEFT BREAST: There are diffuse dense fibrocystic changes throughout the left breast which was imaged. The previously seen acorn cyst has somewhat collapsed at the 2:00 axis, 7 cm from the nipple, currently measuring 1.1 x 0.4 x 0.6 cm (previously 0.6 x 0.8 x 0.7 cm). There are persistent low-level internal echoes. Slightly more inferiorly, there is a minimally complex oval cyst which was previously much more complicated and has become more simple. No suspicious findings are identified. The above complicated cyst is again probably benign, and 1 year follow-up targeted left breast ultrasound recommended to establish two-year stability and benignity. US/US breast LT limited mamm only IMPRESSION: There are no findings suspicious for malignancy in either breast. There are bilateral nodular fibrocystic changes with heterogeneously dense breast tissue. There are waxing and waning cysts. 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 Previously seen acorn cyst in the 2:00 axis of the left breast, 7 cm from the nipple, has decreased in size significantly but remains complicated with internal echoes. Additional 1 year follow-up targeted left breast ultrasound recommended to ensure stability, and to establish a two-year stability/benignity. OVERALL ASSESSMENT: Mammography: BI-RADS 3 - Probably benign finding(s) - 12 month follow-up suggested Ultrasound: BI-RADS 3 - Probably benign finding(s) - 12 month follow-up suggested RECOMMENDATION: 12 month diagnostic follow up This patient's information was entered into a reminder system with a target due date for their next mammogram.
== END 2023-04-22 13:56 | disposition home or self-care (01) ==
LOC: HO.MAMMO 13:55
PROVIDERS: PCP Registered Nurse; Visit Provider Registered Nurse
DX: N60.02 Solitary cyst of left breast (principal)
CPT/HCPCS: 76642; 77062; 77066

== ENCOUNTER → 2023-04-22 14:00 | Outpatient (BNV) | payer MEDICAID, SELFPAY | PROVIDERS: PCP Registered Nurse; Visit Provider Radiology Diagnostic Radiology | DX: R92.8 Other abnormal and inconclusive findings on diagnostic imaging of breast (principal) | CPT/HCPCS: 76642; 77062; 77066 ==

== ENCOUNTER 2023-04-25 12:10 | Outpatient (AMB) | payer MEDICAID, SELFPAY ==
[2023-04-25 12:16] VITALS: BMI 37.9
--- NOTE | 2023-04-25 12:16 | MHC.OFFVIS ---
Intake Vital Signs 04/25/23 12:16 Height 5 ft 4 in Weight 221 lb BMI 37.9 Intake Visit Reasons: OV-Right knee MRI review Allergies mussels Allergy (Severe, Verified 03/26/23 10:47) DIFFICULTY BREATHING lactose Adverse Reaction (Verified 03/26/23 10:47) Diarrhea HPI OV-Right knee MRI review HPI Details Kasie is a 42 year old female who presents today for an MRI review of the right knee. She was previously seen with Barrett who injected the knee on 12/25/22. She describes pain with twisting and fair climbing. The pain has been present now for approximately 1 month. I did surgery on her proximally 5 years. [facility] Medical History Lipoma of arm Asthma Lab test negative for COVID-19 virus COVID-19 Chronic constipation Iron deficiency anemia due to chronic blood loss Epigastric pain GERD (gastroesophageal reflux disease) Lactose intolerance in adult Depression Hypothyroidism Surgical History Status post excision of lipoma (~11/27/22) Hx of shoulder surgery Hx of tubal ligation History of endometrial ablation Hx of dilation and curettage History of breast lump/mass excision Hx of arthroscopic knee surgery History of esophagogastroduodenoscopy (EGD) Status post laparoscopic cholecystectomy History of colonoscopy Family History Mother No problems noted. Father No problems noted. Maternal Aunt Hx of ovarian cancer Social History Household Members: Children Alcohol intake: unknown Patient Tobacco Use Status: Never used Tobacco Second Hand Smoke Exposure: No Current occupational status: employed Current occupation: [employer] HIGH/ right hand dominant Female Reproductive History Menstrual Age of Menarche: 11 Physical Exam Vital Signs: BMI result Body Mass Index 37.9 Const General: cooperative, healthy appearing, no acute distress, well developed and alert HEENT Head: Yes normal to inspection, Yes normocephalic and Yes atraumatic Mouth: moist mucous membranes Eyes General: appearance normal, both eyes and all related structures EOM: EOMs intact bilaterally Chest Other: no audible wheezing. Resp Other: No audible wheezing Effort & Inspection: normal respiratory effort Back/Spine/Pelvis Cervical Spine: normal cervical lordosis Skin General skin exam: no rashes or lesions noted Neuro General: no focal motor deficits Extrem Other: Mild tenderness palpation medial and lateral joint line. Mild retropatellar tenderness to palpation. Mild effusion. Negative Jesus's. Psych Appearance: grossly normal and well kempt Mental Status: mental status grossly normal Speech and movement: Normal speech and movement present Affect: normal affect Attitude: cooperative Office Procedures Joint Injection/Drain Joint Injection/Drain Details: Injected 1 mL of Decadron and 3 mL 1% lidocaine and 3 mL of 0.25% Marcaine. Site was prepped using aseptic technique. Patient tolerated the procedure well. Primary Site: right knee Approach Used: anterolateral Coding - Large joint Procedure code (CPT) selection complete Results Reviewed Results Reviewed: I personally reviewed the MR images. 1. Inner margin fraying of the lateral meniscus posterior root, new when compared to the prior examination. 2. Degenerative intrasubstance signal within the medial meniscus posterior horn, slightly increased when compared to the prior examination without clear articular surface tearing. 3. Mild tricompartmental osteoarthritis, new when compared to the prior examination. Crjvh-[id number] joint effusion. Synovial recess anterior to the lateral meniscus anterior root measuring up to 1.1 cm. Assessment & Plan Assessment & Plan (1) Patellofemoral arthritis of right knee: Code(s): M17.11 - Unilateral primary osteoarthritis, right knee Plan: This is a 42-year-old woman with medial and lateral small degenerative meniscus tearing and mild osteoarthritis with a mild effusion. She has had pain for over a little over a month and the injection she had was mildly helpful. I injected her knee again today and I recommend that she continue activity as tolerated. Surgical intervention, at least at this time, is not warranted. Coding Level of Care Code Est Pt Level 4 (77747) Diagnoses Patellofemoral arthritis of right knee M17.11 CPT Codes Coding - Large joint: 94511 - Large joint ([id number])
== END 2023-04-25 12:57 | disposition home or self-care (01) ==
PROVIDERS: PCP Registered Nurse; Referring Provider Registered Nurse; Visit Provider Orthopaedic Surgery
DX: M17.11 Unilateral primary osteoarthritis, right knee (principal)
CPT/HCPCS: 20610; 99213

== ENCOUNTER → 2023-04-25 12:10 | Outpatient (BNVA) | payer MEDICAID, SELFPAY | PROVIDERS: PCP Registered Nurse; Visit Provider Orthopaedic Surgery | DX: M17.11 Unilateral primary osteoarthritis, right knee (principal) | CPT/HCPCS: 20610; 99212; J0665; J1100 ==

== ENCOUNTER 2023-05-06 07:43 | Emergency (ER) | payer MEDICAID, SELFPAY ==
--- NOTE | 2023-05-06 | ECG_ITS ---
Test Reason : CP Blood Pressure : / mmHG Vent. Rate : 145 BPM Atrial Rate : 145 BPM P-R Int : 128 ms QRS Dur : 082 ms QT Int : 268 ms P-R-T Axes : 047 -06 013 degrees QTc Int : 416 ms Sinus tachycardia Otherwise normal ECG When compared with ECG of 14-APR-2023 15:12, Vent. rate has increased BY 67 BPM Referred By: Generic ED Physician Electronically Signed By:JESSICA MORALES
--- NOTE | ~2023-05-06 | XR_ITS ---
EXAMINATION: XR CHEST CLINICAL INFORMATION: Shortness of breath COMPARISON: Chest x-ray March 19, 2022 TECHNIQUE: Frontal view of the chest was obtained. FINDINGS: Cardiac silhouette is normal in size. The lungs are well aerated. There is no lobar consolidation. No pleural effusion or pneumothorax. No acute osseous abnormality. XR/XR chest 1V IMPRESSION: No acute pulmonary pathology.
[2023-05-06 07:45] VITALS: BP 134/86; PULSE 148; RESP 20; TEMP 37.1; O2SAT 100; BMI 41.6
[2023-05-06 08:14] LABS: MANUAL DIFF FLAG NO
[2023-05-06 08:21] LABS: INTERNATIONAL NORM RATIO 1.1 (0.9-1.1); Prothrombin Time 13.2 SEC (11.1-13.3)
[2023-05-06 08:27] LABS: Basophils Percent Auto 0.3 % (0-2); Eosinophils Percent Auto 0.4 % (0-4); Hematocrit 36.9 % (37.0-47.0); Hemoglobin 12.3 g/dl (12.0-16.0); Imm Gran Abs Auto 0.06 X10*3/uL (0.00-0.03); Imm Gran Pct Auto 0.6 % (0.0-0.4); Lymphocytes Absolute Auto 0.8 X10*3/uL (1.2-4.9); Lymphocytes Percent Auto 7.6 % (20-40); Mean Corpuscular HGB Conc 33.3 g/dl (31.0-35.0); Mean Platelet Volume 9.5 fL (9.4-12.3); Monocytes Absolute Auto 0.5 X10*3/uL (0.1-1.2); Monocytes Percent Auto 5.1 % (2-11); Neutrophils Absolute Auto 8.6 x10*3/uL (2.0-8.3); Platelet Count 352 X10*3/uL (160-400); Red Blood Count 4.24 X10*6/uL (4.20-5.50)
[2023-05-06 08:46] LABS: Troponin-I High Sensitivity < 2.7 ng/L (<3.5-17.0)
[2023-05-06 08:55] LABS: Alanine Aminotransferase 26 U/L (0-31); Albumin Level 4.2 g/dL (3.5-5.0); Alkaline Phosphatase 63 U/L (39-117); Anion Gap 14 (12-20); Aspartate Amino Transferase 26 U/L (5-31); Bilirubin Total 0.5 mg/dL (0.0-1.0); Blood Urea Nitrogen 15 mg/dL (9-16); Calcium 9.7 mg/dL (8.4-10.2); Carbon Dioxide 23 mmol/L (22-29); Chloride 103 mmol/L (96-108); Creatinine Clr Calc Pharmacy 107.2; Estimated Glomerular Filt Rate > 60; Glucose Random 138 mg/dL (60-115); Potassium 3.4 mmol/L (3.3-5.1); Sodium 137 mmol/L (135-145); Total Protein 8.1 g/dL (6.5-8.0)
[2023-05-06 08:59] LABS: Influenza A PCR NEGATIVE (Negative); Influenza B PCR NEGATIVE (Negative); Resp Syncy Virus RNA Qual PCR NEGATIVE (Negative); SARS COV2 PCR INHOUSE POSITIVE (Negative)
[2023-05-06 09:04] LABS: Magnesium 1.4 mg/dL (1.6-2.6)
--- NOTE | 2023-05-06 09:58 | ED_ITS ---
HPI - General Adult General Chief complaint: Dyspnea Stated complaint: Diff Breathing Time Seen by Provider: 05/06/23 09:53 Source: patient Mode of arrival: ambulatory Limitations: no limitations History of Present Illness HPI narrative: shaking chills, chest pain, cough all started this morning. Patient has a history of asthma Onset (ago): hour(s) Severity: moderate Related Data Home Medications Medication Instructions Recorded Confirmed albuterol sulfate 90 mcg/actuation 2 puff inhalation Q6H PRN 11/25/19 11/14/22 aerosol inhaler (ProAir HFA) Shortness Of Breath Or Wheezing cholecalciferol (vitamin D3) 50 50 mcg PO DAILY 03/07/22 11/14/22 mcg (2,000 unit) tablet (Vitamin D3) epinephrine 0.3 mg/0.3 mL IM 03/07/22 11/14/22 injection, auto-injector ferrous gluconate 324 mg (38 mg 324 mg PO DAILY 03/07/22 11/14/22 iron) tablet fluticasone propionate 110 2 puff inhalation BID 03/07/22 11/14/22 mcg/actuation HFA aerosol inhaler (Flovent HFA) levothyroxine 25 mcg capsule 25 mcg PO DAILY 03/07/22 11/14/22 (Tirosint) Previous Rx's Medication Instructions Recorded cyclobenzaprine 10 mg tablet 10 mg PO Q8H #20 tabs 03/20/22 tramadol 50 mg tablet 50 mg PO Q6H PRN pain #20 tabs 03/20/22 naproxen 500 mg tablet 500 mg PO BID PRN pain 7 days #14 08/23/22 tabs bisacodyl 5 mg tablet,delayed 5 mg PO BEDTIME 30 days #30 tabs 10/25/22 release (Dulcolax (bisacodyl)) sennosides 8.6 mg-docusate sodium 2 tab-cap (2 x 8.6-50 mg) PO 10/25/22 50 mg capsule (Senna Plus) BEDTIME 60 days #120 caps omeprazole 40 mg capsule,delayed 40 mg PO BID #180 caps 01/23/23 release celecoxib 200 mg capsule (Celebrex) 200 mg PO BID 30 days #60 caps 03/26/23 Allergies Allergy/AdvReac Type Severity Reaction Status Date / Time mussels Allergy Severe DIFFICULTY Verified 05/06/23 07:49 BREATHING lactose AdvReac Diarrhea Verified 05/06/23 07:49 Review of Systems 2 Review of Systems: Yes all other systems are reviewed and are negative Neurologic: Denies Sensory deficit (Neuro) FORMERLY [facility], [facility] Past Medical History Medical History Lipoma of arm Asthma Lab test negative for COVID-19 virus COVID-19 Chronic constipation Iron deficiency anemia due to chronic blood loss Epigastric pain GERD (gastroesophageal reflux disease) Lactose intolerance in adult Depression Hypothyroidism Surgical History Status post excision of lipoma (~11/27/22) Hx of shoulder surgery Hx of tubal ligation History of endometrial ablation Hx of dilation and curettage History of breast lump/mass excision Hx of arthroscopic knee surgery History of esophagogastroduodenoscopy (EGD) Status post laparoscopic cholecystectomy History of colonoscopy Family History Family History Mother No problems noted. Father No problems noted. Maternal Aunt Hx of ovarian cancer Social History Social History Household Members: Children Alcohol intake: unknown Patient Tobacco Use Status: Never used Tobacco Smoked in Last 30 Days: No Second Hand Smoke Exposure: No Use of substances other than those prescribed or required for medical reasons: No Advance Directives: No Advance Directives Information Provided: Yes Patient : No Current occupational status: employed Current occupation: [employer] HIGH/ right hand dominant Physical Exam ED Vital Signs: Vital Signs - 24 hr 05/06/23 07:45 05/06/23 10:02 05/06/23 12:44 Temperature 98.7 F 99.3 F 98.5 F Pulse Rate 148 H 140 H 122 H Respiratory Rate 20 15 20 Blood Pressure 134/86 119/77 116/62 Pulse Oximetry 100 97 97 Oxygen Delivery Method Room Air Room Air Room Air 05/06/23 13:22 05/06/23 14:12 Temperature 98.3 F Pulse Rate 107 H Respiratory Rate 24 H 18 Blood Pressure 104/53 L Pulse Oximetry 97 Oxygen Delivery Method Room Air BMI result Body Mass Index 41.6 Const Other: anxious Nutritional Appearance: average body habitus Orientation/consciousness: oriented to person and patient oriented x3 Limitations: no limitations HENMT Head: Yes normal to inspection Ears: external ears normal General nose exam: Normal external nose present Mouth: Normal oral and palatal mucosa present and oropharynx normal Throat: Yes posterior oropharynx normal Eyes General: appearance normal, both eyes and all related structures Neck Neck: Yes normal visual inspection Chest Chest palpation & inspection: normal inspection of the chest Resp Auscultation: clear to auscultation bilaterally Cardio Jugular venous distension: no JVD Rate: regular rate Rhythm: regular rhythm Heart sounds: S1 normal heart sound present and S2 normal heart sound present GI Inspection: Yes normal to inspection Palpation (GI): Soft to palpation, nontender and No hepatosplenomegaly present Auscultation: normal bowel sounds General: Yes no CVA tenderness Back/Spine/Pelvis Back: no CVA tenderness Skin General skin exam: no rashes or lesions noted Neuro General: oriented to person and patient oriented x3 Cranial nerves: Yes CN's II-XII intact bilaterally Motor exam (neuro): 5/5 motor strength present throughout Sensory Exam: No Sensory deficit (Neuro) Extrem General: Yes normal to inspection Psych Other: anxous Course Reevaluation(s) Reevaluation #1: Patient with COVID positive, low magnesium, hydrated and feeling better will dc home Time: 12:22 Medications Administered Discontinued Medications Generic Name Dose Route Start Last Admin Trade Name Freq PRN Reason Stop Dose Admin Acetaminophen 975 mg 05/06/23 12:20 05/06/23 12:38 Acetaminophen 325 Mg Tablet PO 05/06/23 12:21 975 mg ONCE ONE Administration Magnesium Sulfate 2 gm in 50 mls @ 25 mls/hr 05/06/23 09:54 05/06/23 12:41 Magnesium Sulfate/H2o IV 05/06/23 11:53 Infused ONCE ONE Infusion Sodium Chloride 500 mls @ 999 mls/hr 05/06/23 10:00 05/06/23 11:15 Ns IV 05/06/23 10:30 Infused .Q31M SURESH Infusion Sodium Chloride 1,000 mls @ 500 mls/hr 05/06/23 12:30 05/06/23 12:38 Ns IVCONT 05/06/23 14:29 500 mls/hr .Q2H SURESH Administration Ketorolac Tromethamine 30 mg 05/06/23 09:57 05/06/23 10:40 Ketorolac Tromethamine 30 Mg/Ml Vial IVPUSH 05/06/23 09:58 30 mg ONCE ONE Administration Medical Decision Making Differential Diagnosis Differential Diagnoses: The differential diagnosis associated with the presentation includes (influenza, rsv, covid, pneumonia, dehydration were all considered) Admission/Observation Consideration of admission/observation: Escalation of care including admission/observation considered (upon arrival admission was considered) Lab Data MDM Lab Attestation statement: I reviewed the patient's lab results. (hypomagnesemia noted) 05/06/23 08:06 05/06/23 08:05 Labs: Lab Results 05/06/23 05/06/23 05/06/23 Range/Units 08:03 08:05 08:06 WBC 10.0 (4.8-10.8) X10*3/uL RBC 4.24 (4.20-5.50) X10*6/uL Hgb 12.3 (12.0-16.0) g/dl Hct 36.9 L (37.0-47.0) % MCV 87.0 (80.0-98.0) fL MCH 29.0 (27.0-33.0) pg MCHC 33.3 (31.0-35.0) g/dl RDW 12.0 (11.0-16.0) % Plt Count 352 (160-400) X10*3/uL MPV 9.5 (9.4-12.3) fL Immature Gran % (Auto) 0.6 H (0.0-0.4) % Neut % (Auto) 86.0 H (45-73) % Lymph % (Auto) 7.6 L (20-40) % Woodruff % (Auto) 5.1 (2-11) % Eos % (Auto) 0.4 (0-4) % Baso % (Auto) 0.3 (0-2) % Lymph # (Auto) 0.8 L (1.2-4.9) X10*3/uL Woodruff # (Auto) 0.5 (0.1-1.2) X10*3/uL Eos # (Auto) 0.0 (0.0-0.4) X10*3/uL Baso # (Auto) 0.0 (0.0-0.2) X10*3/uL Abs Immat Gran (auto) 0.06 H (0.00-0.03) X10*3/uL Absolute Neuts (auto) 8.6 H (2.0-8.3) x10*3/uL Absolute Nucleated RBC 0.000 (0.0-0.012) X10*3/uL Nucleated RBC % (auto) 0.0 (0.0-0.2) /100WBC PT 13.2 (11.1-13.3) SEC INR 1.1 (0.9-1.1) Sodium 137 (135-145) mmol/L Potassium 3.4 (3.3-5.1) mmol/L Chloride 103 (96-108) mmol/L Carbon Dioxide 23 (22-29) mmol/L Anion Gap 14 (12-20) BUN 15 (9-16) mg/dL Creatinine 0.74 (0.5-1.4) mg/dL Estim Creat Clear Calc 107.2 Estimated GFR > 60 Random Glucose 138 H (60-115) mg/dL Calcium 9.7 (8.4-10.2) mg/dL Magnesium 1.4 L* (1.6-2.6) mg/dL Total Bilirubin 0.5 (0.0-1.0) mg/dL AST 26 (5-31) U/L ALT 26 (0-31) U/L Alkaline Phosphatase 63 (39-117) U/L Troponin I High Sens < 2.7 (<3.5-17.0) ng/L Total Protein 8.1 H (6.5-8.0) g/dL Albumin 4.2 (3.5-5.0) g/dL Influenza Type A (PCR) NEGATIVE (Negative) Influenza Type B (PCR) NEGATIVE (Negative) RSV RNA Qual (PCR) NEGATIVE (Negative) SARS-CoV-2 RNA (RT-PCR) POSITIVE A (Negative) Independent Interpretation I performed an independent interpretation of an: EKG (sinus tachycardia, rate 140, no st or twave changes) and Plain X-Ray (no infiltrate) Prescription Management I considered prescription management with: Antibiotic (no infiltrate on xray will not give abx) Discharge Plan Discharge Clinical Impression: COVID-19, Hypomagnesemia, Dehydration Patient Disposition: Home, Self-Care Instructions: Dehydration (ED), Hypomagnesemia (ED), COVID-19 (Coronavirus Disease 2019) (ED) Prescriptions: No Action omeprazole 40 mg capsule,delayed release(DR/EC) 40 mg PO BID Qty: 180 3RF cyclobenzaprine 10 mg tablet 10 mg PO Q8H Qty: 20 0RF tramadol 50 mg tablet 50 mg PO Q6H PRN (Reason: pain) Qty: 20 0RF naproxen 500 mg tablet 500 mg PO BID PRN (Reason: pain) 7 Days Qty: 14 0RF albuterol sulfate [ProAir HFA] 90 mcg/actuation HFA aerosol inhaler 2 puff inhalation Q6H PRN (Reason: Shortness Of Breath Or Wheezing) cholecalciferol (vitamin D3) [Vitamin D3] 50 mcg (2,000 unit) tablet 50 mcg PO DAILY fluticasone propionate [Flovent HFA] 110 mcg/actuation HFA aerosol inhaler 2 puff inhalation BID ferrous gluconate 324 mg (38 mg iron) tablet 324 mg PO DAILY levothyroxine [Tirosint] 25 mcg capsule 25 mcg PO DAILY epinephrine 0.3 mg/0.3 mL auto-injector IM bisacodyl [Dulcolax (bisacodyl)] 5 mg tablet,delayed release (DR/EC) 5 mg PO BEDTIME 30 Days Qty: 30 3RF Senna Plus 8.6-50 mg capsule 2 tab-cap PO BEDTIME 60 Days Qty: 120 1RF celecoxib [Celebrex] 200 mg capsule 200 mg PO BID 30 Days Qty: 60 3RF Referrals: Pooja Medina, [employer] [Primary Care Provider] - 3 days Stand Alone Forms: Work/School Release Interventions: ED Discharge Assessment Last Done: 05/06/23 14:12 Discharge Date/Time: 05/06/23 14:13
[2023-05-06 10:02] VITALS: BP 119/77; PULSE 140; RESP 15; TEMP 37.4; O2SAT 97
[2023-05-06] MEDS: 0.9 % Sodium Chloride 500 ML 999 ML IV (10:37)
[2023-05-06] MEDS: Ketorolac Tromethamine 30 MG/ML VIAL IVPUSH (10:40)
[2023-05-06] MEDS: Magnesium Sulfate/H2O 2 GM/50 ML PIGGYBACK IV (10:40)
[2023-05-06] MEDS: 0.9 % Sodium Chloride 1,000 ML 500 ML IVCONT (12:38)
[2023-05-06] MEDS: Acetaminophen 325 MG TABLET 975 MG PO (12:38)
[2023-05-06 12:44] VITALS: BP 116/62; PULSE 122; RESP 20; TEMP 36.9; O2SAT 97
[2023-05-06 13:22] VITALS: RESP 24
[2023-05-06 14:12] VITALS: BP 104/53; PULSE 107; RESP 18; TEMP 36.8; O2SAT 97
== END 2023-05-06 14:13 | disposition home or self-care (01) ==
PROVIDERS: Physician Assistant; Emergency Provider Emergency Medicine; PCP Registered Nurse
DX: U07.1 COVID-19 (principal); E86.0 Dehydration; R06.02 Shortness of breath; R07.89 Other chest pain; R05.9 Cough, unspecified; E83.42 Hypomagnesemia; Z79.899 Other long term (current) drug therapy
CPT/HCPCS: 0241U; 36415; 71045; 80053; 83735; 84484; 85025; 85610; 93005; 96361; 96365; 96375; 99284; 99285; J1885; J3475

== ENCOUNTER → 2023-05-06 07:59 | Outpatient (BNV) | payer MEDICAID, SELFPAY | PROVIDERS: Emergency Provider Emergency Medicine; PCP Registered Nurse; Visit Provider Internal Medicine | DX: R00.1 Bradycardia, unspecified (principal) | CPT/HCPCS: 93010 ==

== ENCOUNTER 2023-06-18 10:17 | Outpatient (REF) | payer MEDICAID, SELFPAY ==
--- NOTE | ~2023-06-18 | XR_ITS ---
EXAMINATION: XR HAND/WRIST, RIGHT CLINICAL INFORMATION: Pain in unspecified hand. COMPARISON: 04/25/2020. TECHNIQUE: Four views of the right hand and wrist. FINDINGS: Mild degenerative changes in the first carpometacarpal and metacarpophalangeal joints with mild narrowing of the joint space. Bone mineralization is normal. No displaced fracture appreciated. XR/XR hand wrist RT IMPRESSION: Mild degenerative changes first carpometacarpal and metacarpophalangeal joints.
== END 2023-06-18 10:18 | disposition home or self-care (01) ==
LOC: HO.HOSX 10:17
PROVIDERS: PCP Registered Nurse; Visit Provider Physical Medicine & Rehabilitation
DX: M25.531 Pain in right wrist (principal); R20.0 Anesthesia of skin
CPT/HCPCS: 73110; 73130; 99202

== ENCOUNTER 2023-06-18 10:17 | Outpatient (AMB) | payer MEDICAID, SELFPAY ==
--- NOTE | 2023-06-18 10:20 | MHC.OFFVIS ---
Intake Visit Reasons: OV-B/L Hand pain Intake Note: Kasie is a 42 year old right hand dominant female who presents today for a follow up of bilateral hand pain. History of Left Distal Radius Fracture in 2021. She states having pain/numbness in both hands for about 2 months. Patient is having off and on numbness but the right hand is worse. Pain is worse when washing dishes and working with her hands. Hx of taking antiinflammatories with mild relief. Allergies mussels Allergy (Severe, Verified 06/18/23 10:23) DIFFICULTY BREATHING lactose Adverse Reaction (Verified 06/18/23 10:23) Diarrhea HPI Comments Details: Right handed. When washing dishes or repetitive activities, has pain right wrist (right worse than left). No swelling. Numbness on wrists and fingers, during day after work. Also wakes her up at night. Wears wrist brace. FOR[facility]LY [facility], LATER [facility] Medical History Lipoma of arm Asthma Lab test negative for COVID-19 virus COVID-19 Chronic constipation Iron deficiency anemia due to chronic blood loss Epigastric pain GERD (gastroesophageal reflux disease) Lactose intolerance in adult Depression Hypothyroidism Surgical History Status post excision of lipoma (~11/27/22) Hx of shoulder surgery Hx of tubal ligation History of endometrial ablation Hx of dilation and curettage History of breast lump/mass excision Hx of arthroscopic knee surgery History of esophagogastroduodenoscopy (EGD) Status post laparoscopic cholecystectomy History of colonoscopy Family History Mother No problems noted. Father No problems noted. Maternal Aunt Hx of ovarian cancer Social History Household Members: Children Alcohol intake: unknown Patient Tobacco Use Status: Never used Tobacco Second Hand Smoke Exposure: No Current occupational status: employed Current occupation: [employer] HIGH/ right hand dominant Female Reproductive History Menstrual Age of Menarche: 11 Review of Systems Const All systems reviewed & are unremarkable except as noted in HPI and below Physical Exam Constitutional: Patient appears to be in no acute distress, well nourished and well developed. MSK: Inspection reveals appropriate head and neck positioning. No pain with palpation over the neck musculature. Cervical ROM was full. Spurling's sign negative. No intrinsic hand weakness noted. No atrophy noted. Adarsh test negative. Carpal compression test negative. Tinel sign negative on wrist. Tender on right ulnar wrist area and medial epicondyle. Positive Tinel on right elbow. Strength is 5/5 in all muscle groups tested. No increased tone noted. Neurological: Neurologic examination of the upper and lower extremities was nonfocal with intact sensation, muscle stretch reflexes and without focal motor deficits . Lawrence?s negative bilaterally. Gait is non-antalgic without loss of balance. Results Reviewed Results Reviewed: I reviewed records from the following: Notes from ortho who was following patient for previous left wrist fracture and right knee pain Assessment & Plan Assessment & Plan (1) Right wrist pain: Code(s): M25.531 - Pain in right wrist Category: Medical (2) Finger numbness: Code(s): R20.0 - Anesthesia of skin Category: Medical Plan Complaining of wrist pain and finger tingling. Exam shows more medial/ulnar wrist pain and possible ulnar impingement? We will send for right wrist x-rays today. We will schedule for EMG to rule out ulnar neuropathy versus Carpal Tunnel Syndrome. Continue to wear the wrist brace especially at night. Assessment and plan discussed with patient, and patient was agreeable. All questions were answered thoroughly. Gely Mederos MD, ECHO Board Certified, [place] Board [employer] and Rehabilitation (ABPMR) Board Certified, [place] Board of Electrodiagnostic Medicine (ABEM) Orders: Orders NE nerve conduction velocity Today M25.531 - Pain in right wrist, R20.0 - Anesthesia of skin NE electromyogram (EMG) Today M25.531 - Pain in right wrist, R20.0 - Anesthesia of skin XR hand wrist RT Today M25.531 - Pain in right wrist, M79.643 - Pain in unspecified hand, R20.0 - Anesthesia of skin Coding Level of Care Code New Pt Level 4 (54720) Diagnoses Right wrist pain M25.531 Finger numbness R20.0
== END 2023-06-18 11:44 | disposition home or self-care (01) ==
PROVIDERS: PCP Registered Nurse; Visit Provider Physical Medicine & Rehabilitation
DX: M25.531 Pain in right wrist (principal); R20.0 Anesthesia of skin
CPT/HCPCS: 99204

== ENCOUNTER 2023-06-19 20:11 | Emergency (ER) | payer MEDICAID, SELFPAY ==
[2023-06-19 20:20] VITALS: BP 126/63; PULSE 81; RESP 20; TEMP 36; O2SAT 97; BMI 39.9
--- NOTE | 2023-06-19 20:21 | ED.EXTPRO ---
HPI - Extremity Problem General Chief complaint: Extremity Injury, Lower Stated complaint: left leg cramping/pain Source: patient Mode of arrival: ambulatory Limitations: no limitations History of Present Illness HPI Narrative: 42-year-old female with a past medical history of degenerative arthritis of the right knee presents to the emergency department with complaints of left posterior leg pain for the past month. She reports pain has been worsening and she has been using [id number] Tylenol and prescribed Celebrex with little relief of symptoms. She denies any known trauma. 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 She reports she is any change in gait due to pain in the right knee and has chronic low back pain without saddle anesthesias, urinary hesitancy or incontinence Pertinent positives and negatives discussed in HPI Related Data Home Medications ?Medication ?Instructions ?Recorded ?Confirmed albuterol sulfate 90 mcg/actuation 2 puff inhalation Q6H PRN 11/25/19 11/14/22 aerosol inhaler (ProAir HFA) Shortness Of Breath Or Wheezing cholecalciferol (vitamin D3) 50 50 mcg PO DAILY 03/07/22 11/14/22 mcg (2,000 unit) tablet (Vitamin D3) epinephrine 0.3 mg/0.3 mL IM 03/07/22 11/14/22 injection, auto-injector ferrous gluconate 324 mg (38 mg 324 mg PO DAILY 03/07/22 11/14/22 iron) tablet fluticasone propionate 110 2 puff inhalation BID 03/07/22 11/14/22 mcg/actuation HFA aerosol inhaler (Flovent HFA) levothyroxine 25 mcg capsule 25 mcg PO DAILY 03/07/22 11/14/22 (Tirosint) Previous Rx's ?Medication ?Instructions ?Recorded cyclobenzaprine 10 mg tablet 10 mg PO Q8H #20 tabs 03/20/22 tramadol 50 mg tablet 50 mg PO Q6H PRN pain #20 tabs 03/20/22 naproxen 500 mg tablet 500 mg PO BID PRN pain 7 days #14 08/23/22 tabs bisacodyl 5 mg tablet,delayed 5 mg PO BEDTIME 30 days #30 tabs 10/25/22 release (Dulcolax (bisacodyl)) sennosides 8.6 mg-docusate sodium 2 tab-cap (2 x 8.6-50 mg) PO 10/25/22 50 mg capsule (Senna Plus) BEDTIME 60 days #120 caps omeprazole 40 mg capsule,delayed 40 mg PO BID #180 caps 01/23/23 release celecoxib 200 mg capsule (Celebrex) 200 mg PO BID 30 days #60 caps 03/26/23 cyclobenzaprine 5 mg tablet 5 mg PO TID PRN muscle spasm #14 06/19/23 tabs Allergies Allergy/AdvReac Type Severity Reaction Status Date / Time mussels Allergy Severe DIFFICULTY Verified 06/19/23 20:24 BREATHING lactose AdvReac Diarrhea Verified 06/19/23 20:24 Review of Systems Review of Systems: Yes all other systems are reviewed and are negative PMFSH Past Medical History Medical History Lipoma of arm Asthma Lab test negative for COVID-19 virus COVID-19 Chronic constipation Iron deficiency anemia due to chronic blood loss Epigastric pain GERD (gastroesophageal reflux disease) Lactose intolerance in adult Depression Hypothyroidism Surgical History Status post excision of lipoma (~11/27/22) Hx of shoulder surgery Hx of tubal ligation History of endometrial ablation Hx of dilation and curettage History of breast lump/mass excision Hx of arthroscopic knee surgery History of esophagogastroduodenoscopy (EGD) Status post laparoscopic cholecystectomy History of colonoscopy Family History Family History Mother No problems noted. Father No problems noted. Maternal Aunt Hx of ovarian cancer Social History Social History Household Members: Children Alcohol intake: unknown Patient Tobacco Use Status: Never used Tobacco Second Hand Smoke Exposure: No Advance Directives: No Advance Directives Information Provided: No Do you have a plan to hurt others: No Plan Current occupational status: employed Current occupation: [employer] HIGH/ right hand dominant Physical Exam Vital Signs: Vital Signs: Last Vital Signs Temp 96.8 F 06/19/23 20:38 Pulse 81 06/19/23 20:38 Resp 20 06/19/23 20:38 BP 126/63 06/19/23 20:38 Pulse Ox 97 06/19/23 20:38 O2 Del Method Room Air 06/19/23 20:38 BMI result Body Mass Index 39.9 Nursing notes and vital signs reviewed. GENERAL APPEARANCE: A&0 x 4, generally well appearing, no acute distress HENMT: Normal to inspection, atraumatic, face symmetrical. Normal external ears, nose, and oropharynx clear. EYE: PERRLA, EOM intact, structures appear normal NECK: Supple without stiffness or restricted ROM. HEART: Normal rate and regular rhythm, normal S1/S2, no M/R/G LUNGS: LS CTA, moving air well. Able to speak in complete sentences. No crackles, wheezes, or rhonchi auscultated BACK: No CVAT, no obvious deformity EXTREMITIES: Moving all extremities without difficulty. Tenderness to palpation left posterior upper leg. Normal capillary refill. NEUROLOGICAL: Alert and oriented, moving all 4 extremities with equal strength. CN not formally tested but appearing grossly intact. Observed to ambulate with normal gait. Cognition normal SKIN: Warm and dry without any lesions, rash, or visible sores Medical Decision Making Medical Decision Making MDM Narrative: Old records reviewed for previous imaging, lab studies, ECGs, and notes. Patient was assessed the emergency department with no acute distress or toxicity noted. Patient's symptoms consistent with acute musculoskeletal pain and/or spasm and muscle relaxers intubation preferred pharmacy for additional relief of symptoms. Patient educated to continue use of [id number] Tylenol and prescribed Celebrex as directed. Patient is safe for discharge at this time with plan for [id number] Tylenol for fever/discomfort with dosing as per packaging. HPI, PE, diagnostics, and plan discussed with patient and family with no unanswered questions at this time. Strict return precautions given to return to the emergency department with new, worsening, or concerning emergent symptoms. Recommended to follow-up with there primary care provider in 24-48 hours for further treatment and management. Differential Diagnosis Differential Diagnoses: The differential diagnosis associated with the presentation includes But not limited to DVT, sprain, strain, spasm, fracture, dislocation Discharge Plan Discharge Clinical Impression: Leg pain, posterior Patient Disposition: Home, Self-Care Instructions: Musculoskeletal Pain (ED), Leg Pain (ED) Additional Instructions: Muscle relaxers were sent to your preferred pharmacy for pain. Please do not drink alcohol or drive while taking these medications. Prescriptions: New cyclobenzaprine 5 mg tablet 5 mg PO TID PRN (Reason: muscle spasm) Qty: 14 0RF No Action omeprazole 40 mg capsule,delayed release(DR/EC) 40 mg PO BID Qty: 180 3RF cyclobenzaprine 10 mg tablet 10 mg PO Q8H Qty: 20 0RF tramadol 50 mg tablet 50 mg PO Q6H PRN (Reason: pain) Qty: 20 0RF naproxen 500 mg tablet 500 mg PO BID PRN (Reason: pain) 7 Days Qty: 14 0RF albuterol sulfate [ProAir HFA] 90 mcg/actuation HFA aerosol inhaler 2 puff inhalation Q6H PRN (Reason: Shortness Of Breath Or Wheezing) cholecalciferol (vitamin D3) [Vitamin D3] 50 mcg (2,000 unit) tablet 50 mcg PO DAILY fluticasone propionate [Flovent HFA] 110 mcg/actuation HFA aerosol inhaler 2 puff inhalation BID ferrous gluconate 324 mg (38 mg iron) tablet 324 mg PO DAILY levothyroxine [Tirosint] 25 mcg capsule 25 mcg PO DAILY epinephrine 0.3 mg/0.3 mL auto-injector IM bisacodyl [Dulcolax (bisacodyl)] 5 mg tablet,delayed release (DR/EC) 5 mg PO BEDTIME 30 Days Qty: 30 3RF Senna Plus 8.6-50 mg capsule 2 tab-cap PO BEDTIME 60 Days Qty: 120 1RF celecoxib [Celebrex] 200 mg capsule 200 mg PO BID 30 Days Qty: 60 3RF [place] [facility] [facility] [place] Group] SkillmanPoojaMALINI [Primary Care Provider] - Stand Alone Forms: Work/School Release Interventions: ED Discharge Assessment Last Done: 06/19/23 20:38 Discharge Date/Time: 06/19/23 20:39 Print Language: Syriac
[2023-06-19 20:38] VITALS: BP 126/63; PULSE 81; RESP 20; TEMP 36; O2SAT 97
== END 2023-06-19 20:39 | disposition home or self-care (01) ==
PROVIDERS: Emergency Provider Emergency Medicine; PCP Registered Nurse
DX: M79.605 Pain in left leg (principal); M54.50 Low back pain, unspecified; R26.81 Unsteadiness on feet
CPT/HCPCS: 99282; 99283

== ENCOUNTER 2023-06-26 13:11 | Outpatient (AMB) | payer MEDICAID, SELFPAY ==
--- NOTE | 2023-06-26 13:35 | A.OFFVIS_ITS ---
Intake Visit Reasons: OV-Right knee pain-discuss surgery Intake Note: This is a 42-year-old woman with medial and lateral small degenerative meniscus tearing and mild osteoarthritis with a mild effusion. Last injection done 05/15/23, at this visit it was discussed that surgical intervention is not warranted. Patient is having significant pain limiting her ADOL. The injection was not helpful, She would like surgery. Allergies mussels Allergy (Severe, Verified 06/19/23 20:24) DIFFICULTY BREATHING lactose Adverse Reaction (Verified 06/19/23 20:24) Diarrhea HPI HPI OV-Right knee pain-discuss surgery: Details: This is a 42-year-old woman with medial and lateral small degenerative meniscus tearing and mild osteoarthritis with a mild effusion. Last injection done 05/15/23, at this visit it was discussed that surgical intervention is not warranted. Patient is having significant pain limiting her ADLs. The injection was not helpful, She would like to discuss surgery. [facility] Medical History Lipoma of arm Asthma Lab test negative for COVID-19 virus COVID-19 Chronic constipation Iron deficiency anemia due to chronic blood loss Epigastric pain GERD (gastroesophageal reflux disease) Lactose intolerance in adult Depression Hypothyroidism Surgical History Status post excision of lipoma (~11/27/22) Hx of shoulder surgery Hx of tubal ligation History of endometrial ablation Hx of dilation and curettage History of breast lump/mass excision Hx of arthroscopic knee surgery History of esophagogastroduodenoscopy (EGD) Status post laparoscopic cholecystectomy History of colonoscopy Family History Mother No problems noted. Father No problems noted. Maternal Aunt Hx of ovarian cancer Social History Household Members: Children Alcohol intake: unknown Patient Tobacco Use Status: Never used Tobacco Second Hand Smoke Exposure: No Current occupational status: employed Current occupation: [employer]/ right hand dominant Female Reproductive History Menstrual Age of Menarche: 11 Physical Exam Const General: cooperative, healthy appearing, no acute distress, well developed and alert HEENT Head: Yes normal to inspection, Yes normocephalic and Yes atraumatic Mouth: moist mucous membranes Eyes General: appearance normal, both eyes and all related structures EOM: EOMs intact bilaterally Chest Other: no audible wheezing. Resp Other: No audible wheezing Effort & Inspection: normal respiratory effort Back/Spine/Pelvis Cervical Spine: normal cervical lordosis Skin General skin exam: no rashes or lesions noted Neuro General: no focal motor deficits Extrem Other: Right knee with mild effusion Positive medial Jesus's Psych Appearance: grossly normal and well kempt Mental Status: mental status grossly normal Speech and movement: Normal speech and movement present Affect: normal affect Attitude: cooperative Results Reviewed Results Reviewed: I personally reviewed the MR images. . Inner margin fraying of the lateral meniscus posterior root, new when compared to the prior examination. 2. Degenerative intrasubstance signal within the medial meniscus posterior horn, slightly increased when compared to the prior examination without clear articular surface tearing. 3. Mild tricompartmental osteoarthritis, new when compared to the prior examination. Fkrqu-xh-brrcneif joint effusion. Synovial recess anterior to the lateral meniscus anterior root measuring up to 1.1 cm. Assessment & Plan Assessment & Plan (1) Tear of medial meniscus of right knee: Code(s): S83.241A - Other tear of medial meniscus, current injury, right knee, initial encounter Category: Medical Plan: This is a 42-year-old woman with ongoing pain secondary to a medial meniscus tear of the right knee. I had a long discussion regarding the treatment options for her. She is failed injections and I recommend a medial meniscectomy. I reviewed with her the procedure as well as the risks, benefits and alternatives including but not limited to the risk of infection, stiffness, need for further surgery, ongoing pain. She does have some patellofemoral arthritis and this can compromise the speed of her recovery. I discussed this with her as well. She expressed understanding proceed forward accordingly. Coding Level of Care Code Est Pt Level 4 (81093) Diagnoses Tear of medial meniscus of right knee S83.241A
== END 2023-06-26 14:24 | disposition home or self-care (01) ==
PROVIDERS: PCP Registered Nurse; Referring Provider Registered Nurse; Visit Provider Orthopaedic Surgery
DX: S83.241A Other tear of medial meniscus, current injury, right knee, initial encounter (principal)
CPT/HCPCS: 99214

== ENCOUNTER → 2023-06-26 13:11 | Outpatient (BNVA) | payer MEDICAID, SELFPAY | PROVIDERS: PCP Registered Nurse; Visit Provider Orthopaedic Surgery | DX: S83.241D Other tear of medial meniscus, current injury, right knee, subsequent encounter (principal) | CPT/HCPCS: 99212 ==

== ENCOUNTER 2023-07-10 13:23 | Outpatient (REF) | payer MEDICAID, SELFPAY ==
--- NOTE | 2023-07-10 13:27 | EMG_ITS ---
Chief complaint: Tingling on right 5th digit Reason for referral: Evaluate for ulnar neuropathy Procedure done: Right upper extremity NCS/EMG Precautions and/or limitations: None The limb temperature was monitored continuously and remained between 32-36 degrees C during the performance of the NCS. Ulnar motor NCS was performed with moderate elbow flexion between 70-90 degrees, with across-elbow distance of 10 cm. Nerve Conduction Studies Anti Sensory Summary Table ?Stim Site NR Onset (ms) Norm Onset (ms) Peak (ms) Norm Peak (ms) O-P Amp (?V) Norm O-P Amp Site1 Site2 Delta-0 (ms) Dist (cm) Jerrell (m/s) Norm Jerrell (m/s) Right Median Anti Sensory (2nd Digit) Wrist ? 2.2 2.7 <3.6 39.0 >10 Wrist 2nd Digit 2.2 14.0 64 Right Radial Anti Sensory (Thumb) Forearm ? 1.5 2.1 <3.1 26.6 Forearm Thumb 1.5 0.0 Right Ulnar Anti Sensory (5th Digit) Wrist ? 2.3 2.8 <3.7 22.8 >15.0 Wrist 5th Digit 2.3 14.0 61 Motor Summary Table ?Stim Site NR Onset (ms) Norm Onset (ms) O-P Amp (mV) Norm O-P Amp iAmp (mV) Amp (1st) (%) Site1 Site2 Delta-0 (ms) Dist (cm) Jerrell (m/s) Norm Jerrell (m/s) Right Median Motor (Abd Poll Brev) Wrist ? 2.5 <3.9 9.1 >4.5 10.3 100.0 Elbow Wrist 3.4 20.0 59 >45 Elbow ? 5.9 8.8 10.2 96.7 Right Ulnar Motor (Abd Dig Minimi) Wrist ? 2.2 <3.0 9.6 >5 12.3 100.0 B Elbow Wrist 3.0 18.5 62 >45 B Elbow ? 5.2 9.3 11.9 96.9 A Elbow B Elbow 1.0 10.0 100 >45 A Elbow ? 6.2 9.1 11.8 94.8 EMG ?Side Muscle Nerve Root Ins Act Fibs Psw Amp Dur Poly Recrt Int Pat Comment Right 1stDorInt Ulnar C8-T1 Nml Nml Nml Nml Nml 0 Nml Complete Right FlexCarRad Median C6-7 Nml Nml Nml Nml Nml 0 Nml Complete Right Biceps Musculocut C5-6 Nml Nml Nml Nml Nml 0 Nml Complete Right Triceps Radial C6-7-8 Nml Nml Nml Nml Nml 0 Nml Complete Right Deltoid Axillary C5-6 Nml Nml Nml Nml Nml 0 Nml Complete FINDINGS: All motor and sensory nerves tested showed normal latencies, amplitudes and conduction velocities. Concentric needle EMG was performed in selected muscles of the right upper extremity. Study did not reveal signs of electric abnormalities as shown in the table below. IMPRESSION: 1. This is a normal study. 2. There is no electrodiagnostic evidence for median neuropathy, ulnar neuropathy, brachial plexopathy, or cervical radiculopathy. Thank you for your kind referral. Gely Mederos MD, ECHO Board Certified, [place] Board [employer] Physical Medicine and Rehabilitation (ABPMR) Board Certified, [place] Board of Electrodiagnostic Medicine (ABEM) [place] [id number] [facility]
== END 2023-07-10 13:24 | disposition home or self-care (01) ==
LOC: HO.NEURO 13:23
PROVIDERS: PCP Registered Nurse; Visit Provider Physical Medicine & Rehabilitation
DX: M25.531 Pain in right wrist (principal); R20.0 Anesthesia of skin
CPT/HCPCS: 95886; 95909

== ENCOUNTER → 2023-07-10 13:27 | Outpatient (BNV) | payer MEDICAID, SELFPAY | PROVIDERS: PCP Registered Nurse; Visit Provider Physical Medicine & Rehabilitation | DX: R20.0 Anesthesia of skin (principal); M79.644 Pain in right finger(s) | CPT/HCPCS: 95886; 95909 ==

== ENCOUNTER 2023-07-23 05:48 | Day surgery (SDC) | payer MEDICAID, SELFPAY ==
[2023-07-23] VITALS (11 sets, daily range): BP systolic 103–116; BP diastolic 52–76; PULSE 60–84; RESP 16–18; TEMP 36.1–36.3; O2SAT 93–99; BMI 39.2
--- NOTE | 2023-07-23 07:25 | P.CONAN_ITS ---
Documented by User: Cecile Jaquez NP 07/21/23 12:01 HPI - Anesthesia Eval Consult details Narrative: 42yo F for Right Knee Arthroscopy PMFSH Active Problems Active Problems: All Active Problems Tear of medial meniscus of right knee (Acute) Finger numbness (Acute) Right wrist pain (Acute) COVID-19 (Acute) Patellofemoral arthritis of right knee (Acute) Lipoma of arm (Acute) Helicobacter pylori gastritis (Acute) Morbid obesity with BMI of 40.0-44.9, adult (Acute) Upper abdominal pain (Acute) Patellofemoral arthritis of left knee (Acute) Separation of left acromioclavicular joint (Acute) Osteoarthritis of left knee (Acute) Distal radius fracture, left (Acute) Left wrist sprain (Acute) Left wrist pain (Acute) Osteoarthritis of knees, bilateral (Acute) Low back pain (Acute) Abnormal uterine bleeding (Acute) NAFL (nonalcoholic fatty liver) (Acute) Left shoulder tendonitis (Acute) Lipoma of neck (Acute) Chronic constipation (Acute) Iron deficiency anemia due to chronic blood loss (Acute) Epigastric pain (Acute) GERD (gastroesophageal reflux disease) (Acute) Lactose intolerance in adult (Acute) Past Medical History Medical History Lipoma of arm Asthma Lab test negative for COVID-19 virus COVID-19 Chronic constipation Iron deficiency anemia due to chronic blood loss Epigastric pain GERD (gastroesophageal reflux disease) Lactose intolerance in adult Depression Hypothyroidism Family History Family History Mother No problems noted. Father No problems noted. Maternal Aunt Hx of ovarian cancer Family history of problems with anesthesia: No Surgical History Surgical History Status post excision of lipoma (~11/27/22) Hx of shoulder surgery Hx of tubal ligation History of endometrial ablation Hx of dilation and curettage History of breast lump/mass excision Hx of arthroscopic knee surgery History of esophagogastroduodenoscopy (EGD) Status post laparoscopic cholecystectomy History of colonoscopy History of Problems with Anesthesia: No Social History Social History Household Members: Children Alcohol intake: unknown Patient Tobacco Use Status: Never used Tobacco Second Hand Smoke Exposure: No Are you DNR?: No Advance Directives: No Advance Directives Information Provided: Yes Recently lost weight without trying: No Current occupational status: employed Current occupation: [employer]IGH/ right hand dominant Meds Allergies Allergy/AdvReac Type Severity Reaction Status Date / Time mussels Allergy Severe DIFFICULTY Verified 06/19/23 20:24 BREATHING lactose AdvReac Diarrhea Verified 06/19/23 20:24 Home Medications ?Medication ?Instructions ?Recorded ?Confirmed ?Last Taken ?Type albuterol sulfate 90 mcg/actuation 2 puff inhalation Q6H PRN 11/25/19 11/14/22 Unknown History aerosol inhaler (ProAir HFA) Shortness Of Breath Or Wheezing cholecalciferol (vitamin D3) 50 50 mcg PO DAILY 03/07/22 11/14/22 Unknown History mcg (2,000 unit) tablet (Vitamin D3) epinephrine 0.3 mg/0.3 mL IM 03/07/22 11/14/22 Unknown History injection, auto-injector fluticasone propionate 110 2 puff inhalation BID 03/07/22 11/14/22 Unknown History mcg/actuation HFA aerosol inhaler (Flovent HFA) levothyroxine 25 mcg capsule 25 mcg PO DAILY 03/07/22 11/14/22 Unknown History (Tirosint) Exam Narrative Narrative: EKG 04/2023 (covid) Vent. Rate : 145 BPM Atrial Rate : 145 BPM P-R Int : 128 ms QRS Dur : 082 ms QT Int : 268 ms P-R-T Axes : 047 -06 013 degrees QTc Int : 416 ms Sinus tachycardia Otherwise normal ECG When compared with ECG of 14-APR-2023 15:12, Vent. rate has increased BY 67 BPM Assessment and Plan Assessment Anesthesia Assessment: Chart Reviewed Final Anesthetic Review Family History of Problems with Anesthesia: No History of Problems with Anesthesia: No Documented by User: Yari Navarrete DO 07/23/23 07:29 [facility] Past Medical History Medical History Lipoma of arm Asthma Lab test negative for COVID-19 virus COVID-19 Chronic constipation Iron deficiency anemia due to chronic blood loss Epigastric pain GERD (gastroesophageal reflux disease) Lactose intolerance in adult Depression Hypothyroidism Family History Family History Mother No problems noted. Father No problems noted. Maternal Aunt Hx of ovarian cancer Family history of problems with anesthesia: No Surgical History Surgical History Status post excision of lipoma (~11/27/22) Hx of shoulder surgery Hx of tubal ligation History of endometrial ablation Hx of dilation and curettage History of breast lump/mass excision Hx of arthroscopic knee surgery History of esophagogastroduodenoscopy (EGD) Status post laparoscopic cholecystectomy History of colonoscopy History of Problems with Anesthesia: No Social History Social History Household Members: Children Alcohol intake: unknown Patient Tobacco Use Status: Never used Tobacco Second Hand Smoke Exposure: No Are you DNR?: No Advance Directives: No Advance Directives Information Provided: Yes Recently lost weight without trying: No Current occupational status: employed Current occupation: [employer]/ right hand dominant Meds Allergies Allergy/AdvReac Type Severity Reaction Status Date / Time mussels Allergy Severe DIFFICULTY Verified 06/19/23 20:24 BREATHING lactose AdvReac Diarrhea Verified 06/19/23 20:24 Home Medications ?Medication ?Instructions ?Recorded ?Confirmed ?Last Taken ?Type albuterol sulfate 90 mcg/actuation 2 puff inhalation Q6H PRN 11/25/19 11/14/22 Unknown History aerosol inhaler (ProAir HFA) Shortness Of Breath Or Wheezing cholecalciferol (vitamin D3) 50 50 mcg PO DAILY 03/07/22 11/14/22 Unknown History mcg (2,000 unit) tablet (Vitamin D3) epinephrine 0.3 mg/0.3 mL IM 03/07/22 11/14/22 Unknown History injection, auto-injector fluticasone propionate 110 2 puff inhalation BID 03/07/22 11/14/22 Unknown History mcg/actuation HFA aerosol inhaler (Flovent HFA) levothyroxine 25 mcg capsule 25 mcg PO DAILY 03/07/22 11/14/22 Unknown History (Tirosint) Exam Exam Date and Time: July 23, 2023 0725 Height,Weight and Vital Signs: Height 5 ft 3 in Weight 100.471 kg Vital Signs Temperature 97.0 F 07/23/23 06:03 Pulse Rate 84 07/23/23 06:03 Respiratory Rate 18 07/23/23 06:03 Blood Pressure 116/52 L 07/23/23 06:03 Pulse Oximetry 97 07/23/23 06:03 Oxygen Delivery Method Room Air 07/23/23 06:03 Temperature 97.0 F 07/23/23 06:03 Pulse Rate 84 07/23/23 06:03 Respiratory Rate 18 07/23/23 06:03 Blood Pressure 116/52 L 07/23/23 06:03 Pulse Oximetry 97 07/23/23 06:03 Oxygen Delivery Method Room Air 07/23/23 06:03 Airway Mallampati Class: II TM Dist: >3cm Neck ROM: Full Loose/Missing/Broken Teeth: No Heart: S1S2 Lungs: CTAB Assessment and Plan Assessment Anesthesia Assessment: Anesthesia Plan Discussed and Chart Reviewed Final Anesthetic Review Family History of Problems with Anesthesia: No History of Problems with Anesthesia: No NPO: Yes ASA Class: II Final Preanesthetic Review: No Changes in Pt Med Stat, Meds/Allgs Chart Reviewed, Consent Obtained/Reviewed and Anes Risks/Benef Reviewed Patient Risk: Low Procedure Risk: Low Anesthetic Plan Anesthetic Plan: GA and Agree w/ Assess. and Plan Disposition: Standard PACU
--- NOTE | 2023-07-23 07:37 | MHC.SHP ---
Pre-Procedural Eval Section A - 24 Hr Update-Section A only Date of Service: 07/23/23 The patient is an INPATIENT: No Changes since office visit: No Cold of Flu in the past 2 weeks, No New Medical Problems, No Changes in Medication and No Patient answered all questions The patient has been examined within 24 hours of the surgical procedure. The History & Physical has been completed within 30 days and I have reviewed it.: Yes Section B - Complete if H&P > 30 days Chief Complaint: tear of medial meniscus, current injury,osteoarthr Allergies: Allergies Allergy/AdvReac Type Severity Reaction Status Date / Time mussels Allergy Severe DIFFICULTY Verified 06/19/23 20:24 BREATHING lactose AdvReac Diarrhea Verified 06/19/23 20:24 Plan I have reviewed the history and physical and performed a pertinent physical examination on my patient. No changes have occurred unless specified. Time Spent With Patient Time: Total time managing care of this patient today ____ minutes.
[2023-07-23] MEDS: oxyCODONE HCl Immed Release 5 MG TABLET PO (08:29)
[2023-07-23] MEDS: fentaNYL citrate/PF 100 MCG/2 ML VIAL 50 MCG IVPUSH ×2 (08:40→08:45)
--- NOTE | 2023-07-23 10:02 | PM.OP ---
Brief Operative Note Date of Service: 07/23/23 Pre-op diagnosis: Right MMT Post-op diagnosis: other (1) same 2) anterior and medial compartment osteoarthritis) Procedure: Partial medial meniscectomy and chondroplasty Implants: none Surgeon: Jad Ramriez MD Anesthesia: GETA and local Was an Package Reinspector used for this Procedure?: No Estimated blood loss (mL): 5 Tourniquet time (min): 20 IV fluids (mL): 500 Pathology: none sent Condition: stable Disposition: PACU
--- NOTE | 2023-08-03 09:11 | W.PM.OPN ---
Operative Note Operative Note Date of Service: 07/23/23 Narrative: Date of Service: 07/23/23 Pre-op diagnosis: Right MMT Post-op diagnosis: other (1) same 2) anterior and medial compartment osteoarthritis) Procedure: Partial medial meniscectomy and chondroplasty Implants: none Surgeon: Jad Ramirez MD Anesthesia: GETA and local Was an Electronic Heat Seal Operator used for this Procedure?: No Estimated blood loss (mL): 5 Tourniquet time (min): 20 IV fluids (mL): 500 Pathology: none sent Condition: stable Disposition: PACU Procedure in detail: Patient was brought to the operating room placed supine on the arthroscopic table and prepped and draped in standard sterile fashion. A time-out was called to identify proper site proper procedure proper surgeon and IV antibiotics per weight were administered. I began by exsanguinating the limb and insufflating tourniquet to 300 mm Hg. Then made a standard anterolateral stab incision. The knee was insufflated with water and 30 degree arthroscope was placed. There was grade 3/4 cartilage damage to the troachlea. There were 2/3 changes to the patella. The suprapatellar pouch and the gutters were clean. I descended into the medial compartment where I made my medial portal under direct visualization. There was obvious of complex tear of the posterior horn of the medial meniscus with an assoicated G3 area of chondral damage. The root was intact. I used a combination of biter shaver and cautery to remove unstable portions of the meniscus. Apporoximately 30% meniscal volume was removed. I debrided the MFC down to stable chondral edges. Once I was satisfied with this the ACL was examined and found to be intact and the lateral compartment also was without the need for intervention although there were G2 changes to the lateral tibial plateau. I then returned to the trochlea and performed a chondroplasty with a shaver and cautery. I then removed all instrumentation and closed the portals with skin glue. 25 mL of 2% Marcaine with epinephrine was injected into the joint and the surrounding soft tissues. Patient was then placed in sterile dressing extubated brought recovery room stable condition. There were no known complications.
== END 2023-07-23 10:28 | disposition home or self-care (01) ==
LOC: HO.SSS 05:49
PROVIDERS: PCP Registered Nurse; Visit Provider Orthopaedic Surgery
PROC: (CPT 29870; principal; 2023-07-23 07:30)
DX: S83.241A Other tear of medial meniscus, current injury, right knee, initial encounter (principal); M17.11 Unilateral primary osteoarthritis, right knee; J45.909 Unspecified asthma, uncomplicated; X58.XXXA Exposure to other specified factors, initial encounter; Y93.9 Activity, unspecified; Y92.9 Unspecified place or not applicable; Y99.9 Unspecified external cause status
CPT/HCPCS: 29881; J0131; J0171; J0690; J1100; J1885; J2250; J2405; J2704; J2795; J3010

== ENCOUNTER → 2023-07-23 05:48 | Outpatient (BNV) | payer MEDICAID, SELFPAY | PROVIDERS: PCP Registered Nurse; Visit Provider Orthopaedic Surgery | DX: S83.231A Complex tear of medial meniscus, current injury, right knee, initial encounter (principal) | CPT/HCPCS: 29881 ==

== ENCOUNTER 2023-07-31 13:49 | Outpatient (AMB) | payer MEDICAID, SELFPAY ==
--- NOTE | 2023-07-31 13:53 | MHC.OFFVIS ---
Intake Visit Reasons: PO RT knee 07/23/23 NE Intake Note: Kasie is a 42 year old female who presents today for a post op appointment s/p RT knee 07/23/23 NE. Patient reports she is doing well, however she is having some pain when she is waking. She also has concerns with her pain in her lower back and it moves down to her left leg making her last two toes numb. Allergies mussels Allergy (Severe, Verified 06/19/23 20:24) DIFFICULTY BREATHING lactose Adverse Reaction (Verified 06/19/23 20:24) Diarrhea HPI HPI PO RT knee 07/23/23 NE: Details: 42-year-old female who presents in the office today 8 days status post right knee partial medial meniscectomy and chondroplasty, which was performed on 07/23/[address] Jad Ramirez. While in the office today the patient reports she has been doing good and the knee has been good. She reports still having a mild reaction from the prep on the right knee. She reports numbness in the bilateral lower extremity. [facility] Medical History Lipoma of arm Asthma Lab test negative for COVID-19 virus COVID-19 Chronic constipation Iron deficiency anemia due to chronic blood loss Epigastric pain GERD (gastroesophageal reflux disease) Lactose intolerance in adult Depression Hypothyroidism Surgical History Status post excision of lipoma (~11/27/22) Hx of shoulder surgery Hx of tubal ligation History of endometrial ablation Hx of dilation and curettage History of breast lump/mass excision Hx of arthroscopic knee surgery History of esophagogastroduodenoscopy (EGD) Status post laparoscopic cholecystectomy History of colonoscopy Family History Mother No problems noted. Father No problems noted. Maternal Aunt Hx of ovarian cancer Social History Household Members: Children Alcohol intake: unknown Patient Tobacco Use Status: Never used Tobacco Second Hand Smoke Exposure: No Current occupational status: employed Current occupation: [employer]/ right hand dominant Female Reproductive History Menstrual Age of Menarche: 11 Review of Systems Const All systems reviewed & are unremarkable except as noted in HPI and below Physical Exam Const General: cooperative, healthy appearing and no acute distress Resp Effort & Inspection: normal respiratory effort and able to speak in complete sentences Cardio Rate: regular rate Peripheral pulses: Peripheral pulses 2+ throughout GI Palpation (GI): Soft to palpation Skin Lesions: no lesions Rashes: no rashes Extrem Other: Right knee: Incision sites are clean, dry, and intact. Steri-stripes are intact. Steri-stripes were removed in the office today and after removal there was a small area of bloody discharge. No surrounding erythema or drainage. No signs of infection. ROM is 0-100 degrees. NVI. Assessment & Plan Assessment & Plan (1) S/P right knee arthroscopy: Onset Date: ~07/23/23 Comment: Right knee partial medial meniscectomy and chondroplasty NE Code(s): Z98.890 - Other specified postprocedural states Category: Surgical Plan Ms. Funes is a 42-year-old female who presents in the office today 8 days status post right knee partial medial meniscectomy and chondroplasty, which was performed on 07/23/[address] Jad Ramirez. While in the office today the patient reports she has been doing good and the knee has been good. She reports still having a mild reaction from the prep on the right knee. She reports numbness in the bilateral lower extremity. Steri-stripes were removed in the office today and after this was done there was a small area of bloody discharge. The skin was cleaned while in the office today and some bandages were applied to the lateral incision site. The patient was offered physical therapy to work on ROM of the right knee. She will also be referred to Physiatry for further evaluation of her back and bilateral lower extremity pain. Follow-up will be in four weeks for a ROM check, or sooner if needed. Orders: Orders PT Evaluation and Treatment Today S83.241A - Other tear of medial meniscus, current injury, right knee, initial encounter Patient Instructions: Scribed by Amber Lawton biomedical engineering technician, for Rianna Bruce PA-C on 07/31/2023 at 1:50 pm, EST. Coding Level of Care Code Global (01849) Diagnoses S/P right knee arthroscopy Z98.890
== END 2023-07-31 14:03 | disposition home or self-care (01) ==
PROVIDERS: PCP Registered Nurse; Visit Provider Physician Assistant
DX: Z98.890 Other specified postprocedural states (principal)
CPT/HCPCS: 99024

== ENCOUNTER → 2023-07-31 13:49 | Outpatient (BNVA) | payer MEDICAID, SELFPAY | PROVIDERS: PCP Registered Nurse; Visit Provider Physician Assistant | DX: Z98.890 Other specified postprocedural states (principal) | CPT/HCPCS: 99212 ==

== ENCOUNTER 2023-08-28 14:49 | Outpatient (AMB) | payer MEDICAID, SELFPAY ==
--- NOTE | 2023-08-28 15:15 | A.OFFVIS_ITS ---
Vital Signs 08/28/23 15:17 Height 5 ft 1 in Weight 216 lb BMI 40.8 Intake Visit Reasons: PO RT knee 07/23/23 NE Intake Note: Kasie is a 43 year old female who presents today for a post op appointment s/p RT knee 07/23/23 NE. Patient reports she is doing well, however she is having some pain in her left knee. She is doing good with PT, she is noticing some improvements. Allergies mussels Allergy (Severe, Verified 08/28/23 15:16) DIFFICULTY BREATHING lactose Adverse Reaction (Verified 08/28/23 15:16) Diarrhea HPI HPI PO RT knee 07/23/23 NE: Details: 43-year-old right hand dominant female, who is Yakut speaking, presents in the office today 5 weeks status post right knee partial medial meniscectomy and chondroplasty, which was performed on 07/23/[address] Jad Ramirez. I last saw the patient in the office on 07/31/2023 when the patient was referred to physical therapy to work on ROM. ? ? While in the office today, the patient reports she is doing well with mild pain in the left knee. She confirms participating in physical therapy and has noticed some improvement. ? [facility] Medical History Lipoma of arm Asthma Lab test negative for COVID-19 virus COVID-19 Chronic constipation Iron deficiency anemia due to chronic blood loss Epigastric pain GERD (gastroesophageal reflux disease) Lactose intolerance in adult Depression Hypothyroidism Surgical History Status post excision of lipoma (~11/27/22) Hx of shoulder surgery Hx of tubal ligation History of endometrial ablation Hx of dilation and curettage History of breast lump/mass excision Hx of arthroscopic knee surgery History of esophagogastroduodenoscopy (EGD) Status post laparoscopic cholecystectomy History of colonoscopy Family History Mother No problems noted. Father No problems noted. Maternal Aunt Hx of ovarian cancer Social History Household Members: Children Alcohol intake: unknown Patient Tobacco Use Status: Never used Tobacco Second Hand Smoke Exposure: No Current occupational status: employed Current occupation: [employer]/ right hand dominant Female Reproductive History Menstrual Age of Menarche: 11 Review of Systems Const All systems reviewed & are unremarkable except as noted in HPI and below Physical Exam Vital Signs: BMI result Body Mass Index 40.8 Const General: cooperative, healthy appearing and no acute distress Resp Effort & Inspection: normal respiratory effort and able to speak in complete sentences Cardio Rate: regular rate Peripheral pulses: Peripheral pulses 2+ throughout GI Palpation (GI): Soft to palpation Skin Lesions: no lesions Rashes: no rashes Extrem Other: Right knee: Incision sites are completely healed and well approximated with no signs of infection. Full ROM. NVI.? ? Left knee: Skin intact, no erythema or joint effusion. Tenderness along the medial and lateral joint line. Full ROM with crepitus. Negative Jesus?s. No ligamentous laxity. NVI.?? Office Procedures Joint Injection/Drain Joint Injection/Drain Primary Site: left knee Prep: site was prepped using aseptic technique, ethochloride spray was applied and injection warnings given Injected: 80 mg of, DepoMedrol, with 8 mL of (2% plain lido ) and in the joint Procedure: The patient tolerated the procedure well, but had some pain with the injection and there was some relief with the local anesthesia Coding 02372 - Large joint Procedure code (CPT) selection complete Assessment & Plan Assessment & Plan (1) Patellofemoral arthritis of left knee: Code(s): M17.12 - Unilateral primary osteoarthritis, left knee Category: Medical (2) Patellofemoral arthritis of right knee: Code(s): M17.11 - Unilateral primary osteoarthritis, right knee Category: Medical Plan Ms. Funes is a 43-year-old right hand dominant female, who is Yakut speaking, presents in the office today 5 weeks status post right knee partial medial meniscectomy and chondroplasty, which was performed on 07/23/[address] Jad Ramirez. I last saw the patient in the office on 07/31/2023 when the patient was referred to physical therapy to work on ROM. ? ? While in the office today, the patient reports she is doing well with mild pain in the left knee. She confirms participating in physical therapy and has noticed some improvement.? ? Right knee: Return to normal activities as tolerated. No additional orthopedic intervention is needed at this time. ? ? Left knee: The patient was offered a cortisone injection in the left knee with 80 mg of DepoMedrol. The patient was explained the risks, benefits, and alternatives to receiving this injection. After receiving consent for the injection, the patient had the procedure done while in the office today. The patient tolerated the procedure well with no complications.? ? ? Follow-up for the bilateral knees will be PRN, or sooner if needed. ? Patient Instructions: Scribed by Amber Lawton certified medical dosimetrist, for Rianna Bruce PA-C on 08/28/2023 at 4:32 pm, EST.? Coding Level of Care Code Global (33473) Diagnoses Patellofemoral arthritis of left knee M17.12 Patellofemoral arthritis of right knee M17.11 CPT Codes Coding - 08159 Large joint: 40477 - Large joint ([id number])
[2023-08-28 15:17] VITALS: BMI 40.8
== END 2023-08-28 15:40 | disposition home or self-care (01) ==
PROVIDERS: PCP Registered Nurse; Visit Provider Physician Assistant
DX: M17.0 Bilateral primary osteoarthritis of knee (principal)
CPT/HCPCS: 20610; 99024

== ENCOUNTER → 2023-08-28 14:49 | Outpatient (BNVA) | payer MEDICAID, SELFPAY | PROVIDERS: PCP Registered Nurse; Visit Provider Physician Assistant | DX: M17.0 Bilateral primary osteoarthritis of knee (principal) | CPT/HCPCS: 20610; 99212; J1010 ==

== ENCOUNTER 2023-09-17 10:34 | Outpatient (AMB) | payer MEDICAID, SELFPAY ==
--- NOTE | 2023-09-17 10:37 | A.OFFVIS_ITS ---
Intake Visit Reasons: [facility] DIRECTOR back pain Intake Note: Kasie is a 43 year old female who presents today as a new patient with complaints of leg pain. Patient reports that she has had ongoing pain for about 3 months now. Her pain is felt in the lateral/posterior aspect of the left leg. Her pain is felt all the time worsening with walking. She does have numbness in the toes of the left foot. Denies injury. She is currently taking Mortin for her pain which is not helpful/ Hx of Right knee 07/23/23 NE Custom Bookbinder Required: Yes Custom Bookbinder Name: [id number] Allergies mussels Allergy (Severe, Verified 09/17/23 10:44) DIFFICULTY BREATHING lactose Adverse Reaction (Verified 09/17/23 10:44) Diarrhea Medication List - Last Reconciled 09/17/23 by Gely Mederos MD albuterol sulfate 90 mcg/actuation (ProAir HFA) 2 puffs inhalation Q6H PRN cholecalciferol (vitamin D3) (Vitamin D3) 50 mcg PO DAILY epinephrine IM fluticasone propionate 110 mcg/actuation (Flovent HFA) 2 puffs inhalation BID hydrocodone-acetaminophen 5-325 mg 1 tab PO Q8H PRN 7 days levothyroxine (Tirosint) 25 mcg PO DAILY omeprazole 40 mg PO BID HPI Comments Details: Previously seen by Orthopedics, receives knee injection. s/p RT knee 07/23/[address] Ramirez. Previously seen by me for right hand pain. EMG normal. Here for other issue. Points to left lateral thigh as source of pain, since 3 months ago. Denies inciting injuries. Feels numb on left leg, down to left side of left foot. No treatment for this thigh. She did have left knee injection from ortho which helped with knee pain but not thigh. [facility] Medical History Lipoma of arm Asthma Lab test negative for COVID-19 virus COVID-19 Chronic constipation Iron deficiency anemia due to chronic blood loss Epigastric pain GERD (gastroesophageal reflux disease) Lactose intolerance in adult Depression Hypothyroidism Surgical History Status post excision of lipoma (~11/27/22) Hx of shoulder surgery Hx of tubal ligation History of endometrial ablation Hx of dilation and curettage History of breast lump/mass excision Hx of arthroscopic knee surgery History of esophagogastroduodenoscopy (EGD) Status post laparoscopic cholecystectomy History of colonoscopy Family History Mother No problems noted. Father No problems noted. Maternal Aunt Hx of ovarian cancer Social History Household Members: Children Alcohol intake: unknown Patient Tobacco Use Status: Never used Tobacco Second Hand Smoke Exposure: No Current occupational status: employed Current occupation: [employer] HIGH/ right hand dominant Female Reproductive History Menstrual Age of Menarche: 11 Review of Systems Const All systems reviewed & are unremarkable except as noted in HPI and below Physical Exam Constitutional: Patient appears to be in no acute distress, well nourished and well developed. Patient was appropriately conversant and oriented. Good historian. MSK: No specific abnormalities found on inspection of the spine and all extremities. No pain with palpation over the lumbar area. Tender left SI joint. Tender left GT. Lumbar ROM was full. Bilateral hip, knee and ankle ROM WNL. No ligamentous laxity or crepitance. No increased effusion. Straight-leg raising test negative. FABERE test negative. Strength is 5/5 in all muscle groups tested. No increased tone noted. Neurological: Neurologic examination of the upper and lower extremities was nonfocal with intact sensation, muscle stretch reflexes and without focal motor deficits . Lawrence?s negative bilaterally. Babinski was down going bilaterally. Clonus was negative. Gait is non-antalgic without loss of balance. Results Reviewed Results Reviewed: I independently reviewed the results of the following: Lumbar x-ray showed preserved disc spaces. Ordering Physician: Barrett Swenson PA-C Date of Service: 03/26/23 Procedure(s): XR lumbar spine 2-3V Accession Number(s): [id number] cc: Barrett Swenson PA-C; [facility]~ EXAMINATION: XR LUMBOSACRAL SPINE CLINICAL INFORMATION: Chronic midline lower back pain with bilateral sciatica. COMPARISON: Lumbar spine radiographs dated 11/13/2015. TECHNIQUE: AP, lateral, and both oblique views of the lumbosacral spine. FINDINGS: The vertebral bodies and posterior elements are normal. The disc spaces are preserved and the vertebral alignment is normal. The paraspinal soft tissues are normal. There are right upper quadrant surgical clips. XR/XR lumbar spine 2-3V IMPRESSION: Unremarkable examination. I reviewed records from the following: Orthopedics Assessment & Plan Assessment & Plan (1) Sacroiliac joint dysfunction of left side: Code(s): M53.3 - Sacrococcygeal disorders, not elsewhere classified Category: Medical (2) Trochanteric bursitis of left hip: Code(s): M70.62 - Trochanteric bursitis, left hip Category: Medical Plan She has tenderness over left SI joint and GT. Probably secondary, biomechanical , from knee pain and poor gait. We will send referral/instructions to PT to work on left SI and GT joints. Discuss possible left GT steroid injection patient eager to proceed. We will schedule. Assessment and plan discussed with patient, and patient was agreeable. All questions were answered thoroughly. Gely Mederos MD, ECHO Board Certified, [place] Board of Physical Medicine and Rehabilitation (ABPMR) Board Certified, [place] Board of Electrodiagnostic Medicine (ABEM) Orders: Orders PT Evaluation and Treatment Today M53.3 - Sacrococcygeal disorders, not elsewhere classified, M70.62 - Trochanteric bursitis, left hip Coding Level of Care Code Est Pt Level 4 (90666) Diagnoses Sacroiliac joint dysfunction of left side M53.3 Trochanteric bursitis of left hip M70.62
== END 2023-09-17 10:57 | disposition home or self-care (01) ==
PROVIDERS: PCP Registered Nurse; Referring Provider Registered Nurse; Visit Provider Physical Medicine & Rehabilitation
DX: M53.3 Sacrococcygeal disorders, not elsewhere classified (principal); M70.62 Trochanteric bursitis, left hip
CPT/HCPCS: 99213

== ENCOUNTER → 2023-09-17 10:34 | Outpatient (BNVA) | payer MEDICAID, SELFPAY | PROVIDERS: PCP Registered Nurse; Visit Provider Physical Medicine & Rehabilitation | DX: M53.3 Sacrococcygeal disorders, not elsewhere classified (principal); M70.62 Trochanteric bursitis, left hip | CPT/HCPCS: 99212 ==

== ENCOUNTER 2023-09-18 14:00 | Outpatient (RCR) | payer MEDICAID, SELFPAY ==
--- NOTE | 2023-08-06 15:57 | MHC.PT.EP ---
[facility] [place] Office [place] Office [place] Office [address] [phone] F: [phone] F: [phone] F: [phone] F: [phone] Physical Therapy Plan of Care Date of Evaluation: 08/06/23 Date of Surgery: 07/23/23 Diagnosis: tear of medial meniscus of right knee (RL) S/P meniscectomy and chondroplasty on 07/23/23 w/ Dr. Ramirez Assessment: pt is a 42 y/o female presenting to physical therapy w/ referring diagnosis of tear of medial meniscus of right knee. pt underwent medial meniscectomy and chondroplasty on 07/23/23. Impairments include pain, decreased range of motion, decreased strength, impaired functional mobility, impaired postural awareness, and altered ambulation mechanics. pt is a good candidate for skilled PT due to age, potential remediation of impairments, typical disease/condition progression and prognosis, comorbidities, and motivation. pt would benefit from skilled PT intervention to provide a tailored strengthening and stretching exercise program, functional training, gait training, postural re-training, neuromuscular re-education, modalities as needed for pain, equipment safety demonstration. Frequency and Duration: The patient will be seen 2x/wk for 8 wks Short Term Goals: pt will be I w/ HEP to promote self-management of condition. pt will improve R knee flexion by 10 degrees to promote ease w/ sit<>stand transfers. Prison Goals: pt will improve B quad strength to 5/5 to promote ease in stair navigation. pt will report a statistically significant improvement in self-reported outcome, measure, LEFI, to promote return to PLOF. pt will ambulate >2600' w/o AD and no obvious gait deviations to promote return to community navigation. Treatment Plan: Modalities to reduce pain, spasms and effusion. Manual therapy to restore motion and function. Therapeutic exercise to improve strength and flexibility. Neuromuscular re-education for posture and balance. Therapeutic activities to return to functional activities of daily living. Electronically signed by: Tejal Wilson PT, DPT Please sign and return to therapist. Thank you for your referral.
--- NOTE | 2023-10-08 14:46 | MHC.PT.DC ---
[facility] [place] Office [place] Office [place] Office [address]igniew [address] [facility] [phone] F: [phone] F: [phone] F: [phone] F: [phone] Physical Therapy Discharge Report Diagnosis: tear of medial meniscus of right knee (RL) S/P meniscectomy and chondroplasty on 07/23/23 w/ Dr. Ramirez Date of Surgery: 07/23/23 Date of Evaluation: 08/06/23 Date of Discharge: 10/08/23 Treatments to Date: 7 Cancellations to Date: 5 No Shows to Date: 0 Discharge Status: Improved Function Independent with HEP Patient Elected to Stop Discharge Summary: The patient overall has been reporting improved knee pain and tolerance for ADLs/work-related tasks. She would like to be discharged from this physical therapy plan of care to pursue treatment for L sided sciatica. She is discharged from this physical therapy plan of care per her request. Electronically signed by: Tejal Wilson, PT, DPT Please sign and return to therapist. Thank you for your referral.
== END 2023-10-08 14:46 | disposition home or self-care (01) ==
LOC: HO.PT 14:00
PROVIDERS: PCP Registered Nurse; Visit Provider Physician Assistant
DX: S83.241D Other tear of medial meniscus, current injury, right knee, subsequent encounter (principal)
CPT/HCPCS: 97110; 97162; 97530

== ENCOUNTER 2023-10-23 10:45 | Outpatient (AMB) | payer MEDICAID, SELFPAY ==
--- NOTE | 2023-10-23 10:49 | A.OFFVIS_ITS ---
Intake Visit Reasons: Left Greater Trochanteric Injection Intake Note: Kasie is a 43 year old female who presents today for a left hip injection. Patient reports she started PT and is feeling slightly better. Net Developer Consultant Required: Yes Net Developer Consultant Name: [id number] Allergies mussels Allergy (Severe, Verified 10/23/23 10:58) DIFFICULTY BREATHING lactose Adverse Reaction (Verified 10/23/23 10:58) Diarrhea Medication List - Last Reconciled 10/23/23 by Gely Mederos MD albuterol sulfate 90 mcg/actuation (ProAir HFA) 2 puffs inhalation Q6H PRN cholecalciferol (vitamin D3) (Vitamin D3) 50 mcg PO DAILY cyclobenzaprine 10 mg PO BEDTIME PRN epinephrine IM fluticasone propionate 110 mcg/actuation (Flovent HFA) 2 puffs inhalation BID hydrocodone-acetaminophen 5-325 mg 1 tab PO Q8H PRN 7 days levothyroxine (Tirosint) 25 mcg PO DAILY omeprazole 40 mg PO BID PFSH Medical History Lipoma of arm Asthma Lab test negative for COVID-19 virus COVID-19 Chronic constipation Iron deficiency anemia due to chronic blood loss Epigastric pain GERD (gastroesophageal reflux disease) Lactose intolerance in adult Depression Hypothyroidism Surgical History Status post excision of lipoma (~11/27/22) Hx of shoulder surgery Hx of tubal ligation History of endometrial ablation Hx of dilation and curettage History of breast lump/mass excision Hx of arthroscopic knee surgery History of esophagogastroduodenoscopy (EGD) Status post laparoscopic cholecystectomy History of colonoscopy Family History Mother No problems noted. Father No problems noted. Maternal Aunt Hx of ovarian cancer Social History Household Members: Children Alcohol intake: unknown Patient Tobacco Use Status: Never used Tobacco Second Hand Smoke Exposure: No Current occupational status: employed Current occupation: [employer] HIGH/ right hand dominant Female Reproductive History Menstrual Age of Menarche: 11 Office Procedures Joint Injection/Aspiration Joint Injection/Aspiration Details: Consent obtained. Patient lies on unaffected right side with lower leg flexed and upper leg extended. Tender area over the left greater trochanter is identified and marked. Area is cleansed with betadine solution. Using a 27 gauge needle, 3 ml of 2% lidocaine is injected, with the needle perpendicular to center of tender area. Then, using a spinal needle, 40 mg Kenalog is injected perpendicularly at center of tender area and slightly touching bone of greater trochanter. Patient tolerated procedure well without complications. Post-injection instructions given. Coding - Large joint Procedure code (CPT) selection complete Assessment & Plan Assessment & Plan (1) Trochanteric bursitis of left hip: Code(s): M70.62 - Trochanteric bursitis, left hip Category: Medical Plan Tolerated procedure well. Assessment and plan discussed with patient, and patient was agreeable. All questions were answered thoroughly. Follow up on month. Gely Mederos MD, ECHO Board Certified, [place] Board of Physical Medicine and Rehabilitation (ABPMR) Board Certified, [place] Board of Electrodiagnostic Medicine (ABEM) Orders: Orders AMB Joint Injection/Aspiration Today M70.62 - Trochanteric bursitis, left hip Coding Level of Care Code Procedure Only Diagnoses Trochanteric bursitis of left hip M70.62 CPT Codes Coding - Large joint: 31562 - Large joint ([id number])
== END 2023-10-23 13:17 | disposition home or self-care (01) ==
PROVIDERS: PCP Registered Nurse; Visit Provider Physical Medicine & Rehabilitation
DX: M70.62 Trochanteric bursitis, left hip (principal)
CPT/HCPCS: 20610

== ENCOUNTER → 2023-10-23 10:45 | Outpatient (BNVA) | payer MEDICAID, SELFPAY | PROVIDERS: PCP Registered Nurse; Visit Provider Physical Medicine & Rehabilitation | DX: M70.62 Trochanteric bursitis, left hip (principal) | CPT/HCPCS: 20610; J3301 ==

== ENCOUNTER 2023-10-31 13:39 | Outpatient (REF) | payer MEDICAID, SELFPAY ==
[2023-10-31 17:50] LABS: Alanine Aminotransferase 35 U/L (0-31); Albumin Level 4.4 g/dL (3.5-5.0); Alkaline Phosphatase 90 U/L (39-117); Aspartate Amino Transferase 28 U/L (5-31); Bilirubin Direct 0.2 mg/dL (0.0-0.5); Bilirubin Total 0.4 mg/dL (0.0-1.0); Cholesterol 160 mg/dL (<200); HDL Cholesterol 68 mg/dL (>40); LDL Cholesterol Calculated 79 mg/dL (<100); Total Protein 8.7 g/dL (6.5-8.0); Triglycerides 66 mg/dL (<150)
[2023-10-31 18:07] LABS: TSH reflex Free T4 1.55 uIU/mL (0.32-4.0)
== END 2023-10-31 13:40 | disposition home or self-care (01) ==
LOC: HO.HHCL 13:39
PROVIDERS: Visit Provider Registered Nurse
DX: K76.0 Fatty (change of) liver, not elsewhere classified (principal); E03.8 Other specified hypothyroidism
CPT/HCPCS: 36415; 80061; 80076; 84443

== ENCOUNTER 2023-11-05 14:00 | Outpatient (RCR) | payer MEDICAID, SELFPAY ==
--- NOTE | 2023-12-16 10:23 | MHC.PT.DC ---
[facility] [place] Office [place] Office [place] Office [address] Zbigniew Alcantara [address] [phone] F: [phone] F: [phone] F: [phone] F: [phone] Physical Therapy Discharge Report Diagnosis: LEFT SIDED SCIATICA (KP) Date of Surgery: Date of Evaluation: 10/15/23 Date of Discharge: 12/16/23 Treatments to Date: 6 Cancellations to Date: 3 No Shows to Date: 1 Discharge Status: Visit Non-compliance Discharge Summary: CANCELLED/ NO SHOWED FOR LAST THREE SCHEDULED VISITS, CURRENT STATUS IS UNKNOWN Electronically signed by: SAMUEL BEEBE PT DPT Please sign and return to therapist. Thank you for your referral.
== END 2023-12-16 10:23 | disposition home or self-care (01) ==
LOC: HO.PT 14:00
PROVIDERS: PCP Registered Nurse; Visit Provider Physical Medicine & Rehabilitation
DX: M53.3 Sacrococcygeal disorders, not elsewhere classified (principal); M70.62 Trochanteric bursitis, left hip
CPT/HCPCS: 97110; 97112; 97140; 97162; 97535

== ENCOUNTER 2023-11-26 10:48 | Outpatient (AMB) | payer MEDICAID, SELFPAY ==
--- NOTE | 2023-11-26 10:50 | MHC.OFFVIS ---
Intake Visit Reasons: OV- Left Hip follow up Intake Note: Kasie is a 43 year old female who presents today for a follow up of her left hip pain, last injection was on 10/23/23. Patient reports her pain has gotten better with her last injection. She states that her pain relief lasted for about 2 weeks. Patient mentions that she continues to have pain but is tolerable. Computed Tomography Technologist Required: Yes Computed Tomography Technologist Services: Computed Tomography Technologist Present Allergies mussels Allergy (Severe, Verified 11/26/23 10:57) DIFFICULTY BREATHING lactose Adverse Reaction (Verified 11/26/23 10:57) Diarrhea Medication List - Last Reconciled 11/26/23 by Gely Mederos MD albuterol sulfate 90 mcg/actuation (ProAir HFA) 2 puffs inhalation Q6H PRN cholecalciferol (vitamin D3) (Vitamin D3) 50 mcg PO DAILY cyclobenzaprine 10 mg PO BEDTIME PRN epinephrine IM fluticasone propionate 110 mcg/actuation (Flovent HFA) 2 puffs inhalation BID hydrocodone-acetaminophen 5-325 mg 1 tab PO Q8H PRN 7 days levothyroxine (Tirosint) 25 mcg PO DAILY omeprazole 40 mg PO BID HPI Comments Details: Previously seen by Orthopedics, receives knee injection. s/p RT knee 07/23/[address] Ramirez. Previously seen by me for right hand pain. EMG normal. Then started complaining of hip pain. Points to left lateral thigh as source of pain, since 3 months ago. Denies inciting injuries. Feels numb on left leg, down to left side of left foot. No treatment for this thigh. She did have left knee injection from ortho which helped with knee pain but not thigh. Lumbar xray unremarkable. GT left injection done 10/23/23 with temporary relief 2 weeks. Right now she says there is no pain. She says there can be pain on posterior thigh and calf, last week for example, comes and goes. Finished PT. PFSH Medical History Lipoma of arm Asthma Lab test negative for COVID-19 virus COVID-19 Chronic constipation Iron deficiency anemia due to chronic blood loss Epigastric pain GERD (gastroesophageal reflux disease) Lactose intolerance in adult Depression Hypothyroidism Surgical History Status post excision of lipoma (~11/27/22) Hx of shoulder surgery Hx of tubal ligation History of endometrial ablation Hx of dilation and curettage History of breast lump/mass excision Hx of arthroscopic knee surgery History of esophagogastroduodenoscopy (EGD) Status post laparoscopic cholecystectomy History of colonoscopy Family History Mother No problems noted. Father No problems noted. Maternal Aunt Hx of ovarian cancer Social History Household Members: Children Alcohol intake: unknown Patient Tobacco Use Status: Never used Tobacco Second Hand Smoke Exposure: No Current occupational status: employed Current occupation: [employer] HIGH/ right hand dominant Female Reproductive History Menstrual Age of Menarche: 11 Physical Exam Constitutional: Patient appears to be in no acute distress, well nourished and well developed. Patient was appropriately conversant and oriented. Good historian. MSK: No specific abnormalities found on inspection of the spine and all extremities. No pain with palpation over the lumbar area. Focally tender on left piriformis and milder on left SI joint. Lumbar ROM was full. Bilateral hip, knee and ankle ROM WNL. No ligamentous laxity or crepitance. No increased effusion. Neurological: Neurologic examination of the upper and lower extremities was nonfocal with intact sensation, muscle stretch reflexes and without focal motor deficits . Lawrence?s negative bilaterally. Babinski was down going bilaterally. Clonus was negative. Gait is non-antalgic without loss of balance. Results Reviewed Results Reviewed: Ordering Physician: Barrett Swenson PA-C Date of Service: 03/26/23 Procedure(s): XR lumbar spine 2-3V Accession Number(s): [id number] cc: Barrett Swenson PA-C; [facility]~ EXAMINATION: XR LUMBOSACRAL SPINE CLINICAL INFORMATION: Chronic midline lower back pain with bilateral sciatica. COMPARISON: Lumbar spine radiographs dated 11/13/2015. TECHNIQUE: AP, lateral, and both oblique views of the lumbosacral spine. FINDINGS: The vertebral bodies and posterior elements are normal. The disc spaces are preserved and the vertebral alignment is normal. The paraspinal soft tissues are normal. There are right upper quadrant surgical clips. XR/XR lumbar spine 2-3V IMPRESSION: Unremarkable examination. Assessment & Plan Assessment & Plan (1) Piriformis syndrome of left side: Code(s): G57.02 - Lesion of sciatic nerve, left lower limb Category: Medical Plan Left GT bursitis improved from last injection. Presenting with focal tenderness over left piriformis, milder on left SI joint. On and off only per patient. We can schedule her for left piriformis injection, patient eager to proceed. Lumbar x-rays were previously unremarkable. She does have radiating pain to calf but no other radiculopathy signs. Assessment and plan discussed with patient, and patient was agreeable. All questions were answered thoroughly. Gely Mederos MD, ECHO Board Certified, [place] Board of Physical Medicine and Rehabilitation (ABPMR) Board Certified, [place] Board of Electrodiagnostic Medicine (ABEM) Coding Level of Care Code Est Pt Level 3 (13872) Diagnoses Piriformis syndrome of left side G57.02
== END 2023-11-26 11:18 | disposition home or self-care (01) ==
PROVIDERS: PCP Registered Nurse; Referring Provider Registered Nurse; Visit Provider Physical Medicine & Rehabilitation
DX: G57.02 Lesion of sciatic nerve, left lower limb (principal); M70.62 Trochanteric bursitis, left hip
CPT/HCPCS: 99213

== ENCOUNTER → 2023-11-26 10:48 | Outpatient (BNVA) | payer MEDICAID, SELFPAY | PROVIDERS: PCP Registered Nurse; Visit Provider Physical Medicine & Rehabilitation | DX: G57.02 Lesion of sciatic nerve, left lower limb (principal) | CPT/HCPCS: 99212 ==

== ENCOUNTER 2023-12-12 09:51 | Outpatient (AMB) | payer MEDICAID, SELFPAY ==
[2023-12-12 09:56] VITALS: BMI 40.8
--- NOTE | 2023-12-12 09:56 | A.OFFVIS_ITS ---
Vital Signs 12/12/23 09:56 Height 5 ft 1 in Weight 216 lb BMI 40.8 Intake Visit Reasons: OV-Left piriformis injection Intake Note: Yari is a 43 year old female who presents to the office today for a Left piriformis injection. Allergies mussels Allergy (Severe, Verified 12/12/23 09:57) DIFFICULTY BREATHING lactose Adverse Reaction (Verified 12/12/23 09:57) Diarrhea HPI Comments Details: Here for left piriformis injection. [facility] Medical History Lipoma of arm Asthma Lab test negative for COVID-19 virus COVID-19 Chronic constipation Iron deficiency anemia due to chronic blood loss Epigastric pain GERD (gastroesophageal reflux disease) Lactose intolerance in adult Depression Hypothyroidism Surgical History Status post excision of lipoma (~11/27/22) Hx of shoulder surgery Hx of tubal ligation History of endometrial ablation Hx of dilation and curettage History of breast lump/mass excision Hx of arthroscopic knee surgery History of esophagogastroduodenoscopy (EGD) Status post laparoscopic cholecystectomy History of colonoscopy Family History Mother No problems noted. Father No problems noted. Maternal Aunt Hx of ovarian cancer Social History Household Members: Children Alcohol intake: unknown Patient Tobacco Use Status: Never used Tobacco Second Hand Smoke Exposure: No Current occupational status: employed Current occupation: [employer] HIGH/ right hand dominant Female Reproductive History Menstrual Age of Menarche: 11 Physical Exam Vital Signs: BMI result Body Mass Index 40.8 Office Procedures Therapeutic Injection Therapeutic Injection Details: Consent obtained. Patient lies prone. Focal tenderness, approximately middle third along line from sacrum to greater trochangter palpated and identified, left. Area is cleansed with betadine solution. Using a [27 gauge needle., 2 1/2 inch] needle, [20mg] Kenalog with [3 ml] of 2% lidocaine is injected. Patient tolerated procedure well without complications. Post-injection instructions given. [id number]-[id number] Point Injection 1 or 2 sites All charges added?: Procedure code (CPT) selection complete Assessment & Plan Assessment & Plan (1) Piriformis syndrome of left side: Code(s): G57.02 - Lesion of sciatic nerve, left lower limb Category: Medical Plan Tolerated procedure well. Follow up 2 months. Assessment and plan discussed with patient, and patient was agreeable. All questions were answered thoroughly. Gely Mederos MD, ECHO Board Certified, [place] Board of Physical Medicine and Rehabilitation (ABPMR) Board Certified, [place] Board of Electrodiagnostic Medicine (ABEM) Orders: Orders AMB Trigger Point Injection Today G57.02 - Lesion of sciatic nerve, left lower limb Coding Level of Care Code Procedure Only Diagnoses Piriformis syndrome of left side G57.02 CPT Codes Therapeutic Injection - Ther Injection 1: 66307-Bctjxrr Point Injection 1 or 2 sites ([id number])
== END 2023-12-12 10:22 | disposition home or self-care (01) ==
PROVIDERS: PCP Registered Nurse; Visit Provider Physical Medicine & Rehabilitation
DX: G57.02 Lesion of sciatic nerve, left lower limb (principal)
CPT/HCPCS: 20552

== ENCOUNTER → 2023-12-12 09:51 | Outpatient (BNVA) | payer MEDICAID, SELFPAY | PROVIDERS: PCP Registered Nurse; Visit Provider Physical Medicine & Rehabilitation | DX: G57.02 Lesion of sciatic nerve, left lower limb (principal) | CPT/HCPCS: 20552; J2003; J3301 ==

== ENCOUNTER → 2024-01-01 12:27 | Outpatient (BNVA) | payer OTHER, SELFPAY | PROVIDERS: PCP Registered Nurse; Visit Provider Physician Assistant Medical | DX: S80.01XA Contusion of right knee, initial encounter (principal); W18.09XA Striking against other object with subsequent fall, initial encounter; R60.9 Edema, unspecified | CPT/HCPCS: 73564; 99203 ==

== ENCOUNTER 2024-01-02 09:59 | Outpatient (AMB) | payer MEDICAID, SELFPAY ==
--- NOTE | 2024-01-02 10:39 | MHC.OFFVIS ---
Intake Visit Reasons: OV: Left knee OA, last inj 08/28/23 Intake Note: Yari is a 43 year old female who presents to the office today for a evaluation of her left knee pain, DOI 01/01/24. Patient reports she was packing lunch bags. Until she went to grab another bag and her foot got caught on a bag that was on the floor leading her to fall. Patient is having a lot of pain on the medial aspect of her knee. She states not being able to be on her feet more than 2 hours and unable to lift anything more than 15 pounds. Allergies mussels Allergy (Severe, Verified 12/12/23 09:57) DIFFICULTY BREATHING lactose Adverse Reaction (Verified 12/12/23 09:57) Diarrhea HPI HPI OV: Left knee OA, last inj 08/28/23: Details: 43-year-old right hand dominant female who presents in the office today for right knee pain. I last saw the patient in the office on 08/28/23 when she reported mild left knee pain. She was given a cortisone injection in the left knee at that encounter, The patient is following up with Physiatry for left sided piriformis syndrome. She has received piriformis injection in the past. While in the office today, the patient reports she was packing lunch bags yesterday, 01/01/24 while at work. She went to move to her side to grab another bag and her foot got caught on a bag that was on the floor, resulting in a trip and fall. She landed directly onto her right knee and has been having pain since the fall. She mentions severe pain and points to the medial aspect of her patella. She states she was unable to be on her feet for more than 2 hours due to pain. She was unable to lift anything more than 15 pounds. She was seen in [facility] on 01/01/24 and x-rays of the right knee were obtained which were negative for any acute fracture or dislocation. She was given an DAVID wrap and instructed to follow up with outpatient Orthopedics. The patient is 5 months status post right knee partial medial meniscectomy and chondroplasty, which was performed on 07/23/[address] aRmirez. [facility] Medical History Lipoma of arm Asthma Lab test negative for COVID-19 virus COVID-19 Chronic constipation Iron deficiency anemia due to chronic blood loss Epigastric pain GERD (gastroesophageal reflux disease) Lactose intolerance in adult Depression Hypothyroidism Surgical History Status post excision of lipoma (~11/27/22) Hx of shoulder surgery Hx of tubal ligation History of endometrial ablation Hx of dilation and curettage History of breast lump/mass excision Hx of arthroscopic knee surgery History of esophagogastroduodenoscopy (EGD) Status post laparoscopic cholecystectomy History of colonoscopy Family History Mother No problems noted. Father No problems noted. Maternal Aunt Hx of ovarian cancer Social History Household Members: Children Alcohol intake: unknown Patient Tobacco Use Status: Never used Tobacco Second Hand Smoke Exposure: No Current occupational status: employed Current occupation: [employer] HIGH/ right hand dominant Female Reproductive History Menstrual Age of Menarche: 11 Review of Systems Const All systems reviewed & are unremarkable except as noted in HPI and below Physical Exam Extrem Other: Right knee: Normal to inspection. No ecchymosis, erythema, or joint effusion. Tenderness to palpation along the medial and medial aspect of the patella. Full knee extension and flexion. NVI. Assessment & Plan Assessment & Plan (1) Contusion of right knee: Code(s): S80.01XA - Contusion of right knee, initial encounter Category: Medical Plan 43-year-old right hand dominant female who presents in the office today for right knee pain. I last saw the patient in the office on 08/28/23 when she reported mild left knee pain. She was given a cortisone injection in the left knee at that encounter, The patient is following up with Physiatry for left sided piriformis syndrome. She has received piriformis injection in the past. While in the office today, the patient reports she was packing lunch bags yesterday, 01/01/24 while at work. She went to move to her side to grab another bag and her foot got caught on a bag that was on the floor, resulting in a trip and fall. She landed directly onto her right knee and has been having pain since the fall. She mentions severe pain and points to the medial aspect of her patella. She states she was unable to be on her feet for more than 2 hours due to pain. She was unable to lift anything more than 15 pounds. She was seen in [facility] on 01/01/24 and x-rays of the right knee were obtained which were negative for any acute fracture or dislocation. She was given an DAVID wrap and instructed to follow up with outpatient Orthopedics. The patient is 5 months status post right knee partial medial meniscectomy and chondroplasty, which was performed on 07/23/[address] Ramirez. The patient was provided a reaction knee brace, off the shelf. She was given a note with work restrictions for 4 weeks until her followup appt. for reevaluation. Follow-up will be in 4 weeks, or sooner if needed. Patient Instructions: Scribed by Miriam Lee medical imaging technologist, for Rianna Bruce PA-C on 01/02/24 at 10:40 am EST. Coding Level of Care Code Est Pt Level 3 (78158) Diagnoses Contusion of right knee S80.01XA
== END 2024-01-02 10:38 | disposition home or self-care (01) ==
PROVIDERS: PCP Registered Nurse; Visit Provider Physician Assistant
DX: S80.01XA Contusion of right knee, initial encounter (principal)
CPT/HCPCS: 99213

== ENCOUNTER → 2024-01-02 09:59 | Outpatient (BNVA) | payer MEDICAID, SELFPAY | PROVIDERS: PCP Registered Nurse; Visit Provider Physician Assistant | DX: S80.01XA Contusion of right knee, initial encounter (principal) | CPT/HCPCS: 99212 ==

== ENCOUNTER → 2024-01-06 14:03 | Outpatient (BNVA) | payer OTHER, SELFPAY | PROVIDERS: PCP Registered Nurse; Visit Provider Physician Assistant Medical | DX: S80.01XA Contusion of right knee, initial encounter (principal); W18.09XA Striking against other object with subsequent fall, initial encounter | CPT/HCPCS: 99213 ==

== ENCOUNTER → 2024-01-22 11:28 | Outpatient (BNVA) | payer OTHER, SELFPAY | PROVIDERS: PCP Registered Nurse; Visit Provider Physician Assistant Medical | DX: S80.01XD Contusion of right knee, subsequent encounter (principal); S83.421D Sprain of lateral collateral ligament of right knee, subsequent encounter; W18.09XD Striking against other object with subsequent fall, subsequent encounter | CPT/HCPCS: 99213 ==

== ENCOUNTER 2024-01-30 09:46 | Outpatient (AMB) | payer OTHER, MEDICAID, SELFPAY ==
--- NOTE | 2024-01-30 09:50 | A.OFFVIS_ITS ---
Intake Visit Reasons: OV- Left knee OA-4 WK follow up Intake Note: Yari is a 43 year old female who presents to the office today for a 4 week follow up of her right knee contusion, DOI 01/01/24. Patient reports she is still having the same pain and discomfort as before. She states she doesn't have any relief. She states the brace does help. 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 She was packing lunch bags while at work and went to move to her side to grab another bag. Her foot got caught on a bag that was on the floor, resulting in a trip and fall. She landed directly onto her right knee. The patient is 5 months status post right knee partial medial meniscectomy and chondroplasty, which was performed on 07/23/[address] Ramirez. I last saw the patient in the office on 01/02/24, when she was provided a reaction knee brace. She was given a note to follow work restrictions for 4 weeks until her follow-up. While in the office today, the patient reports persistent pain and discomfort in the right knee. She mentions using a knee brace with some benefit.? PFSH Medical History Lipoma of arm Asthma Lab test negative for COVID-19 virus COVID-19 Chronic constipation Iron deficiency anemia due to chronic blood loss Epigastric pain GERD (gastroesophageal reflux disease) Lactose intolerance in adult Depression Hypothyroidism Surgical History Status post excision of lipoma (~11/27/22) Hx of shoulder surgery Hx of tubal ligation History of endometrial ablation Hx of dilation and curettage History of breast lump/mass excision Hx of arthroscopic knee surgery History of esophagogastroduodenoscopy (EGD) Status post laparoscopic cholecystectomy History of colonoscopy Family History Mother No problems noted. Father No problems noted. Maternal Aunt Hx of ovarian cancer Social History Household Members: Children Alcohol intake: unknown Patient Tobacco Use Status: Never used Tobacco Second Hand Smoke Exposure: No Current occupational status: employed Current occupation: [employer] HIGH/ right hand dominant Female Reproductive History Menstrual Age of Menarche: 11 Review of Systems Const All systems reviewed & are unremarkable except as noted in HPI and below Physical Exam Const General: cooperative, healthy appearing and no acute distress Resp Effort & Inspection: normal respiratory effort and able to speak in complete sentences Cardio Rate: regular rate Peripheral pulses: Peripheral pulses 2+ throughout GI Palpation (GI): Soft to palpation Skin Lesions: no lesions Rashes: no rashes Extrem Other: Right knee: Normal to inspection. No ecchymosis, erythema, or joint effusion. Tenderness to palpation along the medial and medial aspect of the patella. Full knee extension and flexion. NVI. Assessment & Plan Assessment & Plan (1) S/P right knee arthroscopy: Onset Date: ~07/23/23 Comment: Right knee partial medial meniscectomy and chondroplasty NE Code(s): Z98.890 - Other specified postprocedural states Category: Surgical Plan Ms. Funes is a 43-year-old female, who is Bahamian speaking, presents in the office today for a follow-up of right knee contusion, which occurred on 01/01/24. She was packing lunch bags while at work and went to move to her side to grab another bag. Her foot got caught on a bag that was on the floor, resulting in a trip and fall. She landed directly onto her right knee. The patient is 5 months status post right knee partial medial meniscectomy and chondroplasty, which was performed on 07/23/[address] Ramirez. I last saw the patient in the office on 01/02/24, when she was provided a reaction knee brace. She was given a note to follow work restrictions for 4 weeks until her follow- up. While in the office today, the patient reports persistent pain and discomfort in the right knee. She mentions using a knee brace with some benefit. An order for an MRI of the right knee was placed today to further evaluate the integrity of the knee. Follow-up will be with me after obtaining the MRI results, or sooner if needed. Orders: Orders MR knee RT wo con Today M17.11 - Unilateral primary osteoarthritis, right knee, S83.241A - Other tear of medial meniscus, current injury, right knee, initial encounter, Z98.890 - Other specified postprocedural states Patient Instructions: Scribed by Miriam Lee director of medical education, for Rianna Bruce PA-C on 01/30/24 at 10:29 am EST. Coding Level of Care Code Est Pt Level 3 (74330) Diagnoses S/P right knee arthroscopy Z98.890
== END 2024-01-30 10:10 | disposition home or self-care (01) ==
PROVIDERS: PCP Registered Nurse; Visit Provider Physician Assistant
DX: S83.241D Other tear of medial meniscus, current injury, right knee, subsequent encounter (principal)
CPT/HCPCS: 99213

== ENCOUNTER → 2024-03-12 13:41 | Outpatient (BNV) | payer OTHER, MEDICAID, SELFPAY | PROVIDERS: PCP Registered Nurse; Visit Provider Specialist | DX: M23.221 Derangement of posterior horn of medial meniscus due to old tear or injury, right knee (principal) | CPT/HCPCS: 73721 ==

== ENCOUNTER 2024-03-12 13:50 | Outpatient (REF) | payer OTHER, MEDICAID, SELFPAY ==
--- NOTE | ~2024-03-12 | MR_ITS ---
CLINICAL HISTORY: M17.11 - Unilateral primary osteoarthritis, right knee MR right knee without gadolinium Comparison: None Findings: No fractures. No pathologic bone lesions. Moderate-sized joint effusion. Anterior and posterior cruciate ligaments are intact. Collateral ligaments are intact. No disruption of the patellar retinacula or iliotibial band. No tears of the quadriceps, patellar, popliteus, or flexor tendons. There is a posterior horn medial meniscal tear extending to the inferior articular surface. There are no other meniscal tears. IMPRESSION: 1. Posterior horn medial meniscal tear.. This document has been electronically signed by: Shahram Bhardwaj MD on 03/13/2024 09:18:16
--- OUTSIDE RECORDS SUMMARY | 2024-03-12 15:34 | XMS_ITS | Clinical Summary ---
Author Organization [employer] Address [address] [place] [address] [address] [place] [address] Care Team Providers Care Histologic Aide Name Role Phone Pooja Medina [facility] Primary Care Provider Allergies Active Allergy Reactions Criticality Noted Date Comments Shellfish-Derived Products Anaphylaxis High 04/13/19 21 Medications albuterol 108 (90 Base) MCG/ACT inhaler Inhale every 4 (four) hours. 2 Active baclofen (Lioresal) 10 MG tablet Take 1 tablet by mouth in the morning and 1 tablet in the evening. 2 Active EPINEPHrine (Epipen) 0.3 MG/0.3ML injection syringeIndication s:Bee sting allergy Inject 0.3 mL (0.3 mg) as directed 1 (one) time for 1 dose. 1 each 3 Active Riboflavin 400 MG capsuleIndication s:Chronic migraine with aura without status migrainosus, not intractable Take 1 capsule by oral route daily 90 capsule 2 3 Active ferrous gluconate (Fergon) 324 (38 Fe) MG tablet TAKE 1 TABLET BY MOUTH EVERY DAY 90 tablet 1 3 Active omeprazole (PriLOSEC) [address] capsuleIndication s:Gastroesophagea l reflux disease with esophagitis without hemorrhage Take 1 capsule (40 mg) by mouth 2 times daily. 60 capsule 11 4 Active lidocaine (Lidoderm) 5 % patch APPLY 1 PATCH TOPICALLY EVERY DAY. REMOVE AND DISCARD AFTER 12 HOURS OR as DIRECTED BY . 30 patch 4 Active Magnesium 400 MG capsuleIndication s:Chronic migraine with aura without status migrainosus, not intractable TAKE 1 TABLET BY MOUTH EVERY DAY 90 capsule 2 4 Active budesonide-formot leanna (Symbicort) 80-4.5 MCG/ACT inhalerIndication s:Mild persistent asthma without complication Inhale 2 puffs twie daily. Rinse mouth with water after use to reduce aftertaste and incidence of candidiasis. Do not swallow. 1 each 11 4 Active cetirizine (ZyrTEC) 10 MG tabletIndications :Mild persistent asthma without complication Take 1 tablet (10 mg) by mouth Once per day. 30 tablet 11 4 10/31/19 25 Active amitriptyline (Elavil) 10 MG tabletIndications :Chronic migraine with aura without status migrainosus, not intractable Take 1 tablet (10 mg) by mouth at bedtime. 90 tablet 3 4 12/15/19 25 Active ibuprofen 600 MG tabletIndications :Chronic midline low back pain with bilateral sciatica TAKE 1 TABLET BY MOUTH EVERY 8 HOURS NEEDED FOR MODERATE PAIN 60 tablet 1 4 Active cholecalciferol (Vitamin D-3) 50 MCG (2000 UT) tabletIndications :Vitamin D deficiency TAKE 1 TABLET BY MOUTH EVERY DAY 90 tablet 1 4 Active levothyroxine (Tirosint) 25 MCG capsuleIndication s:Thyroid dysfunction Take 1 capsule (25 mcg) by mouth Once per day. 90 capsule 4 Active Active Problems Problem Noted Date Diagnosed Date Mild persistent asthma without complication 11/19 Arm mass, right 10/29/2022 Assessment & Plan (10/29/2022 2:33 PM EDT): Superficial, mobile, palpable mass right posterior arm 0.4 x 0.4 approx. Tender to palpation. X 3 months. Not going away Plan: Surgical consult with Dr Josesito Johnson for excision. Iron deficiency anemia 10/01/2022 Overview (10/01/2022): - Tolerating oral iron supplementation well - Upper endoscopy 09/2017 with mild hiatal hernia; otherwise unremarkable - Colonoscopy from 08/2019 with polyp removal (pathology results not in chart) and mild diverticulosis; otherwise negative - Endometrial ablation in 04/2020 for management of heavy menstrual bleeding. Prior EM biopsy negative. Other chronic pain 10/01/2022 Overview (10/01/2022): - Worse in the legs and back - No joint tenderness or swelling - No hypersensitivity to touch or muscle weakness - Previously seen by [facility] ortho for knee pain--last visit 03/2021. Has trialed injections with sx improvement. - Negative HARVEY, RF, ESR, CRP 04/2021 Prediabetes 10/01/2022 Hepatic steatosis 10/01/2022 Overview (10/01/2022): Hx of elevated liver tests now resolved - Abd u/s from 04/2018 c/w hepatic steatosis - 09/2017 Liver fibrosis score of 0.05, Stage F0 Followed by [facility] GI Assessment & Plan (10/01/2022 6:24 AM EDT): ?? Continue to follow with [facility] GI ?? Continue to work with nutrition for weight loss Abnormal uterine bleeding 10/01/2022 Overview (10/01/2022): ?? Followed by [facility] SOURCING ANALYST Subclinical hypothyroidism 10/01/2022 Overview (10/01/2022): ?? Tirosint 25mcg daily ?? + antibodies ?? TSH 8.03. Engaged in shared decision making with patient regarding starting levothyroxine. Patient advised that strong evidence for replacement at TSH levels <10 is lacking although starting replacement therapy may prevent development of overt hypothyroidism Assessment & Plan (10/01/2022 6:13 AM EDT): Repeat TSH today Pt notes improvement in general fatigue and joint pain with low dose levothyroxine Health care maintenance 10/01/2022 Overview (10/01/2022): Mammo:03/18/22-Birads 3 repeat ultrasound 6 mo Pap: NIL HPV neg 09/2021, followed by [facility] SOURCING ANALYST C-scope:08/2019, repeat 2029 BMD: Routine Immunizations: UTD Chronic constipation 10/01/2022 Polyp of colon 03/05/2021 Overview (10/01/2022): Colonoscopy 08/2019 negative with polyp (hyperplastic) 10 year repeat Gastroesophageal reflux disease 12/23/2019 Overview (10/01/2022): ?? Followed by [facility] GI EGD 02/2022 with reactive gastropathy and chronic inactive inflammation. Vitamin D deficiency 12/23/2019 Migraine 09/02/2014 Depressive disorder 09/20/2013 Abnormal mammogram 07/24/2011 Overview (12/17/2023): Due for mammogram 04/2024 Varicose veins of lower extremity 07/24/2011 Resolved Problems Problem Noted Date Diagnosed Date Resolved Date Moderate persistent asthma 01/25/2019 0 10/31/2023 Overview (10/01/2022): - Flovent b.i.d - PRN albuterol - Currently well managed - Denies hx of hospitalization for asthma or hx of intubation Anemia 07/24/2011 10/01/2022 Encounters Date Type Department Care Team Description 02/07/2024 Refill [facility] [address] [place] [address] Diandra Judd MD Thyroid dysfunction 02/07/2024 Refill [facility] [address] [place] [address] Pooja Medina FNP Vitamin D deficiency; Thyroid dysfunction 01/07/2024 Travel 01/01/2024 Orders Only [facility] External Provider, [facility] 12/15/2023 2:30 PM EDT Office Visit [facility] [address] [place] [address] Pooja Medina FNP Mild persistent asthma without complication (Primary Dx); Gastroesophageal reflux disease with esophagitis without hemorrhage; Encounter for immunization; Chronic migraine with aura without status migrainosus, not intractable; Chronic midline low back pain with bilateral sciatica 12/15/2023 Travel from Last 3 Months Immunizations Name Administration Dates Next Due Hep A, ped/adol, 2 dose 03/12/2007,07/28/2006 Hep B, Adolescent or Pediatric 07/28/2006,2005,02/24/2005 Influenza injectable quadriv alent IIV4 with preservative 02/13/2017 Influenza injectable quadriv alent preservative free 11/23/2021,04/25/2016,05/18/2014 Influenza, IIV3, injectable 11/09/2010, 0,01/24/2006 Influenza, Split (incl. shannon fied surface antigen) 12/04/2012,11/26/2011 Influenza, seasonal, injecta ble, preservative free 10/31/2023 MMR 07/23/2018,03/12/2007 Pfizer Covid-19 Vaccine 12+ 12/15/2023 Pneumococcal Conjugate PCV 20 10/31/2023 TD (adult), 2 Lf tetanus tox oid, preservative free, adsorbed 03/12/2007 Tdap 10/31/2023,12/04/2012 Varicella 07/23/2018,06/12/2007 Family History Medical History Relation Name Comments Stomach cancer Father Uterine cancer Mother's Sister Relation Name Status Comments Father Mother's Sister Social History Tobacco Use Types Packs/Day Years Used Date Smoking Tobacco: Never Passive Smoke Exposure: Never Smokeless Tobacco: Never Tobacco Cessation:Counseling Given: Not Answered Alcohol Use Standard Drinks/Week Comments Yes 0 (1 standard drink = 0.6 oz pur e alcohol) Ocassional weekends Depression Answer Date Recorded Patient Health Questionnaire-9 Score 0 12/15/2023 Patient Health Questionnaire-9 Score 0 12/15/2023 Last PHQ-9: Questionnaire Data Not on file 1 Housing Stability Answer Date Recorded What is your housing situation today? I have marilyn menard 12/15/[address] you li ve. Do you have problems with any of the following? None of the above 12/15/2023 Food Insecurity Answer Date Recorded Within the past 12 months, y ou worried that your food would run out before you got money to buy more: Never True 12/15/2023 Within the past 12 months,th e food you bought just didn't last and you didn't have enough money to get more: Never True Transportation Answer Date Recorded In the past 12 months, has l ack of transportation kept you from medical appts, meetings, work or from getting things needed for daily living? No 12/15/2023 Utilities Answer Date Recorded In the past 12 months, has t he electric, gas, oil or water company threatened to shut off services in your home? No 12/15/2023 Depression Answer Date Recorded Patient Health Questionnaire-2 Score 0 12/15/2023 Internet Access Answer Date Recorded Internet Access Q1 Yes 12/15/2023 Internet Access Q2 Not on file 12/15/2023 Comments No Sex and Gender Information Value Date Recorded Sex Assigned at Female 12/17/2021 10:18 AM EDT Legal Sex Female 10:18 AM EDT Gender Identity Female 12/17/2021 10:18 AM EDT Sexual Orientation Choose not to disclose 2021 10:18 AM EDT Last Filed Vital Signs Vital Sign Reading Time Taken Comments Blood Pressure 123/68 12/15/2023 2:36 PM EDT Pulse 91 12/15/2023 2:36 PM EDT Temperature 36.1 ??C (97 ??F) 12/15/2023 2:36 PM EDT Respiratory Rate 20 12/15/2023 2:36 PM EDT Oxygen Saturation 98% 01/06/2023 12:09 PM EST Inhaled Oxygen Concentration - - Weight 101 kg (223 lb) 12/15/2023 2:36 PM EDT Height 154.9 cm (5' 1 ) 12/15/2023 2:36 PM EDT Body Mass Index 42.14 12/15/2023 2:36 PM EDT Plan of Treatment Upcoming Encounters Date Type Department Care Team (Late st Contact Info) Description 04/26/2024 2:30 PM EDT Office Visit [facility] [address] [place] [address] Taj, June, OD [address] [place] [address] 05/21/2024 9:30 AM EDT Office Visit [facility] [address] [place] [address] Carol, Pooja, UTILITY SYSTEM REPAIRER [address] [place] [address] Health Maintenance Due Date Last Done Comments Alcohol/Substance Use Screening 1992 Family Planning (PISQ) 08/11/1995 Hepatitis A Vaccines (1 of 2 - Risk 2-dose series) 08/11/1999 03/12/2007, 07/28/2006 Hepatitis B Vaccines (1 of 3 - 19+ 3-dose series) 08/11/1999 07/28/2006, 11/15/2005, 02/24/2005 Diabetes: Hemoglobin A1C 09/20/2023 023, 12/12/2021, 04/30/2021, Additional history exists Diagnostic Breast Imaging 04/21/20242023, 04/22/2023, 10/17/2022, Additional history exists Mammogram 04/21/2024 04/22/2023, 06/2023, 10/17/2022, Additional history exists Pap Smear 10/04/2024 10/04/2021, 10/04/2021 Depression Screening 12/14/2024 12/15/2023, 12/15/19 24 SDOH Screening 12/14/2024 12/15/2023 Tobacco Screening 12/16/2024 12/17/2023 Cervical Cancer Screening 10/04/2026 HPV/Cotest 10/04/2026 10/04/2021 Lipid Panel 10/30/2028 10/31/2023, 04/17, 03/05/2021 Zoster Vaccines (1 of 2) 2030 DTaP/Tdap/Td Vaccines (3 - Td or Tdap) 10/30/2033 10/31/2023, 12/04/2012, 03/12/2007 RSV Patients and Patients Aged 60 years or older (1 - 1-dose 75+ series) 08/11/2055 HIV Screening Completed 04/30/2021, 02/17, 03/05/2021 Hepatitis C Screening Completed 04/30/2021 Influenza Vaccine Completed 10/31/2023, , 02/13/2017, Additional history exists Pneumococcal Vaccine: Pediatrics (0 to 5 Years) and At-Risk Patients (6 to 64 Years) Completed 10/31/2023 COVID-19 Vaccine Completed 12/15/2023, , 06/19/2020, Additional history exists HIB Vaccines Aged Out No longer eligi ble based on patient's age to complete this topic HPV Vaccines Aged Out No longer eligi ble based on patient's age to complete this topic IPV Vaccines Aged Out No longer eligi ble based on patient's age to complete this topic Meningococcal Vaccine Aged Out No adolfo yesy eligible based on patient's age to complete this topic RSV under 20 months Aged Out No longe r eligible based on patient's age to complete this topic Rotavirus Vaccines Aged Out No longer eligible based on patient's age to complete this topic Procedures Procedure Name Priority Date/Time Associated Diagnosis Comments XR KNEE 4+ VIEWS RIGHT Routine 12:41 PM EST LIPID PANEL, STANDARD Routine 10/31/2023 1:40 PM EDT Hepatic steatosis BI MAMMOGRAM DIAGNOSTIC TOMOSYNTHESIS BILATERAL Routine 04/22/2023 2:30 PM EST HEMOGLOBIN A1C Routine 09/19/2022 3:30 PM EDT Prediabetes THINPREP IMAGING PAP AND HPV MRNA E6/E7 WITH REFLEX TO HPV 16,18/45 Routine 10/04/2021 10:02 AM EDT PAP SMEAR Routine 10/04/2021 12:00 AM EDT ZZZ HISTORICAL HEPATITIS C AB W/REFL TO HCV RNA, QN, PCR Routine 04/30/2021 2:02 PM EDT HIV 1/2 ANTIGEN/ANTIBODY, FOURTH GENERATION W/RFL Routine 04/30/2021 2:02 PM EDT from Last 3 Months or Most Recently Relevant to Health Maintenance Results * XR Knee 4+ Views Right (01/01/2024 12:41 PM EST) Anatomical Region Laterality Modality Lower Extremities, Knee Right Radiogra [facility] Imaging 01/01/2024 12:4 1 PM EST Narrative 01/01/2024 4:11 PM EST ? [facility] [facility] ?[address] ?[place] [address] ?XRay Report ? Signed ? Patient: Funes,Kasie ?MR#: [id number] ?? 960 ? : 1980 ?Acct:[id number] ? Age/Sex: 43 / F ?ADM Date: 01/01/24 ? Loc: HO.WC ? Attending Dr: Hope Jama PA-C ? Ordering Physician: Araceli Power ?? Date of Service: 01/01/24 ?? Procedure(s): XR knee RT 4V ?? Accession Number(s): [id number] ? cc: Araceli Power; [facility] ? EXAMINATION: ?? XR KNEE, RIGHT ? CLINICAL INFORMATION: ?? Fall. ? COMPARISON: ?? Right knee MRI dated 04/05/2023. ? TECHNIQUE: ?? AP, lateral, sunrise and bilateral oblique views of the right knee. ? FINDINGS: ?? Mild medial compartment joint space narrowing with tiny marginal ?? osteophytes. No acute fracture or dislocation. No concerning lytic or ?? blastic osseous lesion. No abnormal soft tissue calcification. No ?? significant joint effusion. ? XR/XR knee RT 4V ?? IMPRESSION: ?? 1. Mild medial compartment osteoarthritis. ? 2. No acute fracture or dislocation. ? Electronically signed by: ??Adrian Jerome MD ??01/01/2024 04:08 PM EST ?? RP ? Dictated By: ?Adrian Jerome MD ? Signed By: ?<Electronically signed by Adiran Jerome MD in OV> ?01/01/24 1608 ? DD/ 1241 ? TD/TT: 01/01/24 1302 ? Seat Scooper Machine: SR ? Procedure Note Young, Image - 01/01/[address] [address] XRay Report Signed Patient: Beatris Funes#: [id number] 960 : 1980Acct:[id number] Age/Sex: 43 / FADM Date: 01/01/24 Loc: . Attending Dr: Hope M May PA-C Ordering Physician: Araceli Power Date of Service: 01/01/24 Procedure(s): XR knee RT 4V Accession Number(s): [id number] cc: Araceli Power; [facility] EXAMINATION: XR KNEE, RIGHT CLINICAL INFORMATION: Fall. COMPARISON: Right knee MRI dated 04/05/2023. TECHNIQUE: AP, lateral, sunrise and bilateral oblique views of the right knee. FINDINGS: Mild medial compartment joint space narrowing with tiny marginal osteophytes. No acute fracture or dislocation. No concerning lytic or blastic osseous lesion. No abnormal soft tissue calcification. No significant joint effusion. XR/XR knee RT 4V IMPRESSION: 1. Mild medial compartment osteoarthritis. 2. No acute fracture or dislocation. Electronically signed by: Adrian Jerome MD 01/01/2024 04:08 PM EST Workstation: [employer] Dictated By: Adrian Jerome MD Signed By: <Electronically signed by Adrian Jerome MD in OV> 01/01/24 1608 DD/ 1241 TD/TT: 01/01/24 1302 Seat Scooper Machine: SR [facility] External Provider IMG XR PROCEDURES Final Result * Lipid Panel, Standard (10/31/2023 1:40 PM EDT) Triglycerides 66 <150 mg/dL [facility] Comment:Desirable Triglyceri de: less than 150 mg/dLBorderline High Triglyceride 150-199 mg/dLHigh Triglyceride: 200-499 mg/dLVery High Triglyceride: greater than or equal to 5OO mg/dL Cholesterol 160 <200 mg/dL [facility] Comment:Desirable Cholestero l: less than 200 mg/dLBorderline High Cholesterol: 200-239 mg/dLHigh Cholesterol: greater than 239 mg/dL LDL Cholesterol Calculated 79 <100 mg/dL [facility] Comment:Desirable LDL: less than 100 mg/dLNear Optimal/Above Optimal LDL: 110- 129 mg/dLBorderline High LDL: 130-159 mg/dLHigh LDL: 160-189 mg/dLVery High LDL: greater than or equal to 190 mg/dL HDL Cholesterol 68 >40 mg/dL [facility] Comment:Desirable HDL: great er than 40 mg/dL Note: This HDL assay may give artificially low results in patients with liver disease. Blood Venous blood specimen / Unknown 10/31/2023 1:40 PM EDT 10/31/2023 3:58 PM EDT [facility] UTILITY SYSTEM REPAIRER LAB BLOOD ORDERABLES Final Re sult [facility] [address] [place] [address] [phone] * BI Mammogram Diagnostic Tomosynthesis Bilateral (04/22/2023 2:30 PM EST) Anatomical Region Laterality Modality Breast Bilateral Mammography 04/22/2023 2:30 PM EST Narrative 04/22/2023 3:08 PM EST ? [facility] [place] ? [address] ?[place] [address] ? Mammography Report ? Signed ? Patient: Funes,Kasie ?MR#: [id number] ?? 960 ? : 1980 ?Acct:[id number] ? Age/Sex: 42 / F ?ADM Date: 04/21/ ? Loc: HO.MAMMO ? Attending Dr: Pooja Carol UTILITY SYSTEM REPAIRER ? Ordering Physician: Carol,Pooja UTILITY SYSTEM REPAIRER ?Results: 3.12M ?? Probably Benign Finding - 12 month F/U Suggested ? Date of Service: 04/22/23 ?Follow Up: 12 month diagnos ?? tic follow up ? Procedure(s): MM tomosynthesis diagnostic BI ?? Accession Number(s): [id number] ? cc: Carol,Pooja UTILITY SYSTEM REPAIRER ? EXAMINATION: ?? MM DIAGNOSTIC DIGITAL BREAST TOMOSYNTHESIS, BILATERAL ?? US BREAST LIMITED, LEFT ? MAMMOGRAPHY: ?? CLINICAL INFORMATION: ? Patient due for bilateral screening. Also, six-month follow-up (1 year ?? total follow-up) left breast acorn cyst 2:00 axis, 7 cm from the ?? nipple. ??Prior bilateral benign breast biopsies 2014, fibroadenoma left ?? 1:00 and right 12:00. Prior excisional biopsy. ? COMPARISON: ?? Mammography: 03/18/2022 07/10/2021, 08/18/2015. ?? ULTRASOUND Left: 03/18/2022, 10/17/2022. ? TECHNIQUE: ?? Digital breast tomosynthesis is performed in both the craniocaudal and ?? mediolateral oblique views along with computer-aided detection (CAD). ?? Synthesized 2D images are generated from the tomosynthesis. This was ?? followed by targeted left breast ultrasound. ? FINDINGS: ?? The breasts are heterogeneously dense, which may obscure small masses ?? (ACR BI-RADS breast composition Category c). ? Breast parenchyma is bilateral heterogeneously dense and nodular. There ?? are bilateral numerous circumscribed round and oval isodense masses, ?? consistent with fibrocystic changes/waxing and waning cysts. Previously ?? biopsied fibroadenoma noted in the 1:00 axis of the right breast. ?? There are bilateral relatively diffuse scattered punctate ?? calcifications, in keeping with adenosis or apocrine changes. These are ?? stable and benign. No suspicious grouping. ? There are no suspicious masses, or areas of architectural ?? distortion.The overall heterogeneously dense and nodular parenchymal ?? pattern is grossly unchanged from prior exams, with the exception of an ?? oval mass in the posterior lateral left breast previously seen is no ?? longer evident. This is likely a resolved cyst. ? There is no axillary or skin abnormality. ? ULTRASOUND: ?? CLINICAL INFORMATION: ?? Fibrocystic changes bilateral breasts. Follow-up complicated acorn cyst ?? left breast 2:00 axis, 7 cm from the nipple. ? COMPARISON: ?? 02/19/2022, 10/17/2022. ? TECHNIQUE: ?? Targeted left breast sonographic evaluation was performed using a high ?? frequency linear transducer. Attention was given to the 2:00 region, in ?? the region of the known acorn cyst. Selected archived documentation. ? FINDINGS: ? LEFT BREAST: ?? There are diffuse dense fibrocystic changes throughout the left breast ?? which was imaged. The previously seen acorn cyst has somewhat collapsed ?? at the 2:00 axis, 7 cm from the nipple, currently measuring 1.1 x 0.4 x ?? 0.6 cm (previously 0.6 x 0.8 x 0.7 cm). There are persistent low-level ?? internal echoes. Slightly more inferiorly, there is a minimally complex ?? oval cyst which was previously much more complicated and has become ?? more simple. ? No suspicious findings are identified. The above complicated cyst is ?? again probably benign, and 1 year follow-up targeted left breast ?? ultrasound recommended to establish two-year stability and benignity. ? MM/MM tomosynthesis diagnostic BI ?? IMPRESSION: ?? There are no findings suspicious for malignancy in either breast. ? There are bilateral nodular fibrocystic changes with heterogeneously ?? dense breast tissue. There are waxing and waning cysts. ? In the 1:00 axis of the right breast, there is a previously biopsied ?? fibroadenoma with ribbon-shaped biopsy clip.. ? Previously seen acorn cyst in the 2:00 axis of the left breast, 7 cm ?? from the nipple, has decreased in size significantly but remains ?? complicated with internal echoes. Additional 1 year follow-up targeted ?? left breast ultrasound recommended to ensure stability, and to ?? establish a two-year stability/benignity. ? OVERALL ASSESSMENT: ?? Mammography: BI-RADS 3 - Probably benign finding(s) - 12 month ?? follow-up suggested ?? Ultrasound: BI-RADS 3 - Probably benign finding(s) - 12 month follow-up ?? suggested ? RECOMMENDATION: ?? 12 month diagnostic follow up ? This patient's information was entered into a reminder system with a ?? target due date for their next mammogram. ? Dictated By: ?Varinder Hernandez MD ? Signed By: ?<Electronically signed by Varinder Hernandez MD in OV> ?/07/10 1505 ? DD/ 1430 ? TD/TT: ? Seat Scooper Machine: ? Procedure Note Donotuseinterpreter, Image - 04/22/2023 [place] [facility] [address] [place] [address] Mammography Report Signed Patient: Beatris Funes#: [id number] 960 : 1980Acct:[id number] Age/Sex: 42 / FADM Date: 04/22/23 Loc: MAMMO Attending Dr: Pooja Medina UTILITY SYSTEM REPAIRER Ordering Physician: Pooja Medina FNPResults: 3.12M Probably Benign Finding - 12 month F/U Suggested Date of Service: 04/22/23Follow Up: 12 month diagnos tic follow up Procedure(s): MM tomosynthesis diagnostic BI Accession Number(s): [id number] cc: Pooja Medina UTILITY SYSTEM REPAIRER EXAMINATION: MM DIAGNOSTIC DIGITAL BREAST TOMOSYNTHESIS, BILATERAL US BREAST LIMITED, LEFT MAMMOGRAPHY: CLINICAL INFORMATION: Patient due for bilateral screening. Also, six-month follow-up (1 year total follow-up) left breast acorn cyst 2:00 axis, 7 cm from the nipple. Prior bilateral benign breast biopsies 2014, fibroadenoma left 1:00 and right 12:00. Prior excisional biopsy. COMPARISON: Mammography: 03/18/2022 07/10/2021, 08/18/2015. ULTRASOUND Left: 03/18/2022, 10/17/2022. TECHNIQUE: Digital breast tomosynthesis is performed in both the craniocaudal and mediolateral oblique views along with computer-aided detection (CAD). Synthesized 2D images are generated from the tomosynthesis. This was followed by targeted left breast ultrasound. FINDINGS: The breasts are heterogeneously dense, which may obscure small masses (ACR BI-RADS breast composition Category c). Breast parenchyma is bilateral heterogeneously dense and nodular. There are bilateral numerous circumscribed round and oval isodense masses, consistent with fibrocystic changes/waxing and waning cysts. Previously biopsied fibroadenoma noted in the 1:00 axis of the right breast. There are bilateral relatively diffuse scattered punctate calcifications, in keeping with adenosis or apocrine changes. These are stable and benign. No suspicious grouping. There are no suspicious masses, or areas of architectural distortion.The overall heterogeneously dense and nodular parenchymal pattern is grossly unchanged from prior exams, with the exception of an oval mass in the posterior lateral left breast previously seen is no longer evident. This is likely a resolved cyst. There is no axillary or skin abnormality. ULTRASOUND: CLINICAL INFORMATION: Fibrocystic changes bilateral breasts. Follow-up complicated acorn cyst left breast 2:00 axis, 7 cm from the nipple. COMPARISON: 02/19/2022, 10/17/2022. TECHNIQUE: Targeted left breast sonographic evaluation was performed using a high frequency linear transducer. Attention was given to the 2:00 region, in the region of the known acorn cyst. Selected archived documentation. FINDINGS: LEFT BREAST: There are diffuse dense fibrocystic changes throughout the left breast which was imaged. The previously seen acorn cyst has somewhat collapsed at the 2:00 axis, 7 cm from the nipple, currently measuring 1.1 x 0.4 x 0.6 cm (previously 0.6 x 0.8 x 0.7 cm). There are persistent low-level internal echoes. Slightly more inferiorly, there is a minimally complex oval cyst which was previously much more complicated and has become more simple. No suspicious findings are identified. The above complicated cyst is again probably benign, and 1 year follow-up targeted left breast ultrasound recommended to establish two-year stability and benignity. MM/MM tomosynthesis diagnostic BI IMPRESSION: There are no findings suspicious for malignancy in either breast. There are bilateral nodular fibrocystic changes with heterogeneously dense breast tissue. There are waxing and waning cysts. 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 Previously seen acorn cyst in the 2:00 axis of the left breast, 7 cm from the nipple, has decreased in size significantly but remains complicated with internal echoes. Additional 1 year follow-up targeted left breast ultrasound recommended to ensure stability, and to establish a two-year stability/benignity. OVERALL ASSESSMENT: Mammography: BI-RADS 3 - Probably benign finding(s) - 12 month follow-up suggested Ultrasound: BI-RADS 3 - Probably benign finding(s) - 12 month follow-up suggested RECOMMENDATION: 12 month diagnostic follow up This patient's information was entered into a reminder system with a target due date for their next mammogram. Dictated By: Varinder Hernandez MD Signed By: <Electronically signed by Varinder Hernandez MD in OV> 04/22/23 1505 DD/ 1430 TD/TT: Seat Scooper Machine: [facility] IMG BI PROCEDURES Final Resul t * Hemoglobin A1c (09/19/2022 3:30 PM EDT) Hemoglobin A1c 5.6 % [facility] Comment:Hemoglobin A1C Refer ence Range Adults: 4.8 - 6.0 % Non diabetic: < 6.0 % Goal: < 7.0 %Additional Action Suggested: > 8.0 %Note: Hemoglobin A1c results are invalid for patients with abnormal amounts of HbF. Blood transfusions may impact the HbA1c concentration in the patient sample. Estimated Average Glucose 114 mg/dL [facility] Comment:eAG = Estimated ave rage glucose which is %A1C expressed asaverage glucose, using the formula of the V1R-ZkoyyxuDmssnyh Glucose study (ADAG), Diabetes Care, Vol.31,#8,Sep. 2007 Blood Venous blood specimen / Unknown 09/19/2022 3:30 PM EDT 09/19/2022 4:34 PM EDT [facility] LAB BLOOD ORDERABLES Final Re sult [facility] [address] [place] [phone] * THINPREP TIS PAP AND HPV mRNA E6/E7 WITH REFLEX TO HPV 16,18/45 (10/04/2021 10:02 AM EDT) Clinical Information: None given [facility] COMMENT SEE COMMENT [facility] Comment: EXPLANATORY NOTE: ? The Pap is a screening test for cervical cancer. It is ?? not a diagnostic test and is subject to false negative ?? and false positive results. It is most reliable when a ?? satisfactory sample, regularly obtained, is submitted ?? with relevant clinical findings and history, and when ?? the Pap result is evaluated along with historic and ?? current clinical information. ?? COMMENT: This Pap test has been evaluated with computer assisted technology. [facility] Cytotechnologis t: SEE COMMENT [facility] Comment: JNA, CT(ASCP) CT screening location: [address] ??[address] HPV nRNA E6/E7 Not Detected Not Detected [facility] Comment: Methodology: Legislative Director-Mediated Amplification This assay detects E6/E7 viral messenger RNA (mRNA) from 14 high-risk HPV types (16,18,31,33,35,39,45,51,52,56,58,59,66,68). ? Cervical sources are required for HPV testing. If a vaginal source from a patient who has had a total hysterectomy with removal of cervix was ?? submitted, please contact the testing laboratory for alternative testing options. ?? For additional information, please refer to http://education.[employer]/faq/BDC383m6 (This link if provided for information/ educational purposes only.) Infection Shift in vaginal sin suggestive of bacterial vaginosis. [facility] Interpretation/ Result: Negative for intraepithelial lesion or malignancy. [facility] LMP: 06/2021 [facility] Prev. BX: NONE GIVEN [facility] Prev. PAP: NIL 09/2018 [facility] SOURCE: None given [facility] Statement Of Adequacy: SEE COMMENT [facility] Comment: Satisfactory for evaluation. Endocervical/transformation zone component absent. 10/04/2021 10:0 2 AM EDT Iris Padron CNM LAB PATHOLOGY ORDERABLES Final Result [facility] [address] [place] [address], [place] * Pap Smear (10/04/2021 12:00 AM EDT) Swab Iris Padron [facility] CYTOLOGY ORDERABLES F inal Result Performing Organization Address City/[facility]/ZIP Co de Phone Number [facility] [address] [facility], [facility], [place] [address] * HEPATITIS C AB W/REFL TO HCV RNA, QN, PCR (04/30/2021 2:02 PM EDT) HEPATITIS C ANTIBODY NON-REACT DAVE NON-REACT DAVE [facility] INDEX 0.02 <1.00 [facility] Comment: ?? HCV antibody was non-reactive. There is no laboratory ?? evidence of HCV infection. ?? In most cases, no further action is required. However, if recent HCV exposure is suspected, a test for HCV RNA (test code 78664) is suggested. ?? For additional information please refer to http://education.[employer]/faq/BXE99t0 (This link is being provided for informational/ educational purposes only.) ?? 04/30/2021 2:02 PM EDT [facility] UTILITY SYSTEM REPAIRER HISTORICAL/NON ORDERABLE LABS Final Result Performing Organization Address [facility] Co de Phone Number [facility] [address] [place] [address], * HIV 1/2 ANTIGEN/ANTIBODY,FOURTH GENERATION W/RFL (04/30/2021 2:02 PM EDT) HIV-1/2 ANTIGEN AND ANTIBODIES, 4TH GENERATION W/ REFLEX NON-REACT DAVE NON-REACT DAVE [facility] Comment: HIV-1 antigen and HIV-1/HIV-2 antibodies were not detected. There is no laboratory evidence of HIV infection. ?? PLEASE NOTE: This information has been disclosed to you from records whose confidentiality may be protected by state law. ??If your state requires such protection, then the state law prohibits you from making any further disclosure of the information without the specific written consent of the person to whom it pertains, or as otherwise permitted by law. A general authorization for the release of medical or other information is NOT sufficient for this purpose. ? For additional information please refer to http://education.[employer]/faq/XZK105 (This link is being provided for informational/ educational purposes only.) ? The performance of this assay has not been clinically validated in patients less than 2 years old. ?? 04/30/2021 2:02 PM EDT [facility] SYSTEM REPAIRER LAB BLOOD ORDERABLES Final Re sult [facility] [address] from Last 3 Months or Most Recently Relevant to Health Maintenance Insurance [place] [id number] [employer] C3 ankita [facility] [place] [id number] [place] [address] ELIJAH [place] Care Teams Histologic Aide Relationship Specialty Start Date End Date [facility], [facility] [address] [place] [address] PCP - General Family Medicine 11/15/20
--- OUTSIDE RECORDS SUMMARY | 2024-03-12 15:34 | XMS_ITS | Encounter Summary ---
Author Organization [employer] Address [address] [facility] [address] [place] [address] Care Team Providers Care Ship Design Teacher Name Role Phone Pooja Medina RELINER Primary Care Provider [phone] Reason for Visit * Reason Comments Med Refill Encounter Details Date Type Department Care Team ([facility] st Contact Info) Description 02/07/2024 Refill [facility] MEDICINE [address] [place], [place] [phone] Diandra Judd MD [address] [place], [place] [phone] Thyroid dysfunction Social History Tobacco Use Types Packs/Day Years Used Date Smoking Tobacco: Never Passive Smoke Exposure: Never Smokeless Tobacco: Never Alcohol Use Standard Drinks/Week Comments Yes 0 [...] not to disclose 2021 10:18 AM EDT documented as of this encounter Plan of Treatment Upcoming Encounters Date Type Department Care Team (Late st Contact Info) Description 04/26/2024 2:30 PM EDT Office Visit [facility] OPTOMETRY [address] [place] [address] Taj, June, OD [address] [place] [address] 05/21/2024 9:30 AM EDT Office Visit [facility] MEDICINE [address] [place] [address] Pooja Medina FNP [address] [place] [address] documented as of this encounter Visit Diagnoses Diagnosis Thyroid dysfunction Unspecified disorder of thyroid documented in this encounter Additional Health Concerns Assessment Noted Time PHQ-9 Depression Total Score: 0 12/15/19 24 2:36 PM EDT documented as of this encounter Care Teams Ship Design Teacher Relationship Specialty Start Date End Date Pooja Medina FNP [address] [place] [address] PCP - General Family Medicine 11/15/20 documented as of this encounter
--- OUTSIDE RECORDS SUMMARY | 2024-03-12 15:34 | XMS_ITS | Encounter Summary ---
Author Organization [employer] Address [address] [place] [address] [address] [place] [address] Care Team Providers Care Professor Of Literature Name Role Phone [facility] Primary Care Provider [phone] Encounter Details Date Type Department Care Team ([facility] Contact Info) Description 03/22/2022 Abstract [facility] MEDICINE [address] [place] [address] Finley [facility] [address] [place] [address] Social History Tobacco Use Types Packs/Day Years Used Date Smoking Tobacco: Never Smokeless Tobacco: Never Alcohol Use Standard Drinks/Week Comments Not Currently 0 (1 standard drink = 0.6 oz pur e alcohol) Comments No Sex and Gender Information Value Date Recorded Sex Assigned at Female 12/17/2021 10:18 AM EDT Legal Sex Female 10:18 AM EDT Gender Identity Female 12/17/2021 10:18 AM EDT Sexual Orientation Choose not to disclose 2021 10:18 AM EDT COVID-19 Exposure Response Date Recorded In the last 10 days, have yo u been in contact with someone who was confirmed or suspected to have Coronavirus/COVID-19? No / Unsure 03/12/2022 1:41 PM EST documented as of this encounter Plan of Treatment Upcoming Encounters Date Type Department Care Team ([facility] Contact Info) Description 04/26/2024 2:30 PM EDT Office Visit [facility] OPTOMETRY [address] [place] [address] June Vang, OD [address] [place] [address] 05/21/2024 9:30 AM EDT Office Visit [facility] MEDICINE [address] [place] [address] Pooja MedinaMALINI [address] [facility] [place] [address] documented as of this encounter Procedures Procedure Name Priority Date/Time Associated Diagnosis Comments BI MAMMOGRAM DIAGNOSTIC BILATERAL Routine 03/18/2022 1:45 PM EST documented in this encounter Results * (ABNORMAL) BI Mammogram Diagnostic Bilateral (03/18/2022 1:45 PM EST) Anatomical Region Laterality Modality Breast Bilateral Mammography Narrative 03/18/2022 1:45 PM EST Birads 3 -recommended left breast US in 6 months us Historical Provider MD WILLIAMSON BI PROCEDURES Final R esult documented in this encounter Visit Diagnoses Not on filedocumented in this encounter Care Teams Professor Of Literature Relationship Specialty Start Date End Date Pooja MedinaMALINI [address] [place] [address] PCP - General Family Medicine 11/15/20 documented as of this encounter
== END 2024-03-12 13:51 | disposition home or self-care (01) ==
LOC: HO.MRI 13:50
PROVIDERS: PCP Registered Nurse; Visit Provider Physician Assistant
DX: M17.11 Unilateral primary osteoarthritis, right knee (principal); S83.241D Other tear of medial meniscus, current injury, right knee, subsequent encounter; Z98.890 Other specified postprocedural states
CPT/HCPCS: 73721

== ENCOUNTER 2024-03-15 12:51 | Outpatient (REF) | payer OTHER, MEDICAID, SELFPAY ==
--- NOTE | ~2024-03-15 | XR_ITS ---
EXAMINATION: XR HAND 3 OR MORE VIEWS LEFT HISTORY: M79.642 - Pain in left hand COMPARISON: Correlation is made with plain films of the left wrist dated 05/28/2021. FINDINGS: Three views of the left hand are submitted. Osseous mineralization is normal. There is no fracture or dislocation. The joint spaces are preserved. The soft tissues are unremarkable. XR/XR hand LT min 3V IMPRESSION: Unremarkable examination of the left hand. Electronically signed by: Reza Pichardo MD 03/15/2024 03:52 PM EST
--- OUTSIDE RECORDS SUMMARY | 2024-03-15 17:31 | XMS_ITS | Encounter Summary ---
Author Organization [employer] Address [address] [place] [address] [address] [place] [address] Care Team Providers Care Electric System Operator Name Role Phone [facility] Primary Care Provider [phone] Encounter Details Date Type Department Care Team ([facility] Contact Info) Description 03/22/2022 Abstract [facility] MEDICINE [address] [place] [address] [place] [facility] [address] [place] [address] Social History Tobacco Use Types Packs/Day Years [...] Upcoming Encounters Date Type Department Care Team ([facility] Contact Info) Description 04/26/2024 2:30 PM EDT Office Visit [facility] OPTOMETRY [address] [place] [address] June Vang, OD [address] [place] [address] 05/21/2024 9:30 AM EDT Office Visit [facility] MEDICINE [address] [place] [address] Pooja MedinaMALINI [address] [facility] [address] documented as of this encounter Procedures Procedure [...] on filedocumented in this encounter Care Teams Electric System Operator Relationship Specialty Start Date End Date Pooja MedinaMALINI [address] [place] [address] PCP - General Family Medicine 11/15/20 documented as of this encounter
--- OUTSIDE RECORDS SUMMARY | 2024-03-15 17:31 | XMS_ITS | Encounter Summary ---
Author Organization [employer] Address [address] [facility] [address] [place] [address] Care Team Providers Care Professor Of Graphic Design Name Role Phone Pooja Medina [employer] Primary Care Provider [phone] Encounter Details Date Type Department Care Team (Late st Contact Info) Description 03/12/2024 Orders Only [facility] External Provider, [facility] Social History Tobacco Use Types Packs/Day Years [...] Upcoming Encounters Date Type Department Care Team ([facility] st Contact Info) Description 04/26/2024 2:30 PM EDT Office Visit [facility] OPTOMETRY [address] [place] [address] Taj, June, OD [address] [place] [address] 05/21/2024 9:30 AM EDT Office Visit [facility] MEDICINE [address] [place] [address] [facility], [facility] [address] [place] [address] documented as of this encounter Procedures Procedure Name Priority Date/Time Associated Diagnosis Comments MR KNEE WO CONTRAST RIGHT Routine 03/13/2024 9:18 AM EST documented in this encounter Results * MR Knee w/o Contrast Right (03/13/2024 9:18 AM EST) Anatomical Region Laterality Modality Magnetic Resonan ce 03/13/2024 9:18 AM EST Narrative 03/13/2024 9:19 AM EST ? [facility] ?[address] ?[place] [address] ? Magnetic Resonance Report ? Signed ? Patient: Funes,Kasie ?MR#: [id number] ?? [id number] ? : 1980 ?Acct:[id number] ? Age/Sex: 43 / F ?ADM Date: 01/24/25 ? Loc: HO.MRI ? Attending Dr: Rianna Bruce PA-C ? Ordering Physician: Rianna Bruce PA-C ?? Date of Service: 03/12/24 ?? Procedure(s): MR knee RT wo con ?? Accession Number(s): [id number] ? cc: Rianna Bruce PA-C; Pooja Medina ? CLINICAL HISTORY: M17.11 - Unilateral primary osteoarthritis, right knee ? MR right knee without gadolinium ? Comparison: None ? Findings: ?? No fractures. No pathologic bone lesions. ?? Moderate-sized joint effusion. ? Anterior and posterior cruciate ligaments are intact. Collateral ligaments ?? are intact. ?? No disruption of the patellar retinacula or iliotibial band. ?? No tears of the quadriceps, patellar, popliteus, or flexor tendons. ? There is a posterior horn medial meniscal tear extending to the inferior ?? articular surface. ?? There are no other meniscal tears. ? IMPRESSION: ?? 1. Posterior horn medial meniscal tear.. ? This document has been electronically signed by: Shahram Bhardwaj MD on ?? 03/13/2024 09:18:16 ? Dictated By: ?Shahram Bhardwaj MD ? Signed By: ?<Electronically signed by Shahram Bhardwaj MD in OV> ?03/13/24918 ? DD/ 7 ? TD/TT: 03/13/24917 ? Lumber Marker: ? Procedure Note Young, Image - 03/13/2024 [place] [address] Magnetic Resonance Report Signed Patient: Kasie Funes#: [id number] : 1980Acct:[id number] Age/Sex: 43 / FADM Date: 03/12/24 Loc: HO.MRI Attending Dr: Rianna Bruce PA-C Ordering Physician: Rianna Bruce PA-C Date of Service: 03/12/24 Procedure(s): MR knee RT wo con Accession Number(s): [id number] cc: Rianna Bruce PA-C; [facility] CLINICAL HISTORY: M17.11 - Unilateral primary osteoarthritis, right knee MR right knee without gadolinium Comparison: None Findings: No fractures. No pathologic bone lesions. Moderate-sized joint effusion. Anterior and posterior cruciate ligaments are intact. Collateral ligaments are intact. No disruption of the patellar retinacula or iliotibial band. No tears of the quadriceps, patellar, popliteus, or flexor tendons. There is a posterior horn medial meniscal tear extending to the inferior articular surface. There are no other meniscal tears. IMPRESSION: 1. Posterior horn medial meniscal tear.. This document has been electronically signed by: Shahram Bhardwaj MD on 03/13/2024 09:18:16 Dictated By: Shahram Bhardwaj MD Signed By: <Electronically signed by Shahram Bhardwaj MD in OV> 03/13/24918 DD/ 7 TD/TT: 03/13/24917 Lumber Marker: [facility] External Provider IMG MRI PROCEDURES Final Result documented in this encounter Visit Diagnoses Not on filedocumented in this encounter Additional Health Concerns Assessment Noted Time PHQ-9 Depression Total Score: 0 12/15/19 24 2:36 PM EDT documented as of this encounter Care Teams Professor Of Graphic Design Relationship Specialty Start Date End Date Pooja Medina FNP [address] [place] [address] PCP - General Family Medicine 11/15/20 documented as of this encounter
--- OUTSIDE RECORDS SUMMARY | 2024-03-15 17:31 | XMS_ITS | Clinical Summary ---
Author Organization [employer] Address [address] [place] [address] 7[address] [place] [address] Care Team Providers Care Global Compensation Director Name Role Phone Pooja Medina [facility] Primary Care Provider [phone] Allergies Active Allergy Reactions Criticality Noted Date [...] or muscle weakness - Previously seen by [facility] for [place] pain--last visit 03/2021. Has trialed injections with sx improvement. - Negative HARVEY, RF, ESR, CRP 04/2021 Prediabetes 10/01/2022 Hepatic steatosis 10/01/2022 Overview (10/01/2022): Hx of elevated liver tests now resolved - Abd u/s from 04/2018 c/w hepatic steatosis - 09/2017 Liver fibrosis score of 0.05, Stage F0 Followed by [facility] Assessment & Plan (10/01/2022 6:24 AM EDT): ?? Continue to follow with [facility] ?? Continue to work with nutrition for weight loss Abnormal uterine bleeding 10/01/2022 Overview (10/01/2022): ?? Followed by [facility] PRECINCT COMMANDING OFFICER Subclinical hypothyroidism 10/01/2022 Overview (10/01/2022): ?? Tirosint [...] Pap: NIL HPV neg 09/2021, followed by [facility] [employer]ING OFFICER C-scope:08/2019, repeat 2029 BMD: Routine Immunizations: UTD Chronic constipation 10/01/2022 Polyp of colon 03/05/2021 Overview (10/01/2022): Colonoscopy 08/2019 negative with polyp (hyperplastic) 10 year repeat Gastroesophageal reflux disease 12/23/2019 Overview (10/01/2022): ?? Followed by [facility] EGD 02/2022 with reactive gastropathy and [...] Encounters Date Type Department Care Team Description 03/12/2024 Orders Only [facility] External Provider, [facility] 02/07/2024 Refill [facility] [address] [place] [address] Diandra Judd MD Thyroid dysfunction 02/07/2024 Refill [facility] [address] [place] [address] Pooja Medina FNP Vitamin D deficiency; Thyroid dysfunction 01/07/2024 Travel 01/01/2024 Orders Only [facility] External Provider, [facility] 12/15/2023 2:30 PM EDT Office Visit [facility] [address] [place] [address] Pooja Medina FNP Mild persistent asthma without [...] your housing situation today? I have marilyn derian 12/15/[address] you li [...] Description 04/26/2024 2:30 PM EDT Office Visit [facility] [address] [place], [place] [phone] Taj, June, OD [address] [place], [place] [phone] 05/21/2024 9:30 AM EDT Office Visit [facility] [address] [place] [address] [place] s[place], ROLL PRESS OPERATOR [address] [place] [address] Health Maintenance Due Date Last Done Comments [...] 10/17/2022, Additional history exists Mammogram 04/21/2024 04/22/2023, 0306/2023, 10/17/2022, Additional history exists Pap Smear 10/04/2024 [...] CONTRAST RIGHT Routine 03/13/2024 9:18 AM EST XR KNEE 4+ VIEWS RIGHT Routine 12:41 [...] Recently Relevant to Health Maintenance Results * MR Knee w/o Contrast Right (03/13/2024 9:18 AM EST) Anatomical Region Laterality Modality Magnetic Resonan ce 03/13/2024 9:18 AM EST Narrative 03/13/2024 9:19 AM EST ? [facility] ?[address] ?[place] [address] ? Magnetic Resonance Report ? Signed ? Patient: [place],Kasie ?MR#: [id number] ?? 960 ? : 1980 ?Acct:[id number] ? Age/Sex: 43 / F ?ADM Date: 03/12/24 ? Loc: HO.MRI ? Attending Dr: Rianna Bruce PA-C ? Ordering Physician: Rianna Bruce PA-C ?? Date of Service: 03/12/24 ?? Procedure(s): MR knee RT wo con ?? Accession Number(s): [id number] ? cc: Rianna Bruce PA-C; Pooja Medina [...] document has been electronically signed by: Shahram Bhradwaj MD on ?? 03/13/2024 09:18:16 ? Dictated By: ?Shahram Bhardwaj MD ? Signed By: ?<Electronically signed by Shahram Bhardwaj MD in OV> ?03/13/24 09 ? DD/ 7 ? TD/TT: 03/13/24917 ? Vice President Of Business Development: ? 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 [facility] ?[address] ?[place] [address] ?XRay Report ? Signed ? Patient: [place],Kasie ?MR#: [id number] ?? 960 ? : 1980 ?Acct:[id number] ? Age/Sex: 43 / F ?ADM Date: 11/14/24 ? Loc: HO.WC ? Attending Dr: Hope Jama PA-C ? Ordering Physician: Araceli Power ?? Date of Service: 01/01/24 ?? Procedure(s): XR knee RT 4V ?? Accession Number(s): [id number] ? cc: [facility]aceli Power; [facility] ? EXAMINATION: ?? XR KNEE, RIGHT ? [...] Jerome MD ??01/01/2024 04:08 PM EST ?? Workstation[id number] ? Dictated By: ?Adrian Jerome MD ? Signed By: ?<Electronically signed by Adrian Jerome MD in OV> ?01/01/24 1608 ? DD/ 1241 ? TD/TT: 01/01/24 1302 ? Vice President Of Business Development: SR ? Procedure Note Maximilian Vidal - 01/01/2024 [place] [address] XRay Report Signed Patient: Kasie FunesMR#: [id number] 960 : 1980Acct:[id number] Age/Sex: 43 / FADM Date: 01/01/24 Loc: HO. Attending Dr: Hope Jama PA-C Ordering Physician: Araceli Power Date of Service: 01/01/24 Procedure(s): XR knee RT 4V Accession Number(s): [id number] cc: Araceli Power; [facility] EXAMINATION: XR KNEE, RIGHT CLINICAL [...] Adrian Jerome MD 01/01/2024 04:08 PM EST Dictated By: Adrian Jerome MD Signed By: <Electronically signed by Adrian Jerome MD in OV> 01/01/24 1608 DD/ 1241 TD/TT: 01/01/24 1302 Vice President Of Business Development: [facility] External Provider IMG XR PROCEDURES Final Result * Lipid Panel, Standard (10/31/2023 1:40 PM EDT) Triglycerides 66 <150 mg/dL [facility] Comment:Desirable Triglyceri de: less than 150 mg/dLBorderline High Triglyceride 150-199 mg/dLHigh Triglyceride: 200-499 mg/dLVery High Triglyceride: greater than or equal to 5OO mg/dL Cholesterol 160 <200 mg/dL [facility] Comment:Desirable Cholestero l: less than 200 mg/dLBorderline High Cholesterol: 200-239 mg/dLHigh Cholesterol: greater than 239 mg/dL LDL Cholesterol Calculated 79 <100 mg/dL [facility] Comment:Desirable LDL: less than 100 mg/dLNear Optimal/Above Optimal LDL: 110- 129 mg/dLBorderline High LDL: 130-159 mg/dLHigh LDL: 160-189 mg/dLVery High LDL: greater than or equal to 190 mg/dL HDL Cholesterol 68 >40 mg/dL [facility] Comment:Desirable HDL: great er than 40 mg/dL Note: This HDL assay may give artificially low results in patients with liver disease. Blood Venous blood specimen / Unknown 10/31/2023 1:40 PM EDT 10/31/2023 3:58 PM EDT [facility] ROLL PRESS OPERATOR LAB BLOOD ORDERABLES Final Re sult [facility] [address] [place] [address] [phone] * BI Mammogram Diagnostic Tomosynthesis Bilateral (04/22/2023 2:30 PM EST) Anatomical Region Laterality Modality Breast Bilateral Mammography 04/22/2023 2:30 PM EST Narrative 04/22/2023 3:08 PM EST ? [facility] ? [address] ?[place] [address] ? Mammography Report ? Signed ? Patient: [place],Kasie ?MR#: [id number] ?? 960 ? : 1980 ?Acct:[id number] ? Age/Sex: 42 / F ?ADM Date: 04/22/23 ? Loc: HO.MAMMO ? Attending Dr: Pooja [place] ROLL PRESS OPERATOR ? Ordering Physician: Carol,Pooja ROLL PRESS OPERATOR ?Results: 3.12M ?? Probably Benign Finding - 12 month F/U Suggested ? Date of Service: 04/22/23 ?Follow Up: 12 month diagnos ?? tic follow up ? Procedure(s): MM tomosynthesis diagnostic BI ?? Accession Number(s): [id number] ? cc: Carol,Pooja ROLL PRESS OPERATOR ? EXAMINATION: ?? MM DIAGNOSTIC DIGITAL BREAST [...] signed by Varinder Hernandez MD in OV> ?04/22/23 1505 ? DD/ 1430 ? TD/TT: ? Vice President Of Business Development: ? Procedure Note Donotuseinterpreter, Image - 04/22/2023 [place] [facility] [address] [place] [address] Mammography Report Signed Patient: Kasie FunesMR#: [id number] 960 : 1980Acct:[id number] Age/Sex: 42 / FADM Date: 04/22/23 Loc: HO.MAMMO Attending Dr: Pooja Medina ROLL PRESS OPERATOR Ordering Physician: Pooja Medina FNPResults: 3.12M Probably Benign Finding - 12 month F/U Suggested Date of Service: 04/22/23Follow Up: 12 month diagnos tic follow up Procedure(s): MM tomosynthesis diagnostic BI Accession Number(s): [id number] cc: Pooja Medina ROLL PRESS OPERATOR EXAMINATION: MM DIAGNOSTIC DIGITAL BREAST TOMOSYNTHESIS, BILATERAL [...] in OV> 04/22/23 1505 DD/ 1430 TD/TT: Vice President Of Business Development: [facility] ROLL PRESS OPERATOR IMG BI PROCEDURES Final Resul t * Hemoglobin A1c (09/19/2022 3:30 PM EDT) Hemoglobin A1c 5.6 % [facility] Comment:Hemoglobin A1C Refer ence Range Adults: 4.8 - 6.0 % Non diabetic: < 6.0 % Goal: < 7.0 %Additional Action Suggested: > 8.0 %Note: Hemoglobin A1c results are invalid for patients with abnormal amounts of HbF. Blood transfusions may impact the HbA1c concentration in the patient sample. Estimated Average Glucose 114 mg/dL [facility] Comment:eAG = Estimated ave rage glucose which is %A1C expressed asaverage glucose, using the formula of the R5G-SonormoRledfdl Glucose study (ADAG), Diabetes Care, Vol.31,#8,Sep. 2007 Blood Venous blood specimen / Unknown 09/19/2022 3:30 PM EDT 09/19/2022 4:34 PM EDT [facility] LAB BLOOD ORDERABLES Final Re sult [facility] [address] [place] [phone] * THINPREP TIS PAP AND HPV [...] has been evaluated with computer assisted technology. [facility] Cytotechnologis t: SEE COMMENT [facility] Comment: NEVIN CT(ASCP) CT screening location: [address] ??[address] HPV nRNA E6/E7 Not Detected Not Detected [facility] Comment: Methodology: Outreach Director-Mediated Amplification This assay detects E6/E7 viral messenger RNA (mRNA) from 14 high-risk HPV types (16,18,31,33,35,39,45,51,52,56,58,59,66,68). ? Cervical sources are required for HPV testing. If a vaginal source from a patient who has had a total hysterectomy with removal of cervix was ?? submitted, please contact the testing laboratory for alternative testing options. ?? For additional information, please refer to http://education.[employer] Network/faq/EQF335r6 (This link if provided for information/ educational purposes only.) Infection Shift in vaginal sin suggestive of bacterial vaginosis. [facility] Interpretation/ Result: Negative for intraepithelial lesion or malignancy. [facility] LMP: 06/2021 [facility] Prev. BX: NONE GIVEN [facility] Prev. PAP: NIL 09/2018 [facility] SOURCE: None given [facility] Statement Of Adequacy: SEE COMMENT [facility] Comment: Satisfactory for evaluation. Endocervical/transformation zone component absent. 10/04/2021 10:0 2 AM EDT [facility] PATHOLOGY ORDERABLES Final Result [facility] [address] [place] [address], * Pap Smear (10/04/2021 12:00 AM EDT) Swab [facility] CYTOLOGY ORDERABLES F inal Result [address], [place] [address] * HEPATITIS C AB W/REFL TO HCV RNA, QN, PCR (04/30/2021 2:02 PM EDT) HEPATITIS C ANTIBODY NON-REACT DAVE NON-REACT DAVE [facility] INDEX 0.02 <1.00 [facility] Comment: ?? HCV antibody was non-reactive. There is no laboratory ?? evidence of HCV infection. ?? In most cases, no further action is required. However, if recent HCV exposure is suspected, a test for HCV RNA (test code 27289) is suggested. ?? For additional information please refer to http://Bioapter.[employer] Network/faq/EDK56z6 (This link is being provided for informational/ educational purposes only.) ?? 04/30/2021 2:02 PM EDT [facility] ROLL PRESS OPERATOR HISTORICAL/NON ORDERABLE LABS Final Result [facility] [address] * HIV 1/2 ANTIGEN/ANTIBODY,FOURTH GENERATION W/RFL (04/30/2021 2:02 PM EDT) HIV-1/2 ANTIGEN AND ANTIBODIES, 4TH GENERATION W/ REFLEX NON-REACT DAVE NON-REACT DAVE [facility] Comment: HIV-1 antigen and HIV-1/HIV-2 [...] ? For additional information please refer to http://Bioapter.[employer] Network/faq/OJN164 (This link is being provided for informational/ educational purposes only.) ? The performance of this assay has not been clinically validated in patients less than 2 years old. ?? 04/30/2021 2:02 PM EDT [facility] LAB BLOOD ORDERABLES Final Re sult [facility] [address] [place] [address], from Last 3 Months or Most Recently Relevant to Health Maintenance Insurance [place] [employer] [address] [place] [address] [place] Care Teams Global Compensation Director Relationship Specialty Start Date End Date [facility] [address] [place] [address] [place] [address] PCP - General Family Medicine 11/15/20
--- OUTSIDE RECORDS SUMMARY | 2024-03-15 17:32 | XMS_ITS | Encounter Summary ---
Author Organization [employer] Address [address] [facility] [address]t [place] [address] Care Team Providers Care Food Counter Attendant Name Role Phone Pooja Medina CEO AND PRESIDENT Primary Care Provider Reason for Visit * Reason Comments Med Refill Encounter Details Date Type Department Care Team ([facility] st Contact Info) Description 02/07/2024 Refill [facility] [address] [place], [place] [phone] Diandra Judd MD [address] [place], [place] [phone] Thyroid dysfunction Social History Tobacco Use Types [...] Description 04/26/2024 2:30 PM EDT Office Visit [facility] [address] [place] [address] Taj, June, OD [address] [place] [address] 05/21/2024 9:30 AM EDT Office Visit [facility] [address] [place] [address] Pooja Medina FNP [address] [place] [address] documented as of this encounter Visit Diagnoses Diagnosis Thyroid dysfunction Unspecified disorder of thyroid documented in this encounter Additional Health Concerns Assessment Noted Time PHQ-9 Depression Total Score: 0 12/15/19 24 2:36 PM EDT documented as of this encounter Care Teams Food Counter Attendant Relationship Specialty Start Date End Date Pooja Medina FNP [address] [place] [address] PCP - General Family Medicine 11/15/20 documented as of this encounter
== END 2024-03-15 12:52 | disposition home or self-care (01) ==
LOC: HO.HOSX 12:51
DX: M79.642 Pain in left hand (principal); M77.8 Other enthesopathies, not elsewhere classified
CPT/HCPCS: 73130; 99212

== ENCOUNTER → 2024-03-15 13:42 | Outpatient (BNV) | payer OTHER, MEDICAID, SELFPAY | PROVIDERS: Visit Provider Radiology Diagnostic Radiology | DX: M79.642 Pain in left hand (principal) | CPT/HCPCS: 73110; 73130 ==

== ENCOUNTER 2024-05-07 11:30 | Outpatient (AMB) | payer OTHER, MEDICAID, SELFPAY ==
--- NOTE | 2024-05-07 11:33 | A.OFFVIS_ITS ---
Intake Visit Reasons: OV- MRI review RT knee OA Intake Note: Yari is a 43 year old female who presents today for a right knee MRI Review. She was last seen in the office with Rianna Bruce where she reported She was packing lunch bags while at work and went to move to her side to grab another bag. Her foot got caught on a bag that was on the floor, resulting in a trip and fall. She landed directly onto her right knee. The patient is 5 months status post right knee partial medial meniscectomy and chondroplasty, which was performed on 07/23/[address] Ramirez. IMPRESSION: 1. Posterior horn medial meniscal tear.. Allergies mussels Allergy (Severe, Verified 03/15/24 13:59) DIFFICULTY BREATHING lactose Adverse Reaction (Verified 03/15/24 13:59) Diarrhea HPI HPI OV- MRI review RT knee OA: Details: Yari is a 43 year old female who presents today for a right knee MRI Review. She was last seen in the office with Rianna Bruce where she reported She was packing lunch bags while at work and went to move to her side to grab another bag. Her foot got caught on a bag that was on the floor, resulting in a trip and fall. She landed directly onto her right knee. The patient is 9 months status post right knee partial medial meniscectomy and chondroplasty, which was performed on 07/23/[address] Ramirez. She was doing well until she fell again and has been having ongoing pain since her fall at the end of 2023. [facility] Medical History Lipoma of arm Asthma Lab test negative for COVID-19 virus COVID-19 Chronic constipation Iron deficiency anemia due to chronic blood loss Epigastric pain GERD (gastroesophageal reflux disease) Lactose intolerance in adult Depression Hypothyroidism Surgical History Status post excision of lipoma (~11/27/22) Hx of shoulder surgery Hx of tubal ligation History of endometrial ablation Hx of dilation and curettage History of breast lump/mass excision Hx of arthroscopic knee surgery History of esophagogastroduodenoscopy (EGD) Status post laparoscopic cholecystectomy History of colonoscopy Family History Mother No problems noted. Father No problems noted. Maternal Aunt Hx of ovarian cancer Social History Household Members: Children Alcohol intake: unknown Patient Tobacco Use Status: Never used Tobacco Second Hand Smoke Exposure: No Current occupational status: employed Current occupation: [employer] Social HIGH/ right hand dominant Female Reproductive History Menstrual Age of Menarche: 11 Physical Exam Extrem Other: medial joint line ttp and + medial steinmen's Office Procedures Joint Inj/Aspir; Non-Pain Clin Joint Injection/Drain Details: Injected 1 mL of Decadron and 3 mL 1% lidocaine and 3 mL of 0.25% Marcaine. Site was prepped using aseptic technique. Patient tolerated the procedure well. Shoulders, Hips, Knees, Knee Large Joint Injection : Right Knee Coding Procedure code (CPT) selection complete Results Reviewed Results Reviewed: I personally reviewed the MR images. 1. Posterior horn medial meniscal tear. Assessment & Plan Assessment & Plan (1) Tear of medial meniscus of right knee: Code(s): S83.241A - Other tear of medial meniscus, current injury, right knee, initial encounter Category: Medical Plan: This is a 43-year-old woman with a tear of the posteromedial aspect of her right medial meniscus. She underwent surgery for this similar problem 9 months ago and was doing well until she states she fell and re-injured her knee. MRI demonstrates a posteromedial meniscus tear. She is also status post partial meniscectomy. I had a discussion with her regarding treatment options. She understands surgery. She understands the the with the procedure as she recently had a and, at this time, she will try to get by without surgery. I recommend she seriously consider the surgery but I gave her an injection and hopefully this will be helpful and we can avoid surgery. She may follow up in 3 months. Coding Level of Care Code Est Pt Level 4 (01623) Diagnoses Tear of medial meniscus of right knee S83.241A CPT Codes Shoulders, Hips, Knees, - Knee Large Joint Injection : Right Knee ([id number])
== END 2024-05-07 12:15 | disposition home or self-care (01) ==
LOC: HO.HOS 11:30
PROVIDERS: PCP Registered Nurse; Visit Provider Orthopaedic Surgery
DX: S83.241A Other tear of medial meniscus, current injury, right knee, initial encounter (principal); W01.0XXA Fall on same level from slipping, tripping and stumbling without subsequent striking against object, initial encounter; Z04.2 Encounter for examination and observation following work accident
CPT/HCPCS: 20610; 99214

== ENCOUNTER → 2024-05-07 11:30 | Outpatient (BNVA) | payer OTHER, MEDICAID, SELFPAY | PROVIDERS: PCP Registered Nurse; Visit Provider Orthopaedic Surgery | DX: S83.241A Other tear of medial meniscus, current injury, right knee, initial encounter (principal); W01.0XXA Fall on same level from slipping, tripping and stumbling without subsequent striking against object, initial encounter; Y93.9 Activity, unspecified; Y92.9 Unspecified place or not applicable; Y99.9 Unspecified external cause status | CPT/HCPCS: 20610; 99212; J0665; J1100; J2003 ==

== ENCOUNTER 2024-05-12 13:23 | Outpatient (REF) | payer OTHER, MEDICAID, SELFPAY ==
--- NOTE | ~2024-05-12 | US_ITS ---
EXAMINATION: MM DIAGNOSTIC DIGITAL BREAST TOMOSYNTHESIS, BILATERAL CLINICAL INFORMATION: Follow-up for left breast probable complicated cyst/area of fat necrosis. COMPARISON: Mammography: Comparison is made with relevant prior exams. TECHNIQUE: Digital breast mammography with tomosynthesis is performed in both the craniocaudal and mediolateral oblique views along with computer-aided detection (CAD). FINDINGS: The breasts are heterogeneously dense, which may obscure small masses (ACR BI-RADS breast composition Category c). Bilateral circumscribed oval masses which wax and wane consistent with benign fibrocystic changes. Right marker clip from previous benign needle core biopsy. There are no significant masses, abnormal calcifications, or other abnormalities. Targeted color Doppler ultrasound scanning at 2:00 7 cm from the nipple in the left breast demonstrates multiple minimal complicated cysts. The previously seen cyst at 2:00 7 cm from the nipple is decreased in size measuring 5 x 4 x 6 mm and benign. Results are provided to the patient at time of visit by the technologist. US/US breast LT limited mamm only IMPRESSION: Benign simple to minimally complicated cysts on ultrasound. ASSESSMENT: BI-RADS BI-RADS 2 - Benign Findings RECOMMENDATION: 1 year F/U This patient's information was entered into a reminder system with a target due date for their next mammogram. Electronically signed by: Rosario Boswell DO 05/12/2024 02:33 PM EDT
--- OUTSIDE RECORDS SUMMARY | 2024-05-12 15:56 | XMS_ITS | Encounter Summary ---
Author Organization [employer] Address [address] [facility] 7t [place] [address] Care Team Providers Care Can Operator Name Role Phone [place] [facility] Primary Care Provider [phone] Encounter Details Date Type Department Care Team ([facility] st Contact Info) Description 05/12/2024 Orders Only [facility] [address] [place], [place] [phone] [place] [facility] [address] [place], [place] [phone] Social History Tobacco Use Types Packs/Day Years [...] Care Team (Late st Contact Info) Description 05/21/2024 9:30 AM EDT Office Visit [facility] [address] [place] [address] [facility] [address] [place] [address] documented as of this encounter Procedures Procedure Name Priority Date/Time Associated Diagnosis Comments BI US BREAST LIMITED LEFT Routine 05/12/2024 2:00 PM EDT BI MAMMOGRAM DIAGNOSTIC TOMOSYNTHESIS BILATERAL Routine 05/12/2024 1:45 PM EDT documented in this encounter Results * BI US Breast Limited Left (05/12/2024 2:00 PM EDT) Anatomical Region Laterality Modality Breast Left Ultrasound 05/12/2024 2:00 PM EDT Narrative 05/12/2024 2:36 PM EDT ? [facility] ? [address] ?[place] [address] ? Ultrasound Report ? Signed ? Patient: Funes,Kasie ?MR#: [id number] ?? 960 ? : 1980 ?Acct:[id number] ? Age/Sex: 43 / F ?ADM Date: 03/26/25 ? Loc: HO.MAMMO ? Attending Dr: Pooja Medina AUDIO SPECIALIST ? Ordering Physician: Pooja Medina ?? Date of Service: 05/12/24 ?? Procedure(s): US breast LT limited mamm only ?? Accession Number(s): [id number] ? cc: Pooja Medina AUDIO SPECIALIST ? EXAMINATION: ?? MM DIAGNOSTIC DIGITAL BREAST TOMOSYNTHESIS, BILATERAL ? CLINICAL INFORMATION: ? Follow-up for left breast probable complicated cyst/area of fat ?? necrosis. ? COMPARISON: ?? Mammography: Comparison is made with relevant prior exams. ? TECHNIQUE: ?? Digital breast mammography with tomosynthesis is performed in both the ?? craniocaudal and mediolateral oblique views along with computer-aided ?? detection (CAD). ? FINDINGS: ?? The breasts are heterogeneously dense, which may obscure small masses ?? (ACR BI-RADS breast composition Category c). ?? Bilateral circumscribed oval masses which wax and wane consistent with ?? benign fibrocystic changes. Right marker clip from previous benign ?? needle core biopsy. ?? There are no significant masses, abnormal calcifications, or other ?? abnormalities. ? Targeted color Doppler ultrasound scanning at 2:00 7 cm from the nipple ?? in the left breast demonstrates multiple minimal complicated cysts. The ?? previously seen cyst at 2:00 7 cm from the nipple is decreased in size ?? measuring 5 x 4 x 6 mm and benign. ? Results are provided to the patient at time of visit by the ?? technologist. ? US/US breast LT limited mamm only ?? IMPRESSION: ?? Benign simple to minimally complicated cysts on ultrasound. ? ASSESSMENT: ? BI-RADS BI-RADS 2 - Benign Findings ? RECOMMENDATION: ?? 1 year F/U ? This patient's information was entered into a reminder system with a ?? target due date for their next mammogram. ? Electronically signed by: ??Rosario Boswell DO ??05/12/2024 02:33 PM EDT ?? RP ? Dictated By: ?Rosario Boswell DO ? Signed By: ?<Electronically signed by Rosario Boswell, DO in OV> ? 05/12/24 1433 ? DD/DT: 05/12/ 1400 ? TD/TT: 05/12/24 1426 ? Assistant Manager Of Operations: ? Procedure Note Donotuseinterpreter, Image - 05/12/2024 [facility] [address] [place] [address] Ultrasound Report Signed Patient: Kasie FunesMR#: [id number] 960 : 1980Acct:[id number] Age/Sex: 43 / FADM Date: 05/12/24 Loc: HO.MAMMO Attending Dr: Pooja Medina AUDIO SPECIALIST Ordering Physician: Pooja Medina Date of Service: 05/12/24 Procedure(s): US breast LT limited mamm only Accession Number(s): [id number] cc: Pooja Medina AUDIO SPECIALIST EXAMINATION: MM DIAGNOSTIC DIGITAL BREAST TOMOSYNTHESIS, BILATERAL CLINICAL INFORMATION: Follow-up for left breast probable complicated cyst/area of fat necrosis. COMPARISON: Mammography: Comparison is made with relevant prior exams. TECHNIQUE: Digital breast mammography with tomosynthesis is performed in both the craniocaudal and mediolateral oblique views along with computer-aided detection (CAD). FINDINGS: The breasts are heterogeneously dense, which may obscure small masses (ACR BI-RADS breast composition Category c). Bilateral circumscribed oval masses which wax and wane consistent with benign fibrocystic changes. Right marker clip from previous benign needle core biopsy. There are no significant masses, abnormal calcifications, or other abnormalities. Targeted color Doppler ultrasound scanning at 2:00 7 cm from the nipple in the left breast demonstrates multiple minimal complicated cysts. The previously seen cyst at 2:00 7 cm from the nipple is decreased in size measuring 5 x 4 x 6 mm and benign. Results are provided to the patient at time of visit by the technologist. US/US breast LT limited mamm only IMPRESSION: Benign simple to minimally complicated cysts on ultrasound. ASSESSMENT: BI-RADS BI-RADS 2 - Benign Findings RECOMMENDATION: 1 year F/U This patient's information was entered into a reminder system with a target due date for their next mammogram. Electronically signed by: Rosario Boswell DO 05/12/2024 02:33 PM EDT Dictated By: Rosario Boswell DO Signed By: <Electronically signed by Rosario Boswell DO in OV> 05/12/24 1433 DD/ 1400 TD/TT: 05/12/24 1426 Assistant Manager Of Operations: [facility] AUDIO SPECIALIST IMG US PROCEDURES Final Resul t * BI Mammogram Diagnostic Tomosynthesis Bilateral (05/12/2024 1:45 PM EDT) Anatomical Region Laterality Modality Breast Bilateral Mammography 05/12/2024 1:45 PM EDT Narrative 05/12/2024 2:36 PM EDT ? [facility] ? [address] ?[place] [address] ?[phone] ? Mammography Report ? Signed ? Patient: Funes,Kasie ?MR#: [id number] ?? 960 ? : 1980 ?Acct:[id number] ? Age/Sex: 43 / F ?ADM Date: 05/12/24 ? Loc: HO.MAMMO ? Attending Dr: Pooja [place] AUDIO SPECIALIST ? Ordering Physician: Carol,Pooja AUDIO SPECIALIST ?Results: 2Beni ?? gn Findings ? Date of Service: 05/12/24 ?Follow Up: 1 Year From Orig ?? inal Mammogram ? Procedure(s): MM tomosynthesis diagnostic BI ?? Accession Number(s): [id number] ? cc: Carol,Pooja AUDIO SPECIALIST ? EXAMINATION: ?? MM DIAGNOSTIC DIGITAL BREAST TOMOSYNTHESIS, BILATERAL ? CLINICAL INFORMATION: ? Follow-up for left breast probable complicated cyst/area of fat ?? necrosis. ? COMPARISON: ?? Mammography: Comparison is made with relevant prior exams. ? TECHNIQUE: ?? Digital breast mammography with tomosynthesis is performed in both the ?? craniocaudal and mediolateral oblique views along with computer-aided ?? detection (CAD). ? FINDINGS: ?? The breasts are heterogeneously dense, which may obscure small masses ?? (ACR BI-RADS breast composition Category c). ?? Bilateral circumscribed oval masses which wax and wane consistent with ?? benign fibrocystic changes. Right marker clip from previous benign ?? needle core biopsy. ?? There are no significant masses, abnormal calcifications, or other ?? abnormalities. ? Targeted color Doppler ultrasound scanning at 2:00 7 cm from the nipple ?? in the left breast demonstrates multiple minimal complicated cysts. The ?? previously seen cyst at 2:00 7 cm from the nipple is decreased in size ?? measuring 5 x 4 x 6 mm and benign. ? Results are provided to the patient at time of visit by the ?? technologist. ? MM/MM tomosynthesis diagnostic BI ?? IMPRESSION: ?? Benign simple to minimally complicated cysts on ultrasound. ? ASSESSMENT: ? BI-RADS BI-RADS 2 - Benign Findings ? RECOMMENDATION: ?? 1 year F/U ? This patient's information was entered into a reminder system with a ?? target due date for their next mammogram. ? Electronically signed by: ??Rosario Boswell DO ??05/12/2024 02:33 PM EDT ?? RP ? Dictated By: ?Rosario Boswell DO ? Signed By: ?<Electronically signed by Rosario Boswell, DO in OV> ? 05/12/24 1433 ? DD/ 1345 ? TD/TT: 05/12/24 1400 ? Assistant Manager Of Operations: ? Procedure Note Young, Image - 05/12/2024 [place] [facility] [address] [place], [place] [address] Mammography Report Signed Patient: Kasie FunesMR#: [id number] 960 : 1980Acct:[id number] Age/Sex: 43 / FADM Date: 05/12/24 Loc: HO.MAMMO Attending Dr: Pooja Medina AUDIO SPECIALIST Ordering Physician: Pooja Medina FNPResults: 2Beni gn Findings Date of Service: 05/12/24Follow Up: 1 Year From Orig ina Mammogram Procedure(s): MM tomosynthesis diagnostic BI Accession Number(s): [id number] cc: Pooja Medina AUDIO SPECIALIST EXAMINATION: MM DIAGNOSTIC DIGITAL BREAST TOMOSYNTHESIS, BILATERAL CLINICAL INFORMATION: Follow-up for left breast probable complicated cyst/area of fat necrosis. COMPARISON: Mammography: Comparison is made with relevant prior exams. TECHNIQUE: Digital breast mammography with tomosynthesis is performed in both the craniocaudal and mediolateral oblique views along with computer-aided detection (CAD). FINDINGS: The breasts are heterogeneously dense, which may obscure small masses (ACR BI-RADS breast composition Category c). Bilateral circumscribed oval masses which wax and wane consistent with benign fibrocystic changes. Right marker clip from previous benign needle core biopsy. There are no significant masses, abnormal calcifications, or other abnormalities. Targeted color Doppler ultrasound scanning at 2:00 7 cm from the nipple in the left breast demonstrates multiple minimal complicated cysts. The previously seen cyst at 2:00 7 cm from the nipple is decreased in size measuring 5 x 4 x 6 mm and benign. Results are provided to the patient at time of visit by the technologist. MM/MM tomosynthesis diagnostic BI IMPRESSION: Benign simple to minimally complicated cysts on ultrasound. ASSESSMENT: BI-RADS BI-RADS 2 - Benign Findings RECOMMENDATION: 1 year F/U This patient's information was entered into a reminder system with a target due date for their next mammogram. Electronically signed by: Rosario Boswell DO 05/12/2024 02:33 PM EDT Dictated By: Rosario Boswell DO Signed By: <Electronically signed by Rosario Boswell DO in OV> 05/12/24 1433 DD/ 1345 TD/TT: 05/12/24 1400 Assistant Manager Of Operations: [facility] IMG BI PROCEDURES Final Resul t documented in this encounter Visit Diagnoses Not on filedocumented in this encounter Additional Health Concerns Assessment Noted Time PHQ-9 Depression Total Score: 0 12/15/19 24 2:36 PM EDT documented as of this encounter Care Teams Can Operator Relationship Specialty Start Date End Date [place]Poo[place] FNP [address] [place] [id number] PCP - General Family Medicine 11/15/20 documented as of this encounter
--- OUTSIDE RECORDS SUMMARY | 2024-05-12 15:56 | XMS_ITS | Encounter Summary ---
Author Organization [employer] [facility] Address [address] [place] [address] [address] [place] [address] Care Team Providers Care Participant Administrator Name Role Phone Pooja Medina [facility] Primary Care Provider [phone] Encounter Details Date Type Department Care Team ([facility] Contact Info) Description 03/22/2022 Abstract [facility] MEDICINE [address] [place] [phone] Pooja Medina [facility] [address] [place], [place] [phone] Social History Tobacco Use Types Packs/Day Years [...] Upcoming Encounters Date Type Department Care Team ([facility] Contact Info) Description 05/21/2024 9:30 AM EDT Office Visit [facility] [address] [place], [place] [phone] Pooja Medina [facility] [address] [place] [address] documented as of this encounter Procedures Procedure [...] on filedocumented in this encounter Care Teams Participant Administrator Relationship Specialty Start Date End Date Pooja Medina FNP [address] [place] [address] PCP - General Family Medicine 11/15/20 documented as of this encounter
--- OUTSIDE RECORDS SUMMARY | 2024-05-12 15:56 | XMS_ITS | Encounter Summary ---
Author Organization [employer] Address [address] [facility] 7t [place] [address] Care Team Providers Care Panama Hat Blocker Name Role Phone Pooja Medina [facility] Primary Care Provider [phone] Reason for Visit * Reason Comments Med Refill Encounter Details Date Type Department Care Team ([facility] st Contact Info) Description 02/07/2024 Refill [facility] MEDICINE [address] [place], [place] [phone] Diandra Judd MD [address] [place], [place] [phone] Thyroid dysfunction Social History Tobacco Use Types [...] Description 05/21/2024 9:30 AM EDT Office Visit [facility] MEDICINE [address] [place] [address] [place] [facility] [address] [place] [address] documented as of this encounter Visit Diagnoses Diagnosis Thyroid dysfunction Unspecified disorder of thyroid documented in this encounter Additional Health Concerns Assessment Noted Time PHQ-9 Depression Total Score: 0 12/15/19 24 2:36 PM EDT documented as of this encounter Care Teams Panama Hat Blocker Relationship Specialty Start Date End Date Pooja Medina FNP [address] [place] [address] PCP - General Family Medicine 11/15/20 documented as of this encounter
--- OUTSIDE RECORDS SUMMARY | 2024-05-12 15:56 | XMS_ITS | Encounter Summary ---
Author Organization [employer] Address [address] [facility] 7t [place] [address] Care Team Providers Care Pet Supplies Salesperson Name Role Phone Pooja Medina [employer]OD[employer] Primary Care Provider [phone] Encounter Details Date Type Department Care Team (Latest Contact Info) Description 04/26/2024 Travel Social History Tobacco Use Types Packs/Day Years [...] Description 05/21/2024 9:30 AM EDT Office Visit [facility] MEDICINE [address] [place] [address] Pooja Medina FNP [address] [place] [address] documented as of this encounter Visit Diagnoses Not on filedocumented in this encounter Additional Health Concerns Assessment Noted Time PHQ-9 Depression Total Score: 0 12/15/19 24 2:36 PM EDT documented as of this encounter Care Teams Pet Supplies Salesperson Relationship Specialty Start Date End Date Pooja Medina FNP [address] [place] [address] PCP - General Family Medicine 11/15/20 documented as of this encounter
--- OUTSIDE RECORDS SUMMARY | 2024-05-12 15:56 | XMS_ITS | Encounter Summary ---
Author Organization [employer] Address [address] [place] [address] 7t [place] [address] Care Team Providers Care Operating Manager Name Role Phone [place] [facility] Primary Care Provider [phone] Reason for Visit * Reason Comments Med Refill Encounter Details Date Type Department Care Team ([facility] st Contact Info) Description 04/13/2024 Refill [facility] [address] [place], [place] [phone] [facility] [address] [place], [place] [phone] Chronic midline low back pain with bilateral sciatica Social History Tobacco Use Types Packs/Day Years [...] Description 05/21/2024 9:30 AM EDT Office Visit [facility] MEDIC[facility] [address] [place] [address] [place] [facility] [address] [place] [address] documented as of this encounter Visit Diagnoses Diagnosis Chronic midline low back pain with bilateral sciatica documented in this encounter Additional Health Concerns Assessment Noted Time PHQ-9 Depression Total Score: 0 12/15/19 24 2:36 PM EDT documented as of this encounter Care Teams Operating Manager Relationship Specialty Start Date End Date Pooja Medina FNP [address] [place] [id number] PCP - General Family Medicine 11/15/20 documented as of this encounter
--- OUTSIDE RECORDS SUMMARY | 2024-05-12 15:56 | XMS_ITS | Clinical Summary ---
Author Organization [email or web address] Address [address] [place] [address] 7t [place] [address] Care Team Providers Care Sustainment Logistics Analyst Name Role Phone Pooja Medina [facility] Primary Care Provider [phone] Allergies Active Allergy Reactions Criticality Noted Date Comments Lactose Diarrhea 02/26/2023 Shellfish Allergy Shortness of breath High Shellfish-Derived Products Anaphylaxis High 04/13/19 21 Medications albuterol 108 (90 Base) MCG/ACT inhaler Inhale every 4 (four) hours. 03/02/19 22 Active baclofen (Lioresal) 10 MG tablet Take 1 tablet by mouth in the morning and 1 tablet in the evening. 07/20/19 22 Active EPINEPHrine (Epipen) 0.3 MG/0.3ML injection syringeIndicatio ns:Bee sting allergy Inject 0.3 mL (0.3 mg) as directed 1 (one) time for 1 dose. 1 each 01/07/20 23 Active Riboflavin 400 MG capsuleIndicatio ns:Chronic migraine with aura without status migrainosus, not intractable Take 1 capsule by oral route daily 90 capsule 2 01/07/20 23 Active ferrous gluconate (Fergon) 324 (38 Fe) MG tablet TAKE 1 TABLET BY MOUTH EVERY DAY 90 tablet 1 01/25/20 23 Active omeprazole (PriLOSEC) [address] capsuleIndicatio ns:Gastroesophag eal reflux disease with esophagitis without hemorrhage Take 1 capsule (40 mg) by mouth 2 times daily. 60 capsule 11 03/07/19 24 Active lidocaine (Lidoderm) 5 % patch APPLY 1 PATCH TOPICALLY EVERY DAY. REMOVE AND DISCARD AFTER 12 HOURS OR as DIRECTED BY . 30 patch 06/03/19 24 Active Magnesium 400 MG capsuleIndicatio ns:Chronic migraine with aura without status migrainosus, not intractable TAKE 1 TABLET BY MOUTH EVERY DAY 90 capsule 2 10/22/19 24 Active budesonide-formo terol (Symbicort) 80-4.5 MCG/ACT inhalerIndicatio ns:Mild persistent asthma without complication Inhale 2 puffs twie daily. Rinse mouth with water after use to reduce aftertaste and incidence of candidiasis. Do not swallow. 1 each 10/31/19 24 Active cetirizine (ZyrTEC) 10 MG tabletIndication s:Mild persistent asthma without complication Take 1 tablet (10 mg) by mouth Once per day. 30 tablet 11 10/31/19 24 025 Active amitriptyline (Elavil) 10 MG tabletIndication s:Chronic migraine with aura without status migrainosus, not intractable Take 1 tablet (10 mg) by mouth at bedtime. 90 tablet 3 12/15/19 24 025 Active cholecalciferol (Vitamin D-3) 50 MCG (2000 UT) tabletIndication s:Vitamin D deficiency TAKE 1 TABLET BY MOUTH EVERY DAY 90 tablet 1 02/09/20 24 Active levothyroxine (Tirosint) 25 MCG capsuleIndicatio ns:Thyroid dysfunction Take 1 capsule (25 mcg) by mouth Once per day. 90 capsule 02/09/20 24 Active ibuprofen 600 MG tabletIndication s:Chronic midline low back pain with bilateral sciatica TAKE 1 TABLET BY MOUTH EVERY 8 HOURS NEEDED FOR MODERATE PAIN. 60 tablet 1 04/15/19 25 Active magnesium oxide (Mag-Ox) 400 (240 Mg) MG tablet Take 1 tablet by mouth Once per day. 01/21/20 24 Active ibuprofen 600 MG tabletIndication s:Chronic midline low back pain with bilateral sciatica TAKE 1 TABLET BY MOUTH EVERY 8 HOURS NEEDED FOR MODERATE PAIN 60 tablet 1 12/15/19 24 025 Discontinued Active Problems Problem Noted Date Diagnosed Date [...] or muscle weakness - Previously seen by [facility] for knee pain--last visit 03/2021. Has trialed injections with sx improvement. - Negative HARVEY, RF, ESR, CRP 04/2021 Prediabetes 10/01/2022 Hepatic steatosis 10/01/2022 Overview (10/01/2022): Hx of elevated liver tests now resolved - Abd u/s from 04/2018 c/w hepatic steatosis - 09/2017 Liver fibrosis score of 0.05, Stage F0 Followed by [facility] Assessment & Plan (10/01/2022 6:24 AM EDT): ?? Continue to follow with [facility] ?? Continue to work with nutrition for weight loss Abnormal uterine bleeding 10/01/2022 Overview (10/01/2022): ?? Followed by [facility] Subclinical hypothyroidism 10/01/2022 Overview (10/01/2022): ?? Tirosint [...] Pap: NIL HPV neg 09/2021, followed by [facility] C-scope:08/2019, repeat 2029 BMD: Routine Immunizations: UTD Chronic constipation 10/01/2022 Polyp of colon 03/05/2021 Overview (10/01/2022): Colonoscopy 08/2019 negative with polyp (hyperplastic) 10 year repeat Gastroesophageal reflux disease 12/23/2019 Overview (10/01/2022): ?? Followed by [facility] EGD 02/2022 with reactive gastropathy and [...] Encounters Date Type Department Care Team Description 05/12/2024 Orders Only [facility] MED[facility] [address] [place] [address] Austin, Pooja, [facility] 04/30/2024 Population Health Risk Score [facility] ([facility] Department [address] [facility] 7 [place] [address] Provider, Population Health Generic 04/26/2024 2:30 PM EDT Office Visit [facility] OPTOMETRY [address] [place] [address] Taj, June, OD Myopia of both eyes (Primary Dx); Dry eyes 04/26/2024 Travel 04/13/2024 Refill [facility] [address] [place] [address] Austin, Pooja, TAIL BOARD WORKER Chronic midline low back pain with bilateral sciatica 03/12/2024 Orders Only [facility] External Provider, [facility] from Last 3 Months Immunizations Name Administration [...] Description 05/21/2024 9:30 AM EDT Office Visit [facility] [address] [place] [address] [facility], [facility] [address] [place] [address] Health Maintenance Due Date Last Done Comments Alcohol/Substance Use Screening 1992 Family Planning (PISQ) 08/11/1995 Hepatitis A Vaccines (1 of 2 - Risk 2-dose series) 08/11/1999 03/12/2007, 07/28/2006 Hepatitis B Vaccines (1 of 3 - 19+ 3-dose series) 08/11/1999 07/28/2006, 11/15/2005, 02/24/2005 Diabetes: Hemoglobin A1C 09/20/2023 023, 12/12/2021, 04/30/2021, Additional history exists Pap Smear 10/04/2024 10/04/2021, 10/04/2021 Depression Screening 12/14/2024 12/15/2023, 12/15/19 24 SDOH Screening 12/14/2024 12/15/2023 Diagnostic Breast Imaging 05/12/20252024, 05/12/2024, 04/22/2023, Additional history exists Mammogram 05/12/2025 05/12/2024, 04/18, 04/22/2023, Additional history exists Tobacco Screening 05/12/2025 05/12/2024 Cervical Cancer Screening 10/04/2026 HPV/Cotest 10/04/2026 10/04/2021 [...] 5 Years) and At-Risk Patients (6 to 49) Years) Completed 10/31/2023 COVID-19 Vaccine Completed 12/15/2023, [...] TOMOSYNTHESIS BILATERAL Routine 05/12/2024 1:45 PM EDT MR KNEE WO CONTRAST RIGHT Routine 03/13/2024 9:18 AM EST LIPID PANEL, STANDARD Routine 10/31/2023 1:40 PM EDT Hepatic steatosis HEMOGLOBIN A1C Routine 09/19/2022 3:30 PM EDT [...] Recently Relevant to Health Maintenance Results * BI US Breast Limited Left (05/12/2024 2:00 PM EDT) Anatomical Region Laterality Modality Breast Left Ultrasound 05/12/2024 2:00 PM EDT Narrative 05/12/2024 2:36 PM EDT ? [facility] ? [address] ?[place] [address] ? Ultrasound Report ? Signed ? Patient: Funes,Kasie ?MR#: [id number] ?? 960 ? : 1980 ?Acct:[id number] ? Age/Sex: 43 / F ?ADM Date: 05/12/24 ? Loc: HO.MAMMO ? Attending Dr: Pooja Medina TAIL BOARD WORKER ? Ordering Physician: Pooja Medina ?? Date of Service: 05/12/24 ?? Procedure(s): US breast LT limited mamm only ?? Accession Number(s): [id number] ? cc: Pooja Medina TAIL BOARD WORKER ? EXAMINATION: ?? MM DIAGNOSTIC DIGITAL BREAST [...] in OV> ? 05/12/24 1433 ? DD/ 1400 ? TD/TT: 05/12/24 1426 ? Industrial Sales Manager: ? Procedure Note Donotheiditer, Image - 05/12/2024 [facility] [address] [place] [address] Ultrasound Report Signed Patient: Kasie FunesMR#: [id number] 960 : 1980Acct:[id number] Age/Sex: 43 / FADM Date: 05/12/24 Loc: HO.MAMMO Attending Dr: Pooja Medina TAIL BOARD WORKER Ordering Physician: Pooja Medina TAIL BOARD WORKER Date of Service: 05/12/24 Procedure(s): US breast LT limited mamm only Accession Number(s): [id number] cc: Pooja Medina EXAMINATION: MM DIAGNOSTIC DIGITAL BREAST TOMOSYNTHESIS, BILATERAL [...] 05/12/24 1433 DD/ 1400 TD/TT: 05/12/24 1426 Industrial Sales Manager: [facility] TAIL BOARD WORKER IMG US PROCEDURES Final Resul t * BI Mammogram Diagnostic Tomosynthesis Bilateral (05/12/2024 1:45 PM EDT) Anatomical Region Laterality Modality Breast Bilateral Mammography 05/12/2024 1:45 PM EDT Narrative 05/12/2024 2:36 PM EDT ? [facility] ? [address] [facility] [address] ?[place] [address] ?[phone] ? Mammography Report ? Signed ? Patient: Funes,Kasie ?MR#: [id number] ?? 960 ? : 1980 ?Acct:[id number] ? Age/Sex: 43 / F ?ADM Date: 03/26/25 ? Loc: HO.MAMMO ? Attending Dr: Pooja Carol TAIL BOARD WORKER ? Ordering Physician: Carol,Pooja TAIL BOARD WORKER ?Results: 2Beni ?? gn Findings ? Date of Service: 05/12/24 ?Follow Up: 1 Year From Orig ?? inal Mammogram ? Procedure(s): MM tomosynthesis diagnostic BI ?? Accession Number(s): [id number] ? cc: Carol,Pooja TAIL BOARD WORKER ? EXAMINATION: ?? MM DIAGNOSTIC DIGITAL BREAST [...] DD/ 1345 ? TD/TT: 05/12/24 1400 ? Industrial Sales Manager: ? Procedure Note Donotuseinterpreter, Image - 05/12/2024 [facility] [address] [place] [address] Mammography Report Signed Patient: Kasie FunesMR#: [id number] 960 : 1980Acct:[id number] Age/Sex: 43 / FADM Date: 05/12/24 Loc: HO.MAMMO Attending Dr: Pooja Medina TAIL BOARD WORKER Ordering Physician: Pooja Medina FNPResults: 2Beni gn Findings Date of Service: 05/12/24Follow Up: 1 Year From Orig [facility] Mammogram Procedure(s): MM tomosynthesis diagnostic BI Accession Number(s): [id number] cc: Pooja Medina TAIL BOARD WORKER EXAMINATION: MM DIAGNOSTIC DIGITAL BREAST TOMOSYNTHESIS, BILATERAL [...] 05/12/24 1433 DD/ 1345 TD/TT: 05/12/24 1400 Industrial Sales Manager: [facility] TAIL BOARD WORKER IMG BI PROCEDURES Final Resul t * MR Knee w/o Contrast Right (03/13/2024 9:18 AM EST) Anatomical Region Laterality Modality Magnetic Resonan ce 03/13/2024 9:18 AM EST Narrative 03/13/2024 9:19 AM EST ? [facility] ?[address] ?[place] [address] ? Magnetic Resonance Report ? Signed ? Patient: Funes,Kasie ?MR#: [id number] ?? 960 ? : 1980 ?Acct:[id number] ? Age/Sex: 43 / F ?ADM Date: 03/12/24 ? Loc: HO.MRI ? Attending Dr: Rianna Bruce PA-C ? Ordering Physician: Rianna Bruce PA-C ?? Date of Service: 03/12/24 ?? Procedure(s): MR knee RT wo con ?? Accession Number(s): [id number] ? cc: Rianna Bruce PA-C; Pooja Medina [...] Bhardwaj MD in OV> ?03/13/24918 ? DD/ 0918 ? TD/TT: 03/13/24917 ? Industrial Sales Manager: ? Procedure Note Donlloyd, Image - 03/13/2024 [place] [address] Magnetic Resonance Report Signed Patient: Beatris Funes#: [id number] 960 : 1980Acct:[id number] Age/Sex: 43 / FADM Date: 03/12/24 Loc: HO.MRI Attending Dr: Rianna Bruce PA-C Ordering Physician: Rianna Bruce PA-C Date of Service: 03/12/24 Procedure(s): MR knee RT wo con Accession Number(s): [id number] cc: Rianna Bruce PA-C; [facility] CLINICAL HISTORY: M17.11 - Unilateral primary [...] in OV> 03/13/24918 DD/ 7 TD/TT: 03/13/24917 Industrial Sales Manager: us [facility] External Provider IMG MRI PROCEDURES Final Result * Lipid Panel, Standard (10/31/2023 1:40 PM EDT) Triglycerides 66 <150 mg/dL [facility] Comment:Desirable Triglyceri de: less than 150 mg/dLBorderline High Triglyceride 150-199 mg/dLHigh Triglyceride: 200-499 mg/dLVery High Triglyceride: greater than or equal to 5OO mg/dL Cholesterol 160 <200 mg/dL [facility] Comment:Desirable Cholestero l: less than 200 mg/dLBorderline High Cholesterol: 200-239 mg/dLHigh Cholesterol: greater than 239 mg/dL LDL Cholesterol Calculated 79 <100 mg/dL [facility] Comment:Desirable LDL: less than 100 mg/dLNear Optimal/Above Optimal LDL: 110- 129 mg/dLBorderline High LDL: 130-159 mg/dLHigh LDL: 160-189 mg/dLVery High LDL: greater than or equal to 190 mg/dL HDL Cholesterol 68 >40 mg/dL [facility] Comment:Desirable HDL: grea ter than 40 mg/dL Note: This HDL assay may give artificially low results in patients with liver disease. Blood Venous blood specimen / Unknown 10/31/2023 1:40 PM EDT 10/31/2023 3:58 PM EDT [facility] TAIL BOARD WORKER LAB BLOOD ORDERABLES Final Re sult [facility] [address] [place] [address] [phone] * Hemoglobin A1c (09/19/2022 3:30 PM EDT) Hemoglobin A1c 5.6 % [facility] Comment:Hemoglobin A1C Refer ence Range Adults: 4.8 - 6.0 % Non diabetic: < 6.0 % Goal: < 7.0 %Additional Action Suggested: > 8.0 %Note: Hemoglobin A1c results are invalid for patients with abnormal amounts of HbF. Blood transfusions may impact the HbA1c concentration in the patient sample. Estimated Average Glucose 114 mg/dL [facility] Comment:eAG = Estimated ave rage glucose which is %A1C expressed asaverage glucose, using the formula of the V0V-AhzglflKuqvqec Glucose study (ADAG), Diabetes Care, Vol.31,#8,Sep. 2007 Blood Venous blood specimen / Unknown 09/19/2022 3:30 PM EDT 09/19/2022 4:34 PM EDT [facility] LAB BLOOD ORDERABLES Final Re sult [facility] [address] [place] [address] [phone] * THINPREP TIS PAP AND HPV mRNA E6/E7 WITH REFLEX TO HPV 16,18/45 (10/04/2021 10:02 AM EDT) Clinical Information: None given [facility] COMMENT SEE COMMENT [facility] [...] has been evaluated with computer assisted technology. [facility] Cytotechnologis t: SEE COMMENT [facility] Comment: JNA, CT(ASCP) CT screening location: [address] ??[id number] HPV nRNA E6/E7 Not Detected Not Detected [facility] Comment: Methodology: Redipper-Mediated Amplification This assay detects E6/E7 viral messenger RNA (mRNA) from 14 high-risk HPV types (16,18,31,33,35,39,45,51,52,56,58,59,66,68). ? Cervical sources are required for HPV testing. If a vaginal source from a patient who has had a total hysterectomy with removal of cervix was ?? submitted, please contact the testing laboratory for alternative testing options. ?? For additional information, please refer to http://education.ControlScan/faq/RWW590s1 (This link if provided for information/ educational purposes only.) Infection Shift in vaginal sin suggestive of bacterial vaginosis. [facility] Interpretation/ Result: Negative for intraepithelial lesion or malignancy. [facility] LMP: 06/2021 [facility] Prev. BX: NONE GIVEN [facility] Prev. PAP: NIL 09/2018 [facility] SOURCE: None given [facility] Statement Of Adequacy: SEE COMMENT [facility] Comment: Satisfactory for evaluation. Endocervical/transformation zone component absent. 10/04/2021 10:0 2 AM EDT Iris Padron [facility] PATHOLOGY ORDERABLES Final Result [facility] [address] * Pap Smear (10/04/2021 12:00 AM EDT) Swab Iris Padron [facility] CYTOLOGY ORDERABLES F inal Result [address], [place] [address] * HEPATITIS C AB W/REFL TO HCV RNA, QN, PCR (04/30/2021 2:02 PM EDT) HEPATITIS C ANTIBODY NON-REACT DAVE NON-REACT DAVE [facility] INDEX 0.02 <1.00 [facility] Comment: ?? HCV antibody was non-reactive. There is no laboratory ?? evidence of HCV infection. ?? In most cases, no further action is required. However, if recent HCV exposure is suspected, a test for HCV RNA (test code 91114) is suggested. ?? For additional information please refer to http://education.ControlScan/faq/IPQ51b9 (This link is being provided for informational/ educational purposes only.) ?? 04/30/2021 2:02 PM EDT [facility] TAIL BOARD WORKER HISTORICAL/NON ORDERABLE LABS Final Result Performing Organization Address [facility]/ZIP Co de Phone Number [facility] [address] * HIV 1/2 ANTIGEN/ANTIBODY,FOURTH GENERATION W/RFL (04/30/2021 2:02 PM EDT) HIV-1/2 ANTIGEN AND ANTIBODIES, 4TH GENERATION W/ REFLEX NON-REACT DAVE NON-REACT DAVE [facility] Comment: HIV-1 antigen and HIV-1/HIV-2 [...] ? For additional information please refer to http://education.ControlScan/faq/YOV268 (This link is being provided for informational/ educational purposes only.) ? The performance of this assay has not been clinically validated in patients less than 2 years old. ?? 04/30/2021 2:02 PM EDT [facility] LAB BLOOD ORDERABLES Final Re sult Performing Organization Address [facility] Co de Phone Number [facility] [address] from Last 3 Months or Most Recently Relevant to Health Maintenance Insurance [address] [place] [address] [facility] [place] [address] [place] [address] [place] [address] [place] Care Teams Sustainment Logistics Analyst Relationship Specialty Start Date End Date Pooja Medina FNP [address] [place] [phone] PCP - General Family Medicine 11/15/20
--- OUTSIDE RECORDS SUMMARY | 2024-05-12 15:56 | XMS_ITS | Encounter Summary ---
Author Organization [employer] Address [address] [facility] 7t [place] [address] Care Team Providers Care Lamina Searcher Name Role Phone Pooja Medina DRUM CARRIER Primary Care Provider [phone] Reason for Visit * Reason Comments Blurred Vision Encounter Details Date Type Department Care Team ([facility] st Contact Info) Description 04/26/2024 2:30 PM EDT Office Visit [facility] OPT[facility] [address] [place] [address] Taj, June, OD [address] [place] [address] Myopia of both eyes (Primary Dx); Dry eyes Social History Tobacco Use Types Packs/Day Years [...] Description 05/21/2024 9:30 AM EDT Office Visit [facility] [address] [place] [address] [place] [facility] [address] [place] [address] documented as of this encounter Visit Diagnoses Diagnosis Myopia of both eyes- Primary Dry eyes Unspecified tear film insufficiency documented in this encounter Additional Health Concerns Assessment Noted Time PHQ-9 Depression Total Score: 0 12/15/19 24 2:36 PM EDT documented as of this encounter Care Teams Lamina Searcher Relationship Specialty Start Date End Date [place] [facility] [address] [place] [address] PCP - General Family Medicine 11/15/20 documented as of this encounter
--- OUTSIDE RECORDS SUMMARY | 2024-05-12 15:56 | XMS_ITS | Encounter Summary ---
Author Organization [employer] Address [address] [facility] [address]t [place] [address] Care Team Providers Care Window Glazier Helper Name Role Phone Pooja Medina ROPE MAKING MACHINE OPERATOR Primary Care Provider [phone] Encounter Details Date Type Department Care Team ([facility] st Contact Info) Description 04/30/2024 Population Health Risk Score [facility] (C3) Department [address] [address] Provider, Population Health Generic Social History Tobacco Use Types Packs/Day Years [...] Description 05/21/2024 9:30 AM EDT Office Visit [facility] [address] [place] [address] Pooja Medina FNP [address] [place] [address] documented as of this encounter Visit Diagnoses Not on filedocumented in this encounter Additional Health Concerns Assessment Noted Time PHQ-9 Depression Total Score: 0 12/15/19 24 2:36 PM EDT documented as of this encounter Care Teams Window Glazier Helper Relationship Specialty Start Date End Date Pooja Medina FNP [address] [place] [phone] PCP - General Family Medicine 11/15/20 documented as of this encounter
== END 2024-05-12 13:24 | disposition home or self-care (01) ==
LOC: HO.MAMMO 13:23
PROVIDERS: PCP Registered Nurse; Visit Provider Registered Nurse
DX: R92.2 Inconclusive mammogram (principal)
CPT/HCPCS: 76642; 77062; 77066

== ENCOUNTER → 2024-05-12 14:00 | Outpatient (BNV) | payer MEDICAID, SELFPAY | PROVIDERS: PCP Registered Nurse; Visit Provider Internal Medicine | DX: R92.8 Other abnormal and inconclusive findings on diagnostic imaging of breast (principal) | CPT/HCPCS: 76642; 77062; 77066 ==

== ENCOUNTER 2024-05-21 10:14 | Outpatient (REF) | payer MEDICAID, SELFPAY ==
--- OUTSIDE RECORDS SUMMARY | 2024-05-21 11:40 | XMS_ITS | Encounter Summary ---
Author Organization [employer] Address [address] [facility] [address] [place] [address] Care Team Providers Care Wood Carver Name Role Phone Pooja Medina [facility] Primary Care Provider [phone] Reason for Visit * Reason Comments Med Refill Encounter Details Date Type Department Care Team ([facility] st Contact Info) Description 02/07/2024 Refill [facility] MED[facility] [address] [place], [place] [phone] Diandra Judd MD [address] [place], [place] [phone] Thyroid dysfunction Social History Tobacco Use Types [...] Care Team (Late st Contact Info) Description 07/19/2024 1:45 PM EDT Office Visit [facility] [address] [place] [address] [place] [facility] [address] [place] [address] documented as of this encounter Visit Diagnoses Diagnosis Thyroid dysfunction Unspecified disorder of thyroid documented in this encounter Additional Health Concerns Assessment Noted Time PHQ-9 Depression Total Score: 0 12/15/19 24 2:36 PM EDT documented as of this encounter Care Teams Wood Carver Relationship Specialty Start Date End Date Pooja Medina FNP [address] [place] [address] PCP - General Family Medicine 11/15/20 documented as of this encounter
--- OUTSIDE RECORDS SUMMARY | 2024-05-21 11:40 | XMS_ITS | Encounter Summary ---
Author Organization [facility] Address [address] [place] [address] Care Team Providers Care Equalizing Saw Operator Name Role Phone Pooja Medina Primary Care Provider [phone] Reason for Referral * Consultation (Routine) - Pending Review Specialty Diagnoses / Procedures Referred By Guillermo begum Referred To Contact Vascular Surgery Diagnoses Varicose veins of right lower extremity with pain Pooja Medina FNP [address] [place] [address] Phone: tel: fax: Referral ID Status Reason Start Date Expiration Date Visits Requested Visits Authorized [id number] Pending Review Specialty Services Required 05/21/2024 05/21/2025 1 1 Reason for Visit * Reason Comments Annual Exam Encounter Details Date Type Department Care Team (Latest Contact Info) Description 05/21/2024 9:30 AM EDT Office Visit [facility] [address] [place] [address] Pooja Medina FNP [address] [place] [address] Health care maintenance (Primary Dx); Dietary counseling; Exercise counseling; Class 3 severe obesity due to excess calories with serious comorbidity and body mass index (BMI) of 40.0 to 44.9 in adult (CMS/HCC); Varicose veins of right lower extremity with pain; Other chronic nonsuppurative otitis media of both ears; Hepatic steatosis; Prediabetes; Subclinical hypothyroidism Social History Tobacco Use Types Packs/Day Years Used Date Smoking Tobacco: Never Passive Smoke Exposure: Never Smokeless Tobacco: Never Tobacco Cessation:Counseling Given: Not Answered Alcohol Use Standard Drinks/Week Comments Yes 0 (1 standard drink = 0.6 oz pur e alcohol) Ocassional weekends Depression Answer Date Recorded Patient Health Questionnaire-9 Score 5 05/21/2024 Patient Health Questionnaire-9 Score 5 05/21/2024 Last PHQ-9: Questionnaire Data Not on file 0 05/21/2024 Housing Stability Answer Date Recorded What is [...] Answer Date Recorded Patient Health Questionnaire-2 Score 2 05/21/2024 Internet Access Answer Date Recorded Internet Access Q1 Yes 12/15/2023 Internet Access Q2 Not on file 12/15/2023 Comments No Sex and Gender Information Value Date Recorded Sex Assigned at Female 12/17/2021 10:18 AM EDT Legal Sex Female 10:18 AM EDT Gender Identity Female 12/17/2021 10:18 AM EDT Sexual Orientation Choose not to disclose 2021 10:18 AM EDT documented as of this encounter Last Filed Vital Signs Vital Sign Reading Time Taken Comments Blood Pressure 110/72 05/21/2024 9:27 AM EDT Pulse 76 05/21/2024 9:27 AM EDT Temperature 36.2 ??C (97.2 ??F) 05/21/2024 9:27 AM ED T Respiratory Rate 20 05/21/2024 9:27 AM EDT Oxygen Saturation - - Inhaled Oxygen Concentration - - Weight 100 kg (221 lb 6.4 oz) 05/21/2024 9:27 AM EDT Height 154.9 cm (5' 1 ) 05/21/2024 9:27 AM EDT Body Mass Index 41.83 05/21/2024 9:27 AM EDT documented in this encounter Progress Notes * [facility], [facility] - 05/21/2024 9:30 AM EDT SUBJECTIVE: Kasie Funes is a 43 y.o. year old female with prediabetes, subclinical hypothyroidism, asthma, GERD, WINNIE, chronic pain who presents for routine physical exam. Denies recent illness, injury, or hospitalization. Acute Concerns: Varicose veins right leg-sometimes become painful, swollen Weight management Interval History Status post right knee partial medial meniscectomy and chondroplasty with Dr. Ramirez 07/23/2023. Continues to follow with [facility]. Reinjured knee after fall with updated imaging showing posterior medial meniscus tear. Had follow-up with [facility] 05/07/2024 with recommendation for surgical intervention. Patient trying joint injection first. 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; Social History Social History Narrative Tobacco Use: None ETOH: None Marijuana Use: None Other substance use: None Current living environment: Lives with 3 daughters Children: 3 Sexually active: yes Partners are: AMAB control: BTL Patient Active Problem List Diagnosis Abnormal mammogram Depressive disorder Gastroesophageal reflux disease Migraine Polyp of colon Varicose veins of lower extremity Vitamin D deficiency Iron deficiency anemia Other chronic pain Prediabetes Hepatic steatosis Abnormal uterine bleeding Subclinical hypothyroidism Health care maintenance Chronic constipation Arm mass, right Mild persistent asthma without complication Past Surgical History: Procedure Laterality Date BREAST LUMPECTOMY Left fibroadenoma 2017 CHOLECYSTECTOMY ENDOMETRIAL ABLATION N/A KNEE ARTHROPLASTY Right TUBAL LIGATION Family History Problem Relation Name Age of Onset Stomach cancer Father Uterine cancer Mother's Sister Review of Systems Constitutional: Negative for chills, fatigue, fever and unexpected weight change. HENT: Negative for dental problem, ear pain, hearing loss and sore throat. Eyes: Negative for pain and visual disturbance. Respiratory: Negative for cough and shortness of breath. Cardiovascular: Negative for chest pain. Gastrointestinal: Negative. Negative for abdominal pain and blood in stool. Endocrine: Negative. Genitourinary: Negative. Negative for dysuria. Musculoskeletal: Negative. Skin: Negative. Allergic/Immunologic: Negative for immunocompromised state. Neurological: Negative for dizziness, weakness and headaches. Psychiatric/Behavioral: Negative. OBJECTIVE: Vitals: 05/21/24 0927 BP: 110/72 Pulse: 76 Resp: 20 Temp: 97.2 ??F (36.2 ??C) Physical Exam Constitutional: General: She is not in acute distress. Appearance: Normal appearance. HENT: Head: Normocephalic and atraumatic. Right Ear: External ear normal. A middle ear effusion is present. Left Ear: External ear normal. A middle ear effusion is present. Nose: Nose normal. Eyes: Conjunctiva/sclera: Conjunctivae normal. Pulmonary: Effort: Pulmonary effort is normal. Skin: General: Skin is warm and dry. Comments: Multiple superficial varicosities right lower extremity Neurological: General: No focal deficit present. Mental Status: She is alert and oriented to person, place, and time. Psychiatric: Mood and Affect: Mood normal. Behavior: Behavior normal. ASSESSMENT/PLAN Obesity - Shared decision making with patient re treatment options - Reviewed indications for pharmacotherapy with patient, which is treatment for patient w/ obesity or a patient with a BMI > 27 w/ CV risk factors who have failed lifestyle modifications alone. These are always prescribed in combination with ongoing lifestyle modification - Will start patient on Phentermine/topamax. Discussed risks and side effects to include tachycardia, HTN, teratogenic, cognitive dysfuction, metabolic acidosis, constipation, dysgeusia. Denies hx ofpregnancy, hyperthyroidism, MAOI use or glaucoma. Denies hx of kidney stones. - Discussed calorie deficit, recommended reduction of 20-30% of maintenance calories; method consultant referral offered. Recommended to decrease soda and sugary beverage consumption. Recommended at least20 g per meal of protein to assist with satiety. Recommended at least 150 min/week of moderate intensity exercise. Otitis Media with Effusion Start daily Flonase Continue to monitor, if no resolution at follow-up will consider ENT referral. Varicose Veins - Referral to vascular surgery for consideration of treatment - DME order for compression stockings Routine Health Maintenance Optometry: Up to date with routine eye exam Dental: Established with dental provider. Up to date on routine care Adult IZ: Immunization History Administered Date(s) Administered Hep A, ped/adol, 2 dose 07/28/2006, 03/12/2007 Hep B, Adolescent or Pediatric 02/24/2005, 11/15/2005, 07/28/2006 Influenza injectable quadrivalent IIV4 with preservative 02/13/2017 Influenza injectable quadrivalent preservative free 05/18/2014, 04/25/2016, 11/23/2021 Influenza, IIV3, injectable 01/24/2006, 11/15/2009, 11/09/2010 Influenza, Split (incl. purified surface antigen) 11/26/2011, 12/04/2012 Influenza, seasonal, injectable, preservative free 10/31/2023 MMR 03/12/2007, 07/23/2018 Moderna Covid-19 Vaccine 12+ 05/22/2020, 06/19/2020 Pfizer Covid-19 Vaccine 12+ 01/05/2021, 12/15/2023 Pneumococcal Conjugate PCV 20 10/31/2023 TD (adult), 2 Lf tetanus toxoid, preservative free, adsorbed 03/12/2007 Tdap 12/04/2012, 10/31/2023 Varicella 06/12/2007, 07/23/2018 Mental health screening with validated assessment tool : Positive, declines behavioral health referral, will reach out if she needs more support Screenings Breast cancer screenin04/2024 Bi-rads 2 Cervical cancer screening: NIL HPV neg 2021 Colorectal cancer screening: Routine age 45 Bone mineral density: Routine age 65. Lung CA: N/A Reproductive Current control: BTL Satisfied with method Desires within 12 months: No IPV screening: Pt feels safe and healthy in current relationship(s) No visits with results within 6 Month(s) from this visit. Latest known visit with results is: Office Visit on 10/31/2023 Component Date Value Ref Range Status Glucose Blood, POC 10/31/2023 99 60 - 200 mg/dL Final QC Media Lot # 10/31/2023 [id number] Final Lot# Expiration Date 10/31/2023 31,825 Final Hemoglobin 10/31/2023 5.7 (A) 12.0 - 15.0 Final QC Media Lot # 10/31/2023 [id number] Final Lot# Expiration Date 10/31/2023 62,625 Final TSH reflex Free T4 10/31/2023 1.55 0.32 - 4.0 uIU/mL Final Triglycerides 10/31/2023 66 <150 mg/dL Final Desirable Triglyceride: less than 150 mg/dLBorderline High Triglyceride 150-199 mg/dLHigh Triglyceride: 200-499 mg/dLVery High Triglyceride: greater than or equal to 5OO mg/dL Cholesterol 10/31/2023 160 <200 mg/dL Final Desirable Cholesterol: less than 200 mg/dLBorderline High Cholesterol: 200-239 mg/dLHigh Cholesterol: greater than 239 mg/dL LDL Cholesterol Calculated 10/31/2023 79 <100 mg/dL Final Desirable LDL: less than 100 mg/dLNear Optimal/Above Optimal LDL: 110-129 mg/dLBorderline High LDL:130-159 mg/dLHigh LDL: 160-189 mg/dLVery High LDL: greater than or equal to 190 mg/dL HDL Cholesterol 10/31/2023 68 >40 mg/dL Final Desirable HDL: greater than 40 mg/dL Note: This HDL assay may give artificially low results in patients with liver disease. Bilirubin, Total 10/31/2023 0.4 0.0 - 1.0 mg/dL Final Bilirubin, Direct 10/31/2023 0.2 0.0 - 0.5 mg/dL Final Aspartate Amino Transferase 10/31/2023 28 5 - 31 U/L Final Alanine Aminotransferase 10/31/2023 35 (H) 0 - 31 U/L Final Total Protein 10/31/2023 8.7 (H) 6.5 - 8.0 g/dL Final Albumin Level 10/31/2023 4.4 3.5 - 5.0 g/dL Final Alkaline Phosphatase 10/31/2023 90 39 - 117 U/L Final Diagnosis Plan 1. Health care maintenance 2. Dietary counseling 3. Exercise counseling 4. Class 3 severe obesity due to excess calories with serious comorbidity and body mass index (BMI)of 40.0 to 44.9 in adult (CMS/HCC) phentermine 15 MG capsule topiramate (Topamax) 25 MG tablet 5. Varicose veins of right lower extremity with pain Referral to Vascular Surgery Referral to Vascular Surgery 6. Other chronic nonsuppurative otitis media of both ears fluticasone (Flonase) 50 MCG/ACT nasal spray 7. Hepatic steatosis Comprehensive Metabolic Panel Comprehensive Metabolic Panel 8. Prediabetes POCT HGB A1C POCT Glucose 9. Subclinical hypothyroidism TSH W/Reflex to FT4 TSH W/Reflex to FT4 Follow Up: 8 weeks, weight mngmt Current Outpatient Medications on File Prior to Visit Medication Sig Dispense Refill albuterol 108 (90 Base) MCG/ACT inhaler Inhale every 4 (four) hours. amitriptyline (Elavil) 10 MG tablet Take 1 tablet (10 mg) by mouth at bedtime. 90 tablet 3 baclofen (Lioresal) 10 MG tablet Take 1 tablet by mouth in the morning and 1 tablet in the evening. budesonide-formoterol (Symbicort) 80-4.5 MCG/ACT inhaler Inhale 2 puffs twie daily. Rinse mouth with water after use to reduce aftertaste and incidence of candidiasis. Do not swallow. 1 each 11 cetirizine (ZyrTEC) 10 MG tablet Take 1 tablet (10 mg) by mouth Once per day. 30 tablet 11 cholecalciferol (Vitamin D-3) 50 MCG (2000 UT) tablet TAKE 1 TABLET BY MOUTH EVERY DAY 90 tablet 1 EPINEPHrine (Epipen) 0.3 MG/0.3ML injection syringe Inject 0.3 mL (0.3 mg) as directed 1 (one) timefor 1 dose. 1 each 0 ferrous gluconate (Fergon) 324 (38 Fe) MG tablet TAKE 1 TABLET BY MOUTH EVERY DAY 90 tablet 1 ibuprofen 600 MG tablet TAKE 1 TABLET BY MOUTH EVERY 8 HOURS NEEDED FOR MODERATE PAIN. 60 tablet1 levothyroxine (Tirosint) 25 MCG capsule TAKE 1 CAPSULE (25 MCG) BY MOUTH ONCE PER DAY. 90 capsule 0 lidocaine (Lidoderm) 5 % patch APPLY 1 PATCH TOPICALLY EVERY DAY. REMOVE AND DISCARD AFTER 12 HOURSOR as DIRECTED BY MD. 30 patch 0 Magnesium 400 MG capsule TAKE 1 TABLET BY MOUTH EVERY DAY 90 capsule 2 magnesium oxide (Mag-Ox) 400 (240 Mg) MG tablet Take 1 tablet by mouth Once per day. omeprazole (PriLOSEC) [address] capsule Take 1 capsule (40 mg) by mouth 2 times daily. 60 capsule 11 Riboflavin 400 MG capsule Take 1 capsule by oral route daily 90 capsule 2 [DISCONTINUED] levothyroxine (Tirosint) 25 MCG capsule Take 1 capsule (25 mcg) by mouth Once per day. 90 capsule 0 No current facility-administered medications on file prior to visit. Finnish Translation: Provided by [facility] staff member JAKE Alvarado documented in this encounter Plan of Treatment Upcoming Encounters Date Type Department Care Team (Late st Contact Info) Description 07/19/2024 1:45 PM EDT Office Visit [facility] [address] [place] [address] Pooja Medina FNP [address] [place], [place] [phone] Scheduled Orders Name Type Priority Associated Diagnoses Orde r Schedule TSH W/Reflex to FT4 Lab Routine Subclinical hypothyroidism Expected: 05/21/2024 (Approximate), Expires: 05/21/2025 Comprehensive Metabolic Panel Lab Routine Hepatic steatosis Expected: 05/21/2024 (Approximate), Expires: 05/21/2025 Scheduled Referrals Name Type Priority Associated Diagnoses Orde r Schedule Referral to Vascular Surgery Outpatient Referral Routine Varicose veins of right lower extremity with pain Expected: 05/21/2024 (Approximate), Expires: 05/21/2025 documented as of this encounter Procedures Procedure Name Priority Date/Time Associated Diagnosis Comments POCT GLYCATED HEMOGLOBIN, TOTAL Routine 05/21/2024 9:39 AM EDT Prediabetes POCT GLUCOSE Routine 05/21/2024 9:39 AM EDT Prediabetes documented in this encounter Results * POCT Glucose (05/21/2024 9:39 AM EDT) [facility] Signature Glucose Blood, POC 121 60 - 200 mg/dL QC Media Lot # [id number] Lot# Expiration Date 194 Blood Capillary blood specimen / Unknown 05/21/2024 9:39 AM EDT Pooja NAYAK POINT OF CARE TEST ENTER/EDIT ORDERABLES Final Result * POCT HGB A1C (05/21/2024 9:39 AM EDT) Hemoglobin A1C 6.0 4.0 - 6.0 % Blood 05/21/2024 9:39 AM EDT [facility] POINT OF CARE TEST ENTER/EDIT ORDERABLES Final Result documented in this encounter Visit Diagnoses Diagnosis Health care maintenance- Primary Dietary counseling Dietary surveillance and counseling Exercise counseling Class 3 severe obesity due to excess calories with serious comorbidity and body mass index (BMI) of 40.0 to 44.9 in adult (CMS/HCC) Varicose veins of right lower extremity with pain Other chronic nonsuppurative otitis media of both ears Hepatic steatosis Other chronic nonalcoholic liver disease Prediabetes Other abnormal glucose Subclinical hypothyroidism Other specified acquired hypothyroidism documented in this encounter Additional Health Concerns Assessment Noted Time PHQ-9 Depression Total Score: 5 05/22/19 25 9:38 AM EDT documented as of this encounter Care Teams Equalizing Saw Operator Relationship Specialty Start Date End Date [place] FNP [address] [place] [id number] PCP - General Family Medicine 11/15/20 documented as of this encounter
--- OUTSIDE RECORDS SUMMARY | 2024-05-21 11:40 | XMS_ITS | Encounter Summary ---
Author Organization [employer] Address [address] [place] [address] Care Team Providers Care Sales Administrator Name Role Phone Pooja Medina SUPERVISOR INSTRUMENT MAINTENANCE Primary Care Provider [phone] Encounter Details Date Type Department Care Team (Latest Contact Info) Description 05/21/2024 Travel Social History Tobacco Use Types Packs/Day [...] Description 07/19/2024 1:45 PM EDT Office Visit [facility] [address] [place] [address] Pooja Medina FNP [address] [place] [address] documented as of this encounter Visit Diagnoses Not on filedocumented in this encounter Additional Health Concerns Assessment Noted Time PHQ-9 Depression Total Score: 5 05/22/19 25 9:38 AM EDT documented as of this encounter Care Teams Sales Administrator Relationship Specialty Start Date End Date Pooja Medina FNP [address] [place] [address] PCP - General Family Medicine 11/15/20 documented as of this encounter
--- OUTSIDE RECORDS SUMMARY | 2024-05-21 11:40 | XMS_ITS | Clinical Summary ---
Author Organization [employer] Address [address] [place] [address] 7[address] [place] [address] Care Team Providers Care Medical Receptionist Medical Assistant Name Role Phone Pooja Medina [facility] Primary Care Provider [phone] Allergies Active Allergy Reactions Criticality Noted Date [...] 22 Active EPINEPHrine (Epipen) 0.3 MG/0.3ML injection syringeIndication s:Bee sting allergy Inject 0.3 mL (0.3 mg) as directed 1 (one) time for 1 dose. 1 each 01/07/20 23 Active Riboflavin 400 MG capsuleIndication s:Chronic migraine with aura without status migrainosus, not intractable Take 1 capsule by oral route daily 90 capsule 2 01/07/20 23 Active ferrous gluconate (Fergon) 324 (38 Fe) MG tablet TAKE 1 TABLET BY MOUTH EVERY DAY 90 tablet 1 01/25/20 23 Active omeprazole (PriLOSEC) [address] capsuleIndication s:Gastroesophagea l reflux disease with esophagitis without hemorrhage Take 1 capsule (40 mg) by mouth 2 times daily. 60 capsule 11 03/07/19 24 Active lidocaine (Lidoderm) 5 % patch APPLY 1 PATCH TOPICALLY EVERY DAY. REMOVE AND DISCARD AFTER 12 HOURS OR as DIRECTED BY . 30 patch 04/16/20 24 Active Magnesium 400 MG capsuleIndication s:Chronic migraine with aura without status migrainosus, not intractable TAKE 1 TABLET BY MOUTH EVERY DAY 90 capsule 2 10/22/19 24 Active budesonide-formot leanna (Symbicort) 80-4.5 MCG/ACT inhalerIndication s:Mild persistent asthma without complication Inhale 2 puffs twie daily. Rinse mouth with water after use to reduce aftertaste and incidence of candidiasis. Do not swallow. 1 each 10/31/19 24 Active cetirizine (ZyrTEC) 10 MG tabletIndications :Mild persistent asthma without complication Take 1 tablet (10 mg) by mouth Once per day. 30 tablet 11 10/31/19 24 2024 Active amitriptyline (Elavil) 10 MG tabletIndications :Chronic migraine with aura without status migrainosus, not intractable Take 1 tablet (10 mg) by mouth at bedtime. 90 tablet 3 12/15/19 24 2024 Active cholecalciferol (Vitamin D-3) 50 MCG (2000 UT) tabletIndications :Vitamin D deficiency TAKE 1 TABLET BY MOUTH EVERY DAY 90 tablet 1 02/09/20 24 Active ibuprofen 600 MG tabletIndications :Chronic midline low back pain with bilateral sciatica TAKE 1 TABLET BY MOUTH EVERY 8 HOURS NEEDED FOR MODERATE PAIN. 60 tablet 1 04/15/19 25 Active magnesium oxide (Mag-Ox) 400 (240 Mg) MG tablet Take 1 tablet by mouth Once per day. 01/21/20 24 Active levothyroxine (Tirosint) 25 MCG capsuleIndication s:Thyroid dysfunction TAKE 1 CAPSULE (25 MCG) BY MOUTH ONCE PER DAY. 90 capsule 05/20/19 25 Active fluticasone (Flonase) 50 MCG/ACT nasal sprayIndications: Other chronic nonsuppurative otitis media of both ears Administer 1-2 sprays into each nostril Once per day. Shake gently. Before first use, prime pump. After use, clean tip and replace cap. 16 g 2 05/22/19 25 2025 Active phentermine 15 MG capsuleIndication s:Class 3 severe obesity due to excess calories with serious comorbidity and body mass index (BMI) of 40.0 to 44.9 in adult ([facility]) Take 1 capsule (15 mg) by mouth before breakfast. 30 capsule 05/22/19 25 2024 Active topiramate (Topamax) 25 MG tabletIndications :Class 3 severe obesity due to excess calories with serious comorbidity and body mass index (BMI) of 40.0 to 44.9 in adult (CMS/HCC) Take 1 tablet (25 mg) by mouth at bedtime. 30 tablet 11 05/22/19 25 2025 Active levothyroxine (Tirosint) 25 MCG capsuleIndication s:Thyroid dysfunction Take 1 capsule (25 mcg) by mouth Once per day. 90 capsule 02/09/20 24 2024 Discontinued Active Problems Problem Noted Date Diagnosed [...] or muscle weakness - Previously seen by [facility] ortho for knee pain--last visit 03/2021. Has trialed injections with sx improvement. - Negative HARVEY, RF, ESR, CRP 04/2021 Prediabetes 10/01/2022 Hepatic steatosis 10/01/2022 Overview (10/01/2022): Hx of elevated liver tests now resolved - Abd u/s from 04/2018 c/w hepatic steatosis - 09/2017 Liver fibrosis score of 0.05, Stage F0 Followed by [facility] GI Assessment & Plan (10/01/2022 6:24 AM EDT): ?? Continue to follow with [facility] GI ?? Continue to work with nutrition for weight loss Abnormal uterine bleeding 10/01/2022 Overview (10/01/2022): ?? Followed by [facility] COMMUNITY RELATIONS OFFICER Subclinical hypothyroidism 10/01/2022 Overview (10/01/2022): ?? [...] Pap: NIL HPV neg 09/2021, followed by [facility] COMMUNITY RELATIONS OFFICER C-scope:08/2019, repeat 2029 BMD: Routine Immunizations: UTD Chronic constipation 10/01/2022 Polyp of colon 03/05/2021 Overview (10/01/2022): Colonoscopy 08/2019 negative with polyp (hyperplastic) 10 year repeat Gastroesophageal reflux disease 12/23/2019 Overview (10/01/2022): ?? Followed by [facility] GI EGD 02/2022 with reactive gastropathy and [...] Encounters Date Type Department Care Team Description 05/21/2024 9:30 AM EDT Office Visit [facility] [address] [place] [address] OkabenaPooja sosa [facility] Health care maintenance (Primary Dx); Dietary counseling; Exercise counseling; Class 3 severe obesity due to excess calories with serious comorbidity and body mass index (BMI) of 40.0 to 44.9 in adult (CMS/HCC); Varicose veins of right lower extremity with pain; Other chronic nonsuppurative otitis media of both ears; Hepatic steatosis; Prediabetes; Subclinical hypothyroidism 05/21/2024 Travel 05/19/2024 Refill [facility] [address] [place] [address] Cornelia Cai DO Thyroid dysfunction 05/13/2024 Patient Outreach [facility] [address] [place] [address] Pooja Medina [facility] Pre-visit Planning (Pre visit planning LVM ) 05/12/2024 Orders Only [facility] [address] [place] [address] Pooja Medina [facility] 04/30/2024 Population Health Risk Score [facility] Department [address] [place] [address] [phone] Provider, Population Health Generic 04/26/2024 2:30 PM EDT Office Visit [facility] [address] [place], [place] [phone] Taj, June, OD Dry eyes (Primary Dx); Presbyopia of both eyes 04/26/2024 Travel 04/13/2024 Refill [facility] [address] [place] [address] Pooja Medina [facility] Chronic midline low back pain with bilateral sciatica 03/12/2024 Orders Only [facility] External Provider, [facility] from Last 3 Months Immunizations Name [...] 20 05/21/2024 9:27 AM EDT Oxygen Saturation 98% 01/06/2023 12:09 PM EST Inhaled Oxygen Concentration - - Weight 100 kg (221 lb 6.4 oz) 05/21/2024 9:27 AM EDT Height 154.9 cm (5' 1 ) 05/21/2024 9:27 AM EDT Body Mass Index 41.83 05/21/2024 9:27 AM EDT Plan of Treatment Upcoming Encounters Date Type Department Care Team (Late st Contact Info) Description 07/19/2024 1:45 PM EDT Office Visit [facility] [address] [place], [place] [phone] OkabenaPooja [facility] [address] [place] [address] Health Maintenance Due Date Last Done Comments Alcohol/Substance Use Screening 1992 Family Planning (PISQ) 08/11/1995 Pap Smear 10/04/2024 10/04/2021, 10/04/2021 SDOH Screening 12/14/2024 12/15/2023 Mammogram 05/12/2025 05/12/2024, 04/18, 04/22/2023, Additional history exists Depression Screening 05/21/2025 05/21/2024, 05/22/19 25 Diabetes: Hemoglobin A1C 05/21/2025 025, 09/19/2022, 12/12/2021, Additional history exists Tobacco Screening 05/21/2025 05/21/2024 Cervical Cancer Screening 10/04/2026 HPV/Cotest 10/04/2026 10/04/2021 Lipid Panel 10/30/2028 10/31/2023, 04/17, 03/05/2021 Zoster Vaccines (1 of 2) 2030 DTaP/Tdap/Td Vaccines (3 - Td or Tdap) 10/30/2033 10/31/2023, 12/04/2012, 03/12/2007 RSV Patients and Patients Aged 60 years or older (1 - 1-dose 75+ series) 08/11/2055 Hepatitis B Vaccines Discontinued 07/28/2006, 11/15/2005, 02/24/2005 Hepatitis A Vaccines Discontinued 03/12/2007, 07/29/19 07 HIV Screening Completed 04/30/2021, 02/17, 03/05/2021 Hepatitis [...] Name Priority Date/Time Associated Diagnosis Comments POCT GLUCOSE Routine 05/21/2024 9:39 AM EDT Prediabetes POCT GLYCATED HEMOGLOBIN, TOTAL Routine 05/21/2024 9:39 AM EDT Prediabetes BI US BREAST LIMITED LEFT Routine 05/12/2024 2:00 PM EDT BI MAMMOGRAM DIAGNOSTIC TOMOSYNTHESIS BILATERAL Routine 05/12/2024 1:45 PM EDT MR KNEE WO CONTRAST RIGHT Routine 03/13/2024 9:18 AM EST LIPID PANEL, STANDARD Routine 10/31/2023 1:40 PM EDT Hepatic steatosis THINPREP IMAGING PAP AND HPV MRNA E6/E7 [...] Recently Relevant to Health Maintenance Results * POCT HGB A1C (05/21/2024 9:39 AM EDT) Hemoglobin A1C 6.0 4.0 - 6.0 % Blood 05/21/2024 9:39 AM EDT [facility] REAL ESTATE FINANCIAL ANALYST POINT OF CARE TEST ENTER/EDIT ORDERABLES Final Result * POCT Glucose (05/21/2024 9:39 AM EDT) Glucose Blood, POC 121 60 - 200 mg/dL QC Media Lot # [id number] Lot# Expiration Date 013 Blood Capillary blood specimen / Unknown 05/21/2024 9:39 AM EDT [facility] REAL ESTATE FINANCIAL ANALYST POINT OF CARE TEST ENTER/EDIT ORDERABLES Final Result * BI US Breast Limited Left (05/12/2024 2:00 PM EDT) Anatomical Region Laterality Modality Breast Left Ultrasound 05/12/2024 2:00 PM EDT Narrative 05/12/2024 2:36 PM EDT ? [facility] ? [address] ?[place] [address] ? Ultrasound Report ? Signed ? Patient: Funes,Kasie ?MR#: [id number] ?? 960 ? : 1980 ?Acct:[id number] ? Age/Sex: 43 / F ?ADM Date: 05/12/24 ? Loc: HO.MAMMO ? Attending Dr: Pooja Medina REAL ESTATE FINANCIAL ANALYST ? Ordering Physician: Pooja Medina REAL ESTATE FINANCIAL ANALYST ?? Date of Service: 05/12/24 ?? Procedure(s): US breast LT limited mamm only ?? Accession Number(s): [id number] ? cc: Pooja Medina REAL ESTATE FINANCIAL ANALYST ? EXAMINATION: ?? MM DIAGNOSTIC DIGITAL BREAST [...] ??Rosario Boswell DO ??05/12/2024 02:33 PM EDT ? Dictated By: ?Rosario Boswell DO ? Signed By: ?<Electronically signed by Rosario Boswell, DO in OV> ? 05/12/24 1433 ? DD/ 1400 ? TD/TT: 05/12/24 1426 ? [employer]: ? Procedure Note Young, Maximilian - 05/12/2024 [facility] [address] [place] [address] Ultrasound Report Signed Patient: Kasie FunesMR#: [id number] 960 : 1980Acct:[id number] Age/Sex: 43 / FADM Date: 05/12/24 Loc: HO.MAMMO Attending Dr: Pooja Medina REAL ESTATE FINANCIAL ANALYST Ordering Physician: Pooja Medina Date of Service: 05/12/24 Procedure(s): breast LT limited mamm only Accession Number(s): [id number] cc: Pooja Medina EXAMINATION: MM DIAGNOSTIC DIGITAL [...] 05/12/24 1433 DD/ 1400 TD/TT: 05/12/24 1426 [employer]: [facility] REAL ESTATE FINANCIAL ANALYST IMG US PROCEDURES Final Resul t * BI Mammogram Diagnostic Tomosynthesis Bilateral (05/12/2024 1:45 PM EDT) Anatomical Region Laterality Modality Breast Bilateral Mammography 05/12/2024 1:45 PM EDT Narrative 05/12/2024 2:36 PM EDT ? [facility] ? [address] ?[place] [address] ?[phone] ? Mammography Report ? Signed ? Patient: Funes,Kasie ?MR#: [id number] ?? 960 ? : 1980 ?Acct:[id number] ? Age/Sex: 43 / F ?ADM Date: 03/26/25 ? Loc: HO.MAMMO ? Attending Dr: Pooja Medina REAL ESTATE FINANCIAL ANALYST ? Ordering Physician: Pooja Medina REAL ESTATE FINANCIAL ANALYST ?Results: 2Beni ?? gn Findings ? Date of Service: 05/12/24 ?Follow Up: 1 Year From Orig ?? inal Mammogram ? Procedure(s): MM tomosynthesis diagnostic BI ?? Accession Number(s): [id number] ? cc: Pooja Medina REAL ESTATE FINANCIAL ANALYST ? EXAMINATION: ?? MM DIAGNOSTIC DIGITAL BREAST [...] ??Rosario Boswell DO ??05/12/2024 02:33 PM EDT ? Dictated By: ?Rosario Boswell DO ? Signed By: ?<Electronically signed by Rosario Boswell, DO in OV> ? 05/12/24 1433 ? DD/ 1345 ? TD/TT: 05/12/24 1400 ? [employer] Warfare: ? Procedure Note Young, Image - 05/12/2024 [facility] [address] [place] [address] Mammography Report Signed Patient: Kasie FunesMR#: [id number] 960 : 1980Acct:[id number] Age/Sex: 43 / FADM Date: 05/12/24 Loc: HO.MAMMO Attending Dr: Pooja Medina REAL ESTATE FINANCIAL ANALYST Ordering Physician: Pooja Medina FNPResults: 2Beni gn Findings Date of Service: 05/12/24Follow Up: 1 Year From Orig inal Mammogram Procedure(s): MM tomosynthesis diagnostic BI Accession Number(s): [id number] cc: Pooja Medina REAL ESTATE FINANCIAL ANALYST EXAMINATION: MM DIAGNOSTIC DIGITAL BREAST TOMOSYNTHESIS, BILATERAL [...] 05/12/24 1433 DD/ 1345 TD/TT: 05/12/24 1400 [employer]: [facility] REAL ESTATE FINANCIAL ANALYST IMG BI PROCEDURES Final Resul t * MR Knee w/o Contrast Right (03/13/2024 9:18 AM EST) Anatomical Region Laterality Modality Magnetic Resonan ce 03/13/2024 9:18 AM EST Narrative 03/13/2024 9:19 AM EST ? [facility] ?[address] ?[place] [address] ? Magnetic Resonance Report ? Signed ? Patient: Funes,Kasie ?MR#: [id number] ?? 960 ? : 1980 ?Acct:[id number] ? Age/Sex: 43 / F ?ADM Date: 01/24/25 ? Loc: HO.MRI ? Attending Dr: Rianna Bruce PA-C ? Ordering Physician: Rianna Bruce PA-C ?? Date of Service: 03/12/24 ?? Procedure(s): MR knee RT wo con ?? Accession Number(s): [id number] ? cc: Rianna Bruce PA-C; [facility] REAL ESTATE FINANCIAL ANALYST ? CLINICAL HISTORY: M17.11 - Unilateral primary [...] by Shahram Bhardwaj MD in OV> ?03/13/24 0919 ? DD/ ? TD/TT: 03/13/24917 ? [employer]Electronic Warfare: ? Procedure Note Young, Image - 03/13/2024 [place] [address] Magnetic Resonance Report Signed Patient: Beatris Funes#: [id number] 960 : 1980Acct:[id number] Age/Sex: 43 / FADM Date: 03/12/24 Loc: HO.MRI Attending Dr: Rianna Bruce PA-C Ordering Physician: Rianna Bruce PA-C Date of Service: 03/12/24 Procedure(s): MR knee RT wo con Accession Number(s): [id number] cc: Rianna Bruce PA-C; [facility] CLINICAL HISTORY: M17.11 - Unilateral primary [...] in OV> 03/13/24918 DD/ 7 TD/TT: 03/13/24917 [employer]: [facility] External Provider IMG MRI PROCEDURES Final Result * Lipid Panel, Standard (10/31/2023 1:40 PM EDT) Triglycerides 66 <150 mg/dL [facility] Comment:Desirable Triglyceri de: less than 150 mg/dLBorderline High Triglyceride 150-199 mg/dLHigh Triglyceride: 200-499 mg/dLVery High Triglyceride: greater than or equal to 5OO mg/dL Cholesterol 160 <200 mg/dL [facility] Comment:Desirable Cholestero l: less than 200 mg/dLBorderline High Cholesterol: 200-239 mg/dLHigh Cholesterol: greater than 239 mg/dL LDL Cholesterol Calculated 79 <100 mg/dL [facility] Comment:Desirable LDL: less than 100 mg/dLNear Optimal/Above Optimal LDL: 110- 129 mg/dLBorderline High LDL: 130-159 mg/dLHigh LDL: 160-189 mg/dLVery High LDL: greater than or equal to 190 mg/dL HDL Cholesterol 68 >40 mg/dL [facility] Comment:Desirable HDL: great er than 40 mg/dL Note: This HDL assay may give artificially low results in patients with liver disease. Blood Venous blood specimen / Unknown 10/31/2023 1:40 PM EDT 10/31/2023 3:58 PM EDT [facility] REAL ESTATE FINANCIAL ANALYST LAB BLOOD ORDERABLES Final Re sult [facility] [address] [place] [phone] * THINPREP TIS PAP AND HPV [...] has been evaluated with computer assisted technology. [facility] Cytotechnologis t: SEE COMMENT [facility] Comment: JNA, CT(ASCP) CT screening location: [address] ??[address] HPV nRNA E6/E7 Not Detected Not Detected [facility] Comment: Methodology: Fish Drier-Mediated Amplification This assay detects E6/E7 viral messenger RNA (mRNA) from 14 high-risk HPV types (16,18,31,33,35,39,45,51,52,56,58,59,66,68). ? Cervical sources are required for HPV testing. If a vaginal source from a patient who has had a total hysterectomy with removal of cervix was ?? submitted, please contact the testing laboratory for alternative testing options. ?? For additional information, please refer to http://education.[employer]/faq/OHY863p7 (This link if provided for information/ educational purposes only.) Infection Shift in vaginal sin suggestive of bacterial vaginosis. [facility] Interpretation/ Result: Negative for intraepithelial lesion or malignancy. [facility] LMP: 06/2021 [facility] Prev. BX: NONE GIVEN [facility] Prev. PAP: NIL 09/2018 [facility] SOURCE: None given [facility] Statement Of Adequacy: SEE COMMENT [facility] Comment: Satisfactory for evaluation. Endocervical/transformation zone component absent. 10/04/2021 10:0 2 AM EDT Iris Houstonni [facility] PATHOLOGY ORDERABLES Final Result Performing Organization Address [facility] Co de Phone Number [facility] [address] [place] [address], * Pap Smear (10/04/2021 12:00 AM EDT) Swab Iris Serrarosibel [facility] CYTOLOGY ORDERABLES F inal Result Performing Organization Address [facility] Co de Phone Number [facility] [address] [facility], [place] [address] * HEPATITIS C AB W/REFL TO HCV RNA, QN, PCR (04/30/2021 2:02 PM EDT) HEPATITIS C ANTIBODY NON-REACT DAVE NON-REACT DAVE [facility] INDEX 0.02 <1.00 [facility] Comment: ?? HCV antibody was non-reactive. There is no laboratory ?? evidence of HCV infection. ?? In most cases, no further action is required. However, if recent HCV exposure is suspected, a test for HCV RNA (test code 81065) is suggested. ?? For additional information please refer to http://education.[employer]/faq/SBR71x7 (This link is being provided for informational/ educational purposes only.) ?? 04/30/2021 2:02 PM EDT [facility] REAL ESTATE FINANCIAL ANALYST HISTORICAL/NON ORDERABLE LABS Final Result Performing Organization Address [facility] de Phone Number [facility] [address] [place] [address], * HIV 1/2 ANTIGEN/ANTIBODY,FOURTH GENERATION W/RFL (04/30/2021 2:02 PM EDT) HIV-1/2 ANTIGEN AND ANTIBODIES, 4TH GENERATION W/ REFLEX NON-REACT DAVE NON-REACT DAVE [facility] Comment: HIV-1 antigen [...] ? For additional information please refer to http://[employer]/faq/FZI984 (This link is being provided for informational/ educational purposes only.) ? The performance of this assay has not been clinically validated in patients less than 2 years old. ?? 04/30/2021 2:02 PM EDT [facility] LAB BLOOD ORDERABLES Final Re sult [facility] [address] from Last 3 Months or Most Recently Relevant [place] [id number] [email or web address] [place] [address] [place] [address] Care Teams Medical Receptionist Medical Assistant Relationship Specialty Start Date End Date OkabenaPooja, REAL ESTATE FINANCIAL ANALYST [address] [place] [address] ELIJAH [place] [address] PCP - General Family Medicine 11/15/20
--- OUTSIDE RECORDS SUMMARY | 2024-05-21 11:40 | XMS_ITS | Encounter Summary ---
Author Organization [facility] Address [address] [place] [address] [address] [place] [address] Care Team Providers Care Harvesting Supervisor Name Role Phone Pooja Medina [facility] Primary Care Provider [phone] Encounter Details Date Type Department Care Team ([facility] Contact Info) Description 03/22/2022 Abstract [facility] MEDICINE [address] [place] [address] [phone] Pooja Medina [facility] [address] [place], [place] [phone] Social History Tobacco Use Types Packs/Day Years [...] Upcoming Encounters Date Type Department Care Team ([facility] Contact Info) Description 07/19/2024 1:45 PM EDT Office Visit [facility] [address] [place], [place] [phone] Pooja Medina [facility] [address] [place] [address] documented as of this encounter Procedures Procedure [...] on filedocumented in this encounter Care Teams Harvesting Supervisor Relationship Specialty Start Date End Date Pooja Medina FNP [address] [place] [address] PCP - General Family Medicine 11/15/20 documented as of this encounter
--- OUTSIDE RECORDS SUMMARY | 2024-05-21 11:40 | XMS_ITS | Encounter Summary ---
Author Organization [employer] Address [address] [facility] [address] [place] [address] Care Team Providers Care [employer] [employer]evelopment Site Manager Name Role Phone Pooja Medina [employer] ARCHITECT Primary Care Provider [phone] Reason for Visit * Reason Comments Med Refill Encounter Details Date Type Department Care Team ([facility] st Contact Info) Description 05/19/2024 Refill [facility] [address] [place], [place] [phone] Cornelia Cai DO [address] [place], [place] [phone] Thyroid dysfunction Social History Tobacco Use Types [...] Description 07/19/2024 1:45 PM EDT Office Visit [facility] [address] [place] [address] AvonPooja [facility] [address] [place] [address] documented as of this encounter Visit Diagnoses Diagnosis Thyroid dysfunction Unspecified disorder of thyroid documented in this encounter Additional Health Concerns Assessment Noted Time PHQ-9 Depression Total Score: 0 12/15/19 24 2:36 PM EDT documented as of this encounter Care Teams [employer] Manager Relationship Specialty Start Date End Date Pooja Medina FNP [address] [place] [address] PCP - General Family Medicine 11/15/20 documented as of this encounter
[2024-05-21 12:44] LABS: Alanine Aminotransferase 46 U/L (0-31); Albumin Level 4.3 g/dL (3.5-5.0); Alkaline Phosphatase 66 U/L (39-117); Anion Gap 11 (12-20); Aspartate Amino Transferase 44 U/L (5-31); Bilirubin Total 0.3 mg/dL (0.0-1.0); Blood Urea Nitrogen 15 mg/dL (9-16); Calcium 9.9 mg/dL (8.4-10.2); Carbon Dioxide 25 mmol/L (22-29); Chloride 109 mmol/L (96-108); Estimated Glomerular Filt Rate > 60; Glucose Random 105 mg/dL (60-115); Sodium 141 mmol/L (135-145); Total Protein 8.1 g/dL (6.5-8.0)
[2024-05-21 12:52] LABS: TSH reflex Free T4 2.03 uIU/mL (0.32-4.0)
== END 2024-05-21 10:15 | disposition home or self-care (01) ==
LOC: HO.HHCL 10:14
PROVIDERS: Visit Provider Registered Nurse
DX: E03.8 Other specified hypothyroidism (principal); K76.0 Fatty (change of) liver, not elsewhere classified
CPT/HCPCS: 36415; 80053; 84443

== ENCOUNTER 2024-08-03 13:33 | Outpatient (AMB) | payer OTHER, SELFPAY ==
--- NOTE | 2024-08-03 13:40 | A.OFFVIS_ITS ---
Intake Visit Reasons: [facility]ILY PRACTICE MEDICAL DOCTOR [facility] VV Intake Note: New patient presents for VV. Has had VV for years but did not start hurting until about a year ago. States she has swelling and cramping on and off. She works on her feet over 8 hours a day. Accompanied by: Daughter Allergies mussels Allergy (Severe, Verified 08/03/24 13:44) DIFFICULTY BREATHING lactose Adverse Reaction (Verified 08/03/24 13:44) Diarrhea HPI HPI [facility]ILY PRACTICE MEDICAL DOCTOR [facility] VV: Details: Kasie, a pleasant 43yo mostly St Helenian speaking female patient, is presenting today with her daughter on a referral from her PCP for concerns of bilateral lower extremity swelling and pain. We utilized her daughter for interpretation; however, the pt was able to understand most of the conversation/questioning. Complaints include pain over varicosities, swelling of lower extremities, cramping, fatigue, and heaviness of the lower extremities. It has been affecting their daily activities including working, walking, and standing. It is noted more so in the right leg. She states she works all day on her feet. She states that ice helps sometimes with the pain. She is not a diabetic, but is a prediabetic, not on medication. She is a nonsmoker. Patient denies any previous venous surgery or injections. Patient denies any history of DVT/ PE. Patient denies any history of phlebitis. Trial of compression includes - ice They now present for vascular evaluation regarding their varicose veins. [facility] Medical History Lipoma of arm Asthma Lab test negative for COVID-19 virus COVID-19 Chronic constipation Iron deficiency anemia due to chronic blood loss Epigastric pain GERD (gastroesophageal reflux disease) Lactose intolerance in adult Depression Hypothyroidism Surgical History Status post excision of lipoma (~11/27/22) Hx of shoulder surgery Hx of tubal ligation History of endometrial ablation Hx of dilation and curettage History of breast lump/mass excision Hx of arthroscopic knee surgery History of esophagogastroduodenoscopy (EGD) Status post laparoscopic cholecystectomy History of colonoscopy Family History Mother No problems noted. Father No problems noted. Maternal Aunt Hx of ovarian cancer Social History Household Members: Children Alcohol intake: unknown Patient Tobacco Use Status: Never used Tobacco Second Hand Smoke Exposure: No Current occupational status: employed Current occupation: [employer] HIGH/ right hand dominant Female Reproductive History Menstrual Age of Menarche: 11 Review of Systems Const Reports as per HPI and Denies weakness ENT Reports Normal hearing present and Denies dizziness Card Reports as per HPI, Denies chest pain, Denies chest pain at rest, Denies chest pain with activity, Denies dyspnea and Denies dyspnea on exertion Resp Reports as per HPI, Denies cough, Denies dyspnea and Denies dyspnea on exertion GI Reports as per HPI, Denies abdominal pain, Denies nausea and Denies vomiting Musc Denies numbness Skin/Breast Reports as per HPI, Denies erythema and Denies wounds Neuro Reports Normal hearing present, Denies dizziness, Denies numbness, Denies Sensory deficit (Neuro) and Denies weakness Psych Reports no additional complaints Endo Reports no additional complaints Physical Exam Const General: healthy appearing and no acute distress Orientation/consciousness: patient oriented x3 HEENT Head: Yes normal to inspection Ears: hearing grossly normal bilaterally Mouth: Normal oral and palatal mucosa present Resp Effort & Inspection: normal respiratory effort and able to speak in complete sentences Auscultation: clear to auscultation bilaterally Cardio Jugular venous distension: no JVD Rate: regular rate Rhythm: regular rhythm Heart sounds: S1 normal heart sound present and S2 normal heart sound present Bruits: no abdominal aortic bruits, no carotid bruits, no femoral bruits and no renal bruits Peripheral pulses: Peripheral pulses 2+ throughout GI Inspection: Yes normal to inspection Palpation (GI): No Abdominal aortic bruit present Skin General skin exam: no rashes or lesions noted Wounds: no wounds Hair: normal Neuro General: patient oriented x3 Cranial nerves: Yes Normal hearing present Cognition (Neuro): normal cognition Gait exam (Neuro): Normal gait present Motor exam (neuro): 5/5 motor strength present throughout Sensory Exam: No Sensory deficit (Neuro) Extrem Other: Right lower extremity: telangiectasia noted throughout the calf, tender to palpation. +1 nonpitting edema noted. Palpable DP pulse. Left lower extremity: telangiectasia noted throughout the upper thigh, tender to palpation. +1 nonpitting edema noted. Palpable DP pulse. CEAP: C - 3 E - primary A - superficial P - reflux General: Yes normal to inspection, Yes full ROM, Yes capillary refill normal and Yes normal gait Assessment & Plan Assessment & Plan (1) Varicose veins of both lower extremities with inflammation: Code(s): I83.11 - Varicose veins of right lower extremity with inflammation; I83.12 - Varicose veins of left lower extremity with inflammation Category: Medical Plan: Kasie is presenting today with her daughter on a referral from her PCP for ongoing VV with inflammation. In short, the patient has evidence of venous insufficiency. I have discussed the pathophysiology with the patient. In addition I have provided informational material regarding venous disease to the patient. We have discussed conservative measures including compression, elevation, and exercise. I have also provided a handout regarding appropriate use of compression stockings and where to purchase good compression stockings as well. I have taken the liberty of ordering venous insufficiency testing with the patient. They will follow up with me after testing. The patient had an opportunity to ask questions regarding the treatment plan. All questions were answered. Imaging studies, laboratory studies and physical exam results were discussed and reviewed in detail. No major barriers to understanding were identified. The patient expressed understanding and agreement with the above treatment plan. The patient is aware they should contact our office by phone for worsening of the current condition or the appearance of new symptoms. Thank you for allowing me to participate in the vascular care of this patient. If you have any questions or concerns regarding the treatment for the above condition please do not hesitate to contact me. The office telephone contact is [phone]. This note is constructed using voice recognition software. While every effort has been made to ensure accuracy, rental car deliverer errors may have been included. Thank you for allowing me to participate in the care of your patient. Yours sincerely, LEYDI Christian Orders: Orders US venous duplex LE BI 1 Week I83.11 - Varicose veins of right lower extremity with inflammation, I83.12 - Varicose veins of left lower extremity with inflammation Coding Level of Care Code New Pt Level 4 (48134) Diagnoses Varicose veins of both lower extremities with inflammation I83.11; I83.12
--- OUTSIDE RECORDS SUMMARY | 2024-08-03 15:30 | XMS_ITS | Encounter Summary ---
Author Organization [employer] Address [address] [place] [address] [address] [place] [address] Care Team Providers Care Ticket Broker Name Role Phone Carol [facility] Primary Care Provider [phone] Encounter Details Date Type Department Care Team (Late st Contact Info) Description 03/22/2022 Abstract [facility] MEDICINE [address] [place], [place] [phone] [facility] [address] [place], [place] [phone] Social History Tobacco Use Types Packs/Day Years [...] as of this encounter Plan of Treatment Not on file documented as of this encounter Procedures Procedure [...] on filedocumented in this encounter Care Teams Ticket Broker Relationship Specialty Start Date End Date Pooja Medina FNP [address] [place] [id number] PCP - General Family Medicine 11/15/20 documented as of this encounter
== END 2024-08-03 13:53 | disposition home or self-care (01) ==
LOC: HO.HVS 13:34
PROVIDERS: PCP Registered Nurse; Visit Provider Physician Assistant Surgical
DX: I83.11 Varicose veins of right lower extremity with inflammation (principal); I83.12 Varicose veins of left lower extremity with inflammation
CPT/HCPCS: 99204

== ENCOUNTER → 2024-08-03 13:33 | Outpatient (BNVA) | payer OTHER, SELFPAY | PROVIDERS: PCP Registered Nurse; Visit Provider Physician Assistant Surgical | DX: I83.11 Varicose veins of right lower extremity with inflammation (principal); I83.12 Varicose veins of left lower extremity with inflammation | CPT/HCPCS: 99202 ==

== ENCOUNTER 2024-08-09 12:22 | Outpatient (AMB) | payer OTHER, SELFPAY ==
--- NOTE | 2024-08-09 12:32 | MHC.OFFVIS ---
Vital Signs 08/09/24 12:32 Height 5 ft 1 in Intake Visit Reasons: OV- RT knee OA Follow up Intake Note: Kasie is a 43 year old female who presents today for a follow up of her Right Knee OA. Right knee partial medial meniscectomy and chondroplasty on 07/23/23. At her last visit we discussed surgical vs non surgical treatments and an injection was administered. She reports no relief from the injection at last visit, the pain is the same.Patient states that she would like to discuss non surgical treatments at this time. Allergies mussels Allergy (Severe, Verified 08/09/24 12:36) DIFFICULTY BREATHING lactose Adverse Reaction (Verified 08/09/24 12:36) Diarrhea HPI HPI OV- RT knee OA Follow up: Details: Kasie is a 43 year old female who presents today for a follow up of her Right Knee OA. Right knee partial medial meniscectomy and chondroplasty on 07/23/23. At her last visit we discussed surgical vs non surgical treatments and an injection was administered. She reports no relief from the injection at last visit, the pain is the same.Patient states that she would like to discuss non surgical treatments at this time. After her surgery a year ago she did okay initially but it has still been having pain. A repeat MRI showed some intrasubstance tearing of the meniscus. She has continued to work but with difficulty. Intraoperatively she had arthritic changes that were moderate to severe in the trochlea and moderate in the medial femoral condyle. We have injected her knee but she did not find it helpful. We have been talking about surgery but I am dubious that that will be particularly helpful given the osteoarthritis. [facility] Medical History Lipoma of arm Asthma Lab test negative for COVID-19 virus COVID-19 Chronic constipation Iron deficiency anemia due to chronic blood loss Epigastric pain GERD (gastroesophageal reflux disease) Lactose intolerance in adult Depression Hypothyroidism Surgical History Status post excision of lipoma (~11/27/22) Hx of shoulder surgery Hx of tubal ligation History of endometrial ablation Hx of dilation and curettage History of breast lump/mass excision Hx of arthroscopic knee surgery History of esophagogastroduodenoscopy (EGD) Status post laparoscopic cholecystectomy History of colonoscopy Family History Mother No problems noted. Father No problems noted. Maternal Aunt Hx of ovarian cancer Social History Household Members: Children Alcohol intake: unknown Patient Tobacco Use Status: Never used Tobacco Second Hand Smoke Exposure: No Current occupational status: employed Current occupation: [employer] HIGH/ right hand dominant Female Reproductive History Menstrual Age of Menarche: 11 Physical Exam Extrem Other: On exam there is tenderness to palpation medial compartment. Negative Jesus's. Trace effusion. Assessment & Plan Assessment & Plan (1) Localized osteoarthritis of right knee: Code(s): M17.11 - Unilateral primary osteoarthritis, right knee Category: Medical Plan: This is a 44-year-old with right knee osteoarthritis in the setting of prior meniscectomy. She is not really improving with conservative management but can not take time off from work for surgery. Furthermore I can not be certain that additional surgery would be beneficial given her concomitant osteoarthritis. I explained this to her. At this time she is not interested in injections. We will try NSAIDs and continue trying to maintain her weight and stay active. She has tried NSAIDs in the past and has a history of gastritis so I recommend Celebrex. Follow up 3 months. Medications: New celecoxib (Celebrex) 200 mg PO DAILY 30 caps 0RF Coding Level of Care Code Est Pt Level 3 (92060) Diagnoses Localized osteoarthritis of right knee M17.11
== END 2024-08-09 13:03 | disposition home or self-care (01) ==
LOC: HO.HOS 12:22
PROVIDERS: PCP Registered Nurse; Visit Provider Orthopaedic Surgery
DX: M17.11 Unilateral primary osteoarthritis, right knee (principal)
CPT/HCPCS: 99213

== ENCOUNTER → 2024-08-09 12:22 | Outpatient (BNVA) | payer OTHER, SELFPAY | PROVIDERS: PCP Registered Nurse; Visit Provider Orthopaedic Surgery | DX: M17.11 Unilateral primary osteoarthritis, right knee (principal) | CPT/HCPCS: 99212 ==

== ENCOUNTER 2024-09-01 12:15 | Emergency (ER) | payer OTHER, SELFPAY ==
--- NOTE | ~2024-09-01 | XR_ITS ---
EXAMINATION: XR HAND, RIGHT CLINICAL INFORMATION: pain to 4/5th digits COMPARISON: None available. TECHNIQUE: PA, lateral, and oblique views of the right hand. FINDINGS: There are no degenerative changes. There are no erosions. No fracture line is evident. XR/XR hand RT min 3V IMPRESSION: Unremarkable right hand. Electronically signed by: Salvador Alexander MD 09/01/2024 01:33 PM EDT
--- NOTE | ~2024-09-01 | XR_ITS ---
EXAMINATION: XR WRIST, RIGHT CLINICAL INFORMATION: pain to ulnar wrist COMPARISON: None available. TECHNIQUE: PA, lateral, oblique, and scaphoid views of the right wrist. FINDINGS: There are no degenerative changes. There is no joint diastases. No fracture line is evident. XR/XR wrist RT min 3V IMPRESSION: Unremarkable right wrist Electronically signed by: Salvador Alexander MD 09/01/2024 01:31 PM EDT
[2024-09-01 12:24] VITALS: BP 114/72; PULSE 98; RESP 16; TEMP 36.2; O2SAT 97; BMI 39.7
--- NOTE | 2024-09-01 12:31 | ED_ITS ---
HPI - General Adult General Chief complaint: Extremity Injury, Upper Stated complaint: pain in R wrist Time Seen by Provider: 09/01/24 13:19 Source: patient and RN notes reviewed Mode of arrival: ambulatory Limitations: no limitations History of Present Illness ED Provider: Tita Castro PA-C HPI narrative: This is a 44-year-old Icelandic-speaking female who presents emergency department with concerns of right wrist pain for the last day. Patient reports that her laundry bag fell and she tried to catch it but her arm extended with her. She immediately felt a strain in her right wrist. Denies previous injury to her right wrist in the past. She took ibuprofen last night which provided her with some relief. No numbness, tingling or weakness. She is right-hand dominant. No other complaints or concerns at this time. MD complaint: Right wrist pain Onset (ago): day(s) Radiation: non-radiation Quality: aching Pain Consistency: constant Relieving factors: none Exacerbating factors: movement Associated symptoms: denies other symptoms Treatments prior to arrival: none Related Data Home Medications ?Medication ?Instructions ?Recorded ?Confirmed albuterol sulfate 90 mcg/actuation 2 puff inhalation Q 6H PRN 11/25/19 11/26/23 aerosol inhaler (ProAir HFA) Shortness Of Breath Or Wh eezing cholecalciferol (vitamin D3) 50 50 mcg PO DAILY 11/26/23 mcg (2,000 unit) tablet (Vitamin D3) epinephrine 0.3 mg/0.3 mL IM 03/07/22 11/26/23 injection, auto-injector fluticasone propionate 110 2 puff inhalation BID 03/0711/26/23 mcg/actuation HFA aerosol inhaler (Flovent HFA) levothyroxine 25 mcg capsule 25 mcg PO DAILY 03/07/22 11/26/23 (Tirosint) amitriptyline 10 mg tablet 10 mg PO BEDTIME 03/15/24 cetirizine 10 mg tablet 10 mg PO DAILY 03/15/24 magnesium oxide 400 mg (241.3 mg 400 mg PO DAILY 03/15 magnesium) tablet Previous Rx's ?Medication ?Instructions ?Recorded omeprazole 40 mg capsule,delayed 40 mg PO BID #180 cap s 01/23/23 release celecoxib 200 mg capsule (Celebrex) 200 mg PO DAILY #3 0 caps 08/13/24 acetaminophen 500 mg tablet 500 - 1,000 mg (1 - 2 x 50 0 mg) PO 09/01/24 (Tylenol Extra Strength) QID PRN pain #30 tabs ibuprofen 600 mg tablet 600 mg PO Q6H PRN pain #30 t abs 09/01/24 Allergies Allergy/AdvReac Type Severity Reaction Status Date / Time mussels Allergy Severe DIFFICULTY Verified 09/01/24 12:33 BREATHING lactose AdvReac Diarrhea Verified 09/01/24 12:33 Review of Systems Review of Systems: Yes all other systems are reviewed and are negative Constitutional: Constitutional: Reports as per HPI [facility] Past Medical History Medical History Lipoma of arm Asthma Lab test negative for COVID-19 virus COVID-19 Chronic constipation Iron deficiency anemia due to chronic blood loss Epigastric pain GERD (gastroesophageal reflux disease) Lactose intolerance in adult Depression Hypothyroidism Surgical History Status post excision of lipoma (~11/27/22) Hx of shoulder surgery Hx of tubal ligation History of endometrial ablation Hx of dilation and curettage History of breast lump/mass excision Hx of arthroscopic knee surgery History of esophagogastroduodenoscopy (EGD) Status post laparoscopic cholecystectomy History of colonoscopy Family History Family History Mother No problems noted. Father No problems noted. Maternal Aunt Hx of ovarian cancer Social History Social History Household Members: Children Alcohol intake: unknown Patient Tobacco Use Status: Never used Tobacco Second Hand Smoke Exposure: No Advance Directives: No Advance Directives Information Provided: Yes Do you have a plan to hurt others: No Plan Current occupational status: employed Current occupation: [employer] HIGH/ right hand dominant Physical Exam ED Vital Signs: Vital Signs - 24 hr 09/01/24 12:24 Temperature 97.2 F Pulse Rate 98 Respiratory Rate 16 Blood Pressure 114/72 Pulse Oximetry 97 Oxygen Delivery Method Room Air BMI result Body Mass Index 39.7 Const Other: General: Awake, alert, and oriented X3. No acute distress. HEENT: Normal inspection CVS: Normal heart rate and rhythm. Pulses normal. Respiratory: No respiratory distress Skin: Warm, dry, no rashes noted to exposed skin. Normal skin color. Normal skin turgor. Extremities: Right wrist with no obvious bony deformity or swelling. Strong radial pulse, able to oppose thumb to all digits. Tenderness palpation along the distal ulna with some scant swelling in this region. Full ROM of the wrist without difficulty. Capillary refill less than 2 seconds. Neuro: Oriented X 3. No motor deficit. No sensory deficit. Course Course Course Narrative: 09/01/24 1231 LEYDI Saldivar This is a Rapid Medical Examination (RME) performed by Aman Keyes PA-C in triage. Full HPI, ROS, assessment and treatment plan per primary provider in the Main ED. Hx: 44 yo F right hand dominant here w/ right wrist/hand pain which began yesterday after she tried to catch her basket of clothes that fell out of her arms. did not fall on the extremity. PE/vitals: Minimal swelling noted to ulnar aspect of right wrist. ttp. Pain elicited with bringing 4th and 5th digits to thumb. Plan: xrs Medical Decision Making Medical Decision Making MDM Narrative: This is a 44-year-old female who presents emergency department with complaints of right wrist pain for the last 24 hours. She injured her right wrist with a pack of laundry. On arrival, vital signs within normal limits. She has tenderness palpation along the distal ulna, full ROM. Took ibuprofen last night. X-rays were obtained, no abnormality seen. Discussed findings with patient with grants administrator at bedside. Placed in wrist splint, advised to take ibuprofen and or Tylenol as needed for pain and symptoms. Given orthopedic referral should her wrist pain still cause her issues. Given strict return precautions. Patient stable for discharge. Differential Diagnosis Differential Diagnoses: The differential diagnosis associated with the presentation includes Strain, sprain, contusion, fracture, dislocation Radiology Impression Discussion of test interpretation with radiology: I have reviewed the radiologist's reading. Radiologist Impression: FINDINGS: There are no degenerative changes. There is no joint diastases. No fracture line is evident. XR/XR wrist RT min 3V IMPRESSION: Unremarkable right wrist Electronically signed by: Salvador Alexander MD 09/01/2024 01:31 PM EDT Dictated By: Salvador Alexander MD FINDINGS: There are no degenerative changes. There are no erosions. No fracture line is evident. XR/XR hand RT min 3V IMPRESSION: Unremarkable right hand. Electronically signed by: Salvador Alexander MD 09/01/2024 01:33 PM EDT RP Dictated By: Salvador Alexander MD Discharge Plan Discharge Clinical Impression: Wrist pain, right Patient Disposition: Home, Self-Care Instructions: Wrist Injury (ED) Additional Instructions: You were seen in the emergency department after injuring her right wrist. Your x-rays do not show any broken bones. Please rest, ice, and elevate your right wrist. Please use splint as needed for comfort only. Alternate between ibuprofen and or Tylenol as needed for pain and symptoms. You continue to have pain in your wrist, you may follow-up with the orthopedic team, call to make an appointment. If any new or worsening symptoms occur including but not limited to severe chest pain, or shortness of breath, please return for re-evaluation. Prescriptions: New ibuprofen 600 mg tablet 600 mg PO Q6H PRN (Reason: pain) Qty: 30 0RF acetaminophen [Tylenol Extra Strength] 500 mg tablet 500 - 1,000 mg PO QID PRN (Reason: pain) Qty: 30 0RF No Action omeprazole 40 mg capsule,delayed release(DR/EC) 40 mg PO BID Qty: 180 3RF albuterol sulfate [ProAir HFA] 90 mcg/actuation HFA aerosol inhaler 2 puff inhalation Q6H PRN (Reason: Shortness Of Breath Or Wheezing) cholecalciferol (vitamin D3) [Vitamin D3] 50 mcg (2,000 unit) tablet 50 mcg PO DAILY fluticasone propionate [Flovent HFA] 110 mcg/actuation HFA aerosol inhaler 2 puff inhalation BID levothyroxine [Tirosint] 25 mcg capsule 25 mcg PO DAILY epinephrine 0.3 mg/0.3 mL auto-injector IM celecoxib [Celebrex] 200 mg capsule 200 mg PO DAILY Qty: 30 0RF magnesium oxide 400 mg (241.3 mg magnesium) tablet 400 mg PO DAILY cetirizine 10 mg tablet 10 mg PO DAILY amitriptyline 10 mg tablet 10 mg PO BEDTIME Referrals: [facility] Surgeons [Provider Group] Print Language: Icelandic
--- OUTSIDE RECORDS SUMMARY | 2024-09-01 14:52 | XMS_ITS | Encounter Summary ---
Author Organization [employer] [facility] Address [address] [place] [address] [address] [place] [address] Care Team Providers Care Acupressure Therapist Name Role Phone Pooja Medina [facility] Primary Care Provider [phone] Encounter Details Date Type Department Care Team ([facility] Contact Info) Description 03/22/2022 Abstract [facility] MEDICINE [address] [place] [phone] Pooja Medina [facility] [address] [place], [place] [phone] Social History Tobacco Use Types Packs/Day Years [...] Upcoming Encounters Date Type Department Care Team ([facility] Contact Info) Description 10/27/2024 2:45 PM EDT Office Visit [facility] MEDICINE [address] [place] [address] [phone] Pooja Medina [facility] [address] [place] [address] documented as of this encounter Procedures Procedure [...] on filedocumented in this encounter Care Teams Acupressure Therapist Relationship Specialty Start Date End Date Pooja Medina FNP [address] [place] [address] PCP - General Family Medicine 11/15/20 documented as of this encounter
[2024-09-01 15:11] VITALS: BP 115/64; PULSE 64; RESP 16; TEMP 36.2; O2SAT 100
== END 2024-09-01 15:12 | disposition home or self-care (01) ==
PROVIDERS: Emergency Provider Emergency Medicine; PCP Registered Nurse
DX: M25.531 Pain in right wrist (principal)
CPT/HCPCS: 73110; 73130; 99282; 99283

== ENCOUNTER → 2024-09-01 12:33 | Outpatient (BNV) | payer OTHER, SELFPAY | PROVIDERS: Emergency Provider Emergency Medicine; PCP Registered Nurse; Visit Provider Radiology Diagnostic Radiology | DX: M25.531 Pain in right wrist (principal); M79.644 Pain in right finger(s) | CPT/HCPCS: 73110; 73130 ==

== ENCOUNTER 2024-09-02 13:01 | Outpatient (REF) | payer OTHER, SELFPAY ==
--- NOTE | ~2024-09-02 | US_ITS ---
EXAMINATION: US LOWER EXTREMITY VENOUS (REFLUX EXAM), BILATERAL CLINICAL INFORMATION: Varicose veins of the right lower extremity with inflammation COMPARISON: None. TECHNIQUE: Color flow triplex imaging and compression Doppler was performed to evaluate both the deep and the superficial systems bilaterally. To evaluate the superficial system, the examination was performed in the upright position. Color-flow Doppler ultrasound and compression ultrasound were utilized. In addition, maneuvers were utilized to demonstrate reflux. FINDINGS: 1. DEEP VENOUS ULTRASOUND OF THE RIGHT LOWER EXTREMITY: Common Femoral Vein: Compressible, normal respiratory variation and augmented flow. Femoral Vein: Compressible, normal color flow and augmentation. Popliteal Vein: Compressible, normal augmentation. Deep Reflux: There is no evidence of reflux in the deep system in either the common femoral vein, superficial femoral or the popliteal vein. 2. SUPERFICIAL ULTRASOUND WITH DOPPLER OF RIGHT LOWER EXTREMITY: GREAT SAPHENOUS VEIN: Saphenofemoral Junction: 0.6 cm; Reflux: 0 ms Proximal Thigh: 0.6 cm; Reflux: 0 ms Mid Thigh: 0.3 cm; Reflux: 0 ms Distal Thigh: 0.3 cm; Reflux: 0 ms At Knee: 0.3 cm; Reflux: 0 ms Below Knee/Proximal Calf: 0.2 cm; Reflux: 0 ms Mid Calf: 0.3 cm; Reflux: 0 ms Ankle/Distal Calf: 0.3 cm; Reflux: 0 ms Lateral accessory GREAT SAPHENOUS VEIN: Saphenofemoral Junction: 0.3 cm; Reflux: 0 ms Mid Thigh: 0.3 cm; Reflux: 0 ms SMALL SAPHENOUS VEIN: Drainage: Thigh Saphenopopliteal Junction: 0.2 cm; Reflux: 0 ms Mid calf: 0.3 cm; Reflux: 0 ms Distal: 0.3 cm; Reflux: 0 ms VEIN OF GIACOMINI: Size: NA cm Reflux: NA ms PERFORATORS: Location: Small saphenous vein, mid Size: 0.4 cm Reflux: 0 ms Location: Greater saphenous vein, mid thigh Size: 0.1 cm Reflux: 0 ms VARICOSITIES > 3mm: Location: Small saphenous vein, proximal Size: 0.3 cm Reflux: 0 ms Location: Small saphenous vein, mid Size: 0.3 cm Reflux: 0 ms 3. DEEP VENOUS ULTRASOUND OF THE LEFT LOWER EXTREMITY: Common Femoral Vein: Compressible, normal respiratory variation and augmented flow. Femoral Vein: Compressible, normal color flow and augmentation. Popliteal Vein: Compressible, normal augmentation. Deep Reflux: There is no evidence of reflux in the deep system in either the common femoral vein, superficial femoral or the popliteal vein. 4. SUPERFICIAL ULTRASOUND WITH DOPPLER OF LEFT LOWER EXTREMITY: GREAT SAPHENOUS VEIN: Saphenofemoral Junction: 0.6 cm; Reflux: 0 ms Proximal Thigh: 0.5 cm; Reflux: 0 ms Mid Thigh: 0.3 cm; Reflux: 0 ms Distal Thigh: 0.4 cm; Reflux: 0 ms At Knee: 0.3 cm; Reflux: 0 ms Below Knee/Proximl calf: 0.2 cm; Reflux: 0 ms Mid Calf: 0.3 cm; Reflux: > 2.3 seconds Distal Calf/Ankle: 0.2 cm; Reflux: 1.7 seconds Medial accessory GREAT SAPHENOUS VEIN: Saphenofemoral Junction: 0.4 cm; Reflux: 0 ms Mid Thigh: 0.3 cm; Reflux: 0 ms DUPLICATED MEDIAL GREAT SAPHENOUS VEIN: Diameter: None imaged cm Reflux: NA ms DUPLICATED LATERAL GREAT SAPHENOUS VEIN: Diameter: None imaged. cm Reflux: NA ms SMALL SAPHENOUS VEIN: Drainage: Thigh Saphenopopliteal Junction: 0.3 cm; Reflux: 0 ms Proximal: 0.2 cm; Reflux: 0 ms Distal: 0.3 cm; Reflux: 0 ms VEIN OF GIACOMINI: Size: NA Reflux: NA PERFORATORS: Location: Small saphenous vein, mid Size: 0.2 cm Reflux: 0 ms Location: Greater saphenous vein, proximal calf Size: 0.2 cm Reflux: 0 ms Location: Greater saphenous vein, mid calf Size: 0.3 cm Reflux: 0 ms VARICOSITIES > 3mm: None Imaged US/US venous duplex LE BI IMPRESSION: Right: No venous reflux is demonstrated. 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 Electronically signed by: Salvador Alexander MD 09/02/2024 02:52 PM EDT
--- OUTSIDE RECORDS SUMMARY | 2024-09-02 13:30 | XMS_ITS | Encounter Summary ---
Author Organization [employer] [facility] Address [address] [place] [address] [address] [place] [address] Care Team Providers Care Metal Technician Name Role Phone Pooja Medina [facility] Primary Care Provider [phone] Encounter Details Date Type Department Care Team ([facility] Contact Info) Description 03/22/2022 Abstract [facility] MEDICINE [address] [place] [address] [phone] Pooja Medina [facility] [address] [place], [place] [phone] Social History Tobacco Use Types Packs/Day Years [...] Upcoming Encounters Date Type Department Care Team ([facility] Contact Info) Description 10/27/2024 2:45 PM EDT Office Visit [facility] MEDICINE [address] [place] [address] [phone] Pooja Medina [facility] [address] [place] [address] documented as of this encounter Procedures Procedure [...] on filedocumented in this encounter Care Teams Metal Technician Relationship Specialty Start Date End Date Pooja Medina FNP [address] [place] [address] PCP - General Family Medicine 11/15/20 documented as of this encounter
== END 2024-09-02 13:02 | disposition home or self-care (01) ==
LOC: HO.US 13:01
PROVIDERS: PCP Registered Nurse; Visit Provider Physician Assistant Surgical
DX: I83.11 Varicose veins of right lower extremity with inflammation (principal); I83.12 Varicose veins of left lower extremity with inflammation
CPT/HCPCS: 93970

== ENCOUNTER → 2024-09-02 13:02 | Outpatient (BNV) | payer OTHER, SELFPAY | PROVIDERS: PCP Registered Nurse; Visit Provider Radiology Diagnostic Radiology | DX: I83.893 Varicose veins of bilateral lower extremities with other complications (principal) | CPT/HCPCS: 93970 ==

== ENCOUNTER 2024-09-21 13:12 | Outpatient (AMB) | payer OTHER, SELFPAY ==
[2024-09-21 13:35] VITALS: BMI 41.6
--- NOTE | 2024-09-21 13:35 | MHC.OFFVIS ---
Vital Signs 09/21/24 13:35 Height 5 ft 1 in Weight 220 lb BMI 41.6 Intake Visit Reasons: ED-Est patient new prob-Right wrist Pain Intake Note: Kasie 44 yr old right hand dominant female presents today for a emergency department follow up visit for her right wrist pain. As per ED notes, patient injured her right wrist with a pack of laundry. Patient stated she took ibuprofen which provided relief. Xrays were taken in ED with no fractures. Patient was placed in wrist splint and advised to take ibuprofen and or Tylenol as needed for pain & symptoms. Currently states she continues to have pain even while using her brace. Pain increase with twisting motion of wrist and heavy lifting. States she also has numbness and tingling in her right hand. States she has an EMG done last year. Allergies mussels Allergy (Severe, Verified 09/21/24 13:43) DIFFICULTY BREATHING lactose Adverse Reaction (Verified 09/21/24 13:43) Diarrhea HPI HPI ED-Est patient new prob-Right wrist Pain: Details: The patient is a 44-year-old [id number] woman who sustained an injury to the ulnar aspect of her right wrist when her laundry basket slipped causing a hyper extension injury to her right wrist. She was seen in the emergency department placed in a Velcro wrist splint and asked to follow up with us. She complains of pain in the volar and dorsal ulnar aspect of the right wrist. She also complains of numbness and tingling but this is in both hands it is worse at night and with activities. He says that this was occurring prior to this injury as well. She is seen today with her daughter and 5-year-old grandson. Her daughter acted as a personal injury legal assistant today. [facility] Medical History Lipoma of arm Asthma Lab test negative for COVID-19 virus COVID-19 Chronic constipation Iron deficiency anemia due to chronic blood loss Epigastric pain GERD (gastroesophageal reflux disease) Lactose intolerance in adult Depression Hypothyroidism Surgical History Status post excision of lipoma (~11/27/22) Hx of shoulder surgery Hx of tubal ligation History of endometrial ablation Hx of dilation and curettage History of breast lump/mass excision Hx of arthroscopic knee surgery History of esophagogastroduodenoscopy (EGD) Status post laparoscopic cholecystectomy History of colonoscopy Family History Mother No problems noted. Father No problems noted. Maternal Aunt Hx of ovarian cancer Social History Household Members: Children Alcohol intake: unknown Patient Tobacco Use Status: Never used Tobacco Second Hand Smoke Exposure: No Current occupational status: employed Current occupation: [employer]/ right hand dominant Female Reproductive History Menstrual Age of Menarche: 11 Physical Exam Vital Signs: BMI result Body Mass Index 41.6 Const General: cooperative, healthy appearing and no acute distress Orientation/consciousness: oriented to person and oriented to place HEENT Head: Yes normocephalic and Yes atraumatic Eyes EOM: EOMs intact bilaterally Resp Effort & Inspection: normal respiratory effort and able to speak in complete sentences Cardio Jugular venous distension: no JVD Skin General skin exam: turgor normal Rashes: no rashes Neuro General: oriented to person and oriented to place Extrem Other: Evaluation of right Upper Extremity: Neuro: Median, ulnar, radial nerves motor and sensory grossly intact. Vascular: Cap refill brisk. ROM: Can bring fingers closed to a fist and back out to full extension. No locking or catching Resisted extension of the middle ring and small fingers caused increased discomfort to the ulnar aspect of the wrist Resisted wrist extension interestingly caused discomfort to the volar ulnar aspect of the wrist. She has symmetrical pronation. She had supination on the right to perhaps 65 degrees, with encouragement she can get to about 80 degrees with some discomfort at the extreme of motion. The DRUJ felt stable on exam today. She does have some tenderness over the ECU tendon as it passes over the distal ulna, but I did not appreciate any subluxation. She is tender also where the ECU tendon inserts in the base of the 5th metacarpal She also had some foveal tenderness No tenderness in the snuffbox or scaphoid tubercle No tenderness over the distal radius Skin: No lacerations or abrasions. General: No eccymosis. No erythema or evidence of infection. Radiographs: Three views of the right wrist and hand taken 09/01/2024 show no fractures or dislocations. Psych Appearance: grossly normal Affect: normal affect Attitude: cooperative Assessment & Plan Assessment & Plan (1) Right wrist sprain: Code(s): S63.501A - Unspecified sprain of right wrist, initial encounter Category: Medical Plan Assessment and plan: 1. Right wrist pain/sprain Following a hyper extension injury caused by a falling laundry basket on 09/01/2024 Discomfort is mostly in the ulnar aspect of the wrist No fractures or dislocations I educated the patient and her daughter about this injury I would like to give it some more time to see how this heals on its own. I talked to them about the importance of activity modification and handling nothing heavier than a cell phone if possible with that right hand. I do want her to remove the Velcro wrist splint during periods of rest to work on wrist range of motion exercises including flexion extension and prono-supination which she can also do with the wrist splint on. She is going to follow up in 4-5 weeks to see how she is doing No radiographs are necessary unless she has another injury. I believe I wrote her for light duty right upper extremity with a 2 lb weight limit. 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 2. Bilateral hand numbness and tingling Intermittent but daily worse at night. She reportedly had a normal nerve conduction study a year ago. I am ordering a new nerve conduction study. We can see that when I see her in 4-5 weeks. No need to see her sooner. Orders: Orders NE electromyogram (EMG) Today R20.0 - Anesthesia of skin, R20.2 - Paresthesia of skin NE nerve conduction velocity Today R20.0 - Anesthesia of skin, R20.2 - Paresthesia of skin Coding Level of Care Code Est Pt Level 4 (39723) Diagnoses Right wrist sprain S63.501A
== END 2024-09-21 14:46 | disposition home or self-care (01) ==
LOC: HO.HOS 13:13
PROVIDERS: PCP Registered Nurse; Visit Provider Orthopaedic Surgery
DX: S63.501A Unspecified sprain of right wrist, initial encounter (principal)
CPT/HCPCS: 99213

== ENCOUNTER → 2024-09-21 13:12 | Outpatient (BNVA) | payer OTHER, SELFPAY | PROVIDERS: PCP Registered Nurse; Visit Provider Orthopaedic Surgery | DX: M25.531 Pain in right wrist (principal); S63.501A Unspecified sprain of right wrist, initial encounter | CPT/HCPCS: 99212 ==

== ENCOUNTER 2024-10-19 13:00 | Outpatient (AMB) | payer OTHER, SELFPAY ==
--- NOTE | 2024-10-19 13:01 | MHC.OFFVIS ---
Vital Signs 10/19/24 13:02 Height 5 ft 1 in Weight 220 lb BMI 41.6 Intake Visit Reasons: follow up s/p 09/02/24 Intake Note: follow up 09/02/24 for VV w/ pain. Right LE worse than Left LE. 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 She was concerned about it who presented to us for evaluation for venous insufficiency. She now presents for follow-up with venous insufficiency testing. [facility] Medical History Lipoma of arm Asthma Lab test negative for COVID-19 virus COVID-19 Chronic constipation Iron deficiency anemia due to chronic blood loss Epigastric pain GERD (gastroesophageal reflux disease) Lactose intolerance in adult Depression Hypothyroidism Surgical History Status post excision of lipoma (~11/27/22) Hx of shoulder surgery Hx of tubal ligation History of endometrial ablation Hx of dilation and curettage History of breast lump/mass excision Hx of arthroscopic knee surgery History of esophagogastroduodenoscopy (EGD) Status post laparoscopic cholecystectomy History of colonoscopy Family History Mother No problems noted. Father No problems noted. Maternal Aunt Hx of ovarian cancer Social History Household Members: Children Alcohol intake: unknown Patient Tobacco Use Status: Never used Tobacco Second Hand Smoke Exposure: No Current occupational status: employed Current occupation: [email or web address]/ right hand dominant Female Reproductive History Menstrual Age of Menarche: 11 Review of Systems Const All systems reviewed & are unremarkable except as noted in HPI and below Reports no additional complaints ENT Reports Normal hearing present Card Denies chest pain, Denies chest pain at rest, Denies chest pain with activity and Denies pedal edema Resp Denies cough GI Denies abdominal pain Musc Denies abnormal gait, Denies muscle cramps and Denies radiating pain into limb Skin/Breast Denies skin ulcer and Denies wounds Neuro Reports Normal hearing present and Denies abnormal gait Psych Reports no additional complaints Physical Exam Vital Signs: BMI result Body Mass Index 41.6 Const General: cooperative, healthy appearing and comfortable Orientation/consciousness: oriented to person, oriented to place and oriented to time HEENT Head: Yes normal to inspection Neck Neck: Yes normal visual inspection Carotids: no bruits Chest Chest palpation & inspection: normal inspection of the chest Resp Effort & Inspection: normal respiratory effort and able to speak in complete sentences Auscultation: clear to auscultation bilaterally, no crackles, no rales, no rhonchi and no wheezes Cardio Rate: regular rate Rhythm: regular rhythm Heart sounds: S1 normal heart sound present and S2 normal heart sound present Bruits: no carotid bruits Peripheral pulses: Peripheral pulses 2+ throughout GI Inspection: Yes normal to inspection Skin Wounds: no wounds Hair: normal Neuro General: oriented to person, oriented to place and oriented to time Cranial nerves: Yes CN's II-XII intact bilaterally and Yes Normal hearing present Cognition (Neuro): normal cognition Motor exam (neuro): 5/5 motor strength present throughout Extrem Other: venous exam: +1 edema General: No clubbing, No cyanosis and Yes edema Psych Appearance: grossly normal Mental Status: mental status grossly normal Speech and movement: Normal speech and movement present Results Reviewed Results Reviewed: Brief summary of venous insufficiency testing is as follows: right great saphenous vein: negative right small saphenous vein: negative right accessory vein: none present left great saphenous vein: negative left small saphenous vein: negative left accessory vein: none present Please note there is no evidence of any venous aneurysms or significant tortuosity Assessment & Plan Assessment & Plan (1) Varicose veins of both lower extremities with inflammation: Code(s): I83.11 - Varicose veins of right lower extremity with inflammation; I83.12 - Varicose veins of left lower extremity with inflammation Category: Medical Plan: In short patient was negative for any significant venous insufficiency. We did discuss routine conservative measures including compression elevation and exercise. Patient will follow up with us on an as-needed basis. Thank you for allowing us to assist in her care. (2) Morbid obesity with BMI of 40.0-44.9, adult: Code(s): E66.01 - Morbid (severe) obesity due to excess calories; Z68.41 - Body mass index [BMI] 40.0-44.9, adult Category: Medical Plan: We also did discuss the importance of exercise and weight loss. This may alleviate some of the discomfort in her lower extremities. Thank you for allowing us to assist in her care. If there are any questions or concerns please do not hesitate to contact us. Coding Level of Care Code Est Pt Level 4 (86383) Diagnoses Varicose veins of both lower extremities with inflammation I83.11; I83.12 Morbid obesity with BMI of 40.0-44.9, adult E66.01; Z68.41
[2024-10-19 13:02] VITALS: BMI 41.6
--- OUTSIDE RECORDS SUMMARY | 2024-10-19 14:20 | XMS_ITS | Encounter Summary ---
Author Organization [employer] Address [address] [place] [address] [address] [place] [address] Care Team Providers Care Pantograph I Engraver Name Role Phone [facility] Primary Care Provider [phone] Reason for Visit * Reason Comments Pre-visit Planning (Unable to reach for PVP screening, LVM) to be completed in office Encounter Details Date Type Department Care Team ([facility] st Contact Info) Description 10/19/2024 Patient Outreach [facility] [address] [place] [address] [facility] [address] [place] [address] Pre-visit Planning ((Unable to reach for PVP screening, LVM) to be completed in office ) Social History Tobacco Use Types Packs/Day Years Used Date Smoking Tobacco: Never Passive Smoke Exposure: Never Smokeless Tobacco: Never Alcohol Use Standard Drinks/Week Comments Yes 0 (1 standard drink = 0.6 oz pur e alcohol) Ocassional weekends Depression Answer Date Recorded Patient Health Questionnaire-9 Score 0 07/19/2024 Patient Health Questionnaire-9 Score 0 07/19/2024 Last PHQ-9: Questionnaire Data Not on file 0 07/19/2024 Housing Stability Answer Date Recorded What is [...] Date Recorded Patient Health Questionnaire-2 Score 0 07/19/2024 Internet Access Answer Date Recorded Internet Access Q1 Yes 12/15/2023 Internet Access Q2 Not on file 12/15/2023 Comments No Sex and Gender Information Value Date Recorded Sex Assigned at Female 12/17/2021 10:18 AM EDT Legal Sex Female 10:18 AM EDT Gender Identity Female 12/17/2021 10:18 AM EDT Sexual Orientation Choose not to disclose 2021 10:18 AM EDT documented as of this encounter Progress Notes * Dahlia Gresham - 10/19/2024 1:25 PM EDT CC Dahlia. Placed outbound call to patient to complete pre-visit planning. No answer at this time. Patient name and were not confirmed. CC left voicemail requesting return call. Direct contact information provided. documented in this encounter Plan of Treatment Upcoming Encounters Date Type Department Care Team (Late st Contact Info) Description 10/27/2024 2:45 PM EDT Office Visit [facility] [address] [place] [address] Pooja Medina FNP [address] [place] [address] documented as of this encounter Visit Diagnoses Not on filedocumented in this encounter Additional Health Concerns Assessment Noted Time PHQ-9 Depression Total Score: 0 07/20/19 25 1:54 PM EDT documented as of this encounter Care Teams Pantograph I Engraver Relationship Specialty Start Date End Date Pooja Medina FNP [address] [place] [address] PCP - General Family Medicine 11/15/20 documented as of this encounter
--- OUTSIDE RECORDS SUMMARY | 2024-10-19 14:20 | XMS_ITS | Clinical Summary ---
Author Organization [employer] Address [address] [place] [address] [address] [place] [address] Care Team Providers Care Washer Meat Name Role Phone Pooja Medina [facility] Primary Care Provider [phone] Allergies Active Allergy Reactions Criticality Noted Date Comments Lactose Diarrhea 02/26/2023 Shellfish Allergy Shortness of breath High 4 Shellfish-Derived Products Anaphylaxis High 04/13/19 21 Medications albuterol 108 (90 Base) MCG/ACT inhaler Inhale every 4 (four) hours. 2 Active baclofen (Lioresal) 10 MG tablet Take 1 tablet by mouth in the morning and 1 tablet in the evening. 2 Active EPINEPHrine (Epipen) 0.3 MG/0.3ML injection syringeIndications :Bee sting allergy Inject 0.3 mL (0.3 mg) as directed 1 (one) time for 1 dose. 1 each 3 Active Riboflavin 400 MG capsuleIndications :Chronic migraine with aura without status migrainosus, not intractable Take 1 capsule by oral route daily 90 capsule 2 3 Active ferrous gluconate (Fergon) 324 (38 Fe) MG tablet TAKE 1 TABLET BY MOUTH EVERY DAY 90 tablet 1 3 Active omeprazole (PriLOSEC) [address] capsuleIndications :Gastroesophageal reflux disease with esophagitis without hemorrhage Take 1 capsule (40 mg) by mouth 2 times daily. 60 capsule 11 4 Active budesonide-formote rol (Symbicort) 80-4.5 MCG/ACT inhalerIndications :Mild persistent asthma without complication Inhale 2 puffs twie daily. Rinse mouth with water after use to reduce aftertaste and incidence of candidiasis. Do not swallow. 1 each 4 Active cetirizine (ZyrTEC) 10 MG tabletIndications: Mild persistent asthma without complication Take 1 tablet (10 mg) by mouth Once per day. 30 tablet 4 025 Active amitriptyline (Elavil) 10 MG tabletIndications: Chronic migraine with aura without status migrainosus, not intractable Take 1 tablet (10 mg) by mouth at bedtime. 90 tablet 3 4 025 Active cholecalciferol (Vitamin D-3) 50 MCG (2000 UT) tabletIndications: Vitamin D deficiency TAKE 1 TABLET BY MOUTH EVERY DAY 90 tablet 1 4 Active magnesium oxide (Mag-Ox) 400 (240 Mg) MG tablet Take 1 tablet by mouth Once per day. 4 Active levothyroxine (Tirosint) 25 MCG capsuleIndications :Thyroid dysfunction TAKE 1 CAPSULE (25 MCG) BY MOUTH ONCE PER DAY. 90 capsule 5 Active ibuprofen 600 MG tabletIndications: Chronic midline low back pain with bilateral sciatica TAKE 1 TABLET BY MOUTH EVERY 8 HOURS NEEDED FOR MODERATE PAIN. 60 tablet 1 5 Active lidocaine (Lidoderm) 5 % patchIndications:I ntercostal muscle strain, initial encounter Apply topically to affected areas. Leave on for up to 12 hours 30 patch 1 5 Active topiramate (Topamax) 50 MG tabletIndications: Class 3 severe obesity due to excess calories with serious comorbidity and body mass index (BMI) of 40.0 to 44.9 in adult Take 1 tablet (50 mg) by mouth at bedtime. 30 tablet 11 5 026 Active phentermine 37.5 MG capsuleIndications :Class 3 severe obesity due to excess calories with serious comorbidity and body mass index (BMI) of 40.0 to 44.9 in adult Take 1 capsule (37.5 mg) by mouth before breakfast. 30 capsule 5 Active fluticasone (Flonase) 50 MCG/ACT nasal sprayIndications:O ther chronic nonsuppurative otitis media of both ears ADMINISTER 1-2 SPRAYS INTO EACH NOSTRIL ONCE PER DAY. SHAKE GENTLY. BEFORE FIRST USE, PRIME PUMP. AFTER USE, CLEAN TIP AND REPLACE CAP. 48 mL 5 026 Active magnesium oxide (Mag-Ox) 400 (240 Mg) MG tabletIndications: Chronic migraine with aura without status migrainosus, not intractable TAKE 1 TABLET BY MOUTH EVERY DAY 90 tablet 2 5 Active Active Problems Problem Noted Date Diagnosed [...] or muscle weakness - Previously seen by [facility] ortho for knee pain--last visit 03/2021. Has trialed injections with sx improvement. - Negative HARVEY, RF, ESR, CRP 04/2021 Prediabetes 10/01/2022 Hepatic steatosis 10/01/2022 Overview (10/01/2022): Hx of elevated liver tests now resolved - Abd u/s from 04/2018 c/w hepatic steatosis - 09/2017 Liver fibrosis score of 0.05, Stage F0 Followed by [facility] GI Assessment & Plan (10/01/2022 6:24 AM EDT): Continue to follow with [facility] GI Continue to work with nutrition for weight loss Abnormal uterine bleeding 10/01/2022 Overview (10/01/2022): Followed by [facility] LITIGATION COUNSEL Subclinical hypothyroidism 10/01/2022 Overview (10/01/2022): Tirosint 25mcg daily + antibodies TSH 8.03. Engaged in shared decision making [...] Pap: NIL HPV neg 09/2021, followed by [facility] LITIGATION COUNSEL C-scope:08/2019, repeat 2029 BMD: Routine Immunizations: UTD Chronic constipation 10/01/2022 Polyp of colon 03/05/2021 Overview (10/01/2022): Colonoscopy 08/2019 negative with polyp (hyperplastic) 10 year repeat Gastroesophageal reflux disease 12/23/2019 Overview (10/01/2022): Followed by [facility] GI EGD 02/2022 with reactive gastropathy and [...] Encounters Date Type Department Care Team Description 10/19/2024 Patient Outreach [facility] [address] [place] [address] Pooja Medina FNP Pre-visit Planning ((Unable to reach for PVP screening, LVM) to be completed in office ) 09/14/2024 Telephone [facility] [address] [place] [address] Pooja Medina FNP Med Refill 09/03/[address] [address] Pooja Medina FNP Chronic migraine with aura without status migrainosus, not intractable 09/01/2024 Orders Only [facility] External Provider, [facility] 08/16/2024 Refill [facility] [address] [place] [address] Pooja Medina FNP Other chronic nonsuppurative otitis media of both ears 08/13/2024 Refill [facility] [address] [place] [address] Pooja Medina FNP Class 3 severe obesity due to excess calories with serious comorbidity and body mass index (BMI) of 40.0 to 44.9 in adult 08/12/2024 Telephone [facility] [address] [place] [address] Pooja Medina FNP sept recall 07/19/2024 1:45 PM EDT Office Visit [address] [address] Pooja Medina FNP Intercostal muscle strain, initial encounter (Primary Dx); Class 3 severe obesity due to excess calories with serious comorbidity and body mass index (BMI) of 40.0 to 44.9 in adult; Mild persistent asthma without complication; Prediabetes 07/19/2024 Travel from Last 3 Months Immunizations Immunization Administration Dates Next Due Hep A, ped/adol, [...] Sign Reading Time Taken Comments Blood Pressure 118/80 07/19/2024 1:53 PM EDT Pulse 90 07/19/2024 1:53 PM EDT Temperature 36.2 C (97.1 F) 07/19/2024 1:53 PM EDT Respiratory Rate 20 07/19/2024 1:53 PM EDT Oxygen Saturation 98% 01/06/2023 12:09 PM EST Inhaled Oxygen Concentration - - Weight 102 kg (224 lb 9.6 oz) 07/19/2024 1:53 PM EDT Height 154.9 cm (5' 1 ) 07/19/2024 1:53 PM EDT Body Mass Index 42.44 07/19/2024 1:53 PM EDT Plan of Treatment Upcoming Encounters Date Type Department Care Team (Late st Contact Info) Description 10/27/2024 2:45 PM EDT Office Visit [facility] [address] [place] [address] [facility], [facility] [address] [place] [address] Health Maintenance Due Date Last Done Comments Family Planning (PISQ) 08/11/1995 HPV Vaccines (1 - 3-dose series) 08/11/1995 Diabetes: Hemoglobin A1C 08/20/2024 04/04/2 025, 09/19/2022, 12/12/2021, Additional history exists Influenza Vaccine (#1) 2024 4, 11/23/2021, 02/13/2017, Additional history exists SDOH Screening 12/14/2024 12/15/2023 Mammogram 05/12/2025 05/12/2024, 04/18, 04/22/2023, Additional history exists Alcohol/Substance Use Screening 07/19/2025 07/19/2024 Depression Screening 07/19/2025 07/19/2024, 07/20/19 25 Disability Screening 07/19/2025 07/19/2024 Tobacco Screening 07/24/2025 07/24/2024 Cervical Cancer Screening 10/04/2026 HPV/Cotest 10/04/2026 10/04/2021 Pap Smear 10/04/2026 10/04/2021, 10/04/2021 Lipid Panel 10/30/2028 10/31/2023, 04/17, 03/05/2021 [...] 02/17, 03/05/2021 Hepatitis C Screening Completed 04/30/2021 Pneumococcal Vaccine: Pediatrics (0 to 5 Years) and At-Risk Patients (6 to 49) Years Completed 10/31/2023 COVID-19 Vaccine Completed 12/15/2023, , 06/19/2020, Additional history exists HIB Vaccines Aged Out No longer eligi ble based on patient's age to complete this topic IPV Vaccines Aged Out No longer eligi ble based on patient's age to complete this topic Meningococcal B Vaccine Aged Out No l onger eligible based on patient's age to complete [...] Procedure Name Priority Date/Time Associated Diagnosis Comments VAS US LOWER EXTREMITY VENOUS DUPLEX BILATERAL Routine 09/02/2024 1:23 PM EDT XR WRIST 3+ VIEWS RIGHT Routine 09/01/2024 12:26 PM EDT XR HAND 3+ VIEWS RIGHT Routine 09/01/2024 12:25 PM EDT POCT GLUCOSE Routine 07/19/2024 1:54 PM EDT Prediabetes POCT GLYCATED HEMOGLOBIN, TOTAL Routine 05/21/2024 9:39 AM EDT Prediabetes BI US BREAST LIMITED LEFT Routine 05/12/2024 2:00 PM EDT LIPID PANEL, STANDARD Routine 10/31/2023 1:40 PM [...] Recently Relevant to Health Maintenance Results * [facility] US Lower Extremity Venous Duplex Bilateral (09/02/2024 1:23 PM EDT) 09/02/2024 1:23 PM EDT Narrative [facility] - 09/02/2024 2:55 PM EDT [address] [address] Ultrasound Report Signed Patient: Kasie Funes MR#: [id number] 960 : 1980 Acct:[id number] Age/Sex: 44 / F ADM Date: 09/02/24 Loc: . Attending Dr: Cony Sanches PA-C Ordering Physician: Cony Sanches PA-C Date of Service: 09/02/24 Procedure(s): US venous duplex LE BI Accession Number(s): [id number] cc: Cony Sanches PA-C; [facility] EXAMINATION: US LOWER EXTREMITY VENOUS (REFLUX EXAM), BILATERAL CLINICAL INFORMATION: Varicose veins of the right lower extremity with inflammation COMPARISON: None. TECHNIQUE: Color flow triplex imaging and compression Doppler was performed to evaluate both the deep and the superficial systems bilaterally. To evaluate the superficial system, the examination was performed in the upright position. Color-flow Doppler ultrasound and compression ultrasound were utilized. In addition, maneuvers were utilized to demonstrate reflux. FINDINGS: 1. DEEP VENOUS ULTRASOUND OF THE RIGHT LOWER EXTREMITY: Common Femoral Vein: Compressible, normal respiratory variation and augmented flow. Femoral Vein: Compressible, normal color flow and augmentation. Popliteal Vein: Compressible, normal augmentation. Deep Reflux: There is no evidence of reflux in the deep system in either the common femoral vein, superficial femoral or the popliteal vein. 2. SUPERFICIAL ULTRASOUND WITH DOPPLER OF RIGHT LOWER EXTREMITY: GREAT SAPHENOUS VEIN: Saphenofemoral Junction: 0.6 cm; Reflux: 0 ms Proximal Thigh: 0.6 cm; Reflux: 0 ms Mid Thigh: 0.3 cm; Reflux: 0 ms Distal Thigh: 0.3 cm; Reflux: 0 ms At Knee: 0.3 cm; Reflux: 0 ms Below Knee/Proximal Calf: 0.2 cm; Reflux: 0 ms Mid Calf: 0.3 cm; Reflux: 0 ms Ankle/Distal Calf: 0.3 cm; Reflux: 0 ms Lateral accessory GREAT SAPHENOUS VEIN: Saphenofemoral Junction: 0.3 cm; Reflux: 0 ms Mid Thigh: 0.3 cm; Reflux: 0 ms SMALL SAPHENOUS VEIN: Drainage: Thigh Saphenopopliteal Junction: 0.2 cm; Reflux: 0 ms Mid calf: 0.3 cm; Reflux: 0 ms Distal: 0.3 cm; Reflux: 0 ms VEIN OF GIACOMINI: Size: NA cm Reflux: NA ms PERFORATORS: Location: Small saphenous vein, mid Size: 0.4 cm Reflux: 0 ms Location: Greater saphenous vein, mid thigh Size: 0.1 cm Reflux: 0 ms VARICOSITIES > 3mm: Location: Small saphenous vein, proximal Size: 0.3 cm Reflux: 0 ms Location: Small saphenous vein, mid Size: 0.3 cm Reflux: 0 ms 3. DEEP VENOUS ULTRASOUND OF THE LEFT LOWER EXTREMITY: Common Femoral Vein: Compressible, normal respiratory variation and augmented flow. Femoral Vein: Compressible, normal color flow and augmentation. Popliteal Vein: Compressible, normal augmentation. Deep Reflux: There is no evidence of reflux in the deep system in either the common femoral vein, superficial femoral or the popliteal vein. 4. SUPERFICIAL ULTRASOUND WITH DOPPLER OF LEFT LOWER EXTREMITY: GREAT SAPHENOUS VEIN: Saphenofemoral Junction: 0.6 cm; Reflux: 0 ms Proximal Thigh: 0.5 cm; Reflux: 0 ms Mid Thigh: 0.3 cm; Reflux: 0 ms Distal Thigh: 0.4 cm; Reflux: 0 ms At Knee: 0.3 cm; Reflux: 0 ms Below Knee/Proximl calf: 0.2 cm; Reflux: 0 ms Mid Calf: 0.3 cm; Reflux: > 2.3 seconds Distal Calf/Ankle: 0.2 cm; Reflux: 1.7 seconds Medial accessory GREAT SAPHENOUS VEIN: Saphenofemoral Junction: 0.4 cm; Reflux: 0 ms Mid Thigh: 0.3 cm; Reflux: 0 ms DUPLICATED MEDIAL GREAT SAPHENOUS VEIN: Diameter: None imaged cm Reflux: NA ms DUPLICATED LATERAL GREAT SAPHENOUS VEIN: Diameter: None imaged. cm Reflux: NA ms SMALL SAPHENOUS VEIN: Drainage: Thigh Saphenopopliteal Junction: 0.3 cm; Reflux: 0 ms Proximal: 0.2 cm; Reflux: 0 ms Distal: 0.3 cm; Reflux: 0 ms VEIN OF GIACOMINI: Size: NA Reflux: NA PERFORATORS: Location: Small saphenous vein, mid Size: 0.2 cm Reflux: 0 ms Location: Greater saphenous vein, proximal calf Size: 0.2 cm Reflux: 0 ms Location: Greater saphenous vein, mid calf Size: 0.3 cm Reflux: 0 ms VARICOSITIES > 3mm: None Imaged US/US venous duplex LE BI IMPRESSION: Right: No venous reflux is demonstrated. 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 Electronically signed by: Salvador Alexander MD 09/02/2024 02:52 PM EDT Dictated By: Salvador Alexander MD Signed By: <Electronically signed by Salvador Alexander MD in OV> 09/02/24 1452 DD/ 1323 TD/TT: 09/02/24 1410 Kiln Tender: Procedure Note Donotuseinterpreter, Image - 09/02/[address] [address] Ultrasound Report Signed Patient: Beatris Funes#: [id number] 960 : 1980Acct:[id number] Age/Sex: 44 / FADM Date: 09/02/24 Loc: . Attending Dr: Cony Sanches PA-C Ordering Physician: Cony Sanches PA-C Date of Service: 09/02/24 Procedure(s): US venous duplex LE BI Accession Number(s): [id number] cc: Cony Sanches PA-C; [facility] EXAMINATION: US LOWER EXTREMITY VENOUS (REFLUX EXAM), BILATERAL CLINICAL INFORMATION: Varicose veins of the right lower extremity with inflammation COMPARISON: None. TECHNIQUE: Color flow triplex imaging and compression Doppler was performed to evaluate both the deep and the superficial systems bilaterally. To evaluate the superficial system, the examination was performed in the upright position. Color-flow Doppler ultrasound and compression ultrasound were utilized. In addition, maneuvers were utilized to demonstrate reflux. FINDINGS: 1. DEEP VENOUS ULTRASOUND OF THE RIGHT LOWER EXTREMITY: Common Femoral Vein: Compressible, normal respiratory variation and augmented flow. Femoral Vein: Compressible, normal color flow and augmentation. Popliteal Vein: Compressible, normal augmentation. Deep Reflux: There is no evidence of reflux in the deep system in either the common femoral vein, superficial femoral or the popliteal vein. 2. SUPERFICIAL ULTRASOUND WITH DOPPLER OF RIGHT LOWER EXTREMITY: GREAT SAPHENOUS VEIN: Saphenofemoral Junction: 0.6 cm; Reflux: 0 ms Proximal Thigh: 0.6 cm; Reflux: 0 ms Mid Thigh: 0.3 cm; Reflux: 0 ms Distal Thigh: 0.3 cm; Reflux: 0 ms At Knee: 0.3 cm; Reflux: 0 ms Below Knee/Proximal Calf: 0.2 cm; Reflux: 0 ms Mid Calf: 0.3 cm; Reflux: 0 ms Ankle/Distal Calf: 0.3 cm; Reflux: 0 ms Lateral accessory GREAT SAPHENOUS VEIN: Saphenofemoral Junction: 0.3 cm; Reflux: 0 ms Mid Thigh: 0.3 cm; Reflux: 0 ms SMALL SAPHENOUS VEIN: Drainage: Thigh Saphenopopliteal Junction: 0.2 cm; Reflux: 0 ms Mid calf: 0.3 cm; Reflux: 0 ms Distal: 0.3 cm; Reflux: 0 ms VEIN OF GIACOMINI: Size: NA cm Reflux: NA ms PERFORATORS: Location: Small saphenous vein, mid Size: 0.4 cm Reflux: 0 ms Location: Greater saphenous vein, mid thigh Size: 0.1 cm Reflux: 0 ms VARICOSITIES > 3mm: Location: Small saphenous vein, proximal Size: 0.3 cm Reflux: 0 ms Location: Small saphenous vein, mid Size: 0.3 cm Reflux: 0 ms 3. DEEP VENOUS ULTRASOUND OF THE LEFT LOWER EXTREMITY: Common Femoral Vein: Compressible, normal respiratory variation and augmented flow. Femoral Vein: Compressible, normal color flow and augmentation. Popliteal Vein: Compressible, normal augmentation. Deep Reflux: There is no evidence of reflux in the deep system in either the common femoral vein, superficial femoral or the popliteal vein. 4. SUPERFICIAL ULTRASOUND WITH DOPPLER OF LEFT LOWER EXTREMITY: GREAT SAPHENOUS VEIN: Saphenofemoral Junction: 0.6 cm; Reflux: 0 ms Proximal Thigh: 0.5 cm; Reflux: 0 ms Mid Thigh: 0.3 cm; Reflux: 0 ms Distal Thigh: 0.4 cm; Reflux: 0 ms At Knee: 0.3 cm; Reflux: 0 ms Below Knee/Proximl calf: 0.2 cm; Reflux: 0 ms Mid Calf: 0.3 cm; Reflux: > 2.3 seconds Distal Calf/Ankle: 0.2 cm; Reflux: 1.7 seconds Medial accessory GREAT SAPHENOUS VEIN: Saphenofemoral Junction: 0.4 cm; Reflux: 0 ms Mid Thigh: 0.3 cm; Reflux: 0 ms DUPLICATED MEDIAL GREAT SAPHENOUS VEIN: Diameter: None imaged cm Reflux: NA ms DUPLICATED LATERAL GREAT SAPHENOUS VEIN: Diameter: None imaged. cm Reflux: NA ms SMALL SAPHENOUS VEIN: Drainage: Thigh Saphenopopliteal Junction: 0.3 cm; Reflux: 0 ms Proximal: 0.2 cm; Reflux: 0 ms Distal: 0.3 cm; Reflux: 0 ms VEIN OF GIACOMINI: Size: NA Reflux: NA PERFORATORS: Location: Small saphenous vein, mid Size: 0.2 cm Reflux: 0 ms Location: Greater saphenous vein, proximal calf Size: 0.2 cm Reflux: 0 ms Location: Greater saphenous vein, mid calf Size: 0.3 cm Reflux: 0 ms VARICOSITIES > 3mm: None Imaged US/US venous duplex LE BI IMPRESSION: Right: No venous reflux is demonstrated. 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 Electronically signed by: Salvador Alexander MD 09/02/2024 02:52 PM EDT Dictated By: Salvador Alexander MD Signed By: <Electronically signed by Salvador Alexander MD in OV> 09/02/24 1452 DD/ 1323 TD/TT: 09/02/24 1410 Kiln Tender: [facility] External Provider CV VASC ULAR PROCEDURES Edited Result - Final [facility] [address] [place] [address] * XR Wrist 3+ Views Right (09/01/2024 12:26 PM EDT) Anatomical Region Laterality Modality Upper Extremities, Wrist Right Radiogr aphic Imaging 09/01/2024 12:2 6 PM EDT Narrative 09/01/2024 1:34 PM EDT [address] [address] XRay Report Signed Patient: Kasie Funes MR#: [id number] 960 : 1980 Acct:[id number] Age/Sex: 44 / F ADM Date: 09/01/24 Loc: HO.ED Attending Dr: Ordering Physician: Sowmya Keyes Date of Service: 09/01/24 Procedure(s): XR wrist RT min 3V Accession Number(s): [id number] cc: Sowmya Keyes; [facility] CHUMMER EXAMINATION: XR WRIST, RIGHT CLINICAL INFORMATION: pain to ulnar wrist COMPARISON: None available. TECHNIQUE: PA, lateral, oblique, and scaphoid views of the right wrist. FINDINGS: There are no degenerative changes. There is no joint diastases. No fracture line is evident. XR/XR wrist RT min 3V IMPRESSION: Unremarkable right wrist Electronically signed by: Salvador Alexander MD 09/01/2024 01:31 PM EDT RP Dictated By: Salvador Alexander MD Signed By: <Electronically signed by Salvador Alexander MD in OV> 09/01/24 1331 DD/ 1226 TD/TT: 09/01/24 1328 Kiln Tender: Procedure Note Donotuseinterpreter, Image - 09/01/2024 [place] [address] XRay Report Signed Patient: Beatris Funes#: [id number] 960 : 1980Acct:[id number] Age/Sex: 44 / FADM Date: 09/01/24 Loc: .ED Attending Dr: Ordering Physician: Sowmya Keyes Date of Service: 09/01/24 Procedure(s): XR wrist RT min 3V Accession Number(s): [id number] cc: Sowmya Keyes; [facility] CHUMMER EXAMINATION: XR WRIST, RIGHT CLINICAL INFORMATION: pain to ulnar wrist COMPARISON: None available. TECHNIQUE: PA, lateral, oblique, and scaphoid views of the right wrist. FINDINGS: There are no degenerative changes. There is no joint diastases. No fracture line is evident. XR/XR wrist RT min 3V IMPRESSION: Unremarkable right wrist Electronically signed by: Salvador Alexander MD 09/01/2024 01:31 PM EDT RP Dictated By: Salvador Alexander MD Signed By: <Electronically signed by Salvador Alexander MD in OV> 09/01/24 1331 DD/ 1226 TD/TT: 09/01/24 1328 Kiln Tender: us [facility] External Provider IMG XR PROCEDURES Final Result * XR Hand 3+ Views Right (09/01/2024 12:25 PM EDT) Anatomical Region Laterality Modality Upper Extremities, Hand Right Radiogra phic Imaging 09/01/2024 12:2 5 PM EDT Narrative 09/01/2024 1:36 PM EDT [address] [address] XRay Report Signed Patient: Kasie Funes MR#: [id number] 960 : 1980 Acct:[id number] Age/Sex: 44 / F ADM Date: 09/01/24 Loc: .ED Attending Dr: Ordering Physician: Sowmya Keyes Date of Service: 09/01/24 Procedure(s): XR hand RT min 3V Accession Number(s): [id number] cc: Sowmya Keyes; [facility] EXAMINATION: XR HAND, RIGHT CLINICAL INFORMATION: pain to 4/5th digits COMPARISON: None available. TECHNIQUE: PA, lateral, and oblique views of the right hand. FINDINGS: There are no degenerative changes. There are no erosions. No fracture line is evident. XR/XR hand RT min 3V IMPRESSION: Unremarkable right hand. Electronically signed by: Salvador Alexander MD 09/01/2024 01:33 PM EDT RP Dictated By: Salvador Alexander MD Signed By: <Electronically signed by Salvador Alexander MD in OV> 09/01/24 1333 DD/ 1225 TD/TT: 09/01/24 1328 Kiln Tender: Procedure Note Donotuseinterpreter, Image - 09/01/[address] [address] XRay Report Signed Patient: Kasie FunesMR#: [id number] 960 : 1980Acct:[id number] Age/Sex: 44 / FADM Date: 09/01/24 Loc: HO.ED Attending Dr: Ordering Physician: Sowmya Keyes Date of Service: 09/01/24 Procedure(s): XR hand RT min 3V Accession Number(s): [id number] cc: Sowmya Keyes; [facility] EXAMINATION: XR HAND, RIGHT CLINICAL INFORMATION: pain to 4/5th digits COMPARISON: None available. TECHNIQUE: PA, lateral, and oblique views of the right hand. FINDINGS: There are no degenerative changes. There are no erosions. No fracture line is evident. XR/XR hand RT min 3V IMPRESSION: Unremarkable right hand. Electronically signed by: Salvador Alexander MD 09/01/2024 01:33 PM EDT RP Dictated By: Salvador Alexander MD Signed By: <Electronically signed by Salvador Alexander MD in OV> 09/01/24 1333 DD/ 1225 TD/TT: 09/01/24 1328 Kiln Tender: [facility] External Provider IMG XR PROCEDURES Final Result * POCT Glucose (07/19/2024 1:54 PM EDT) Glucose Blood, POC 90 60 - 200 mg/dL Blood Capillary blood specimen / Unknown 07/19/2024 1:54 PM EDT Result [facility] CHUMMER POINT OF CARE TEST ENTER/EDIT ORDERABLES Final Result * POCT HGB A1C (05/21/2024 9:39 AM EDT) Hemoglobin A1C 6.0 4.0 - 6.0 % Blood 05/21/2024 9:39 AM EDT [facility] CHUMMER POINT OF CARE TEST ENTER/EDIT ORDERABLES Final Result * BI US Breast Limited Left (05/12/2024 2:00 PM EDT) Anatomical Region Laterality Modality Breast Left Ultrasound 05/12/2024 2:00 PM EDT Narrative 05/12/2024 2:36 PM EDT [facility] [address] [place] [address] Ultrasound Report Signed Patient: Kasie Funes MR#: [id number] 960 : 1980 Acct:[id number] Age/Sex: 43 / F ADM Date: 05/12/24 Loc: MAMMO Attending Dr: Pooja Medina CHUMMER Ordering Physician: Pooja Medina Date of Service: 05/12/24 Procedure(s): US breast LT limited mamm only Accession Number(s): [id number] cc: Pooja Medina [facility] EXAMINATION: MM DIAGNOSTIC DIGITAL BREAST TOMOSYNTHESIS, BILATERAL [...] Rosario Boswell DO 05/12/2024 02:33 PM EDT RP Dictated By: Rosario Boswell DO Signed By: <Electronically signed by Rosario Boswell DO in OV> 05/12/24 1433 DD/ 1400 TD/TT: 05/12/24 1426 Kiln Tender: Procedure Note Donotuseinterpreter, Image - 05/12/2024 [facility] [address] [place], [place] [address] Ultrasound Report Signed Patient: Kasie FunesMR#: [id number] 960 : 1980Acct:[id number] Age/Sex: 43 / FADM Date: 05/12/24 Loc: MAMMO Attending Dr: Pooja Medina CHUMMER Ordering Physician: Pooja Medina Date of Service: 05/12/24 Procedure(s): US breast LT limited mamm only Accession Number(s): [id number] cc: Pooja Medina EXAMINATION: MM DIAGNOSTIC DIGITAL [...] Rosario Boswell DO 05/12/2024 02:33 PM EDT RP Dictated By: Rosario Boswell DO Signed By: <Electronically signed by Rosario Boswell DO in OV> 05/12/24 1433 DD/ 1400 TD/TT: 05/12/24 1426 Kiln Tender: [employer] [facility] IMG US PROCEDURES Final Resul t * Lipid Panel, Standard (10/31/2023 1:40 PM EDT) Triglycerides 66 <150 mg/dL [facility] Comment:Desirable Triglyceri de: less than 150 mg/dLBorderline High Triglyceride 150-199 mg/dLHigh Triglyceride: 200-499 mg/dLVery High Triglyceride: greater than or equal to 5OO mg/dL Cholesterol 160 <200 mg/dL [facility] Comment:Desirable Cholestero l: less than 200 mg/dLBorderline High Cholesterol: 200-239 mg/dLHigh Cholesterol: greater than 239 mg/dL LDL Cholesterol Calculated 79 <100 mg/dL [facility] Comment:Desirable LDL: less than 100 mg/dLNear Optimal/Above Optimal LDL: 110- 129 mg/dLBorderline High LDL: 130-159 mg/dLHigh LDL: 160-189 mg/dLVery High LDL: greater than or equal to 190 mg/dL HDL Cholesterol 68 >40 mg/dL [facility] Comment:Desirable HDL: great er than 40 mg/dL Note: This HDL assay may give artificially low results in patients with liver disease. Blood Venous blood specimen / Unknown 10/31/2023 1:40 PM EDT 10/31/2023 3:58 PM EDT [facility] LAB BLOOD ORDERABLES Final Re sult [facility] [address] [place] [address] [phone] * THINPREP TIS PAP AND HPV mRNA E6/E7 WITH REFLEX TO HPV 16,18/45 (10/04/2021 10:02 AM EDT) Clinical Information: None given [facility] COMMENT SEE COMMENT [facility] Comment: EXPLANATORY NOTE: The Pap is a screening test for cervical cancer. It is not a diagnostic test and is subject to false negative and false positive results. It is most reliable when a satisfactory sample, regularly obtained, is submitted with relevant clinical findings and history, and when the Pap result is evaluated along with historic and current clinical information. COMMENT: This Pap test has been evaluated with computer assisted technology. [facility] Cytotechnologis t: SEE COMMENT [facility] Comment: JNA, CT(ASCP) CT screening location: [address] [address] HPV nRNA E6/E7 Not Detected Not Detected [facility] Comment: Methodology: Door Manager-Mediated Amplification This assay detects E6/E7 viral messenger RNA (mRNA) from 14 high-risk HPV types (16,18,31,33,35,39,45,51,52,56,58,59,66,68). Cervical sources are required for HPV testing. If a vaginal source from a patient who has had a total hysterectomy with removal of cervix was submitted, please contact the testing laboratory for alternative testing options. For additional information, please refer to http://education.Simio/faq/AZT433h4 (This link if provided for information/ educational purposes only.) Infection Shift in vaginal sin suggestive of bacterial vaginosis. [facility] Interpretation/ Result: Negative for intraepithelial lesion or malignancy. [facility] LMP: 06/2021 [facility] Prev. BX: NONE GIVEN [facility] Prev. PAP: NIL 09/2018 [facility] SOURCE: None given [facility] Statement Of Adequacy: SEE COMMENT [facility] Comment: Satisfactory for evaluation. Endocervical/transformation zone component absent. 10/04/2021 10:0 2 AM EDT Iris Padron [facility] LAB PATHOLOGY ORDERABLES Final Result Performing Organization Address [facility]/ZIP Co de Phone Number [facility] [address] [place] [address], * Pap Smear (10/04/2021 12:00 AM EDT) Swab Iris Padron [facility] LAB CYTOLOGY ORDERABLES F inal Result Performing Organization Address [facility] Co de Phone Number TERRA [address] [facility], [place] [address] * HEPATITIS C AB W/REFL TO HCV RNA, QN, PCR (04/30/2021 2:02 PM EDT) HEPATITIS C ANTIBODY NON-REACT DAVE NON-REACT DAVE [facility] INDEX 0.02 <1.00 [facility] Comment: HCV antibody was non-reactive. There is no laboratory evidence of HCV infection. In most cases, no further action is required. However, if recent HCV exposure is suspected, a test for HCV RNA (test code 96966) is suggested. For additional information please refer to http://education.Simio/faq/FHM17j3 (This link is being provided for informational/ educational purposes only.) 04/30/2021 2:02 PM EDT [employer] [facility] HISTORICAL/NON ORDERABLE LABS Final Result Performing Organization Address [facility] Co de Phone Number [facility] [address] [place] [address], * HIV 1/2 ANTIGEN/ANTIBODY,FOURTH GENERATION W/RFL (04/30/2021 2:02 PM EDT) HIV-1/2 ANTIGEN AND ANTIBODIES, 4TH GENERATION W/ REFLEX NON-REACT DAVE NON-REACT DAVE [facility] Comment: HIV-1 antigen and HIV-1/HIV-2 antibodies were not detected. There is no laboratory evidence of HIV infection. PLEASE NOTE: This information has been disclosed to you from records whose confidentiality may be protected by state law. If your state requires such protection, then the state law prohibits you from making any further disclosure of the information without the specific written consent of the person to whom it pertains, or as otherwise permitted by law. A general authorization for the release of medical or other information is NOT sufficient for this purpose. For additional information please refer to http://education.Simio/faq/KRJ086 (This link is being provided for informational/ educational purposes only.) The performance of this assay has not been clinically validated in patients less than 2 years old. 04/30/2021 2:02 PM EDT [facility] LAB BLOOD ORDERABLES Final Re sult [facility]ly [facility] [address] from Last 3 Months or Most Recently Relevant to Health Maintenance Insurance [address] [address] [facility] [address] [place] [address] [place] [address] ankita [place]zz[place] Care Teams Washer Meat Relationship Specialty Start Date End Date [facility] [address] [place] [address] [place] [address] PCP - General Family Medicine 11/15/20
--- OUTSIDE RECORDS SUMMARY | 2024-10-19 14:20 | XMS_ITS | Encounter Summary ---
Author Organization [employer] Address [address] [place] [address] 7 [place] [address] Care Team Providers Care Fax Machine Operator Name Role Phone [facility] Primary Care Provider [phone] Reason for Visit * Reason Onset Date Comments Med Refill 09/14/2024 Encounter Details Date Type Department Care Team ([facility] st Contact Info) Description 09/14/2024 Telephone [facility] [address] [place] [address] [facility] [address] [place] [address] Med Refill Social History Tobacco Use Types Packs/Day Years [...] AM EDT documented as of this encounter Miscellaneous Notes * Telephone Encounter - Cornelia Sinha LPN - 09/14/2024 2:49 PM EDT Medication was sent to [id number] on 07/19/24 with 11 refills. Patient can call pharmacy and transfer medication. * Telephone Encounter - Conrado Paez - 09/14/2024 2:46 PM EDT TC from pt requesting medication refill. Medications needing refill : topiramate (Topamax) 50 MG tablet To be sent to: [facility] - [place], [place] - [address] [place] [address] documented in this encounter Plan of Treatment Upcoming Encounters Date Type Department Care Team (Late st Contact Info) Description 10/27/2024 2:45 PM EDT Office Visit [facility] [address] [place] [address] Cropsey, Pooja, DATA SYSTEMS MANAGER [address] [facility] [place] [address] documented as of this encounter Visit Diagnoses Not on filedocumented in this encounter Additional Health Concerns Assessment Noted Time PHQ-9 Depression Total Score: 0 07/20/19 25 1:54 PM EDT documented as of this encounter Care Teams Fax Machine Operator Relationship Specialty Start Date End Date Pooja Medina FNP [address] [place] [id number] PCP - General Family Medicine 11/15/20 documented as of this encounter
--- OUTSIDE RECORDS SUMMARY | 2024-10-19 14:20 | XMS_ITS | Encounter Summary ---
Author Organization [employer] Address [address] [place] [address] 7t [place] [address] Care Team Providers Care Fundraising Coordinator Name Role Phone Pooja Medina FILM VAULT SUPERVISOR Primary Care Provider [phone] Reason for Visit * Reason Comments Med Refill Encounter Details Date Type Department Care Team ([facility] st Contact Info) Description 02/07/2024 Refill [facility] [address] [place], [place] [phone] Diandra Judd MD [address] [place], [place] [phone] Thyroid dysfunction Social History Tobacco Use Types [...] Description 10/27/2024 2:45 PM EDT Office Visit [facility] [address] [place] [address] [facility] [address] [place] [address] documented as of this encounter Visit Diagnoses Diagnosis Thyroid dysfunction Unspecified disorder of thyroid documented in this encounter Additional Health Concerns Assessment Noted Time PHQ-9 Depression Total Score: 0 12/15/19 24 2:36 PM EDT documented as of this encounter Care Teams Fundraising Coordinator Relationship Specialty Start Date End Date Pooja Medina FNP [address] [place] [address] PCP - General Family Medicine 11/15/20 documented as of this encounter
--- OUTSIDE RECORDS SUMMARY | 2024-10-19 14:20 | XMS_ITS | Encounter Summary ---
Author Organization [employer] [facility] Address [address] [place] [address] [address] [place] [address] Care Team Providers Care Fuse Cup Expander Name Role Phone Pooja Medina [facility] Primary Care Provider [phone] Encounter Details Date Type Department Care Team ([facility] Contact Info) Description 03/22/2022 Abstract [facility] [address] [place] [phone] Pooja Medina [facility] [address] [place], [place] [phone] Social History Tobacco Use Types Packs/Day Years [...] Upcoming Encounters Date Type Department Care Team ([facility] Contact Info) Description 10/27/2024 2:45 PM EDT Office Visit [facility] [address] [place] [phone] Pooja Medina [facility] [address] [place] [address] documented as of this encounter Procedures Procedure [...] on filedocumented in this encounter Care Teams Fuse Cup Expander Relationship Specialty Start Date End Date Pooja Medina FNP [address] [place] [address] PCP - General Family Medicine 11/15/20 documented as of this encounter
== END 2024-10-19 13:49 | disposition home or self-care (01) ==
LOC: HO.HVS 13:00
PROVIDERS: PCP Registered Nurse; Visit Provider Surgery Vascular Surgery
DX: I83.11 Varicose veins of right lower extremity with inflammation (principal); I83.12 Varicose veins of left lower extremity with inflammation; E66.01 Morbid (severe) obesity due to excess calories; Z68.41 Body mass index [BMI] 40.0-44.9, adult
CPT/HCPCS: 99214

== ENCOUNTER → 2024-10-19 13:00 | Outpatient (BNVA) | payer OTHER, SELFPAY | PROVIDERS: PCP Registered Nurse; Visit Provider Surgery Vascular Surgery | DX: I83.11 Varicose veins of right lower extremity with inflammation (principal); I83.12 Varicose veins of left lower extremity with inflammation; E66.01 Morbid (severe) obesity due to excess calories; Z68.41 Body mass index [BMI] 40.0-44.9, adult | CPT/HCPCS: 99212 ==

== ENCOUNTER 2024-10-27 15:38 | Outpatient (REF) | payer OTHER, SELFPAY ==
--- OUTSIDE RECORDS SUMMARY | 2024-10-27 14:45 | XMS_ITS | Encounter Summary ---
Author Organization [employer] Address [address] [place] [address] 7 [place] [address] Care Team Providers Care Pipelines Superintendent Name Role Phone [place] [facility] Primary Care Provider [phone] Reason for Visit * Reason Comments Follow-up Encounter Details Date Type Department Care Team ([facility] st Contact Info) Description 10/27/2024 2:45 PM EDT Office Visit [facility] [address] [place] [address] [place] [facility] [address] [place] [address] Prediabetes (Primary Dx); Class 3 severe obesity due to excess calories with serious comorbidity and body mass index (BMI) of 40.0 to 44.9 in adult; Thyroid dysfunction; Mild persistent asthma without complication; Intercostal muscle strain, initial encounter; Chronic migraine with aura without status migrainosus, not intractable; Bee sting allergy Social History Tobacco Use Types Packs/Day Years Used Date Smoking Tobacco: Never Passive Smoke Exposure: Never Smokeless Tobacco: Never Tobacco Cessation:Counseling Given: Not Answered Alcohol Use Standard Drinks/Week Comments Yes 0 (1 standard drink = 0.6 oz pur e alcohol) Ocassional weekends Depression Answer Date Recorded Patient Health Questionnaire-9 Score 0 10/27/2024 Patient Health Questionnaire-9 Score 0 10/27/2024 Last PHQ-9: Questionnaire Data Not on file 0 10/27/2024 Housing Stability Answer Date Recorded What is [...] Date Recorded Patient Health Questionnaire-2 Score 0 10/27/2024 Internet Access Answer Date Recorded Internet Access [...] Sign Reading Time Taken Comments Blood Pressure 124/80 10/27/2024 3:00 PM EDT Pulse 88 10/27/2024 3:00 PM EDT Temperature 36.1 C (97 F) 10/27/2024 3:00 PM EDT Respiratory Rate 20 10/27/2024 3:00 PM EDT Oxygen Saturation - - Inhaled Oxygen Concentration - - Weight 101 kg (223 lb) 10/27/2024 3:00 PM EDT Height 154.9 cm (5' 1 ) 10/27/2024 3:00 PM EDT Body Mass Index 42.14 10/27/2024 3:00 PM EDT documented in this encounter Functional Status * Over the past 2 weeks, how often have you been bothered by any of the following problems? Question Answer Date of Assessment Author Patient Health Questionnaire-2 Score 0 10/27/2024 3:02 PM EDT Koki Anton MA * Little interest or pleasure in doing things Answer Date of Assessment Author Not at all 10/27/2024 3:02 PM Koki Ortiz MA * Feeling down, depressed, or hopeless Answer Date of Assessment Author Not at all 10/27/2024 3:02 PM Koki Ortiz MA * Trouble falling or staying asleep, or sleeping too much Answer Date of Assessment Author Not at all 10/27/2024 3:02 PM Koki Ortiz MA * Feeling tired or having little energy Answer Date of Assessment Author Not at all 10/27/2024 3:02 PM Koki Ortiz MA * Poor appetite or overeating Answer Date of Assessment Author Not at all 10/27/2024 3:02 PM Koki Ortiz MA * Feeling bad about yourself - or that you are a failure or have let yourself or your family down Answer Date of Assessment Author Not at all 10/27/2024 3:02 PM Koki Ortiz MA * Trouble concentrating on things, such as reading the newspaper or watching television Answer Date of Assessment Author Not at all 10/27/2024 3:02 PM Koki Ortiz MA * Moving or speaking so slowly that other people could have noticed? Or the opposite - being so fidgety or restless that you have been moving around a lot more than usual. Answer Date of Assessment Author Not at all 10/27/2024 3:02 PM Koki Ortiz MA * Thoughts that you would be better off or hurting yourself in some way Answer Date of Assessment Author Not at all 10/27/2024 3:02 PM Koki Ortiz MA * Patient Health Questionnaire-9 Score Answer Date of Assessment Author 0 10/27/2024 3:02 PM Koki Ortiz MA * Over the last 2 weeks, how often have you been bothered by any of the following problems? Question Answer Date of Assessment Author Feeling nervous, anxious, or on edge 0 10/27/2024 3:02 PM EDT Koki Anton MA Not being able to stop or control worrying 0 10/27/2024 3:02 PM EDT Koki Anton MA Worrying too much about different things 0 10/27/2024 3:02 PM EDT Koki Anton MA Trouble relaxing 0 10/27/2024 3:02 PM EDT Koki Ryan MA Being so restless that it is hard to sit still 0 10/27/2024 3:02 PM EDT Koki Anton MA Becoming easily annoyed or irritable 0 10/27/2024 3:02 PM EDT Koki Anton MA Feeling afraid as if something awful might happen 0 10/27/2024 3:02 PM EDT Koki Lomas MA GALLO-7 Total Score 0 10/27/2024 3:02 PM EDT Koki Anton MA documented as of this encounter Progress Notes * [facility] [place] - 10/27/2024 2:45 PM EDT SUBJECTIVE: Kasie Funes is a 44 y.o. year old female with prediabetes, subclinical hypothyroidism, asthma, GERD, WINNIE, chronic pain who presents for weight mgntm follow up. Denies recent illness, injury, or hospitalization. HPI - On phentermine /topiramate since 05/21/24. Tolerated well but with no weight loss. Dose increased 07/19/24 however patient reports today that she did not peanut picker higher dose of medication d/t insuranceissue. Would like to start now Physical Activity: Goal to join a gym; walks a lot at work; Diet changes: Has cut out rice, soda, bread. Wt Readings from Last 3 Encounters: 10/27/24 223 lb (101 kg) 07/19/24 224 lb 9.6 oz (102 kg) 05/21/24 221 lb 6.4 oz (100 kg) -Patient needs all medication refills Social History Social History Narrative Tobacco Use: None ETOH: None Marijuana Use: None Other substance use: None Current living environment: Lives with 3 daughters Children: 3 Sexually active: yes Partners are: AMAB control: BTL Problem List[1] Surgical History[2] Family History[3] Review of Systems Constitutional: Negative for fever. HENT: Negative. Respiratory: Negative for shortness of breath. Cardiovascular: Negative for chest pain. Gastrointestinal: Negative for abdominal pain. Genitourinary: Negative for dysuria and pelvic pain. Musculoskeletal: Negative for back pain. Neurological: Negative for dizziness, weakness and numbness. OBJECTIVE: Vitals: 10/27/24 1500 BP: 124/80 Pulse: 88 Resp: 20 Temp: 97 ??F (36.1 ??C) Physical Exam Constitutional: General: She is not in acute distress. Appearance: Normal appearance. HENT: Head: Normocephalic and atraumatic. Right Ear: External ear normal. Left Ear: External ear normal. Nose: Nose normal. Eyes: Conjunctiva/sclera: Conjunctivae normal. Cardiovascular: Rate and Rhythm: Normal rate and regular rhythm. Heart sounds: Normal heart sounds. Pulmonary: Effort: Pulmonary effort is normal. Breath sounds: Normal breath sounds. Skin: General: Skin is warm and dry. Neurological: General: No focal deficit present. Mental Status: She is alert and oriented to person, place, and time. Psychiatric: Mood and Affect: Mood normal. Behavior: Behavior normal. ASSESSMENT/PLAN Weight Mngmt - Restart phentermine 37.5, topiramate 50. Reviewed administration, risks, side effects - Reviewed physical activity goals to include starting brisk 20-minute walk daily and looking into a gym membership - Patient declines referral to nutrition. Patient will explore some online options such as my [employer] for help with meal plans Prediabetes Lab Results Component Value Date HGBA1C 6.0 05/21/2024 - Shared decision making regarding treatment options. Patient prefers to start metformin. Reviewed administration, risks, side effects Subclinical Hypothyroid - Recheck levels - Patient had overall symptom improvement in fatigue with low-dose levothyroxine 25 mcg Diagnosis Plan 1. Prediabetes metFORMIN XR (Glucophage-XR) 500 MG 24 hr tablet 2. Class 3 severe obesity due to excess calories with serious comorbidity and body mass index (BMI)of 40.0 to 44.9 in adult phentermine 37.5 MG capsule topiramate (Topamax) 50 MG tablet 3. Thyroid dysfunction levothyroxine (Tirosint) 25 MCG capsule TSH W/Reflex to FT4 TSH W/Reflex to FT4 4. Mild persistent asthma without complication budesonide-formoterol (Symbicort) 80-4.5 MCG/ACT inhaler 5. Intercostal muscle strain, initial encounter lidocaine (Lidoderm) 5 % patch 6. Chronic migraine with aura without status migrainosus, not intractable amitriptyline (Elavil) 10MG tablet Riboflavin 400 MG capsule 7. Bee sting allergy EPINEPHrine (Epipen) 0.3 MG/0.3ML injection syringe Follow Up: 3 months, routine Medications Ordered Prior to Encounter[4] Montenegrin Translation: Provided by [facility] staff member JAKE Alvarado [1] Patient Active Problem List Diagnosis Abnormal mammogram Depressive disorder Gastroesophageal reflux disease Migraine Polyp of colon Varicose veins of lower extremity Vitamin D deficiency Iron deficiency anemia Other chronic pain Prediabetes Hepatic steatosis Abnormal uterine bleeding Subclinical hypothyroidism Health care maintenance Chronic constipation Arm mass, right Mild persistent asthma without complication [2] Past Surgical History: Procedure Laterality Date BREAST LUMPECTOMY Left fibroadenoma 2017 CHOLECYSTECTOMY ENDOMETRIAL ABLATION N/A KNEE ARTHROPLASTY Right TUBAL LIGATION [3] Family History Problem Relation Name Age of Onset Stomach cancer Father Uterine cancer Mother's Sister [4] Current Outpatient Medications on File Prior to [...] BY MOUTH EVERY DAY 90 tablet 1 fluticasone (Flonase) 50 MCG/ACT nasal spray ADMINISTER 1-2 SPRAYS INTO EACH NOSTRIL ONCE PER DAY. SHAKE GENTLY. BEFORE FIRST USE, PRIME PUMP. AFTER USE, CLEAN TIP AND REPLACE CAP. 48 mL 0 ibuprofen 600 MG tablet TAKE 1 TABLET BY MOUTH EVERY 8 HOURS NEEDED FOR MODERATE PAIN. 60 tablet1 levothyroxine (Tirosint) 25 MCG capsule TAKE 1 CAPSULE (25 MCG) BY MOUTH ONCE PER DAY. 90 capsule 0 lidocaine (Lidoderm) 5 % patch Apply topically to affected areas. Leave on for up to 12 hours 30 patch 1 magnesium oxide (Mag-Ox) 400 (240 Mg) MG tablet Take 1 tablet by mouth Once per day. magnesium oxide (Mag-Ox) 400 (240 Mg) MG tablet TAKE 1 TABLET BY MOUTH EVERY DAY 90 tablet 2 omeprazole (PriLOSEC) [address] capsule Take 1 capsule (40 mg) by mouth 2 times daily. 60 capsule 11 phentermine 37.5 MG capsule Take 1 capsule (37.5 mg) by mouth before breakfast. 30 capsule 0 Riboflavin 400 MG capsule Take 1 capsule by oral route daily 90 capsule 2 topiramate (Topamax) 50 MG tablet Take 1 tablet (50 mg) by mouth at bedtime. 30 tablet 11 No current facility-administered medications on file prior to visit. documented in this encounter Plan of Treatment Scheduled Orders Name Type Priority Associated Diagnoses Orde r Schedule TSH W/Reflex to FT4 Lab Routine Thyroid dysfunction Expected: 10/27/2024 (Approximate), Expires: 10/27/2025 documented as of this encounter Visit Diagnoses Diagnosis Prediabetes- Primary Other abnormal glucose Class 3 severe obesity due to excess calories with serious comorbidity and body mass index (BMI) of 40.0 to 44.9 in adult Thyroid dysfunction Unspecified disorder of thyroid Mild persistent asthma without complication Intercostal muscle strain, initial encounter Chronic migraine with aura without status migrainosus, not intractable Bee sting allergy documented in this encounter Additional Health Concerns Assessment Noted Time PHQ-9 Depression Total Score: 0 10/28/19 25 3:02 PM EDT documented as of this encounter Care Teams Pipelines Superintendent Relationship Specialty Start Date End Date Carol MALINI [place] [address] [place] [address] PCP - General Family Medicine 11/15/20 documented as of this encounter
--- OUTSIDE RECORDS SUMMARY | 2024-10-27 18:28 | XMS_ITS | Clinical Summary ---
Author Organization [employer] Address [address] [place] [address] 7[address] [place] [address] Care Team Providers Care School Administrator Name Role Phone Pooja Medina [facility] Primary Care Provider [phone] Allergies Active Allergy Reactions Criticality Noted Date Comments Lactose Diarrhea 02/26/2023 Shellfish Allergy Shortness of breath High Shellfish-Derived Products Anaphylaxis High 04/13/19 21 Medications omeprazole (PriLOSEC) [address] capsuleIndication s:Gastroesophagea l reflux disease with esophagitis without hemorrhage Take 1 capsule (40 mg) by mouth 2 times daily. 60 capsule 11 024 Active cetirizine (ZyrTEC) 10 MG tabletIndications :Mild persistent asthma without complication Take 1 tablet (10 mg) by mouth Once per day. 30 tablet 11 024 2024 Active cholecalciferol (Vitamin D-3) 50 MCG (1999 UT) tabletIndications :Vitamin D deficiency TAKE 1 TABLET BY MOUTH EVERY DAY 90 tablet 1 024 Active ibuprofen 600 MG tabletIndications :Chronic midline low back pain with bilateral sciatica TAKE 1 TABLET BY MOUTH EVERY 8 HOURS NEEDED FOR MODERATE PAIN. 60 tablet 1 025 Active fluticasone (Flonase) 50 MCG/ACT nasal sprayIndications: Other chronic nonsuppurative otitis media of both ears ADMINISTER 1-2 SPRAYS INTO EACH NOSTRIL ONCE PER DAY. SHAKE GENTLY. BEFORE FIRST USE, PRIME PUMP. AFTER USE, CLEAN TIP AND REPLACE CAP. 48 mL 025 2025 Active phentermine 37.5 MG capsuleIndication s:Class 3 severe obesity due to excess calories with serious comorbidity and body mass index (BMI) of 40.0 to 44.9 in adult Take 1 capsule (37.5 mg) by mouth before breakfast. 30 capsule 025 2024 Active topiramate (Topamax) 50 MG tabletIndications :Class 3 severe obesity due to excess calories with serious comorbidity and body mass index (BMI) of 40.0 to 44.9 in adult Take 1 tablet (50 mg) by mouth at bedtime. 30 tablet 11 025 2025 Active metFORMIN XR (Glucophage-XR) 500 MG 24 hr tabletIndications :Prediabetes Take 1 tablet (500 mg) by mouth with evening meal. Do not crush, chew, or split. If tolerating well OK to increase to 1 tablet twice daily 30 tablet 11 025 2025 Active levothyroxine (Tirosint) 25 MCG capsuleIndication s:Thyroid dysfunction Take 1 capsule (25 mcg) by mouth Once per day. 90 capsule Active lidocaine (Lidoderm) 5 % patchIndications: Intercostal muscle strain, initial encounter Apply topically to affected areas. Leave on for up to 12 hours 30 patch 1 Active amitriptyline (Elavil) 10 MG tabletIndications :Chronic migraine with aura without status migrainosus, not intractable Take 1 tablet (10 mg) by mouth at bedtime. 90 tablet 3 025 2025 Active EPINEPHrine (Epipen) 0.3 MG/0.3ML injection syringeIndication s:Bee sting allergy Inject 0.3 mL (0.3 mg) as directed 1 (one) time for 1 dose. 1 each Active budesonide-formot leanna (Symbicort) 80-4.5 MCG/ACT inhalerIndication s:Mild persistent asthma without complication Inhale 2 puffs twie daily. Rinse mouth with water after use to reduce aftertaste and incidence of candidiasis. Do not swallow. 1 each Active albuterol 108 (90 Base) MCG/ACT inhaler Inhale 2 puffs every 4 (four) hours if needed for wheezing. 18 g 025 Active Riboflavin 400 MG capsuleIndication s:Chronic migraine with aura without status migrainosus, not intractable Take 1 capsule by oral route daily 90 capsule 2 025 Active magnesium oxide (Mag-Ox) 400 (240 Mg) MG tablet Take 1 tablet (400 mg) by mouth Once per day. 30 tablet Active albuterol 108 (90 Base) MCG/ACT inhaler Inhale every 4 (four) hours. 022 2024 Discontinued(R eorder (will not trigger notification to Pharmacy)) baclofen (Lioresal) 10 MG tablet Take 1 tablet by mouth in the morning and 1 tablet in the evening. 022 2024 Discontinued EPINEPHrine (Epipen) 0.3 MG/0.3ML injection syringeIndication s:Bee sting allergy Inject 0.3 mL (0.3 mg) as directed 1 (one) time for 1 dose. 1 each 023 2024 Discontinued(R eorder (will not trigger notification to Pharmacy)) Riboflavin 400 MG capsuleIndication s:Chronic migraine with aura without status migrainosus, not intractable Take 1 capsule by oral route daily 90 capsule 2 023 2024 Discontinued(R eorder (will not trigger notification to Pharmacy)) ferrous gluconate (Fergon) 324 (38 Fe) MG tablet TAKE 1 TABLET BY MOUTH EVERY DAY 90 tablet 1 023 2024 Discontinued budesonide-formot leanna (Symbicort) 80-4.5 MCG/ACT inhalerIndication s:Mild persistent asthma without complication Inhale 2 puffs twie daily. Rinse mouth with water after use to reduce aftertaste and incidence of candidiasis. Do not swallow. 1 each 024 2024 Discontinued(R eorder (will not trigger notification to Pharmacy)) amitriptyline (Elavil) 10 MG tabletIndications :Chronic migraine with aura without status migrainosus, not intractable Take 1 tablet (10 mg) by mouth at bedtime. 90 tablet 3 024 2024 Discontinued(R eorder (will not trigger notification to Pharmacy)) magnesium oxide (Mag-Ox) 400 (240 Mg) MG tablet Take 1 tablet by mouth Once per day. 024 2024 Discontinued(R eorder (will not trigger notification to Pharmacy)) levothyroxine (Tirosint) 25 MCG capsuleIndication s:Thyroid dysfunction TAKE 1 CAPSULE (25 MCG) BY MOUTH ONCE PER DAY. 90 capsule 025 2024 Discontinued(R eorder (will not trigger notification to Pharmacy)) lidocaine (Lidoderm) 5 % patchIndications: Intercostal muscle strain, initial encounter Apply topically to affected areas. Leave on for up to 12 hours 30 patch 1 025 2024 Discontinued(R eorder (will not trigger notification to Pharmacy)) topiramate (Topamax) 50 MG tabletIndications :Class 3 severe obesity due to excess calories with serious comorbidity and body mass index (BMI) of 40.0 to 44.9 in adult Take 1 tablet (50 mg) by mouth at bedtime. 30 tablet 11 025 2024 Discontinued(R eorder (will not trigger notification to Pharmacy)) phentermine 37.5 MG capsuleIndication s:Class 3 severe obesity due to excess calories with serious comorbidity and body mass index (BMI) of 40.0 to 44.9 in adult Take 1 capsule (37.5 mg) by mouth before breakfast. 30 capsule 025 2024 Discontinued(R eorder (will not trigger notification to Pharmacy)) magnesium oxide (Mag-Ox) 400 (240 Mg) MG tabletIndications :Chronic migraine with aura without status migrainosus, not intractable TAKE 1 TABLET BY MOUTH EVERY DAY 90 tablet 2 025 2024 Discontinued Active Problems Problem Noted Date [...] or muscle weakness - Previously seen [place] [facility] [place] [place]--last visit 03/2021. Has trialed injections with sx improvement. - Negative HARVEY, RF, ESR, CRP 04/2021 Prediabetes 10/01/2022 Hepatic steatosis 10/01/2022 Overview (10/01/2022): Hx of elevated liver tests now resolved - Abd u/s from 04/2018 c/w hepatic steatosis - 09/2017 Liver fibrosis score of 0.05, Stage F0 Followed by [facility] Assessment & Plan (10/01/2022 6:24 AM EDT): Continue to follow with [facility] Continue to work with nutrition for weight loss Abnormal uterine bleeding 10/01/2022 Overview (10/01/2022): Followed by [facility] Subclinical hypothyroidism 10/01/2022 Overview (10/01/2022): Tirosint 25mcg [...] Pap: NIL HPV neg 09/2021, followed by [facility] C-scope:08/2019, repeat 2029 BMD: Routine Immunizations: UTD Chronic constipation 10/01/2022 Polyp of colon 03/05/2021 Overview (10/01/2022): Colonoscopy 08/2019 negative with polyp (hyperplastic) 10 year repeat Gastroesophageal reflux disease 12/23/2019 Overview (10/01/2022): Followed by [facility] EGD 02/2022 with reactive [...] Encounters Date Type Department Care Team Description 10/27/2024 2:45 PM EDT Office Visit [address] [address] [facility] Prediabetes (Primary Dx); Class 3 severe obesity due to excess calories with serious comorbidity and body mass index (BMI) of 40.0 to 44.9 in adult; Thyroid dysfunction; Mild persistent asthma without complication; Intercostal muscle strain, initial encounter; Chronic migraine with aura without status migrainosus, not intractable; Bee sting allergy 10/27/2024 Travel 10/26/2024 Travel 10/26/[address] [address] Marleni Aparicio [place] Chart Prep 10/19/2024 Patient Outreach [address] [place] [address] Pooja Medina FNP Pre-visit Planning ((Unable to reach for PVP screening, LVM) to be completed in office ) 09/14/2024 Telephone [facility] [address] [place] [address] Pooja Medina FNP Med Refill 09/03/[address] [facility] [address] [place] [address] Pooja Medina FNP Chronic migraine with aura without status migrainosus, not intractable 09/01/2024 Orders Only [facility] External Provider, [facility] 08/16/[address] [facility] [address] [place] [address] Pooja Medina FNP Other chronic nonsuppurative otitis media of both ears 08/13/[address] [facility] [address] [place] [address] Pooja Medina FNP Class 3 severe obesity due to excess calories with serious comorbidity and body mass index (BMI) of 40.0 to 44.9 in adult 08/12/2024 Telephone [facility] [address] [place], [place] [phone] Pooja Medina FNP sept recall from Last 3 Months Immunizations Immunization Administration [...] 20 10/27/2024 3:00 PM EDT Oxygen Saturation 98% 01/06/2023 12:09 PM EST Inhaled Oxygen Concentration - - Weight 101 kg (223 lb) 10/27/2024 3:00 PM EDT Height 154.9 cm (5' 1 ) 10/27/2024 3:00 PM EDT Body Mass Index 42.14 10/27/2024 3:00 PM EDT Plan of Treatment Health Maintenance Due Date Last Done Comments Family Planning (PISQ) 08/11/1995 HPV Vaccines (1 - 3-dose series) 08/11/1995 Diabetes: Hemoglobin A1C 08/20/2024 025, 09/19/2022, 12/12/2021, Additional history exists Influenza Vaccine (#1) 2024 , 11/23/2021, 02/13/2017, Additional history exists SDOH Screening 12/14/2024 12/15/2023 Mammogram 05/12/2025 05/12/2024, 04/18, 04/22/2023, Additional history exists Alcohol/Substance Use Screening 07/19/2025 07/19/2024 Disability Screening 10/26/2025 10/26/2024 Depression Screening 10/27/2025 10/27/2024, 10/28/19 Tobacco Screening 10/27/2025 10/27/2024 Cervical Cancer Screening 10/04/2026 HPV/Cotest 10/04/2026 10/04/2021 [...] Procedure Name Priority Date/Time Associated Diagnosis Comments VASC US LOWER EXTREMITY VENOUS DUPLEX BILATERAL Routine 09/02/2024 1:23 PM EDT XR WRIST 3+ VIEWS RIGHT Routine 09/01/2024 12:26 PM EDT XR HAND 3+ VIEWS RIGHT Routine 09/01/2024 12:25 PM EDT POCT GLYCATED HEMOGLOBIN, TOTAL Routine 05/21/2024 9:39 [...] Recently Relevant to Health Maintenance Results * [facility] US Lower Extremity Venous Duplex Bilateral (09/02/2024 1:23 PM EDT) 09/02/2024 1:23 PM EDT Narrative [facility] IM[facility] - 09/02/2024 2:55 PM EDT [place] [address] Ultrasound Report Signed Patient: Kasie Funes MR#: [id number] 960 : 1980 Acct:[id number] Age/Sex: 44 / F ADM Date: 09/02/24 Loc: . Attending Dr: Cony Sanches PA-C Ordering Physician: Cony Sanches PA-C Date of Service: 09/02/24 Procedure(s): US venous duplex LE BI Accession Number(s): [id number] cc: Cony Sanches PA-C; [facility] EXAMINATION: US LOWER EXTREMITY VENOUS (REFLUX [...] 09/02/24 1452 DD/ 1323 TD/TT: 09/02/24 1410 Time Broker: Procedure Note Donotuseinterpreter, Image - 09/02/[address] [address] Ultrasound Report Signed Patient: Beatris Funes#: [id number] 960 : 1980Acct:[id number] Age/Sex: 44 / FADM Date: 09/02/24 Loc: HO.US Attending Dr: Cony Sanches PA-C Ordering Physician: Cony Sanches PA-C Date of Service: 09/02/24 Procedure(s): US venous duplex LE BI Accession Number(s): [id number] cc: Cony Sanches PA-C; [facility] EXAMINATION: US LOWER EXTREMITY VENOUS (REFLUX [...] 09/02/24 1452 DD/ 1323 TD/TT: 09/02/24 1410 Time Broker: us [facility] External Provider CV VASC ULAR PROCEDURES Edited Result - Final [facility] [address] [place] [phone] * XR Wrist 3+ Views Right (09/01/2024 12:26 PM EDT) Anatomical Region Laterality Modality Upper Extremities, Wrist Right Radiogr [facility] Imaging 09/01/2024 12:2 6 PM EDT Narrative 09/01/2024 1:34 PM EDT [address] [address] XRay Report Signed Patient: Kasie Funes MR#: [id number] 960 : 1980 Acct:[id number] Age/Sex: 44 / F ADM Date: 09/01/24 Loc: HO.ED Attending Dr: Ordering Physician: Sowmya Keyes Date of Service: 09/01/24 Procedure(s): XR wrist RT min 3V Accession Number(s): [id number] cc: Sowmya Keyes; [facility] EXAMINATION: XR WRIST, RIGHT CLINICAL INFORMATION: pain [...] 09/01/24 1331 DD/ 1226 TD/TT: 09/01/24 1328 Time Broker: Procedure Note Donotuseinterpreter, Image - 09/01/[address] [address] XRay Report Signed Patient: Kasie FunesMR#: [id number] 960 : 1980Acct:[id number] Age/Sex: 44 / FADM Date: 09/01/24 Loc: HO.ED Attending Dr: Ordering Physician: Sowmya Keyes Date of Service: 09/01/24 Procedure(s): XR wrist RT min 3V Accession Number(s): [id number] cc: Sowmya Keyes; [facility] EXAMINATION: XR WRIST, RIGHT CLINICAL INFORMATION: pain to ulnar wrist COMPARISON: None available. TECHNIQUE: PA, lateral, oblique, and scaphoid views of the right wrist. FINDINGS: There are no degenerative changes. There is no joint diastases. No fracture line is evident. XR/XR wrist RT min 3V IMPRESSION: Unremarkable right wrist Electronically signed by: Salvador Alexander MD 09/01/2024 01:31 PM EDT Dictated By: Salvador Alexander MD Signed By: <Electronically signed by Salvador Alexander MD in OV> 09/01/24 1331 DD/ 1226 TD/TT: 09/01/24 1328 Time Broker: [facility] External Provider IMG XR PROCEDURES Final Result * XR Hand 3+ Views Right (09/01/2024 12:25 PM EDT) Anatomical Region Laterality Modality Upper Extremities, Hand Right [facility] 09/01/2024 12:2 5 PM EDT Narrative 09/01/2024 1:36 PM EDT [address] [address] XRay Report Signed Patient: Kasie Funes MR#: [id number] 960 : 1980 Acct:[id number] Age/Sex: 44 / F ADM Date: 09/01/24 Loc: HO.ED Attending Dr: Ordering Physician: Sowmya Keyes Date of Service: 09/01/24 Procedure(s): XR hand RT min 3V Accession Number(s): [id number] cc: Sowmya Keyes; [facility] EXAMINATION: XR HAND, RIGHT CLINICAL INFORMATION: pain [...] 09/01/24 1333 DD/ 1225 TD/TT: 09/01/24 1328 Time Broker: Procedure Note Donotuseinterpreter, Image - 09/01/2024 [place] [address] XRay Report Signed Patient: Kasie FunesMR#: [id number] 960 : 1980Acct:[id number] Age/Sex: 44 / FADM Date: 09/01/24 Loc: .ED Attending Dr: Ordering Physician: Sowmya Keyes Date of Service: 09/01/24 Procedure(s): XR hand RT min 3V Accession Number(s): [id number] cc: Sowmya Keyes; [facility] EXAMINATION: XR HAND, RIGHT CLINICAL INFORMATION: pain [...] 09/01/24 1333 DD/ 1225 TD/TT: 09/01/24 1328 Time Broker: [facility] External Provider IMG XR PROCEDURES Final Result * POCT HGB A1C (05/21/2024 9:39 AM EDT) Hemoglobin A1C 6.0 4.0 - 6.0 % Blood 05/21/2024 9:39 AM EDT [facility] POINT OF CARE TEST ENTER/EDIT ORDERABLES Final Result * BI US Breast Limited Left (05/12/2024 2:00 PM EDT) Anatomical Region Laterality Modality Breast Left Ultrasound 05/12/2024 2:00 PM EDT Narrative 05/12/2024 2:36 PM EDT [address] [place] [address] Ultrasound Report Signed Patient: Kasie Funes MR#: [id number] 960 : 1980 Acct:[id number] Age/Sex: 43 / F ADM Date: 05/12/24 Loc: HO.MAMMO Attending Dr: Pooja NAYAK Ordering Physician: Pooja Medina Date of Service: 05/12/24 Procedure(s): US breast LT limited mamm only Accession Number(s): [id number] cc: Pooja Medina [facility] EXAMINATION: MM DIAGNOSTIC DIGITAL BREAST TOMOSYNTHESIS, BILATERAL [...] Rosario Boswell DO 05/12/2024 02:33 PM EDT Workstation: [employer] Dictated By: Rosario Boswell DO Signed By: <Electronically signed by Rosario Boswell DO in OV> 05/12/24 1433 DD/ 1400 TD/TT: 05/12/24 1426 Time Broker: Procedure Note Donotuseinterpreter, Image - 05/12/2024 [place] [facility] [address] [place], [place] [address] Ultrasound Report Signed Patient: Kasie FunesMR#: [id number] 960 : 1980Acct:[id number] Age/Sex: 43 / FADM Date: 05/12/24 Loc: MAMMO Attending Dr: Pooja Medina [facility] Ordering Physician: Pooja Medina Date of Service: 05/12/24 Procedure(s): US breast LT limited mamm only Accession Number(s): [id number] cc: Pooja Medina EXAMINATION: MM DIAGNOSTIC DIGITAL [...] 05/12/24 1433 DD/ 1400 TD/TT: 05/12/24 1426 Time Broker: [facility] IMG US PROCEDURES Final Resul t * Lipid Panel, Standard (10/31/2023 1:40 PM EDT) Triglycerides 66 <150 mg/dL [facility] Comment:Desirable Triglyceri de: less than 150 mg/dLBorderline High Triglyceride 150-199 mg/dLHigh Triglyceride: 200-499 mg/dLVery High Triglyceride: greater than or equal to 5OO mg/dL Cholesterol 160 <200 mg/dL [facility] Comment:Desirable Cholestero l: less than 200 mg/dLBorderline High Cholesterol: 200-239 mg/dLHigh Cholesterol: greater than 239 mg/dL LDL Cholesterol Calculated 79 <100 mg/dL [facility] Comment:Desirable LDL: less than 100 mg/dLNear Optimal/Above Optimal LDL: 110- 129 mg/dLBorderline High LDL: 130-159 mg/dLHigh LDL: 160-189 mg/dLVery High LDL: greater than or equal to 190 mg/dL HDL Cholesterol 68 >40 mg/dL [facility] Comment:Desirable HDL: great er than 40 mg/dL Note: This HDL assay may give artificially low results in patients with liver disease. Blood Venous blood specimen / Unknown 10/31/2023 1:40 PM EDT 10/31/2023 3:58 PM EDT [facility] LAB BLOOD ORDERABLES Final Re sult [facility] [address] [place] [phone] * THINPREP TIS PAP AND HPV mRNA E6/E7 WITH REFLEX TO HPV 16,18/45 (10/04/2021 10:02 AM EDT) Clinical Information: None given [facility] COMMENT SEE COMMENT [facility] [...] has been evaluated with computer assisted technology. [facility] Cytotechnologis t: SEE COMMENT [facility] Comment: JNA, CT(ASCP) CT screening location: [address] [address] HPV nRNA E6/E7 Not Detected Not Detected [facility] Comment: Methodology: Adjunct Faculty Instructor-Mediated Amplification This assay detects E6/E7 viral messenger RNA (mRNA) from 14 high-risk HPV types (16,18,31,33,35,39,45,51,52,56,58,59,66,68). Cervical sources are required for HPV testing. If a vaginal source from a patient who has had a total hysterectomy with removal of cervix was submitted, please contact the testing laboratory for alternative testing options. For additional information, please refer to http://education.[facility]/faq/NZH826g6 (This link if provided for information/ educational purposes only.) Infection Shift in vaginal sin suggestive of bacterial vaginosis. [facility] Interpretation/ Result: Negative for intraepithelial lesion or malignancy. [facility] LMP: 06/2021 [facility] Prev. BX: NONE GIVEN [facility] Prev. PAP: NIL 09/2018 [facility] SOURCE: None given [facility] Statement Of Adequacy: SEE COMMENT [facility] Comment: Satisfactory for evaluation. Endocervical/transformation zone component absent. 10/04/2021 10:0 2 AM EDT Iris LOMAS LAB PATHOLOGY ORDERABLES Final Result Performing Organization Address City/[facility] Co de Phone Number [facility] [address] * Pap Smear (10/04/2021 12:00 AM EDT) Swab Iris Padron [facility] CYTOLOGY ORDERABLES F inal Result Performing Organization Address City/[facility] Co de Phone Number [address], [place] [address] * HEPATITIS C AB W/REFL TO HCV RNA, QN, PCR (04/30/2021 2:02 PM EDT) HEPATITIS C ANTIBODY NON-REACT DAVE NON-REACT DAVE [facility] INDEX 0.02 <1.00 [facility] Comment: HCV antibody was non-reactive. There is no laboratory evidence of HCV infection. In most cases, no further action is required. However, if recent HCV exposure is suspected, a test for HCV RNA (test code 01273) is suggested. For additional information please refer to http://education.[facility]/faq/FCT09o4 (This link is being provided for informational/ educational purposes only.) 04/30/2021 2:02 PM EDT [facility] HISTORICAL/NON ORDERABLE LABS Final Result Performing Organization Address City/State/[facility] Co de Phone Number [facility] [address] * HIV 1/2 ANTIGEN/ANTIBODY,FOURTH GENERATION W/RFL (04/30/2021 2:02 PM EDT) HIV-1/2 ANTIGEN AND ANTIBODIES, 4TH GENERATION W/ REFLEX NON-REACT DAVE NON-REACT DAVE [facility] Comment: HIV-1 antigen and HIV-1/HIV-2 [...] purpose. For additional information please refer to http://education.[facility]/faq/MOP618 (This link is being provided for informational/ educational purposes only.) The performance of this assay has not been clinically validated in patients less than 2 years old. 04/30/2021 2:02 PM EDT [facility] LAB BLOOD ORDERABLES Final Re sult Performing Organization Address [facility] Co de Phone Number [facility] [address] from Last 3 Months or Most Recently Relevant to Health Maintenance Insurance [address] [place] [address] [facility] [address] [place] [address] [place] [address] [place] Care Teams School Administrator Relationship Specialty Start Date End Date Pooja Medina FNP [address] [place] [address] [place] [phone] PCP - General Family Medicine 11/15/20
--- OUTSIDE RECORDS SUMMARY | 2024-10-27 18:28 | XMS_ITS | Encounter Summary ---
Author Organization [employer] Address [address] [place] [address] [address] [place] [address] Care Team Providers Care User Interface Developer Name Role Phone Pooja Medina [employer] Primary Care Provider [phone] Reason for Visit * Reason Onset Date Comments Chart Prep 10/26/2024 Encounter Details Date Type Department Care Team (Late st Contact Info) Description 10/26/2024 Telephone [facility] [address] [place] [address] Marleni Aparicio MA Chart Prep Social History Tobacco Use Types Packs/Day Years [...] encounter Miscellaneous Notes * Telephone Encounter - Marleni Aparicio MA - 10/26/2024 2:05 PM EDT Chart Prep Labs: done 05/21/24 Images: done 09/01/24 Referrals: [facility] called vascular office to verify appt there was no answer # [phone] Vaccines due: Flu and HPV Screenings: not applicable Overdue care gaps: A1c, Glucose, and SDOH documented in this encounter Plan of Treatment Not on file documented as of this encounter Visit Diagnoses Not on filedocumented in this encounter Additional Health Concerns Assessment Noted Time PHQ-9 Depression Total Score: 0 07/20/19 25 1:54 PM EDT documented as of this encounter Care Teams User Interface Developer Relationship Specialty Start Date End Date Pooja Medina FNP [address] [place] [address] PCP - General Family Medicine 11/15/20 documented as of this encounter
--- OUTSIDE RECORDS SUMMARY | 2024-10-27 18:28 | XMS_ITS | Encounter Summary ---
Author Organization [employer] Address [address] [facility] [address] [place] [address] Care Team Providers Care Equipment Service Technician Name Role Phone Pooja Medina [facility] Primary Care Provider [phone] Encounter Details Date Type Department Care Team (Latest Contact Info) Description 10/27/2024 Travel Social History Tobacco Use Types Packs/Day [...] AM EDT documented as of this encounter Functional Status * Over the past 2 weeks, how often have you been bothered by any of the following problems? Question Answer Date of Assessment Author Patient Health Questionnaire-2 Score 0 10/27/2024 3:02 PM EDT Koki Anton MA * Little interest or pleasure in doing things Answer Date of Assessment Author Not at all 10/27/2024 3:02 PM EDT Koki Connell MA * Feeling down, depressed, or hopeless Answer Date of Assessment Author Not at all 10/27/2024 3:02 PM EDT Koki Connell MA * Trouble falling or staying asleep, or sleeping too much Answer Date of Assessment Author Not at all 10/27/2024 3:02 PM EDT Koki Connell MA * Feeling tired or having little energy Answer Date of Assessment Author Not at all 10/27/2024 3:02 PM EDT Koki Connell MA * Poor appetite or overeating Answer Date of Assessment Author Not at all 10/27/2024 3:02 PM EDT Koki Connell MA * Feeling bad about yourself - or that you are a failure or have let yourself or your family down Answer Date of Assessment Author Not at all 10/27/2024 3:02 PM EDT Koki Connell MA * Trouble concentrating on things, such as reading the newspaper or watching television Answer Date of Assessment Author Not at all 10/27/2024 3:02 PM EDT Koki Connell MA * Moving or speaking so slowly that other people could have noticed? Or the opposite - being so fidgety or restless that you have been moving around a lot more than usual. Answer Date of Assessment Author Not at all 10/27/2024 3:02 PM EDT Koki Connell MA * Thoughts that you would be better off or hurting yourself in some way Answer Date of Assessment Author Not at all 10/27/2024 3:02 PM EDT Koki Connell MA * Patient Health Questionnaire-9 Score Answer Date of Assessment Author 0 10/27/2024 3:02 PM EDT Koki Connell MA * Over the last 2 weeks, [...] Anton MA documented as of this encounter Plan of Treatment Not on file documented as of this encounter Visit Diagnoses Not on filedocumented in this encounter Additional Health Concerns Assessment Noted Time PHQ-9 Depression Total Score: 0 10/28/19 25 3:02 PM EDT documented as of this encounter Care Teams Equipment Service Technician Relationship Specialty Start Date End Date [facility], MALINI [address] [place] [address] PCP - General Family Medicine 11/15/20 documented as of this encounter
--- OUTSIDE RECORDS SUMMARY | 2024-10-27 18:28 | XMS_ITS | Encounter Summary ---
Author Organization [employer] Address [address] [place] [address] 7 [place] [address] Care Team Providers Care Superintendent Plant Protection Name Role Phone [facility] Primary Care Provider [phone] Encounter Details Date Type Department Care Team (Late st Contact Info) Description 03/22/2022 Abstract [facility]INE [address] [place], [place] [phone] [facility] [address] [place], [place] [phone] Social History Tobacco Use Types Packs/Day Years [...] on filedocumented in this encounter Care Teams Superintendent Plant Protection Relationship Specialty Start Date End Date Pooja Medina FNP [address] [place] [id number] PCP - General Family Medicine 11/15/20 documented as of this encounter
--- OUTSIDE RECORDS SUMMARY | 2024-10-27 18:28 | XMS_ITS | Encounter Summary ---
Author Organization [employer] Address [address] [place] [address] 7 [place] [address] Care Team Providers Care Promotional Marketing Analyst Name Role Phone [place] Primary Care Provider [phone] Reason for Visit * Reason Onset Date Comments Med Refill 09/14/2024 Encounter Details Date Type Department Care Team ([facility] st Contact Info) Description 09/14/2024 Telephone [facility] MED[facility]INE [address] [place] [address] [facility] [address] [place] [address] Med Refill Social History Tobacco Use Types [...] 2:49 PM EDT Medication was sent to [id number] on 07/19/24 with 11 refills. Patient can call pharmacy and transfer medication. * Telephone Encounter - Conrado Paez - 09/14/2024 2:46 PM EDT TC from pt requesting medication refill. Medications needing refill : topiramate (Topamax) 50 MG tablet To be sent to: [facility] - [place], [place] - [address] [facility] documented in this encounter Plan of Treatment Not on file documented as of this encounter Visit Diagnoses Not on filedocumented in this encounter Additional Health Concerns Assessment Noted Time PHQ-9 Depression Total Score: 0 07/20/19 1:54 PM EDT documented as of this encounter Care Teams Promotional Marketing Analyst Relationship Specialty Start Date End Date Pooja Medina FNP [address] [facility] [place] [address] PCP - General Family Medicine 11/15/20 documented as of this encounter
--- OUTSIDE RECORDS SUMMARY | 2024-10-27 18:28 | XMS_ITS | Encounter Summary ---
Author Organization [employer] Address [address] [facility] 7t [place] [address] Care Team Providers Care Director Business Intelligence Name Role Phone Pooja Medina [facility] Primary Care Provider [phone] Encounter Details Date Type Department Care Team (Latest Contact Info) Description 10/26/2024 Travel Social History Tobacco Use Types Packs/Day [...] documented as of this encounter Care Teams Director Business Intelligence Relationship Specialty Start Date End Date Pooja Medina FNP [address] [place] [id number] PCP - General Family Medicine 11/15/20 documented as of this encounter
--- OUTSIDE RECORDS SUMMARY | 2024-10-27 18:28 | XMS_ITS | Encounter Summary ---
Author Organization [employer] Address [address] [place] [address] [address] [place] [address] Care Team Providers Care Pan Operator Name Role Phone Pooja Medina [facility] Primary Care Provider [phone] Reason for Visit * Reason Comments Med Refill Encounter Details Date Type Department Care Team ([facility] st Contact Info) Description 02/07/2024 Refill [facility] [address] [place], [place] [phone] Diandra Judd MD [address] [place], [place] [phone] Thyroid dysfunction Social History Tobacco Use Types [...] documented as of this encounter Care Teams Pan Operator Relationship Specialty Start Date End Date Pooja Medina FNP [address] [place] [id number] PCP - General Family Medicine 11/15/20 documented as of this encounter
== END 2024-10-27 15:39 | disposition home or self-care (01) ==
LOC: HO.HHCL 15:38
PROVIDERS: PCP Registered Nurse; Visit Provider Registered Nurse
DX: E07.9 Disorder of thyroid, unspecified (principal)
CPT/HCPCS: 36415; 84443

== ENCOUNTER 2024-11-08 12:47 | Outpatient (AMB) | payer OTHER, SELFPAY ==
--- NOTE | 2024-11-08 12:55 | A.OFFVIS_ITS ---
Vital Signs 11/08/24 12:57 Height 5 ft 1 in Weight 220 lb BMI 41.6 Intake Visit Reasons: OV- RT knee OA 3 month f/u Intake Note: Kasie 44 yr old puerto rican speaking female presents today for her 3 month follow up for her right knee O.A pain. At her last visit she was advise to try NSAIDs and continue trying to maintain her weight and stay active. She has tried NSAIDs in the past and has a history of gastritis so Celebrex was recommended. Today patient states she has been working in her weight loss and has lost 4-5 lbs. She continues to have pain and knee giving out. Allergies mussels Allergy (Severe, Verified 11/08/24 13:00) DIFFICULTY BREATHING lactose Adverse Reaction (Verified 11/08/24 13:00) Diarrhea HPI HPI OV- RT knee OA 3 month f/u: Details: Patient returns today continue describe anteromedial right knee pain. She has pain with walking. She states she has difficulty tolerating the discomfort. Injections have helped her in the past. She continues to work. She continues to walk without an assistive device. She is working on losing weight. [facility] Medical History Lipoma of arm Asthma Lab test negative for COVID-19 virus COVID-19 Chronic constipation Iron deficiency anemia due to chronic blood loss Epigastric pain GERD (gastroesophageal reflux disease) Lactose intolerance in adult Depression Hypothyroidism Surgical History Status post excision of lipoma (~11/27/22) Hx of shoulder surgery Hx of tubal ligation History of endometrial ablation Hx of dilation and curettage History of breast lump/mass excision Hx of arthroscopic knee surgery History of esophagogastroduodenoscopy (EGD) Status post laparoscopic cholecystectomy History of colonoscopy Family History Mother No problems noted. Father No problems noted. Maternal Aunt Hx of ovarian cancer Social History Household Members: Children Alcohol intake: unknown Patient Tobacco Use Status: Never used Tobacco Second Hand Smoke Exposure: No Current occupational status: employed Current occupation: [employer] HIGH/ right hand dominant Female Reproductive History Menstrual Age of Menarche: 11 Physical Exam Vital Signs: BMI result Body Mass Index 41.6 Extrem Other: On exam there is tenderness to palpation medial compartment. Negative Jesus's. Trace effusion. 0-125 Office Procedures Joint Inj/Aspir; Non-Pain Clin Joint Injection/Drain Details: Injected 1 mL of Decadron and 3 mL 1% lidocaine and 3 mL of 0.25% Marcaine. Site was prepped using aseptic technique. Patient tolerated the procedure well. Shoulders, Hips, Knees, Knee Large Joint Injection : Right Knee Coding Procedure code (CPT) selection complete Assessment & Plan Assessment & Plan (1) Localized osteoarthritis of right knee: Code(s): M17.11 - Unilateral primary osteoarthritis, right knee Category: Medical Plan: This is a 44-year-old woman with osteoarthritis of the right knee. Intraoperatively she had severe trochlear arthritis and moderate medial compartment OA. I explained that she is too young for arthroplasty and I do not recommend it. I injected her right knee today. She can follow up in 3 months for repeat injection. If steroids. Functioning we can consider viscosupplementation. I recommend she continue activity as tolerated and focus on strengthening and weight loss. I gave her a note for work to sit 15 minutes for every hour work. Medications: Refilled ibuprofen 600 mg PO Q6H PRN 30 tabs 0RF pain Coding Level of Care Code Est Pt Level 3 (23052) Diagnoses Localized osteoarthritis of right knee M17.11 CPT Codes Shoulders, Hips, Knees, - Knee Large Joint Injection : Right Knee ([id number])
[2024-11-08 12:57] VITALS: BMI 41.6
== END 2024-11-08 13:14 | disposition home or self-care (01) ==
LOC: HO.HOS 12:48
PROVIDERS: PCP Registered Nurse; Visit Provider Orthopaedic Surgery
DX: M17.11 Unilateral primary osteoarthritis, right knee (principal)
CPT/HCPCS: 20610; 99213

== ENCOUNTER → 2024-11-08 12:47 | Outpatient (BNVA) | payer OTHER, SELFPAY | PROVIDERS: PCP Registered Nurse; Visit Provider Orthopaedic Surgery | DX: M17.11 Unilateral primary osteoarthritis, right knee (principal) | CPT/HCPCS: 20610; 99212; J0665; J1100; J2003 ==

== ENCOUNTER 2024-11-11 12:46 | Outpatient (AMB) | payer OTHER, SELFPAY ==
--- NOTE | 2024-11-11 13:00 | MHC.OFFVIS ---
Vital Signs 11/11/24 13:04 Height 5 ft 1 in Weight 220 lb BMI 41.6 BP 101/59 L Blood Pressure Location Lt brachial Position Sitting Pulse 95 Pulse Oximetry (%) 97 Oxygen Delivery Method Room Air Intake Visit Reasons: Follow up Chronic constipation PT N/S last appt Intake Note: Patient follow up for Chronic Constipation/ ama was 10/25/2022. Patient cc: acid reflux, chronic constipation, chocking sensation at night time with reflux and abdominal pain. [employer] Required: No Accompanied by: Daughter Allergies mussels Allergy (Severe, Verified 11/11/24 12:59) DIFFICULTY BREATHING lactose Adverse Reaction (Verified 11/11/24 12:59) Diarrhea PFSH Medical History Lipoma of arm Asthma Lab test negative for COVID-19 virus COVID-19 Chronic constipation Iron deficiency anemia due to chronic blood loss Epigastric pain GERD (gastroesophageal reflux disease) Lactose intolerance in adult Depression Hypothyroidism Surgical History (Updated 11/11/24 @ 13:03 by Le Sullivan) Status post excision of lipoma (~11/27/22) Hx of shoulder surgery Hx of tubal ligation History of endometrial ablation Hx of dilation and curettage History of breast lump/mass excision Hx of arthroscopic knee surgery History of esophagogastroduodenoscopy (EGD) Status post laparoscopic cholecystectomy History of colonoscopy Family History Mother No problems noted. Father No problems noted. Maternal Aunt Hx of ovarian cancer Social History Household Members: Children Alcohol intake: unknown Patient Tobacco Use Status: Never used Tobacco Second Hand Smoke Exposure: No Current occupational status: employed Current occupation: [employer] HIGH/ right hand dominant Female Reproductive History Menstrual Age of Menarche: 11 Assessment & Plan Assessment & Plan (1) GERD (gastroesophageal reflux disease): Code(s): K21.9 - Gastro-esophageal reflux disease without esophagitis Category: Medical (2) Helicobacter pylori gastritis: Code(s): K29.70 - Gastritis, unspecified, without bleeding; B96.81 - Helicobacter pylori [H. pylori] as the cause of diseases classified elsewhere Category: Medical (3) NAFL (nonalcoholic fatty liver): Code(s): K76.0 - Fatty (change of) liver, not elsewhere classified Category: Medical (4) Chronic constipation: Code(s): K59.09 - Other constipation Category: Medical (5) Lactose intolerance in adult: Code(s): E73.9 - Lactose intolerance, unspecified Category: Medical Coding Diagnoses GERD (gastroesophageal reflux disease) K21.9 Helicobacter pylori gastritis K29.70; B96.81 NAFL (nonalcoholic fatty liver) K76.0 Chronic constipation K59.09 Lactose intolerance in adult E73.9
--- NOTE | 2024-11-11 13:00 | MHC.OFFVIS ---
Vital Signs 11/11/24 13:04 Height 5 ft 1 in Weight 220 lb BMI 41.6 BP 101/59 L Blood Pressure Location Lt brachial Position Sitting Pulse 95 Pulse Oximetry (%) 97 Oxygen Delivery Method Room Air Intake Visit Reasons: Follow up Chronic constipation PT N/S last appt Allergies mussels Allergy (Severe, Verified 11/11/24 12:59) DIFFICULTY BREATHING lactose Adverse Reaction (Verified 11/11/24 12:59) Diarrhea Medication List - Last Reconciled 11/11/24 by Osvaldo Wen MD acetaminophen (Tylenol Extra Strength) 500 - 1,000 mg (1 - 2 x 500 mg) PO QID PRN albuterol sulfate 90 mcg/actuation (ProAir HFA) 2 puffs inhalation Q6H PRN amitriptyline 10 mg PO BEDTIME cetirizine 10 mg PO DAILY cholecalciferol (vitamin D3) (Vitamin D3) 50 mcg PO DAILY epinephrine IM fluticasone propionate 110 mcg/actuation (Flovent HFA) 2 puffs inhalation BID ibuprofen 600 mg PO Q6H PRN levothyroxine (Tirosint) 25 mcg PO DAILY magnesium oxide 400 mg PO DAILY omeprazole 40 mg PO BID phentermine 37.5 mg PO QAM HPI HPI Follow up Chronic constipation PT N/S last appt: Details: GI CLINIC VISIT F OR THIS 42-YEAR-OLD WOLOF-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 Pt was scheduled for an urgent telemedicine visit in 01/2022 after a hiatus of 14 months (after pt called with abdominal pain) ESTEPHANIA was on 10/25/22 TODAY'S VISIT Pt is accompanied by her daughter, William, who interpreted for the patient Complains of intermittent constipation. Has a BM every 2 times a day with intermittent straining - not taking any medications. Sometimes she feels there is stool in the rectum and unable to push it out Continues to have heartburn daily - needs refills Pt was prescribed a medication for wt loss by her PCP and discontinued due to side effects. PAST VISITS: Has not tried to use a suppository Ran out of medications for constipation and advised to resume. Patient follow up for Constipation and EGD ad US results. Ptient cc: acid reflex on and off. Has been doing pretty good Not too much pain lately Patient cc: center of abdominal pain with bloating, and diarrhea. Denies any other GI issues. Continues to have some abdominal pain. When she eats something hot it woodard Notes acid reflux after spicy food. Denies diarrhea and no BM for the past 2 days Has a BM once a day with straining. Denies rectal bleeding or black stools. Had a period Feb 02 and again on the Feb and last 3 days. Denies heavy bleeding or clots Has noted abdominal pain for the past week. Did not have abd pain in the past since she was taking medications Still taking the medications and unclear why the pain came back. Notes a lot of pain after she eats something - notes pressure Had some diarrhea yesterday. Denies heavy menstrual blood. Denies taking Ibuprofen and taking Omeprazole 40 mg once a day (advised to increase to twice daily). PAST VISIT: CC: Stomach pains, When she eats something her stomach woodard. Heartburn, burning in throat and chest - avoiding fried foods and tomatoes. Complains of pain in the middle of her chest? - notes the pain daily. Had pain when she drank some coffee. Pain can last until she takes a pill (she bought over the counter) Takes Oxycodone and Tramadol once a day - unable to recall why it was prescribed ? back, shoulder and neck pain. Denies irregular bowel movements. Doing good. Had endometrial ablation on 05/16/20 with decrease in menstrual blood loss Continues to have intermittent heartburn whenever she has greasy foods or tomatoes. 02/03/20 Pt had a hysteroscopy with d&c for abnormal uterine bleeding after endometrial biopsy performed in the office did not show definitive endometrial tissue.She was called by her Electrical Appliance Servicer and given 3 options to control the bleeding - BCP, surgery versus? hysterectomy. She has not made a decision yet. Continues to have constipation. Notes heartburn when she takes spicy foods. taking iron once a day. ? She has completed her IV iron treatment and notes improvement in dizziness. Periods continue to be heavy and has not seen ObGyn yet. ? Saw DR Lin in the past. ?Not taking taking iron and was advised to resume taking iron pills once a day. ?Periods are heavy and last 8 days. ? Waiting for an appt to see ObGyn ?? Continues to have constipation since she ran out of her medications. ? Constipation is better since she has been taking medications - having a BM twice a week without hard stools. ? Denies straining or hard stools - sometimes no BM for 2 days. ? Notes some bloating. ? Takes iron pills twice a day. ? Denies nausea, vomiting or heartburn. ? Intermittent black stools - likely due to oral iron. ? Periods are heavy - has them once a month and last 8 days - saw Juancarlos 1-2 yrs ago. ? Pt denies any change in her FH and denies history of colon polyps or?cancer LABS IN [facility]:?09/29/19 CBC showed worsening anemia with H&H of 7.5 and 26, platelet 634, ferritin of 3, normal LFTS, ? 01/05 INR 1.1, hepatitis serologies showed immunity to hepatitis B and negative hepatitis-C antibody ? 09/2017 liver fibrosis score of 0.05, liver fibrosis stage F0, necroinflammatory score 0.25 ?IMAGING STUDIES: 04/26/22 ABD US SHOWED: LIVER: The liver is normal in size. The liver contour is normal. Diffuse increased echogenicity of the liver parenchyma. No focal hepatic lesion. There is no intrahepatic biliary duct dilatation seen. GALLBLADDER: Surgically absent. COMMON BILE DUCT: Normal in caliber measuring 0.6 cm in diameter. Feb, 2021 Gastric Emptying Study was normal ? 04/2018 abdominal ultrasound showed: ? The liver demonstrates increased echogenicity consistent with underlying liver disease. No focal mass is seen. ? KUB SHOWED:? Moderate volume intracolonic stool. There is no bowel obstruction. ? Air is seen to the level of the rectum. A few calcifications projecting over the pelvis most likely reflect phleboliths. ? Surgical clips within the right upper quadrant. Imaged lung bases are clear. No acute osseous findings. ? IMPRESSION:? Moderate volume intracolonic stool. No bowel obstruction. ?ENDOSCOPIC STUDIES: FEB, 2022 EGD SHOWED: ESOPHAGUS: GE junction at 32 cms, small hiatal hernia 32 to 34 cms. One 1 cms tongue of possible [place]'s - biopsied. STOMACH: Mild diffuse gastric erythema. Biopsies were obtained from the antrum and body of the stomach. DUODENUM: Normal - biopsied to check for celiac sprue Plan: Above findings were reviewed with the patient and GERD handout was given in the discharge area. Schedule an abdominal CT scan for evaluation of abdominal pain and WINNIE anemia if biopsies are normal. 09/13/19 colonoscopy showed:? One diminutive polyp removed ? Moderate diverticulosis seen in the sigmoid colon ? Moderate hemorrhoids on retroflexed exam. ? Plan: ? Repeat Colonoscopy interval based on path results in 5 years if ? polyps are adenomatous and 10 years if polyps are hyperplastic. ? Above findings were reviewed with the patient and colon polyps and diverticulosis handouts ? were given in the discharge area ? Colon, transverse polyp, polypectomy: Polypoid colonic mucosa within normal limits; ? negative for dysplasia; deeper levels evaluated. ?09/2017 PATIENT HAD AN UPPER ENDOSCOPY BY DR. VIDAL: ? GENERAL IMPRESSION: 1. Food residue in the stomach. Question is raised of potential for delayed? gastric emptying. 2. Small hiatal hernia. ? PLAN: Currently, patient will be re-seen in our office in approximately 4 weeks. I did review the patient's records. She does have a history of a chronic anemia in May 2017: Hemoglobin 9.5 and hematocrit 30.2. November of 2016: Hemoglobin A1c was 5.6. Patient did have an elevated ALT at that time of 78 and AST of 62. She has had abdominopelvic CT's in the past. In 2016, there was reading of mild decreased ? echogenicity consistent with fatty liver change. There was no hepatosplenomegaly at that time. A 2017 CT was read out as negative; although, they were looking for urinary problems at that time. There was no description of degenerative changes in the spine. She does have some history of [facility] hospitalization in 2012 for depressive disorder and was diagnosed with PTSD. I have taken the liberty of ordering some ? laboratory testing to re-evaluate her serum transaminases, as well as to assess current pattern of anemia. FOR[facility]LY [facility], [facility] Medical History Lipoma of arm Asthma Lab test negative for COVID-19 virus COVID-19 Chronic constipation Iron deficiency anemia due to chronic blood loss Epigastric pain GERD (gastroesophageal reflux disease) Lactose intolerance in adult Depression Hypothyroidism Surgical History (Updated 11/11/24 @ 13:03 by Le Sullivan) Status post excision of lipoma (~11/27/22) Hx of shoulder surgery Hx of tubal ligation History of endometrial ablation Hx of dilation and curettage History of breast lump/mass excision Hx of arthroscopic knee surgery History of esophagogastroduodenoscopy (EGD) Status post laparoscopic cholecystectomy History of colonoscopy Family History Mother No problems noted. Father No problems noted. Maternal Aunt Hx of ovarian cancer Social History Household Members: Children Alcohol intake: unknown Patient Tobacco Use Status: Never used Tobacco Second Hand Smoke Exposure: No Current occupational status: employed Current occupation: [employer] HIGH/ right hand dominant Female Reproductive History Menstrual Age of Menarche: 11 Review of Systems Const Denies fever(s), Reports headache(s) and Reports weight gain (of 10 lbs) Eyes Denies eye discharge and Denies irritation ENT Reports Normal hearing present, Reports dysphagia (Painful swallowing), Denies dizziness, Reports headache(s) and Reports hoarseness Card Reports chest pain, Denies leg edema, Reports dyspnea on exertion and Reports other (Palpitations) Resp Denies cough, Reports dyspnea on exertion and Denies wheezing GI Reports abdominal pain, Denies change in bowel habits, Reports constipation, Reports dysphagia (Painful swallowing), Reports heartburn and Reports nausea Denies difficulty voiding, Denies dysuria and Reports other (Urinary frequency) Musc Denies back pain, Reports arthralgias and Reports other (Arthritis) Skin/Breast Denies pruritus, Denies rash and Denies jaundice Neuro Reports Normal hearing present, Denies Abnormal speech present, Denies dizziness, Reports headache(s) and Denies seizure-like activity Psych Denies anxiety, Denies depression and Denies panic attacks Endo Denies cold intolerance, Denies flushing and Denies heat intolerance Duncan/Lymph Denies easy bleeding and Denies easy bruising Aller/Immun Denies wheezing Physical Exam Vital Signs: Last Vital Signs Pulse 95 11/11/24 13:04 BP 101/59 L 11/11/24 13:04 Pulse Ox 97 11/11/24 13:04 Oxygen Delivery Method Room Air 11/11/24 13:04 BMI result Body Mass Index 41.6 Const General: healthy appearing and no acute distress Nutritional Appearance: obese Orientation/consciousness: patient oriented x3 Limitations: language barrier HEENT Head: Yes normal to inspection Ears: hearing grossly normal bilaterally Eyes Sclerae: sclerae normal Pupils: Equal, round and reactive pupils present Neck Neck: Yes normal visual inspection Chest Chest palpation & inspection: normal inspection of the chest Resp Effort & Inspection: normal respiratory effort Auscultation: clear to auscultation bilaterally Cardio Palpation: normal PMI Rate: regular rate Rhythm: regular rhythm Heart sounds: S1 normal heart sound present, S2 normal heart sound present and no murmurs GI Palpation (GI): Soft to palpation, nontender and No hepatosplenomegaly present Auscultation: normal bowel sounds Rectal Exam - Female: deferred Skin General skin exam: no rashes or lesions noted Neuro General: patient oriented x3, gait normal and moves all extremities Cranial nerves: Yes Equal, round and reactive pupils present and Yes Normal hearing present Speech: No Abnormal speech present Psych Appearance: grossly normal Mental Status: mental status grossly normal Assessment & Plan Assessment & Plan (1) GERD (gastroesophageal reflux disease): Code(s): K21.9 - Gastro-esophageal reflux disease without esophagitis Category: Medical (2) Helicobacter pylori gastritis: Code(s): K29.70 - Gastritis, unspecified, without bleeding; B96.81 - Helicobacter pylori [H. pylori] as the cause of diseases classified elsewhere Category: Medical (3) NAFL (nonalcoholic fatty liver): Code(s): K76.0 - Fatty (change of) liver, not elsewhere classified Category: Medical (4) Chronic constipation: Code(s): K59.09 - Other constipation Category: Medical (5) Lactose intolerance in adult: Code(s): E73.9 - Lactose intolerance, unspecified Category: Medical Plan 44 year old Monegasque-speaking female with anemia, depression, Hypothyroidism, Lactose intolerance, S/P laparoscopic cholecystectomy followed in GI for Hepatic steatosis, GERD, WINNIE and Epigastric pain. EGD in September [address] Vidal showed a small hiatal hernia and food residue in the stomach suggestive of delayed gastric emptying. Gastric biopsies showed mild chronic gastritis without Helicobacter pylori. 09/13/19 colonoscopy was negative. Patient was advised to continue senna with docusate for constipation and continue taking omeprazole 40 mg twice daily and I will arrange for IV iron infusion for worsening iron deficiency anemia. Iron deficiency anemia due to chronic blood loss: Likely due to heavy menstrual bleeding patient was referred to OBGYN urgently due to worsening anemia. She underwent endometrial ablation with decrease in menstrual bleeding. Feb, 2021 Gastric Emptying study was normal. 02/07 pt complains of post prandial upper abdominal pain. She was advised to increase Omeprazole to twice a day and have labs checked. 03/11 Abdominal US showed fatty liver EGD showed reactive gastropathy with mild chronic inactive inflammation and rare forms suspicious for H pylori identified. Patient was treated with amoxicillin and clarithromycin for 10 days. She was referred to the system development engineer for a diet plan to help her loose weight - seen on 09/03/22. 10/25/22 Ran out of medications for constipation and advised to resume. Follow-up in 4 months - scheduled 03/10/2025 Medications: New omeprazole 40 mg PO DAILY 90 caps 1RF 90 days K21.9 - Gastro-esophageal reflux disease without esophagitis sennosides-docusate sodium 8.6-50 mg (Senna with Docusate Sodium) Please take 1-2 cap every day at bedtime 2 tab-caps (2 x 8.6-50 mg) PO BEDTIME 120 tabs 2RF 60 days K59.09 - Other constipation Discontinued omeprazole Discontinued Reason: Doctor's Order 40 mg PO BID 180 caps 3RF Coding Level of Care Code Est Pt Level 4 (84869) Diagnoses GERD (gastroesophageal reflux disease) K21.9 Helicobacter pylori gastritis K29.70; B96.81 NAFL (nonalcoholic fatty liver) K76.0 Chronic constipation K59.09 Lactose intolerance in adult E73.9 Time Spent (min) 24
[2024-11-11 13:04] VITALS: BP 101/59; PULSE 95; O2SAT 97; BMI 41.6
--- OUTSIDE RECORDS SUMMARY | 2024-11-11 17:33 | XMS_ITS | Clinical Summary ---
Author Organization [employer] Address [address] [place] [address] 7t [place] [address] Care Team Providers Care Coagulating Operator Name Role Phone Pooja Medina [facility] Primary Care Provider Allergies Active Allergy [...] Once per day. 30 tablet 11 024 Active cholecalciferol (Vitamin D-3) 50 MCG (2000 [...] hours if needed for wheezing. 18 g Active Riboflavin 400 MG capsuleIndication s:Chronic migraine with aura without status migrainosus, not intractable Take 1 capsule by oral route daily 90 capsule 2 Active magnesium oxide (Mag-Ox) 400 (240 Mg) [...] or muscle weakness - Previously seen by [facility] ortho for knee pain--last visit 03/2021. Has trialed injections with sx improvement. - Negative HARVEY, RF, ESR, CRP 04/2021 Prediabetes 10/01/2022 Hepatic steatosis 10/01/2022 Overview (10/01/2022): Hx of elevated liver tests now resolved - Abd u/s from 04/2018 c/w hepatic steatosis - 09/2017 Liver fibrosis score of 0.05, Stage F0 Followed by [facility] GI Assessment & Plan (10/01/2022 6:24 AM EDT): Continue to follow with [facility] GI Continue to work with nutrition for weight loss Abnormal uterine bleeding 10/01/2022 Overview (10/01/2022): Followed by [facility] PRECAST WORKER Subclinical hypothyroidism 10/01/2022 Overview (10/01/2022): Tirosint 25mcg [...] Pap: NIL HPV neg 09/2021, followed by [facility] PRECAST WORKER C-scope:08/2019, repeat 2029 BMD: Routine Immunizations: UTD Chronic constipation 10/01/2022 Polyp of colon 03/05/2021 Overview (10/01/2022): Colonoscopy 08/2019 negative with polyp (hyperplastic) 10 year repeat Gastroesophageal reflux disease 12/23/2019 Overview (10/01/2022): Followed by [facility] GI EGD 02/2022 with reactive gastropathy and [...] Encounters Date Type Department Care Team Description 10/29/2024 Telephone [facility] [address] [place] [address] Pooja Medina FNP Stable Lab Letter 10/29/2024 Results Follow-Up [facility] [address] [place] [address] Pooja Medina FNP TSH W/Reflex to FT4 10/27/2024 2:45 PM EDT Office Visit [facility] [address] [place] [address] Pooja Medina FNP Prediabetes (Primary Dx); Class 3 severe obesity due to excess calories with serious comorbidity and body mass index (BMI) of 40.0 to 44.9 in adult; Thyroid dysfunction; Mild persistent asthma without complication; Intercostal muscle strain, initial encounter; Chronic migraine with aura without status migrainosus, not intractable; Bee sting allergy 10/27/2024 Travel 10/26/2024 Travel 10/26/[address] [address] Marleni Aparicio [place] Chart Prep 10/19/2024 Patient Outreach [address] [address] Pooja Medina FNP Pre-visit Planning ((Unable to reach for PVP screening, LVM) to be completed in office ) 09/14/[address] [address] Pooja Medina FNP Med Refill 09/03/[address] [address] Pooja Medina FNP Chronic migraine with aura without status migrainosus, not intractable 09/01/2024 Orders Only [facility] External Provider, [facility] 08/16/[address] [address] Pooja Medina FNP Other chronic nonsuppurative otitis media of both ears 08/13/[address] [address] Pooja Medina FNP Class 3 severe obesity due to excess calories with serious comorbidity and body mass index (BMI) of 40.0 to 44.9 in adult 08/12/2024 Telephone [facility] [address] [place] [address] Pooja Medina FNP sept recall from Last [...] SDOH Screening 12/14/2024 12/15/2023 Mammogram 05/12/2025 05/12/2024, 03/07/2024, 04/22/2023, Additional history exists Alcohol/Substance Use Screening 07/19/2025 07/19/2024 Disability Screening 10/26/2025 10/26/2024 Depression Screening 10/27/2025 10/27/2024, 10/28/19 25 Tobacco Screening 10/27/2025 10/27/2024 Cervical Cancer Screening [...] Procedure Name Priority Date/Time Associated Diagnosis Comments TSH W/REFLEX TO FT4 Routine 10/27/2024 3 :43 PM EDT Thyroid dysfunction VASC US LOWER EXTREMITY VENOUS DUPLEX BILATERAL [...] Recently Relevant to Health Maintenance Results * TSH W/Reflex to FT4 (10/27/2024 3:43 PM EDT) TSH reflex Free T4 3.56 0.32 - 4.0 uIU/mL [facility] Blood Venous blood specimen / Unknown 10/27/2024 3:43 PM EDT 10/27/2024 6:16 PM EDT [facility] SEAFOOD PROCESS WORKER LAB BLOOD ORDERABLES Final Re sult [facility] [address] [place] [phone] * VASC US Lower Extremity Venous Duplex Bilateral (09/02/2024 1:23 PM EDT) 09/02/2024 1:23 PM EDT Narrative [facility] - 09/02/2024 2:55 PM EDT [address] [address] Ultrasound Report Signed Patient: Kasie Funes MR#: [id number] 960 : 1980 Acct:[id number] Age/Sex: 44 / F ADM Date: 09/02/24 Loc: . Attending Dr: Cony Sanches PA-C Ordering Physician: Cony Sanches PA-C Date of Service: 09/02/24 Procedure(s): US venous duplex LE Accession Number(s): [id number] cc: Cony Sanches PA-C; [facility] EXAMINATION: US LOWER EXTREMITY VENOUS (REFLUX EXAM), [...] Salvador Alexander MD 09/02/2024 02:52 PM EDT RP Dictated By: Salvador Alexander MD Signed By: <Electronically signed by Salvador Alexander MD in OV> 09/02/24 1452 DD/ 1323 TD/TT: 09/02/24 1410 Info Print Press Operator: Procedure Note Donotuseinterpreter, Image - 09/02/2024 [place] [address] Ultrasound Report Signed Patient: Beatris Funes#: [id number] 960 : 1980Acct:[id number] Age/Sex: 44 / FADM Date: 09/02/24 Loc: . Attending Dr: Cony Sanches PA-C Ordering Physician: Cony Sanches PA-C Date of Service: 09/02/24 Procedure(s): US venous duplex LE BI Accession Number(s): [id number] cc: Cony Sanches PA-C; [facility] EXAMINATION: US LOWER EXTREMITY VENOUS (REFLUX EXAM), [...] 09/02/24 1452 DD/ 1323 TD/TT: 09/02/24 1410 Info Print Press Operator: us [facility] External Provider CV VASC ULAR PROCEDURES Edited Result - Final [facility] [address] [place] [address] * XR Wrist 3+ Views Right (09/01/2024 12:26 PM EDT) Anatomical Region Laterality Modality Upper Extremities, Wrist Right Radiogr aphic Imaging 09/01/2024 12:2 6 PM EDT Narrative 09/01/2024 1:34 PM EDT [address] [address] XRay Report Signed Patient: Kasie Funes MR#: [id number] 960 : 1980 Acct:[id number] Age/Sex: 44 / F ADM Date: 09/01/24 Loc: HO.ED Attending Dr: Ordering Physician: Sowmya Keyes Date of Service: 09/01/24 Procedure(s): XR wrist RT min 3V Accession Number(s): [id number] cc: Sowmya Keyes; [facility] SEAFOOD PROCESS WORKER EXAMINATION: XR WRIST, RIGHT CLINICAL INFORMATION: pain [...] 09/01/24 1331 DD/ 1226 TD/TT: 09/01/24 1328 Info Print Press Operator: Procedure Note Donotuseinterpreter, Image - 09/01/2024 [place] [address] XRay Report Signed Patient: Kasie FunesMR#: [id number] 960 : 1980Acct:[id number] Age/Sex: 44 / FADM Date: 09/01/24 Loc: HO.ED Attending Dr: Ordering Physician: Sowmya Keyes Date of Service: 09/01/24 Procedure(s): XR wrist RT min 3V Accession Number(s): [id number] cc: Sowmya Keyes; [facility] SEAFOOD PROCESS WORKER EXAMINATION: XR WRIST, RIGHT CLINICAL INFORMATION: pain [...] 09/01/24 1331 DD/ 1226 TD/TT: 09/01/24 1328 Info Print Press Operator: us [facility] External Provider IMG XR PROCEDURES Final Result * XR Hand 3+ Views Right (09/01/2024 12:25 PM EDT) Anatomical Region Laterality Modality Upper Extremities, Hand Right Radiogra phic Imaging 09/01/2024 12:2 5 PM EDT Narrative 09/01/2024 1:36 PM EDT [place] [address] XRay Report Signed Patient: Kasie Funes MR#: [id number] 960 : 1980 Acct:[id number] Age/Sex: 44 / F ADM Date: 09/01/24 Loc: HO.ED Attending Dr: Ordering Physician: Sowmya Keyes Date of Service: 09/01/24 Procedure(s): XR hand RT min 3V Accession Number(s): [id number] cc: Sowmya Keyes; [facility] SEAFOOD PROCESS WORKER EXAMINATION: XR HAND, RIGHT CLINICAL INFORMATION: pain [...] 09/01/24 1333 DD/ 1225 TD/TT: 09/01/24 1328 Info Print Press Operator: Procedure Note Donotuseinterpreter, Image - 09/01/[address] [address] XRay Report Signed Patient: Kasie FunesMR#: [id number] 960 : 1980Acct:[id number] Age/Sex: 44 / FADM Date: 09/01/24 Loc: HO.ED Attending Dr: Ordering Physician: Sowmya Keyes Date of Service: 09/01/24 Procedure(s): XR hand RT min 3V Accession Number(s): [id number] cc: Sowmya Keyes; [facility] EXAMINATION: XR HAND, RIGHT CLINICAL INFORMATION: pain to 4/5th digits COMPARISON: None available. TECHNIQUE: PA, lateral, and oblique views of the right hand. FINDINGS: There are no degenerative changes. There are no erosions. No fracture line is evident. XR/XR hand RT min 3V IMPRESSION: Unremarkable right hand. Electronically signed by: Salvador Alexander MD 09/01/2024 01:33 PM EDT Dictated By: Salvador Alexander MD Signed By: <Electronically signed by Salvador Alexander MD in OV> 09/01/24 1333 DD/ 1225 TD/TT: 09/01/24 1328 Info Print Press Operator: [facility] External Provider IMG XR PROCEDURES Final Result * POCT HGB A1C (05/21/2024 9:39 AM EDT) Hemoglobin A1C 6.0 4.0 - 6.0 % Blood 05/21/2024 9:39 AM EDT [facility] SEAFOOD PROCESS WORKER POINT OF CARE TEST ENTER/EDIT ORDERABLES Final Result * BI US Breast Limited Left (05/12/2024 2:00 PM EDT) Anatomical Region Laterality Modality Breast Left Ultrasound 05/12/2024 2:00 PM EDT Narrative 05/12/2024 2:36 PM EDT [facility] [address] [place], [place] [address] Ultrasound Report Signed Patient: Kasie Funes MR#: [id number] 960 : 1980 Acct:[id number] Age/Sex: 43 / F ADM Date: 05/12/24 Loc: HO.MAMMO Attending Dr: Pooja Medina SEAFOOD PROCESS WORKER Ordering Physician: Pooja Medina Date of Service: 05/12/24 Procedure(s): US breast LT limited mamm only Accession Number(s): [id number] cc: Pooja Medina EXAMINATION: MM DIAGNOSTIC DIGITAL [...] 05/12/24 1433 DD/ 1400 TD/TT: 05/12/24 1426 Info Print Press Operator: Procedure Note Donotuseinterpreter, Image - 05/12/2024 [facility] [address] [place], [place] [address] Ultrasound Report Signed Patient: Kasie FunesMR#: [id number] 960 : 1980Acct:[id number] Age/Sex: 43 / FADM Date: 05/12/24 Loc: HO.MAMMO Attending Dr: Pooja Medina SEAFOOD PROCESS WORKER Ordering Physician: Pooja Medina Date of Service: 05/12/24 Procedure(s): US breast LT limited mamm only Accession Number(s): [id number] cc: Pooja Medina EXAMINATION: MM DIAGNOSTIC DIGITAL [...] 05/12/24 1433 DD/ 1400 TD/TT: 05/12/24 1426 Info Print Press Operator: [facility] SEAFOOD PROCESS WORKER IMG US PROCEDURES Final Resul t * Lipid Panel, Standard (10/31/2023 1:40 PM EDT) Triglycerides 66 <150 mg/dL [facility] Comment:Desirable Triglyceri de: less than 150 mg/dLBorderline High Triglyceride 150-199 mg/dLHigh Triglyceride: 200-499 mg/dLVery High Triglyceride: greater than or equal to 5OO mg/dL Cholesterol 160 <200 mg/dL [facility] Comment:Desirable Cholestero l: less than 200 mg/dLBorderline High Cholesterol: 200-239 mg/dLHigh Cholesterol: greater than 239 mg/dL LDL Cholesterol Calculated 79 <100 mg/dL [facility] Comment:Desirable LDL: less than 100 mg/dLNear Optimal/Above Optimal LDL: 110- 129 mg/dLBorderline High LDL: 130-159 mg/dLHigh LDL: 160-189 mg/dLVery High LDL: greater than or equal to 190 mg/dL HDL Cholesterol 68 >40 mg/dL [facility] Comment:Desirable HDL: great er than 40 mg/dL Note: This HDL assay may give artificially low results in patients with liver disease. Blood Venous blood specimen / Unknown 10/31/2023 1:40 PM EDT 10/31/2023 3:58 PM EDT [facility] LAB BLOOD ORDERABLES Final Re sult [facility] [address] [place] [phone] * THINPREP TIS PAP AND HPV [...] has been evaluated with computer assisted technology. [facility] Cytotechnologis t: SEE COMMENT [facility] Comment: JNA, CT(ASCP) CT screening location: [place] [address] HPV nRNA E6/E7 Not Detected Not Detected [facility] Comment: Methodology: [employer]-Mediated Amplification This assay detects E6/E7 viral messenger RNA (mRNA) from 14 high-risk HPV types (16,18,31,33,35,39,45,51,52,56,58,59,66,68). Cervical sources are required for HPV testing. If a vaginal source from a patient who has had a total hysterectomy with removal of cervix was submitted, please contact the testing laboratory for alternative testing options. For additional information, please refer to http://education.[employer]/faq/AML800u7 (This link if provided for information/ educational purposes only.) Infection Shift in vaginal sin suggestive of bacterial vaginosis. [facility] Interpretation/ Result: Negative for intraepithelial lesion or malignancy. [facility] LMP: 06/2021 [facility] Prev. BX: NONE GIVEN [facility] Prev. PAP: NIL 09/2018 [facility] SOURCE: None given [facility] Statement Of Adequacy: SEE COMMENT [facility] Comment: Satisfactory for evaluation. Endocervical/transformation zone component absent. 10/04/2021 10:0 2 AM EDT Iirs Padron CNM LAB PATHOLOGY ORDERABLES Final Result [email or web address] [address] [place] [address], * Pap Smear (10/04/2021 12:00 AM EDT) Swab Iris Serrarosibel CN LAB CYTOLOGY ORDERABLES F inal Result [facility] [address], [place] [address] * HEPATITIS C AB W/REFL TO HCV RNA, QN, PCR (04/30/2021 2:02 PM EDT) HEPATITIS C ANTIBODY NON-REACT DAVE NON-REACT DAVE [facility] INDEX 0.02 <1.00 [facility] Comment: HCV antibody was non-reactive. There is no laboratory evidence of HCV infection. In most cases, no further action is required. However, if recent HCV exposure is suspected, a test for HCV RNA (test code 28366) is suggested. For additional information please refer to http://[employer]/faq/GFK84k1 (This link is being provided for informational/ educational purposes only.) 04/30/2021 2:02 PM EDT [facility] SEAFOOD PROCESS WORKER HISTORICAL/NON ORDERABLE LABS Final Result [facility] [address] * HIV 1/2 ANTIGEN/ANTIBODY,FOURTH GENERATION W/RFL [...] purpose. For additional information please refer to http://[employer]/faq/TCI216 (This link is being provided for informational/ educational purposes only.) The performance of this assay has not been clinically validated in patients less than 2 years old. 04/30/2021 2:02 PM EDT [facility] SEAFOOD PROCESS WORKER LAB BLOOD ORDERABLES Final Re sult [facility] [address] from Last 3 Months or Most Recently Relevant to Health Maintenance Insurance [place]ton [facility] [id number] [place] [address] 2 [facility] Address: [facility] [address] [place] [address] [place] [address] [place] [address] [address] [place] [address] Care Teams Coagulating Operator Relationship Specialty Start Date End Date OceansidePooja FNP [address] [place] [address] [place] [address] PCP - General Family Medicine 11/15/20
--- OUTSIDE RECORDS SUMMARY | 2024-11-11 17:33 | XMS_ITS | Encounter Summary ---
Author Organization [employer] Address [address] [place] [address] 7t [place] [address] Care Team Providers Care Ethylene Oxide Panelboard Operator Name Role Phone [place] [facility] Primary Care Provider [phone] Encounter Details Date Type Department Care Team ([facility] st Contact Info) Description 10/29/2024 Results Follow-Up [facility] [address] [place], [place] [phone] [place] [facility] [address] [place] [address] TSH W/Reflex to FT4 Social History Tobacco Use Types Packs/Day Years [...] documented as of this encounter Care Teams Ethylene Oxide Panelboard Operator Relationship Specialty Start Date End Date Pooja Medina FNP [address] [place] [address] PCP - General Family Medicine 11/15/20 documented as of this encounter
--- OUTSIDE RECORDS SUMMARY | 2024-11-11 17:33 | XMS_ITS | Encounter Summary ---
Author Organization [employer] Address [address] [place] [address] 7 [place] [address] Care Team Providers Care Control Analyst Name Role Phone [place] [facility] Primary Care Provider [phone] Encounter Details Date Type Department Care Team (Late st Contact Info) Description 03/22/2022 Abstract [facility] [address] [place], [place] [phone] [place] [facility] [address] [place], [place] [phone] Social History Tobacco Use Types Packs/Day Years [...] on filedocumented in this encounter Care Teams Control Analyst Relationship Specialty Start Date End Date Pooja Medina FNP [address] [place] [address] PCP - General Family Medicine 11/15/20 documented as of this encounter
--- OUTSIDE RECORDS SUMMARY | 2024-11-11 17:33 | XMS_ITS | Encounter Summary ---
Author Organization [employer] Address [address] [place] [address] 7 [place] [address] Care Team Providers Care Security Ambassador Name Role Phone [place] [facility] Primary Care Provider Reason for Visit * Reason Onset Date Comments Med Refill 09/14/2024 Encounter Details Date Type Department Care Team ([facility] st Contact Info) Description 09/14/2024 Telephone [facility] [address] [place] [address] [facility] [address] [place] [address] Med Refill Social History Tobacco Use Types [...] 2:49 PM EDT Medication was sent to [id number] on 07/19/24 with 11 refills. Patient can call pharmacy and transfer medication. * Telephone Encounter - Conrado Paez - 09/14/2024 2:46 PM EDT TC from pt requesting medication refill. Medications needing refill : topiramate (Topamax) 50 MG tablet To be sent to: [facility] - [place], [place] - [address] [facility] documented in this encounter Plan of Treatment Not on file documented as of this encounter Visit Diagnoses Not on filedocumented in this encounter Additional Health Concerns Assessment Noted Time PHQ-9 Depression Total Score: 0 07/20/19 1:54 PM EDT documented as of this encounter Care Teams Security Ambassador Relationship Specialty Start Date End Date Pooja Medina FNP [address] [facility] [place] [address] PCP - General Family Medicine 11/15/20 documented as of this encounter
--- OUTSIDE RECORDS SUMMARY | 2024-11-11 17:33 | XMS_ITS | Encounter Summary ---
Author Organization [employer] Address [address] [place] [address] 7t [place] [address] Care Team Providers Care Reporting Analyst Name Role Phone Pooja Medina FLOOR CASHIER Primary Care Provider [phone] Reason for Visit * Reason Comments Med Refill Encounter Details Date Type Department Care Team ([facility] st Contact Info) Description 02/07/2024 Refill [facility] [address] [place], [place] [phone] Diandra Judd MD [address] [place], [place] [phone] Thyroid dysfunction Social History Tobacco Use Types [...] documented as of this encounter Care Teams Reporting Analyst Relationship Specialty Start Date End Date Pooja Medina FNP [address] [place] [address] PCP - General Family Medicine 11/15/20 documented as of this encounter
== END 2024-11-11 13:31 | disposition home or self-care (01) ==
PROVIDERS: PCP Registered Nurse; Visit Provider Internal Medicine Gastroenterology
DX: K21.9 Gastro-esophageal reflux disease without esophagitis (principal); K29.70 Gastritis, unspecified, without bleeding; B96.81 Helicobacter pylori [H. pylori] as the cause of diseases classified elsewhere; K76.0 Fatty (change of) liver, not elsewhere classified; K59.09 Other constipation; E73.9 Lactose intolerance, unspecified
CPT/HCPCS: 99214

== ENCOUNTER → 2024-11-11 12:46 | Outpatient (BNVA) | payer OTHER, SELFPAY | PROVIDERS: PCP Registered Nurse; Visit Provider Internal Medicine Gastroenterology | DX: K21.9 Gastro-esophageal reflux disease without esophagitis (principal); K29.70 Gastritis, unspecified, without bleeding; B96.81 Helicobacter pylori [H. pylori] as the cause of diseases classified elsewhere; K76.0 Fatty (change of) liver, not elsewhere classified; K59.09 Other constipation; E73.9 Lactose intolerance, unspecified | CPT/HCPCS: 99212 ==

== ENCOUNTER 2024-11-18 13:39 | Outpatient (REF) | payer OTHER, SELFPAY ==
--- NOTE | 2024-11-18 13:42 | EMG_ITS ---
Chief complaint: Had a more recent injury to the right wrist, complaining of pain/numbness. EMG done by ut right upper extremity 07/10/2023 was normal. Reason for referral: Evaluate for Carpal Tunnel Syndrome Referred by: Dr. Lin Procedure done: Bilateral upper extremity NCS/EMG Precautions and/or limitations: None The limb temperature was monitored continuously and remained between 32-36 degrees C during the performance of the NCS. Nerve Conduction Studies Anti Sensory Summary Table ?Stim Site NR Onset (ms) Norm Onset (ms) Peak (ms) Norm Peak (ms) O-P Amp (?V) Norm O-P Amp Site1 Site2 Delta-0 (ms) Dist (cm) Jerrell (m/s) Norm Jerrell (m/s) Left Median Anti Sensory (2nd Digit) Wrist ? 2.9 3.6 <3.6 28.7 >10 Wrist 2nd Digit 2.9 14.0 48 Right Median Anti Sensory (2nd Digit) Wrist ? 2.6 3.5 <3.6 43.2 >10 Wrist 2nd Digit 2.6 14.0 54 Right Radial Anti Sensory (Thumb) Forearm ? 1.9 2.3 <3.1 19.0 Forearm Thumb 1.9 0.0 Left Ulnar Anti Sensory (5th Digit) Wrist ? 2.7 3.4 <3.7 34.0 >15.0 Wrist 5th Digit 2.7 14.0 52 Right Ulnar Anti Sensory (5th Digit) Wrist ? 2.8 3.7 <3.7 22.4 >15.0 Wrist 5th Digit 2.8 14.0 50 Motor Summary Table ?Stim Site NR Onset (ms) Norm Onset (ms) O-P Amp (mV) Norm O-P Amp iAmp (mV) Amp (1st) (%) Site1 Site2 Delta-0 (ms) Dist (cm) Jerrell (m/s) Norm Jerrell (m/s) Left Median Motor (Abd Poll Brev) Wrist ? 2.9 <3.9 14.1 >4.5 17.1 100.0 Elbow Wrist 3.4 19.0 56 >45 Elbow ? 6.3 14.2 17.4 100.7 Right Median Motor (Abd Poll Brev) Wrist ? 2.7 <3.9 11.6 >4.5 13.7 100.0 Elbow Wrist 3.7 19.0 51 >45 Elbow ? 6.4 11.5 13.5 99.1 Left Ulnar Motor (Abd Dig Minimi) Wrist ? 2.7 <3.0 8.6 >5 10.8 100.0 B Elbow Wrist 3.0 18.0 60 >45 B Elbow ? 5.7 7.9 10.1 91.9 A Elbow B Elbow 1.2 10.0 83 >45 A Elbow ? 6.9 7.7 10.0 89.5 Right Ulnar Motor (Abd Dig Minimi) Wrist ? 2.7 <3.0 8.2 >5 10.4 100.0 B Elbow Wrist 2.8 18.0 64 >45 B Elbow ? 5.5 8.1 10.6 98.8 A Elbow B Elbow 1.3 10.0 77 >45 A Elbow ? 6.8 7.9 10.4 96.3 EMG ?Side Muscle Nerve Root Ins Act Fibs Psw Amp Dur Poly Recrt Int Pat Comment Right 1stDorInt Ulnar C8-T1 Nml Nml Nml Nml Nml 0 Nml Complete Right Biceps Musculocut C5-6 Nml Nml Nml Nml Nml 0 Nml Complete Right Triceps Radial C6-7-8 Nml Nml Nml Nml Nml 0 Nml Complete Right Deltoid Axillary C5-6 Nml Nml Nml Nml Nml 0 Nml Complete Left 1stDorInt Ulnar C8-T1 Nml Nml Nml Nml Nml 0 Nml Complete Left Biceps Musculocut C5-6 Nml Nml Nml Nml Nml 0 Nml Complete Left Triceps Radial C6-7-8 Nml Nml Nml Nml Nml 0 Nml Complete Left Deltoid Axillary C5-6 Nml Nml Nml Nml Nml 0 Nml Complete FINDINGS: All motor and sensory nerves tested showed normal latencies, amplitudes and conduction velocities. Concentric needle EMG was performed in selected muscles of the bilateral upper extremities. Study revealed signs of electric abnormalities as shown in the table above. IMPRESSION: 1. This is a normal study. 2. There is no electrodiagnostic evidence for median neuropathy, ulnar neuropathy, brachial plexopathy, or cervical radiculopathy. Thank you for your kind referral. Gely Mederos MD, ECHO Board Certified, [place] [employer] and Rehabilitation (ABPMR) Board Certified, [place] Board of Electrodiagnostic Medicine (ABEM) CODIN [phone] x 2 MTDD
--- OUTSIDE RECORDS SUMMARY | 2024-11-18 15:10 | XMS_ITS | Encounter Summary ---
Author Organization [employer] Address [address] [place] [address] 7 [place] [address] Care Team Providers Care Housecleaner Name Role Phone [place] [facility] Primary Care Provider [phone] Reason for Visit * Reason Onset Date Comments Med Refill 09/14/2024 Encounter Details Date Type Department Care Team ([facility] st Contact Info) Description 09/14/2024 Telephone [facility] MEDICINE 230 [place] [address] [facility] 230 [place] [address] Med Refill Social History Tobacco Use Types [...] 2:49 PM EDT Medication was sent to [id number] on 07/19/24 with 11 refills. Patient can call pharmacy and transfer medication. * Telephone Encounter - Conrado Paez - 09/14/2024 2:46 PM EDT TC from pt requesting medication refill. Medications needing refill : topiramate (Topamax) 50 MG tablet To be sent to: [facility] - [place], [place] - [address] [facility] documented in this encounter Plan of Treatment Not on file documented as of this encounter Visit Diagnoses Not on filedocumented in this encounter Additional Health Concerns Assessment Noted Time PHQ-9 Depression Total Score: 0 07/20/19 1:54 PM EDT documented as of this encounter Care Teams Housecleaner Relationship Specialty Start Date End Date Pooja Medina FNP [address] [facility] [place] [address] PCP - General Family Medicine 11/15/20 documented as of this encounter
--- OUTSIDE RECORDS SUMMARY | 2024-11-18 15:10 | XMS_ITS | Encounter Summary ---
Author Organization [employer] Address [address] [place] [address] 7 [place] [address] Care Team Providers Care Manager Flight Name Role Phone [place] [facility] Primary Care Provider [phone] Encounter Details Date Type Department Care Team (Late st Contact Info) Description 03/22/2022 Abstract [facility] MEDICINE 230 [place], [place] [phone] [place] [facility] 230 [place], [place] [phone] Social History Tobacco Use Types Packs/Day Years [...] on filedocumented in this encounter Care Teams Manager Flight Relationship Specialty Start Date End Date Pooja Medina FNP [address] [place] [address] PCP - General Family Medicine 11/15/20 documented as of this encounter
--- OUTSIDE RECORDS SUMMARY | 2024-11-18 15:10 | XMS_ITS | Encounter Summary ---
Author Organization [employer] Address [address] [place] [address] 7t [place] [address] Care Team Providers Care Vegetable Farm Worker Name Role Phone [place] [facility] Primary Care Provider [phone] Encounter Details Date Type Department Care Team ([facility] st Contact Info) Description 10/29/2024 Results Follow-Up [facility] 230 [place], [place] [phone] [place] [facility] 230 [place] [address] TSH W/Reflex to FT4 Social History Tobacco [...] documented as of this encounter Care Teams Vegetable Farm Worker Relationship Specialty Start Date End Date Pooja Medina FNP [address] [place] [address] PCP - General Family Medicine 11/15/20 documented as of this encounter
--- OUTSIDE RECORDS SUMMARY | 2024-11-18 15:10 | XMS_ITS | Encounter Summary ---
Author Organization [employer] Address [address] [place] [address] 7t [place] [address] Care Team Providers Care Special Effects Artist Name Role Phone Pooja Medina PRESENTATION SPECIALIST Primary Care Provider [phone] Reason for Visit * Reason Comments Med Refill Encounter Details Date Type Department Care Team ([facility] st Contact Info) Description 02/07/2024 Refill [facility] MEDICINE [address] [place], [place] [phone] Diandra Judd MD 230 [place], [place] [phone] Thyroid dysfunction Social History Tobacco Use Types [...] documented as of this encounter Care Teams Special Effects Artist Relationship Specialty Start Date End Date Pooja Medina FNP [address] [place] [address] PCP - General Family Medicine 11/15/20 documented as of this encounter
--- OUTSIDE RECORDS SUMMARY | 2024-11-18 15:10 | XMS_ITS | Clinical Summary ---
Author Organization [employer] Address [address] [place] [address] 7t [place] [address] Care Team Providers Care Exhibit Carpenter Name Role Phone Pooja Medina [facility] Primary Care Provider [phone] Allergies Active Allergy Reactions Criticality Noted Date [...] (BMI) of 40.0 to 44.9 in adult ([facility]) Take 1 capsule (37.5 mg) by mouth before breakfast. 30 capsule 025 2024 Active topiramate (Topamax) 50 MG tabletIndications :Class 3 severe obesity due to excess calories with serious comorbidity and body mass index (BMI) of 40.0 to 44.9 in adult ([facility]) Take 1 tablet (50 mg) by mouth [...] by mouth at bedtime. 90 tablet 3 2025 Active EPINEPHrine (Epipen) 0.3 MG/0.3ML injection [...] (BMI) of 40.0 to 44.9 in adult ([facility]) Take 1 tablet (50 mg) by mouth at bedtime. 30 tablet 11 025 2024 Discontinued(R eorder (will not trigger notification to Pharmacy)) phentermine 37.5 MG capsuleIndication s:Class 3 severe obesity due to excess calories with serious comorbidity and body mass index (BMI) of 40.0 to 44.9 in adult ([facility]) Take 1 capsule (37.5 mg) by mouth [...] or muscle weakness - Previously seen by [facility] ortho for knee pain--last visit 03/2021. Has trialed injections with sx improvement. - Negative HARVEY, RF, ESR, CRP 04/2021 Prediabetes 10/01/2022 Hepatic steatosis 10/01/2022 Overview (10/01/2022): Hx of elevated liver tests now resolved - Abd u/s from 04/2018 c/w hepatic steatosis - 09/2017 Liver fibrosis score of 0.05, Stage F0 Followed by [facility] GI Assessment & Plan (10/01/2022 6:24 AM EDT): Continue to follow with [facility] GI Continue to work with nutrition for weight loss Abnormal uterine bleeding 10/01/2022 Overview (10/01/2022): Followed by [facility] HOT TOP LINER HELPER Subclinical hypothyroidism 10/01/2022 Overview (10/01/2022): Tirosint 25mcg [...] Pap: NIL HPV neg 09/2021, followed by [facility] HOT [employer] HELPER C-scope:08/2019, repeat 2029 BMD: Routine Immunizations: UTD Chronic constipation 10/01/2022 Polyp of colon 03/05/2021 Overview (10/01/2022): Colonoscopy 08/2019 negative with polyp (hyperplastic) 10 year repeat Gastroesophageal reflux disease 12/23/2019 Overview (10/01/2022): Followed by [facility] GI EGD 02/2022 with reactive gastropathy and [...] Type Department Care Team Description 10/29/[address] [facility] MEDICINE [address] [place] [address] Pooja Medina FNP Stable Lab Letter 10/29/2024 Results Follow-Up [facility] WALK[facility]IN CENTER [address] [place] [address] Pooja Medina FNP TSH W/Reflex to FT4 10/27/2024 2:45 PM EDT Office Visit [facility] MEDICINE 230 [place] [address] Pooja Medina FNP Prediabetes (Primary Dx); Class 3 severe obesity due to excess calories with serious comorbidity and body mass index (BMI) of 40.0 to 44.9 in adult; Thyroid dysfunction; Mild persistent asthma without complication; Intercostal muscle strain, initial encounter; Chronic migraine with aura without status migrainosus, not intractable; Bee sting allergy 10/27/2024 Travel 10/26/2024 Travel 10/26/[address] [facility] MEDICINE 230 [place] [address] Marleni Aparicio [place] Chart Prep 10/19/2024 Patient Outreach [address] [address] Pooja Medina FNP Pre-visit Planning ((Unable to reach for PVP screening, LVM) to be completed in office ) 09/14/2024 Telephone [facility] 230 [place] [address] Pooja Medina FNP Med Refill 09/03/2024 Refill [facility] 230 [place] [address] Pooja Medina FNP Chronic migraine with aura without status migrainosus, not intractable 09/01/2024 Orders Only [facility] External Provider, [facility] from Last 3 Months Immunizations Immunization Administration [...] Free T4 3.56 0.32 - 4.0 uIU/mL [facility] Blood Venous blood specimen / Unknown 10/27/2024 3:43 PM EDT 10/27/2024 6:16 PM EDT [facility] LAB BLOOD ORDERABLES Final Re sult Performing Organization Address City/State/[facility] Co de Phone Number [facility] [address] [place] [phone] * VASC US Lower Extremity Venous Duplex Bilateral (09/02/2024 1:23 PM EDT) 09/02/2024 1:23 PM EDT Narrative [facility] - 09/02/2024 2:55 PM EDT [address] [address] Ultrasound Report Signed Patient: Kasie Funes MR#: [id number] 960 : 1980 Acct:[id number] Age/Sex: 44 / F ADM Date: 09/02/24 Loc: . Attending Dr: Cony Sanches PA-C Ordering Physician: Cony Sanches PA-C Date of Service: 09/02/24 Procedure(s): US venous duplex LE BI Accession Number(s): [id number] cc: Cony Sanches PA-C; [facility] EXAMINATION: US LOWER EXTREMITY VENOUS (REFLUX [...] 09/02/24 1452 DD/ 1323 TD/TT: 09/02/24 1410 Settlement Clerk: Procedure Note Donotuseinterpreter, Image - 09/02/[address] [address] Ultrasound Report Signed Patient: Kasie FunesMR#: [id number] 960 : 1980Acct:[id number] Age/Sex: 44 / FADM Date: 09/02/24 Loc: . Attending Dr: Cony Sanches PA-C Ordering Physician: Cony Sanches PA-C Date of Service: 09/02/24 Procedure(s): US venous duplex LE BI Accession Number(s): [id number] cc: Cony Sanches PA-C; [facility] EXAMINATION: US LOWER EXTREMITY VENOUS (REFLUX [...] 09/02/24 1452 DD/ 1323 TD/TT: 09/02/24 1410 Settlement Clerk: [facility] External Provider CV VASC ULAR PROCEDURES Edited Result - Final Performing Organization Address City/State/[facility] Co de Phone Number [facility] [address] [place] [address] * XR Wrist 3+ Views Right (09/01/2024 12:26 PM EDT) Anatomical Region Laterality Modality Upper Extremities, Wrist Right Radiogr aphic Imaging 09/01/2024 12:2 6 PM EDT Narrative 09/01/2024 1:34 PM EDT [address] [address] XRay Report Signed Patient: Kasie Funes MR#: [id number] 960 : 1980 Acct:[id number] Age/Sex: 44 / F ADM Date: 09/01/24 Loc: HO.ED Attending Dr: Ordering Physician: Sowmya Keyes Date of Service: 09/01/24 Procedure(s): XR wrist RT min 3V Accession Number(s): [id number] cc: Sowmya Keyes; [facility] EXAMINATION: XR WRIST, RIGHT CLINICAL INFORMATION: [...] 09/01/24 1331 DD/ 1226 TD/TT: 09/01/24 1328 Settlement Clerk: Procedure Note Donotuseinterpreter, Image - 09/01/2024 [place] [address] XRay Report Signed Patient: Kasie FunesMR#: [id number] 960 : 1980Acct:[id number] Age/Sex: 44 / FADM Date: 09/01/24 Loc: .ED Attending Dr: Ordering Physician: Sowmya Keyes Date of Service: 09/01/24 Procedure(s): XR wrist RT min 3V Accession Number(s): [id number] cc: Sowmya Keyes; [facility] EXAMINATION: XR WRIST, RIGHT CLINICAL INFORMATION: [...] 09/01/24 1331 DD/ 1226 TD/TT: 09/01/24 1328 Settlement Clerk: [facility] External Provider IMG XR PROCEDURES Final Result * XR Hand 3+ Views Right (09/01/2024 12:25 PM EDT) Anatomical Region Laterality Modality Upper Extremities, Hand Right Radiogra phic Imaging 09/01/2024 12:2 5 PM EDT Narrative 09/01/2024 1:36 PM EDT [address] [address] XRay Report Signed Patient: Kasie Funes MR#: [id number] 960 : 1980 Acct:[id number] Age/Sex: 44 / F ADM Date: 09/01/24 Loc: HO.ED Attending Dr: Ordering Physician: Sowmya Keyes Date of Service: 09/01/24 Procedure(s): XR hand RT min 3V Accession Number(s): [id number] cc: Sowmya Keyes; [facility] EXAMINATION: XR HAND, RIGHT CLINICAL INFORMATION: [...] 09/01/24 1333 DD/ 1225 TD/TT: 09/01/24 1328 Settlement Clerk: Procedure Note Donotuseinterpreter, Image - 09/01/[address] [address] XRay Report Signed Patient: Kasie FunesMR#: [id number] 960 : 1980Acct:[id number] Age/Sex: 44 / FADM Date: 09/01/24 Loc: HO.ED Attending Dr: Ordering Physician: Sowmya Keyes Date of Service: 09/01/24 Procedure(s): XR hand RT min 3V Accession Number(s): [id number] cc: Sowmya Keyes; Pooja Medina EXAMINATION: XR HAND, RIGHT CLINICAL INFORMATION: pain [...] 09/01/24 1333 DD/ 1225 TD/TT: 09/01/24 1328 Settlement Clerk: [facility] External Provider IMG XR PROCEDURES Final Result * POCT HGB A1C (05/21/2024 9:39 AM EDT) Hemoglobin A1C 6.0 4.0 - 6.0 % Blood 05/21/2024 9:39 AM EDT [facility] POINT OF CARE TEST ENTER/EDIT ORDERABLES Final Result * BI US Breast Limited Left (05/12/2024 2:00 PM EDT) Anatomical Region Laterality Modality Breast Left Ultrasound 05/12/2024 2:00 PM EDT Narrative 05/12/2024 2:36 PM EDT [facility] [address] [place] [address] Ultrasound Report Signed Patient: Kasie Funes MR#: [id number] 960 : 1980 Acct:[id number] Age/Sex: 43 / F ADM Date: 05/12/24 Loc: MAMMO Attending Dr: Pooja NAYAK Ordering Physician: Pooja Medina Date of Service: 05/12/24 Procedure(s): US breast LT limited mamm only Accession Number(s): [id number] cc: Pooja Medina CLERICAL DENTIST ASSISTANT EXAMINATION: MM DIAGNOSTIC DIGITAL BREAST TOMOSYNTHESIS, BILATERAL [...] 05/12/24 1433 DD/ 1400 TD/TT: 05/12/24 1426 Settlement Clerk: Procedure Note Donotuseinterpreter, Image - 05/12/20[facility] [address] [place] [address] Ultrasound Report Signed Patient: Kasie Funes#: [id number] 960 : 1980Acct:[id number] Age/Sex: 43 / FADM Date: 05/12/24 Loc: MAMMO Attending Dr: Pooja NAYAK Ordering Physician: Pooja Medina Date of Service: 05/12/24 Procedure(s): US breast LT limited mamm only Accession Number(s): [id number] cc: Pooja Medina [facility] EXAMINATION: MM DIAGNOSTIC DIGITAL BREAST TOMOSYNTHESIS, BILATERAL [...] 05/12/24 1433 DD/ 1400 TD/TT: 05/12/24 1426 Settlement Clerk: [facility] IMG US PROCEDURES Final Resul t * Lipid Panel, Standard (10/31/2023 1:40 PM EDT) Triglycerides 66 <150 mg/dL [facility] Comment:Desirable Triglyceri de: less than 150 mg/dLBorderline High Triglyceride 150-199 mg/dLHigh Triglyceride: 200-499 mg/dLVery High Triglyceride: greater than or equal to 5OO mg/dL Cholesterol 160 <200 mg/dL [facility] Comment:Desirable Cholestero l: less than 200 mg/dLBorderline High Cholesterol: 200-239 mg/dLHigh Cholesterol: greater than 239 mg/dL LDL Cholesterol Calculated 79 <100 mg/dL [facility] Comment:Desirable LDL: less than 100 mg/dLNear Optimal/Above Optimal LDL: 110- 129 mg/dLBorderline High LDL: 130-159 mg/dLHigh LDL: 160-189 mg/dLVery High LDL: greater than or equal to 190 mg/dL HDL Cholesterol 68 >40 mg/dL [facility] Comment:Desirable HDL: great er than 40 mg/dL Note: This HDL assay may give artificially low results in patients with liver disease. Blood Venous blood specimen / Unknown 10/31/2023 1:40 PM EDT 10/31/2023 3:58 PM EDT [facility] LAB BLOOD ORDERABLES Final Re sult [facility] [address] [place] [phone] * THINPREP TIS PAP AND HPV mRNA E6/E7 WITH REFLEX TO HPV 16,18/45 (10/04/2021 10:02 AM EDT) Clinical Information: None given [facility] COMMENT SEE COMMENT [facility] [...] has been evaluated with computer assisted technology. [facility] Cytotechnologis t: SEE COMMENT [facility] Comment: JNA, CT(ASCP) CT screening location: [address] [address] HPV nRNA E6/E7 Not Detected Not Detected [facility] Comment: Methodology: Teacher Selection Specialist-Mediated Amplification This assay detects E6/E7 viral messenger RNA (mRNA) from 14 high-risk HPV types (16,18,31,33,35,39,45,51,52,56,58,59,66,68). Cervical sources are required for HPV testing. If a vaginal source from a patient who has had a total hysterectomy with removal of cervix was submitted, please contact the testing laboratory for alternative testing options. For additional information, please refer to http://education.Sinnet/faq/OBB054o4 (This link if provided for information/ educational purposes only.) Infection Shift in vaginal sin suggestive of bacterial vaginosis. [facility] Interpretation/ Result: Negative for intraepithelial lesion or malignancy. [facility] LMP: 06/2021 [facility] Prev. BX: NONE GIVEN [facility] Prev. PAP: NIL 09/2018 [facility] SOURCE: None given [facility] Statement Of Adequacy: SEE COMMENT [facility] Comment: Satisfactory for evaluation. Endocervical/transformation zone component absent. 10/04/2021 10:0 2 AM EDT Iris Padron [facility] PATHOLOGY ORDERABLES Final Result [facility] [address] * Pap Smear (10/04/2021 12:00 AM EDT) Swab Iris Padron [facility] CYTOLOGY ORDERABLES F inal Result [address], [place] [address] * HEPATITIS C AB W/REFL TO HCV RNA, QN, PCR (04/30/2021 2:02 PM EDT) HEPATITIS C ANTIBODY NON-REACT DAVE NON-REACT DAVE [facility] INDEX 0.02 <1.00 [facility] Comment: HCV antibody was non-reactive. There is no laboratory evidence of HCV infection. In most cases, no further action is required. However, if recent HCV exposure is suspected, a test for HCV RNA (test code 53252) is suggested. For additional information please refer to http://Prodigy Game.Sinnet/faq/HPF25t5 (This link is being provided for informational/ educational purposes only.) 04/30/2021 2:02 PM EDT [facility] HISTORICAL/NON ORDERABLE LABS Final Result Performing Organization Address [facility] de Phone Number [facility] [address] * HIV 1/2 ANTIGEN/ANTIBODY,FOURTH GENERATION W/RFL (04/30/2021 2:02 PM EDT) HIV-1/2 ANTIGEN AND ANTIBODIES, 4TH GENERATION W/ REFLEX NON-REACT DAVE NON-REACT DAVE [facility] Comment: HIV-1 antigen and HIV-1/HIV-2 [...] purpose. For additional information please refer to http://Prodigy Game.Sinnet/faq/IDQ216 (This link is being provided for informational/ educational purposes only.) The performance of this assay has not been clinically validated in patients less than 2 years old. 04/30/2021 2:02 PM EDT [facility] LAB BLOOD ORDERABLES Final Re sult Performing Organization Address [facility] Co de Phone Number [facility] [address] from Last 3 Months or Most Recently Relevant to Health Maintenance [place] [facility] [place] Care Teams Exhibit Carpenter Relationship Specialty Start Date End Date Pooja Medina FNP [address] [place] [phone] PCP - General Family Medicine 11/15/20
== END 2024-11-18 13:40 | disposition home or self-care (01) ==
LOC: HO.NEURO 13:39
PROVIDERS: PCP Registered Nurse; Visit Provider Orthopaedic Surgery
DX: R20.0 Anesthesia of skin (principal); R20.2 Paresthesia of skin
CPT/HCPCS: 95886; 95911

== ENCOUNTER → 2024-11-18 13:42 | Outpatient (BNV) | payer OTHER, SELFPAY | PROVIDERS: PCP Registered Nurse; Visit Provider Physical Medicine & Rehabilitation | DX: R20.0 Anesthesia of skin (principal) | CPT/HCPCS: 95886; 95911 ==

== ENCOUNTER 2024-11-24 13:37 | Emergency (ER) | payer OTHER, SELFPAY ==
--- NOTE | ~2024-11-24 | XR_ITS ---
EXAMINATION: XR CHEST CLINICAL INFORMATION: cough and fever COMPARISON: 05/06/2023, 03/19/2022. TECHNIQUE: 2 views of the chest were obtained. FINDINGS: The cardiac, hilar, and mediastinal contours are normal. The lungs are clear bilaterally. There is no pneumothorax or pleural effusion. There is no focal osseous or soft tissue abnormality. There are cholecystectomy clips present. XR/XR chest 2V IMPRESSION: No active pulmonary disease. Electronically signed by: Varinder Hernandez MD 11/24/2024 02:10 PM EDT
[2024-11-24 13:45] VITALS: BP 115/61; PULSE 93; RESP 18; TEMP 36.4; O2SAT 98; BMI 39.9
--- NOTE | 2024-11-24 13:45 | ED.GENADULT ---
HPI - General Adult General Chief complaint: Upper Respiratory Symptoms Stated complaint: cold symptoms Related Data Home Medications ?Medication ?Instructions ?Recorded ?Confirmed albuterol sulfate 90 mcg/actuation 2 puff inhalation Q6H PRN 11/25/19 11/11/24 aerosol inhaler (ProAir HFA) Shortness Of Breath Or Wheezing cholecalciferol (vitamin D3) 50 50 mcg PO DAILY 03/07/22 11/11/24 mcg (2,000 unit) tablet (Vitamin D3) epinephrine 0.3 mg/0.3 mL IM 03/07/22 11/11/24 injection, auto-injector fluticasone propionate 110 2 puff inhalation BID 03/07/22 11/11/24 mcg/actuation HFA aerosol inhaler (Flovent HFA) levothyroxine 25 mcg capsule 25 mcg PO DAILY 03/07/22 11/11/24 (Tirosint) amitriptyline 10 mg tablet 10 mg PO BEDTIME 03/15/24 11/11/24 cetirizine 10 mg tablet 10 mg PO DAILY 03/15/24 11/11/24 magnesium oxide 400 mg (241.3 mg 400 mg PO DAILY 03/15/24 11/11/24 magnesium) tablet phentermine 37.5 mg capsule 37.5 mg PO QAM 11/11/24 11/11/24 Previous Rx's ?Medication ?Instructions ?Recorded acetaminophen 500 mg tablet 500 - 1,000 mg (1 - 2 x 500 mg) PO 09/01/24 (Tylenol Extra Strength) QID PRN pain #30 tabs ibuprofen 600 mg tablet 600 mg PO Q6H PRN pain #30 tabs 11/08/24 omeprazole 40 mg capsule,delayed 40 mg PO DAILY 90 days #90 caps 11/11/24 release sennosides 8.6 mg-docusate sodium 2 tab-cap (2 x 8.6-50 mg) PO 11/11/24 50 mg tablet (Senna with Docusate BEDTIME 60 days #120 tabs Sodium) Allergies Allergy/AdvReac Type Severity Reaction Status Date / Time mussels Allergy Severe DIFFICULTY Verified 11/24/24 13:48 BREATHING lactose AdvReac Diarrhea Verified 11/24/24 13:48 [facility] Past Medical History Medical History (Updated 11/28/24 @ 10:36 by Dorene Banegas NP) Lipoma of arm Asthma Lab test negative for COVID-19 virus COVID-19 Chronic constipation Iron deficiency anemia due to chronic blood loss Epigastric pain GERD (gastroesophageal reflux disease) Lactose intolerance in adult Depression Hypothyroidism Surgical History (Updated 11/11/24 @ 13:03 by Le Sullivan) Status post excision of lipoma (~11/27/22) Hx of shoulder surgery Hx of tubal ligation History of endometrial ablation Hx of dilation and curettage History of breast lump/mass excision Hx of arthroscopic knee surgery History of esophagogastroduodenoscopy (EGD) Status post laparoscopic cholecystectomy History of colonoscopy Family History Family History Mother No problems noted. Father No problems noted. Maternal Aunt Hx of ovarian cancer Social History Social History Household Members: Children Alcohol intake: unknown Patient Tobacco Use Status: Never used Tobacco Second Hand Smoke Exposure: No Advance Directives: No Advance Directives Information Provided: No Current occupational status: employed Current occupation: [employer]/ right hand dominant Physical Exam ED Vital Signs: BMI result Body Mass Index 39.9 Course Course Course Narrative: This is a rapid medical exam performed by Katrin Banegas NP: Additional HPI, ROS, PE not included below will be deferred to primary provider. Patient is a 44y/o F presenting with body aches, cough, fever, congestion x 1 week. Daughter sick with similar sxs. Plan: strep, viral swabs, cxr Patient left the emergency department before myself or any of the other clinicians could review or explain physical exam findings, test results, need or lack there of for additional testing, treatment options, or a treatment plan. Medical Decision Making Lab Data Labs: Lab Results 11/24/24 Range/Units 13:56 COVID-19 ([place]) Negative (Negative) COVID-19 Clin Com See Note Influenza Type A ([place]) Negative (Negative) Influenza Type B ([facility]) Negative (Negative) Influenza A & B Note See Note S. pyogenes GrpA [facility]ARY Negative (Negative) Discharge Plan Discharge Clinical Impression: Cough Patient Disposition: Left W/O Completing Treatment Prescriptions: No Action acetaminophen [Tylenol Extra Strength] 500 mg tablet 500 - 1,000 mg PO QID PRN (Reason: pain) Qty: 30 0RF albuterol sulfate [ProAir HFA] 90 mcg/actuation HFA aerosol inhaler 2 puff inhalation Q6H PRN (Reason: Shortness Of Breath Or Wheezing) cholecalciferol (vitamin D3) [Vitamin D3] 50 mcg (2,000 unit) tablet 50 mcg PO DAILY fluticasone propionate [Flovent HFA] 110 mcg/actuation HFA aerosol inhaler 2 puff inhalation BID levothyroxine [Tirosint] 25 mcg capsule 25 mcg PO DAILY epinephrine 0.3 mg/0.3 mL auto-injector IM magnesium oxide 400 mg (241.3 mg magnesium) tablet 400 mg PO DAILY cetirizine 10 mg tablet 10 mg PO DAILY amitriptyline 10 mg tablet 10 mg PO BEDTIME phentermine 37.5 mg capsule 37.5 mg PO QAM omeprazole 40 mg capsule,delayed release(DR/EC) 40 mg PO DAILY 90 Days Qty: 90 1RF sennosides-docusate sodium [Senna with Docusate Sodium] 8.6-50 mg tablet 2 tab-cap PO BEDTIME 60 Days Qty: 120 2RF Rx Instructions: Please take 1-2 cap every day at bedtime ibuprofen 600 mg tablet 600 mg PO Q6H PRN (Reason: pain) Qty: 30 0RF Discharge Date/Time: 11/24/24 19:57
[2024-11-24 14:52] LABS: COVID-19 Test Negative (Negative); IDNOW Serial# 08D9AD1C; IDNOW Serial# 55D5AD1C; IDNOW Serial# 58CA691E; Influenza B2 Negative (Negative); Strep A Nucleic Acid Negative (Negative)
[2024-11-24 17:57] VITALS: BP 103/62; PULSE 78; RESP 16; TEMP 36.3; O2SAT 100
--- NOTE | 2024-11-24 19:55 | PC.NURSE ---
called patient from waiting room and no answer. registration informed t/w that patient left.
--- NOTE | 2024-11-24 19:56 | PC.NURSE ---
Pt approached t/w in triage to state she was leaving, pt LWCT.
== END 2024-11-24 19:57 | disposition left against medical advice (07) ==
PROVIDERS: Registered Nurse Emergency; Emergency Provider Emergency Medicine; PCP Registered Nurse
DX: R05.9 Cough, unspecified (principal); Z53.21 Procedure and treatment not carried out due to patient leaving prior to being seen by health care provider
CPT/HCPCS: 71046; 87502; 87635; 87651; 99282; 99283

== ENCOUNTER → 2024-11-24 13:46 | Outpatient (BNV) | payer OTHER, SELFPAY | PROVIDERS: PCP Registered Nurse; Visit Provider Radiology Diagnostic Radiology | DX: R05.9 Cough, unspecified (principal); R50.9 Fever, unspecified | CPT/HCPCS: 71046 ==

== ENCOUNTER 2024-12-01 12:45 | Outpatient (AMB) | payer OTHER, SELFPAY ==
[2024-12-01 12:48] VITALS: BMI 39.9
--- NOTE | 2024-12-01 12:48 | MHC.OFFVIS ---
Vital Signs 12/01/24 12:48 Height 5 ft 1 in Weight 211 lb BMI 39.9 Intake Visit Reasons: EMG review Right wrist Pain Intake Note: Kasie 44 yr old right hand dominant female presents today for her follow up visit for her right wrist pain/sprain following a hyper extension injury caused by a falling laundry basket on 09/01/2024. At her last visit she was sent to have an EMG study. She is here for results. IMPRESSION: 1. This is a normal study. 2. There is no electrodiagnostic evidence for median neuropathy, ulnar neuropathy, brachial plexopathy, or cervical radiculopathy. Utility Hand Name: Rosaline Allergies mussels Allergy (Severe, Verified 12/01/24 12:53) DIFFICULTY BREATHING lactose Adverse Reaction (Verified 12/01/24 12:53) Diarrhea HPI HPI EMG review Right wrist Pain: Details: Kasie is a 44 year old right hand dominant Italian speaking woman who returns for a NCS review of her bilateral hand numbness. She is also following up for a right wrist sprain, when her laundry basket slipped causing a hyper extension injury to her right wrist, DOI: 09/01/24. She complains of numbness and tingling in both of her hands, and says this is primarily in the mornings. She continues to complain of pain in the volar and dorsal ulnar aspect of the right wrist. She says this is not improving. She complains of a cracking sensation in her wrist with ROM. She continues to wear her velcro wrist splint with daily activities. 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 [facility] Medical History (Updated 12/01/24 @ 13:04 by Juni Tim) Lipoma of arm Asthma Lab test negative for COVID-19 virus COVID-19 Chronic constipation Iron deficiency anemia due to chronic blood loss Epigastric pain GERD (gastroesophageal reflux disease) Lactose intolerance in adult Depression Hypothyroidism Surgical History Status post excision of lipoma (~11/27/22) Hx of shoulder surgery Hx of tubal ligation History of endometrial ablation Hx of dilation and curettage History of breast lump/mass excision Hx of arthroscopic knee surgery History of esophagogastroduodenoscopy (EGD) Status post laparoscopic cholecystectomy History of colonoscopy Family History Mother No problems noted. Father No problems noted. Maternal Aunt Hx of ovarian cancer Social History Household Members: Children Alcohol intake: unknown Patient Tobacco Use Status: Never used Tobacco Second Hand Smoke Exposure: No Current occupational status: employed Current occupation: [employer] HIGH/ right hand dominant Female Reproductive History Menstrual Age of Menarche: 11 Review of Systems Const All systems reviewed & are unremarkable except as noted in HPI and below Physical Exam Vital Signs: BMI result Body Mass Index 39.9 Const General: no acute distress and alert Orientation/consciousness: patient oriented x3 Neuro General: patient oriented x3 Extrem Other: Evaluation of Upper Extremity: The patient is alert, oriented, and in no acute distress Neuro: Median, Ulnar, Radial nerves motor and sensory intact and sensation is normal to the tips of all digits Vascular: Cap refill brisk ROM: Can bring fingers closed to a fist and back out to full extension. No locking or catching She has symmetrical pronation. She had supination on the right to ~65 degrees, with encouragement she can get to ~80 degrees with some discomfort at the extreme of motion. The DRUJ felt stable on exam today. She does have some tenderness over the ECU tendon as it passes over the distal ulna, but I did not appreciate any subluxation with pronosupination She also had some foveal tenderness No tenderness in the snuffbox or scaphoid tubercle No tenderness over the distal radius No tenderness over the FCU tendon Nerve Conduction Study: IMPRESSION: 1. This is a normal study. 2. There is no electrodiagnostic evidence for median neuropathy, ulnar neuropathy, brachial plexopathy, or cervical radiculopathy. Thank you for your kind referral. Gely Mederos MD, ECHO 11/18/24 Psych Appearance: grossly normal Affect: normal affect Attitude: cooperative Office Procedures AMB Fracture Care Details: No fracture, injection of wrist joint Fracture Billing Code: Fracture Billing Code Assessment & Plan Assessment & Plan (1) Right wrist pain: Code(s): M25.531 - Pain in right wrist Category: Medical (2) Numbness and tingling in both hands: Code(s): R20.0 - Anesthesia of skin; R20.2 - Paresthesia of skin Category: Medical Plan Assessment and plan: 1. Right ulnar wrist pain Following a hyper extension injury caused by a falling laundry basket, DOI: 09/01/24 Discomfort is mostly over the ECU tendon & fovea I educated her about this condition I discussed a possible steroid injection today, and she is in agreement She continues to have pain with daily activities, with only mild improvement since her last appointment 2 months ago She should continue to wear her velcro wrist splint with daily activities at this time. She will remove this when at rest. I discussed activity modification, she is to lift nothing heavy for the next 6 weeks. 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 She was given a note for work to continue on light duty, with a 5lb weight limit with her RUE, effective 12/13/24, until her next appointment. Injection #1: The risks and benefits of a steroid injection including but not limited to risk of damage to blood vessels, nerve, tendon, infection, skin bleaching, persistent or worsening pain, and failure to improve symptoms were discussed with the patient and they wish to proceed with the steroid injection. Once consent was obtained the skin over the Right ulnar wrist joint, through the Fovea, was sterilely prepped. The joint was then injected with a combination of 1 mL of dexamethasone (4mg/ml) and 0.5% plain Marcaine. The patient appears to have tolerated the procedure well and with no complications. She had good early relief of all of her ulnar wrist pain before leaving clinic today. She knows that they may not have another steroid injection into this joint for least 4 months. She will follow up in 6 weeks to see how she is doing. If she continues to have pain I would consider ordering an MRI. 2. Bilateral hand numbness and tingling Intermittent, but daily, worse at night. NCS from 11/18/24 was unremarkable Scribed for Joanna Lin MD by Juni Tim, senior medical director, on 12/01/24 at 1:05 PM, EST. Coding Level of Care Code Est Pt Level 3 (62630) Diagnoses Right wrist pain M25.531 Numbness and tingling in both hands R20.0; R20.2 CPT Codes Fracture Care - Fracture Billing Code: Fracture Billing Code ([id number])
== END 2024-12-01 13:56 | disposition home or self-care (01) ==
LOC: HO.HOS 12:45
PROVIDERS: PCP Registered Nurse; Visit Provider Orthopaedic Surgery
DX: M25.531 Pain in right wrist (principal); R20.0 Anesthesia of skin; R20.2 Paresthesia of skin
CPT/HCPCS: 20605; 99213

== ENCOUNTER → 2024-12-01 12:45 | Outpatient (BNVA) | payer OTHER, SELFPAY | PROVIDERS: PCP Registered Nurse; Visit Provider Orthopaedic Surgery | DX: M25.531 Pain in right wrist (principal); R20.0 Anesthesia of skin; R20.2 Paresthesia of skin | CPT/HCPCS: 20605; 99212; J1100; J2003 ==

== ENCOUNTER → 2025-01-03 13:38 | Outpatient (REF) | payer OTHER, SELFPAY ==
--- NOTE | 2025-01-03 13:44 | ECG_ITS ---
Test Reason : S29.011A Blood Pressure : */* mmHG Vent. Rate : 85 BPM Atrial Rate : 85 BPM P-R Int : 148 ms QRS Dur : 92 ms QT Int : 356 ms P-R-T Axes : 62 21 44 degrees QTcB Int : 423 ms Normal sinus rhythm Normal ECG When compared with ECG of 06-May-2023 07:59, Vent. rate has decreased by 60 bpm Nonspecific T wave abnormality no longer evident in Inferior leads Referred By: Pooja Medina Electronically Signed By: JESSICA MORALES
== END ==
LOC: HO.CARD 13:38
PROVIDERS: PCP Registered Nurse; Visit Provider Registered Nurse
DX: S29.011A Strain of muscle and tendon of front wall of thorax, initial encounter (principal)
CPT/HCPCS: 93005

== ENCOUNTER → 2025-01-03 13:44 | Outpatient (BNV) | payer OTHER, SELFPAY | PROVIDERS: PCP Registered Nurse; Visit Provider Internal Medicine | DX: S29.011A Strain of muscle and tendon of front wall of thorax, initial encounter (principal) | CPT/HCPCS: 93010 ==

== ENCOUNTER 2025-01-19 13:27 | Outpatient (AMB) | payer OTHER, SELFPAY ==
[2025-01-19 13:53] VITALS: BMI 39.9
--- NOTE | 2025-01-19 13:53 | MHC.OFFVIS ---
Vital Signs 01/19/25 13:53 Height 5 ft 1 in Weight 211 lb BMI 39.9 Intake Visit Reasons: OV f/u Right wrist Pain Intake Note: Kasie 44 yr old female presents today for her follow up visit for her right wrist pain. States injection from 12/01/[address] Lin. States injection helped however as of 2 weeks ago she started to carry heavy items and her pain has returned. Allergies mussels Allergy (Severe, Verified 01/19/25 13:57) DIFFICULTY BREATHING lactose Adverse Reaction (Verified 01/19/25 13:57) Diarrhea HPI HPI OV f/u Right wrist Pain: Details: Kasie is a 44 year old right hand dominant Armenian speaking woman who returns for her right wrist sprain, S/P injection on: 12/01/24. S/P hyper extension injury to her right wrist, DOI: 09/01/24. She says her injection gave her good relief until ~2 weeks ago, when her pain returned when she began to carry heavy bags at her work. She continues to complain of pain in the volar and dorsal ulnar aspect of the right wrist. She continues to wear her velcro wrist splint with daily activities. She complains of numbness and tingling in both of her hands, and says this is primarily in the mornings. 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 [facility] Medical History (Updated 12/01/24 @ 13:04 by Juni Tim) Lipoma of arm Asthma Lab test negative for COVID-19 virus COVID-19 Chronic constipation Iron deficiency anemia due to chronic blood loss Epigastric pain GERD (gastroesophageal reflux disease) Lactose intolerance in adult Depression Hypothyroidism Surgical History Status post excision of lipoma (~11/27/22) Hx of shoulder surgery Hx of tubal ligation History of endometrial ablation Hx of dilation and curettage History of breast lump/mass excision Hx of arthroscopic knee surgery History of esophagogastroduodenoscopy (EGD) Status post laparoscopic cholecystectomy History of colonoscopy Family History Mother No problems noted. Father No problems noted. Maternal Aunt Hx of ovarian cancer Social History Household Members: Children Alcohol intake: unknown Patient Tobacco Use Status: Never used Tobacco Second Hand Smoke Exposure: No Current occupational status: employed Current occupation: [employer] HIGH/ right hand dominant Female Reproductive History Menstrual Age of Menarche: 11 Physical Exam Vital Signs: BMI result Body Mass Index 39.9 Const General: no acute distress and alert Orientation/consciousness: patient oriented x3 Neuro General: patient oriented x3 Extrem Other: Evaluation of Right Upper Extremity: The patient is alert, oriented, and in no acute distress Neuro: Median, Ulnar, Radial nerves motor and sensory intact and sensation is normal to the tips of all digits Vascular: Cap refill brisk ROM: Can bring fingers closed to a fist and back out to full extension. No locking or catching She has symmetrical pronation. She had supination on the right to ~65 degrees, with encouragement she can get to ~80 degrees with some discomfort at the extreme of motion. The DRUJ felt stable on exam today. She does have some mild tenderness over the ECU tendon as it passes over the distal ulna, mostly with resisted wrist extension She also had some mild foveal tenderness No tenderness in the snuffbox or scaphoid tubercle No tenderness over the distal radius No tenderness over the FCU tendon Nerve Conduction Study: IMPRESSION: 1. This is a normal study. 2. There is no electrodiagnostic evidence for median neuropathy, ulnar neuropathy, brachial plexopathy, or cervical radiculopathy. Thank you for your kind referral. Gely Mederos MD, ECHO 11/18/24 Psych Appearance: grossly normal Affect: normal affect Attitude: cooperative Office Procedures AMB Fracture Care Details: No fracture injection Fracture Billing Code: Fracture Billing Code Assessment & Plan Assessment & Plan (1) Right wrist pain: Code(s): M25.531 - Pain in right wrist Category: Medical (2) Numbness and tingling in both hands: Code(s): R20.0 - Anesthesia of skin; R20.2 - Paresthesia of skin Category: Medical Plan Assessment and plan: 1. Right ulnar wrist pain, S/P injection Date of injection: 01/19/25, 12/01/24 Following a hyper extension injury caused by a falling laundry basket, DOI: 09/01/24 Discomfort is mostly over the ECU tendon & fovea I educated her about this condition I discussed a possible steroid injection today, and she is in agreement She continues to have pain with daily activities, with good improvement for ~1 month following her injection, but her pain returned ~2 weeks ago after heavy lifting activities. She was fitted for a new velcro wrist splint, to be worn with daily activities at this time. She will remove this when at rest. She was wearing her old wrist splint at work and it is now worn out. I discussed activity modification, she is to lift nothing heavy for the next 6 weeks. 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 Injection #1: The risks and benefits of a steroid injection including but not limited to risk of damage to blood vessels, nerve, tendon, infection, skin bleaching, persistent or worsening pain, and failure to improve symptoms were discussed with the patient and they wish to proceed with the steroid injection. Once consent was obtained the skin over the Right ECU tendon sheath, was sterilely prepped. The tedon sheath was then injected with a combination of 1 mL of dexamethasone (4mg/ml) and 1% Lidocaine. The patient appears to have tolerated the procedure well and with no complications. She had good early relief of all of her ulnar wrist pain before leaving clinic today. She knows that they may not have another steroid injection into this joint for least 4 months. She will follow up in 2 months to see how she is doing and discuss decreasing her work restrictions. If she continues to have pain I would consider ordering an MRI. 2. Bilateral hand numbness and tingling Intermittent, but daily, worse at night. NCS from 11/18/24 was unremarkable Please note that greater than 30 minutes was spent with this patient going over the history, evaluating the patient and radiographs, formulating possible treatment options, discussing them with the patient, and documenting the visit. Scribed for Joanna Lin MD by Juni Tim, vp medical, on 01/19/25 at 2:05 PM, EST. Coding Level of Care Code Est Pt Level 3 (48959) Diagnoses Right wrist pain M25.531 Numbness and tingling in both hands R20.0; R20.2 CPT Codes Fracture Care - Fracture Billing Code: Fracture Billing Code ([id number])
--- OUTSIDE RECORDS SUMMARY | 2025-01-19 16:01 | XMS_ITS | Encounter Summary ---
Author Organization [employer] Address [address] [place] [address] [address] [place] [address] Care Team Providers Care Segment Assembler Name Role Phone Pooja Medina PRIMARY MONTESSORI TEACHER Primary Care Provider [phone] Reason for Visit * Reason Comments Med Refill Encounter Details Date Type Department Care Team ([facility] st Contact Info) Description 02/07/2024 Refill [facility] [address], [place] [phone] Diandra Judd MD [address] [place], [place] [phone] Thyroid dysfunction Social History Tobacco Use Types [...] Care Team (Late st Contact Info) Description 01/24/2025 1:45 PM EST Office Visit [facility] [address] [place] [address] [place]oo[facility] [address] [place] [address] documented as of this encounter Visit Diagnoses Diagnosis Thyroid dysfunction Unspecified disorder of thyroid documented in this encounter Additional Health Concerns Assessment Noted Time PHQ-9 Depression Total Score: 0 12/15/19 24 2:36 PM EDT documented as of this encounter Care Teams Segment Assembler Relationship Specialty Start Date End Date Pooja Medina FNP [address] [place] [address] PCP - General Family Medicine 11/15/20 documented as of this encounter
--- OUTSIDE RECORDS SUMMARY | 2025-01-19 16:01 | XMS_ITS | Encounter Summary ---
Author Organization [employer] Address [address] [facility] [address] [place] [address] Care Team Providers Care Faith Healer Name Role Phone Pooja Medina [facility] Primary Care Provider [phone] Encounter Details Date Type Department Care Team (Latest Contact Info) Description 01/17/2025 Travel Social History Tobacco Use Types Packs/Day [...] Description 01/24/2025 1:45 PM EST Office Visit [facility] [address] [place] [address] Pooja Medina FNP [address] [place] [address] documented as of this encounter Visit Diagnoses Not on filedocumented in this encounter Additional Health Concerns Assessment Noted Time PHQ-9 Depression Total Score: 0 10/28/19 25 3:02 PM EDT documented as of this encounter Care Teams Faith Healer Relationship Specialty Start Date End Date Pooja Medina FNP [address] [place] [address] PCP - General Family Medicine 11/15/20 documented as of this encounter
--- OUTSIDE RECORDS SUMMARY | 2025-01-19 16:01 | XMS_ITS | Clinical Summary ---
Author Organization [employer] Address [address] [place] [address] 7t [place] [address] Care Team Providers Care Galley Worker Name Role Phone Pooja Medina [facility] Primary Care Provider Allergies Active Allergy Reactions Criticality Noted Date Comments Lactose Diarrhea 02/26/2023 Shellfish Allergy Shortness of breath High 4 Shellfish Protein-Containing Drug Products Anaphylaxis High 04/13/2020 Medications omeprazole (PriLOSEC) [address] capsuleIndications :Gastroesophageal reflux disease with esophagitis without hemorrhage Take 1 capsule (40 mg) by mouth 2 times daily. 60 capsule 11 4 Active cetirizine (ZyrTEC) 10 MG tabletIndications: Mild persistent asthma without complication Take 1 tablet (10 mg) by mouth Once per day. 30 tablet 11 4 Active cholecalciferol (Vitamin D-3) 50 MCG (2000 UT) tabletIndications: Vitamin D deficiency TAKE 1 TABLET BY MOUTH EVERY DAY 90 tablet 1 4 Active fluticasone (Flonase) 50 MCG/ACT nasal sprayIndications:O ther chronic nonsuppurative otitis media of both ears ADMINISTER 1-2 SPRAYS INTO EACH NOSTRIL ONCE PER DAY. SHAKE GENTLY. BEFORE FIRST USE, PRIME PUMP. AFTER USE, CLEAN TIP AND REPLACE CAP. 48 mL 5 026 Active topiramate (Topamax) 50 MG tabletIndications: Class 3 severe obesity due to excess calories with serious comorbidity and body mass index (BMI) of 40.0 to 44.9 in adult (HCC) Take 1 tablet (50 mg) by mouth at bedtime. 30 tablet 5 Active metFORMIN XR (Glucophage-XR) 500 MG 24 hr tabletIndications: Prediabetes Take 1 tablet (500 mg) by mouth with evening meal. Do not crush, chew, or split. If tolerating well OK to increase to 1 tablet twice daily 30 tablet 5 Active levothyroxine (Tirosint) 25 MCG capsuleIndications :Thyroid dysfunction Take 1 capsule (25 mcg) by mouth Once per day. 90 capsule 5 Active lidocaine (Lidoderm) 5 % patchIndications:I ntercostal muscle strain, initial encounter Apply topically to affected areas. Leave on for up to 12 hours 30 patch 1 5 Active amitriptyline (Elavil) 10 MG tabletIndications: Chronic migraine with aura without status migrainosus, not intractable Take 1 tablet (10 mg) by mouth at bedtime. 90 tablet 3 5 Active EPINEPHrine (Epipen) 0.3 MG/0.3ML injection syringeIndications :Bee sting allergy Inject 0.3 mL (0.3 mg) as directed 1 (one) time for 1 dose. 1 each 5 Active budesonide-formote rol (Symbicort) 80-4.5 MCG/ACT inhalerIndications :Mild persistent asthma without complication Inhale 2 puffs twie daily. Rinse mouth with water after use to reduce aftertaste and incidence of candidiasis. Do not swallow. 1 each 5 Active albuterol 108 (90 Base) MCG/ACT inhaler Inhale 2 puffs every 4 (four) hours if needed for wheezing. 18 g 5 Active Riboflavin 400 MG capsuleIndications :Chronic migraine with aura without status migrainosus, not intractable Take 1 capsule by oral route daily 90 capsule 5 Active magnesium oxide (Mag-Ox) 400 (240 Mg) MG tablet Take 1 tablet (400 mg) by mouth Once per day. 30 tablet 5 Active phentermine 37.5 MG capsuleIndications :Class 3 severe obesity due to excess calories with serious comorbidity and body mass index (BMI) of 40.0 to 44.9 in adult (HCC) Take 1 capsule (37.5 mg) by mouth before breakfast. 30 capsule 5 Active ibuprofen 600 MG tabletIndications: Chronic midline low back pain with bilateral sciatica TAKE 1 TABLET BY MOUTH EVERY 8 HOURS NEEDED FOR MODERATE PAIN. 60 tablet 1 5 Active Active Problems Problem Noted Date [...] or muscle weakness - Previously seen by [facility] ortho for knee pain--last visit 03/2021. Has trialed injections with sx improvement. - Negative HARVEY, RF, ESR, CRP 04/2021 Prediabetes 10/01/2022 Hepatic steatosis 10/01/2022 Overview (10/01/2022): Hx of elevated liver tests now resolved - Abd u/s from 04/2018 c/w hepatic steatosis - 09/2017 Liver fibrosis score of 0.05, Stage F0 Followed by [facility] GI Assessment & Plan (10/01/2022 6:24 AM EDT): Continue to follow with [facility] GI Continue to work with nutrition for weight loss Abnormal uterine bleeding 10/01/2022 Overview (10/01/2022): Followed by [facility] [employer] Subclinical hypothyroidism 10/01/2022 Overview (10/01/2022): Tirosint 25mcg [...] Pap: NIL HPV neg 09/2021, followed by [facility] [employer] C-scope:08/2019, repeat 2029 BMD: Routine Immunizations: UTD Chronic constipation 10/01/2022 Polyp of colon 03/05/2021 Overview (10/01/2022): Colonoscopy 08/2019 negative with polyp (hyperplastic) 10 year repeat Gastroesophageal reflux disease 12/23/2019 Overview (10/01/2022): Followed by [facility] GI EGD 02/2022 with reactive gastropathy and [...] Encounters Date Type Department Care Team Description 01/17/2025 Travel 12/16/2024 Refill [facility] [address] [place] [address] Pooja Medina FNP Chronic midline low back pain with bilateral sciatica 12/08/2024 [facility] [address] [place] [address] Pooja Medina FNP Class 3 severe obesity due to excess calories with serious comorbidity and body mass index (BMI) of 40.0 to 44.9 in adult ([facility]) 11/29/2024 Telephone [facility] [address] [place] [address] Pooja Medina FNP Dec recall 11/24/2024 Orders Only [facility] External Provider, [facility] 10/29/[address] [address] Pooja Medina FNP Stable Lab Letter 10/29/2024 Results Follow-Up [facility] [address] [place] [address] Pooja Medina FNP TSH W/Reflex to FT4 10/27/2024 2:45 PM EDT Office Visit [address] [address] Pooja Medina FNP Prediabetes (Primary Dx); Class 3 severe obesity due to excess calories with serious comorbidity and body mass index (BMI) of 40.0 to 44.9 in adult; Thyroid dysfunction; Mild persistent asthma without complication; Intercostal muscle strain, initial encounter; Chronic migraine with aura without status migrainosus, not intractable; Bee sting allergy 10/27/2024 Travel 10/26/2024 Travel 10/26/2024 Telephone [facility] [address] [place] [address] Marleni Aparicio [place] Chart Prep from Last 3 Months Immunizations Immunization Administration [...] is your housing situation today? I have marilynduc menard 12/15/[address] you [...] 10/27/2024 3:00 PM EDT Plan of Treatment Upcoming Encounters Date Type Department Care Team (Late st Contact Info) Description 01/24/2025 1:45 PM EST Office Visit [facility] [address] [place] [address] [facility] [address] [place] [address] Health Maintenance Due Date Last Done Comments Family Planning (PISQ) 08/11/1995 HPV Vaccines (1 - 3-dose series) 08/11/1995 Diabetes: Hemoglobin A1C 08/20/2024 0404/2 025, 09/19/2022, 12/12/2021, Additional history exists COVID-19 Vaccine ( season) 2024 12/15/2023, 01/05/2021, 06/19/2020, Additional history exists Influenza Vaccine (#1) 2024 , 11/23/2021, 02/13/2017, Additional history exists SDOH Screening 12/14/2024 12/15/2023 Mammogram 05/12/2025 05/12/2024, 04/18, 05/12/2024, Additional history exists Alcohol/Substance Use Screening 07/19/2025 [...] Patients (6 to 49) Years Completed 10/31/2023 HIB Vaccines Aged Out No longer eligi [...] Name Priority Date/Time Associated Diagnosis Comments XR CHEST 2 VIEWS Routine 11/24/2024 2:05 PM EDT COVID-19 ID NOW (SHORT) Routine 11/24/2024 1:56 PM EDT INFLUENZA A B2 ID NOW (SHORT) Routine 11/24/2024 1:56 PM EDT STREP A NUCLEIC ACID Routine 11/24/2024 1:56 PM EDT TSH W/REFLEX TO FT4 Routine 10/27/2024 3 :43 PM EDT Thyroid dysfunction POCT GLYCATED HEMOGLOBIN, TOTAL Routine 05/21/2024 9:39 [...] Relevant to Health Maintenance Results * XR Chest 2 Views (11/24/2024 2:05 PM EDT) Anatomical Region Laterality Modality Chest Radiographic Areli ging 11/24/2024 2:05 PM EDT Narrative 11/24/2024 2:12 PM EDT [address] [place] [address] XRay Report Signed Patient: Kasie Funes MR#: [id number] 960 : 1980 Acct:[id number] Age/Sex: 44 / F ADM Date: 11/24/24 Loc: .ED Attending Dr: Ordering Physician: Dorene Banegas NP Date of Service: 11/24/24 Procedure(s): XR chest 2V Accession Number(s): [id number] cc: Dorene Banegas CUTLERY GRINDER; [facility] Reason for Exam: cough and fever EXAMINATION: XR CHEST CLINICAL INFORMATION: cough and fever COMPARISON: 05/06/2023, 03/19/2022. TECHNIQUE: 2 views of the chest were obtained. FINDINGS: The cardiac, hilar, and mediastinal contours are normal. The lungs are clear bilaterally. There is no pneumothorax or pleural effusion. There is no focal osseous or soft tissue abnormality. There are cholecystectomy clips present. XR/XR chest 2V IMPRESSION: No active pulmonary disease. Electronically signed by: Varinder Hernandez MD 11/24/2024 02:10 PM EDT Dictated By: Varinder Hernandez MD Signed By: <Electronically signed by Varinder Hernandez MD in OV> 11/24/24 1410 DD/ 1405 TD/TT: 11/24/24 1407 Doctor Of Pharmacy: Procedure Note Donotuseinterpreter, Image - 11/24/[address] [address] XRay Report Signed Patient: Kasie FunesMR#: [id number] : 1980Acct:[id number] Age/Sex: 44 / FADM Date: 11/24/24 Loc: .ED Attending Dr: Ordering Physician: Dorene Banegas NP Date of Service: 11/24/24 Procedure(s): XR chest 2V Accession Number(s): [id number] cc: Dorene Banegas NP; [facility] PASSENGER ELEVATOR OPERATOR Reason for Exam: cough and fever EXAMINATION: XR CHEST CLINICAL INFORMATION: cough and fever COMPARISON: 05/06/2023, 03/19/2022. TECHNIQUE: 2 views of the chest were obtained. FINDINGS: The cardiac, hilar, and mediastinal contours are normal. The lungs are clear bilaterally. There is no pneumothorax or pleural effusion. There is no focal osseous or soft tissue abnormality. There are cholecystectomy clips present. XR/XR chest 2V IMPRESSION: No active pulmonary disease. Electronically signed by: Varinder Hernandez MD 11/24/2024 02:10 PM EDT Dictated By: Varinder Hernandez MD Signed By: <Electronically signed by Varinder Hernandez MD in OV> 11/24/24 1410 DD/ 1405 TD/TT: 11/24/24 1407 Doctor Of Pharmacy: [facility] External Provider IMG XR PROCEDURES Final Result * Influenza A B2 ID NOW (Short) (11/24/2024 1:56 PM EDT) IDNOW SERIAL# [id number] [facility] Influenza A Negative Negative [facility] Influenza B2 Negative Negative [facility] Influenza A B2 Note See Note [facility] Comment:The Short ID NOW In fluenza A B2 test is used for thequalitative detection of influenza A and B from patientswith signs and symptoms of respiratory infection.Negative results do not preclude influenza virus infectionand should not be used as the sole basis for diagnosis,treatment or other patient management decisions.There is a risk of false negative results due to thepresence of variants in the viral targets of the assay, lowlevels of virus in the specimen and co- infection withRespiratory Syncytial Virus. 11/24/2024 1:56 PM EDT 11/24/2024 2:01 PM EDT Generic External Data Provider LAB MICROBIOLOGY - GENERAL ORDERABLES Final Result [facility] [address] [place] [phone] * Strep A Nucleic Acid (11/24/2024 1:56 PM EDT) IDNOW SERIAL# [id number] [facility] Strep A Nucleic Acid Negative Negative [facility] Comment:All test results mus t be correlated with clinical findings.This test has not been evaluated for monitoring treatment ofinfection.Additional follow-up testing using the culture method isrequired if the result is negative and clinical symptomspersist, or in the event of an acute rheumatic feveroutbreak. 11/24/2024 1:56 PM EDT 11/24/2024 2:01 PM EDT us Generic External Data Provider LAB MICROBIOLOGY - GENERAL ORDERABLES Final Result [facility] [address] [place] [address] [phone] * COVID-19 ID NOW (SHORT) (11/24/2024 1:56 PM EDT) IDNOW SERIAL# [id number] [facility] COVID-19 TEST Negative Negative [facility] COVID-19 NOTE See Note [facility] Comment: Results are for the identification of SARS-CoV2 RNA. TheSARS-CoV2 RNA is generally detectable in respiratory samplesduring the acute phase of infection. Positive results areindicative of the presence of SARS-CoV-2 RNA; clinicalcorrelation with patient history and other diagnosticinformation is necessary to determine patient infectionstatus. Positive results do not rule out bacterial infectionor co- infection with other viruses.Testing facilities within the [facility] and itsterritories are required to report all positive results tothe appropriate public health authorities.Negative results should be treated as presumptive and, ifinconsistent with clinical signs and symptoms or necessaryfor patient management, should be tested with differentauthorized or cleared molecular tests. Negative results donot preclude SARS-CoV2 RNA infection and should not be usedas the sole basis for patient management decisions. Negativeresults should be considered in the context of a patient'srecent exposures, history and the presence of clinical signsand symptoms consistent with COVID-19.This test has been authorized by the FDA under an EmergencyUse Authorization (EUA) for use by authorized laboratories.Testing performed on the [employer] ID NOW utilizing NAAT. 11/24/2024 1:56 PM EDT 11/24/2024 2:01 PM EDT Generic External Data Provider LAB MOLECULAR VIC GNOSTICS ORDERABLES Final Result Performing Organization Address City/[facility] Co de Phone Number [facility] [address] [place] [phone] * TSH W/Reflex to FT4 (10/27/2024 3:43 PM EDT) TSH reflex Free T4 3.56 0.32 - 4.0 uIU/mL [facility] Blood Venous blood specimen / Unknown 10/27/2024 3:43 PM EDT 10/27/2024 6:16 PM EDT [facility] PASSENGER ELEVATOR OPERATOR LAB BLOOD ORDERABLES Final Re sult Performing Organization Address [facility] de Phone Number [facility] [address] [place] [phone] * POCT HGB A1C (05/21/2024 9:39 AM EDT) Hemoglobin A1C 6.0 4.0 - 6.0 % Blood 05/21/2024 9:39 AM EDT [facility] PASSENGER ELEVATOR OPERATOR POINT OF CARE TEST ENTER/EDIT ORDERABLES Final Result * BI US Breast Limited Left (05/12/2024 2:00 PM EDT) Anatomical Region Laterality Modality Breast Left Ultrasound 05/12/2024 2:00 PM EDT Narrative 05/12/2024 2:36 PM EDT [facility] [address] [place] [address] Ultrasound Report Signed Patient: Kasie Funes MR#: [id number] 960 : 1980 Acct:[id number] Age/Sex: 43 / F ADM Date: 05/12/24 Loc: HO.MAMMO Attending Dr: Pooja Medina PASSENGER ELEVATOR OPERATOR Ordering Physician: Pooja Medina Date of Service: 05/12/24 Procedure(s): US breast LT limited mamm only Accession Number(s): [id number] cc: Pooja Medina [facility] EXAMINATION: MM DIAGNOSTIC DIGITAL BREAST TOMOSYNTHESIS, BILATERAL [...] 05/12/24 1433 DD/ 1400 TD/TT: 05/12/24 1426 Doctor Of Pharmacy: Procedure Note Donotuseinterpreter, Image - 05/12/2024 [facility] [address] [place], [place] [address] Ultrasound Report Signed Patient: Kasie FunesMR#: [id number] : 1980Acct:[id number] Age/Sex: 43 / FADM Date: 05/12/24 Loc: HO.MAMMO Attending Dr: Pooja Medina PASSENGER ELEVATOR OPERATOR Ordering Physician: Pooja Medina Date of Service: 05/12/24 Procedure(s): US breast LT limited mamm only Accession Number(s): [id number] cc: Pooja Medina [facility] EXAMINATION: MM DIAGNOSTIC DIGITAL BREAST TOMOSYNTHESIS, BILATERAL [...] 05/12/24 1433 DD/ 1400 TD/TT: 05/12/24 1426 Doctor Of Pharmacy: [facility] IMG US PROCEDURES Final Resul t * Lipid Panel, Standard (10/31/2023 1:40 PM EDT) Triglycerides 66 <150 mg/dL [facility] Comment:Desirable Triglyceri de: less than 150 mg/dLBorderline High Triglyceride 150-199 mg/dLHigh Triglyceride: 200-499 mg/dLVery High Triglyceride: greater than or equal to 5OO mg/dL Cholesterol 160 <200 mg/dL [facility] Comment:Desirable Cholestero l: less than 200 mg/dLBorderline High Cholesterol: 200-239 mg/dLHigh Cholesterol: greater than 239 mg/dL LDL Cholesterol Calculated 79 <100 mg/dL [facility] Comment:Desirable LDL: less than 100 mg/dLNear Optimal/Above Optimal LDL: 110- 129 mg/dLBorderline High LDL: 130-159 mg/dLHigh LDL: 160-189 mg/dLVery High LDL: greater than or equal to 190 mg/dL HDL Cholesterol 68 >40 mg/dL [facility] Comment:Desirable HDL: great er than 40 mg/dL Note: This HDL assay may give artificially low results in patients with liver disease. Blood Venous blood specimen / Unknown 10/31/2023 1:40 PM EDT 10/31/2023 3:58 PM EDT [facility] LAB BLOOD ORDERABLES Final Re sult [facility] [address] [place] [phone] * THINPREP TIS PAP AND HPV [...] along with historic and current clinical information. Comment: This Pap test has been evaluated with computer assisted technology. [facility] Cytotechnologis t: SEE COMMENT [facility] Comment: NEVIN CT(ASCP) CT screening location: [address] [address] HPV nRNA E6/E7 Not Detected Not Detected [facility] Comment: Methodology: Fiscal Officer-Mediated Amplification This assay detects E6/E7 viral messenger RNA (mRNA) from 14 high-risk HPV types (16,18,31,33,35,39,45,51,52,56,58,59,66,68). Cervical sources are required for HPV testing. If a vaginal source from a patient who has had a total hysterectomy with removal of cervix was submitted, please contact the testing laboratory for alternative testing options. For additional information, please refer to http://education.BioGener[employer]/faq/WEF276f4 (This link if provided for information/ educational purposes only.) Infection Shift in vaginal sin suggestive of bacterial vaginosis. [facility] Interpretation/ Result: Negative for intraepithelial lesion or malignancy. [facility] LMP: 06/2021 [facility] Prev. BX: NONE GIVEN [facility] Prev. PAP: NIL 09/2018 [facility] SOURCE: None given [facility] Statement Of Adequacy: SEE COMMENT [facility] Comment: Satisfactory for evaluation. Endocervical/transformation zone component absent. 10/04/2021 10:0 2 AM EDT Iris Padron [facility] PATHOLOGY ORDERABLES Final Result [facility] [address] [place] [address], * Pap Smear (10/04/2021 12:00 AM EDT) Swab Iris [facility] LAB CYTOLOGY ORDERABLES F inal Result [address], [place] [phone] * HEPATITIS C AB W/REFL TO HCV RNA, QN, PCR (04/30/2021 2:02 PM EDT) HEPATITIS C ANTIBODY NON-REACT DAVE NON-REACT DAVE [facility] INDEX 0.02 <1.00 [facility] Comment: HCV antibody was non-reactive. There is no laboratory evidence of HCV infection. In most cases, no further action is required. However, if recent HCV exposure is suspected, a test for HCV RNA (test code 46320) is suggested. For additional information please refer to http://[employer]/faq/EXW23y5 (This link is being provided for informational/ educational purposes only.) 04/30/2021 2:02 PM EDT [facility] PASSENGER ELEVATOR OPERATOR HISTORICAL/NON ORDERABLE LABS Final Result [facility] [address] * HIV 1/2 ANTIGEN/ANTIBODY,FOURTH GENERATION W/RFL [...] purpose. For additional information please refer to http://[employer]/faq/SMV168 (This link is being provided for informational/ educational purposes only.) The performance of this assay has not been clinically validated in patients less than 2 years old. 04/30/2021 2:02 PM EDT [facility] LAB BLOOD ORDERABLES Final Re sult [facility] [address] from Last 3 Months or Most Recently Relevant to Health Maintenance [place] [id number] [place] [address] [address] [place] Care Teams Galley Worker Relationship Specialty Start Date End Date Pooja Medina [facility] [address] [place] [phone] PCP - General Family Medicine 11/15/20
--- OUTSIDE RECORDS SUMMARY | 2025-01-19 16:01 | XMS_ITS | Encounter Summary ---
Author Organization [facility] Address [address] [place] [address] [address] [place] [address] Care Team Providers Care Die Trouble Shooter Name Role Phone Pooja Medina Primary Care Provider [phone] Encounter Details Date Type Department Care Team ([facility] Contact Info) Description 03/22/2022 Abstract [facility] [address] [place] [address] [phone] Pooja Medina [address] [phone] Social History Tobacco Use Types Packs/Day Years [...] Upcoming Encounters Date Type Department Care Team ([facility] Contact Info) Description 01/24/2025 1:45 PM EST Office Visit [facility] [address] [place] [address] [phone] Pooja Medina [facility] [address] [place] [address] documented as of this encounter Procedures Procedure [...] on filedocumented in this encounter Care Teams Die Trouble Shooter Relationship Specialty Start Date End Date Pooja Medina FNP [address] [place] [phone] PCP - General Family Medicine 11/15/20 documented as of this encounter
--- OUTSIDE RECORDS SUMMARY | 2025-01-19 16:01 | XMS_ITS | Encounter Summary ---
Author Organization [employer] Address [address] [place] [address] [address] [place] [address] Care Team Providers Care Display Maker Name Role Phone [place] [facility] Primary Care Provider [phone] Reason for Visit * Reason Onset Date Comments Med Refill 09/14/2024 Encounter Details Date Type Department Care Team ([facility] st Contact Info) Description 09/14/2024 Telephone [facility] [address] [place] [address] [facility] [address] [place] [address] Med Refill Social History Tobacco Use Types [...] 2:49 PM EDT Medication was sent to [id number] on 07/19/24 with 11 refills. Patient can call pharmacy and transfer medication. * Telephone Encounter - Conrado Paez - 09/14/2024 2:46 PM EDT TC from pt requesting medication refill. Medications needing refill : topiramate (Topamax) 50 MG tablet To be sent to: [facility] - [place], [place] - [address] [place] [address] documented in this encounter Plan of Treatment Upcoming Encounters Date Type Department Care Team (Late st Contact Info) Description 01/24/2025 1:45 PM EST Office Visit [facility] [address] [place] [address] [place], Pooja, GAME MANAGER [address] [facility] [place] [address] documented as of this encounter Visit Diagnoses Not on filedocumented in this encounter Additional Health Concerns Assessment Noted Time PHQ-9 Depression Total Score: 0 07/20/19 25 1:54 PM EDT documented as of this encounter Care Teams Display Maker Relationship Specialty Start Date End Date Pooja Medina FNP [address] [place] [phone] PCP - General Family Medicine 11/15/20 documented as of this encounter
== END 2025-01-19 14:51 | disposition home or self-care (01) ==
LOC: HO.HOS 13:28
PROVIDERS: PCP Registered Nurse; Visit Provider Orthopaedic Surgery
DX: M25.531 Pain in right wrist (principal); R20.0 Anesthesia of skin; R20.2 Paresthesia of skin
CPT/HCPCS: 20550; 99214

== ENCOUNTER → 2025-01-19 13:27 | Outpatient (BNVA) | payer OTHER, SELFPAY | PROVIDERS: PCP Registered Nurse; Visit Provider Orthopaedic Surgery | DX: M25.531 Pain in right wrist (principal); R20.0 Anesthesia of skin; R20.2 Paresthesia of skin | CPT/HCPCS: 20550; 99212; J1100; J2003 ==

== ENCOUNTER 2025-02-07 13:13 | Outpatient (REF) | payer OTHER, SELFPAY ==
[2025-02-07 15:30] LABS: Alanine Aminotransferase 36 U/L (0-31); Albumin Level 4.8 g/dL (3.5-5.0); Alkaline Phosphatase 70 U/L (39-117); Anion Gap 12 (12-20); Aspartate Amino Transferase 27 U/L (5-31); Blood Urea Nitrogen 19 mg/dL (9-16); Calcium 10.2 mg/dL (8.4-10.2); Carbon Dioxide 26 mmol/L (22-29); Chloride 109 mmol/L (96-108); Estimated Glomerular Filt Rate > 60; Potassium 4.1 mmol/L (3.3-5.1); Sodium 143 mmol/L (135-145); Total Protein 8.3 g/dL (6.5-8.0)
== END 2025-02-07 13:14 | disposition home or self-care (01) ==
LOC: HO.LAB 13:13
PROVIDERS: Absent Provider Registered Nurse; PCP Registered Nurse; Visit Provider Orthopaedic Surgery
DX: R73.03 Prediabetes (principal); M17.11 Unilateral primary osteoarthritis, right knee
CPT/HCPCS: 36415; 80053

== ENCOUNTER 2025-02-07 13:13 | Outpatient (AMB) | payer OTHER, SELFPAY ==
--- NOTE | 2025-02-07 13:16 | MHC.OFFVIS ---
Intake Visit Reasons: OV- RT knee OA 3 month f/u Intake Note: Kasie 44 year old female who presents today for a follow up of her Right Knee OA. We have previously discussed that she is too young for Arthroplasty. Last injection was administered 11/08/24. Patient is unsure if she would like to repeat the injection today as the previous one was not particularly helpful. Allergies mussels Allergy (Severe, Verified 01/19/25 13:57) DIFFICULTY BREATHING lactose Adverse Reaction (Verified 01/19/25 13:57) Diarrhea HPI HPI OV- RT knee OA 3 month f/u: Details: Kasie 44 year old female who presents today for a follow up of her Right Knee OA. We have previously discussed that she is too young for Arthroplasty. Last injection was administered 11/08/24. Patient is unsure if she would like to repeat the injection today as the previous one was not particularly helpful. She is actually doing quite well now. She feels like the note for work has been helping and she does not have severe pain. [facility] Medical History (Updated 12/01/24 @ 13:04 by Juni Tim) Lipoma of arm Asthma Lab test negative for COVID-19 virus COVID-19 Chronic constipation Iron deficiency anemia due to chronic blood loss Epigastric pain GERD (gastroesophageal reflux disease) Lactose intolerance in adult Depression Hypothyroidism Surgical History Status post excision of lipoma (~11/27/22) Hx of shoulder surgery Hx of tubal ligation History of endometrial ablation Hx of dilation and curettage History of breast lump/mass excision Hx of arthroscopic knee surgery History of esophagogastroduodenoscopy (EGD) Status post laparoscopic cholecystectomy History of colonoscopy Family History Mother No problems noted. Father No problems noted. Maternal Aunt Hx of ovarian cancer Social History Household Members: Children Alcohol intake: unknown Patient Tobacco Use Status: Never used Tobacco Second Hand Smoke Exposure: No Current occupational status: employed Current occupation: [employer]/ right hand dominant Female Reproductive History Menstrual Age of Menarche: 11 Physical Exam Extrem Other: On exam there is tenderness to palpation medial compartment. Negative Jesus's. Trace effusion. 0-125 Assessment & Plan Assessment & Plan (1) Localized osteoarthritis of right knee: Code(s): M17.11 - Unilateral primary osteoarthritis, right knee Category: Medical Plan: Yari seems to be benefitting from limitations at work. Her knee is doing better and we deferred on injection today. Continue work restrictions with no more than 15 minutes work without rest. Follow up as needed. Coding Level of Care Code Est Pt Level 3 (28537) Diagnoses Localized osteoarthritis of right knee M17.11
--- OUTSIDE RECORDS SUMMARY | 2025-02-07 16:37 | XMS_ITS | Encounter Summary ---
Author Organization [employer] Address [address] [place] [address] 7 [place] [address] Care Team Providers Care Parts Administrator Name Role Phone [place] [facility] Primary Care Provider [phone] Reason for Visit * Reason Onset Date Comments Med Refill 09/14/2024 Encounter Details Date Type Department Care Team ([facility] st Contact Info) Description 09/14/[address] [facility] MEDICINE [address] [place] [address] [facility] [address] [place] [address] Med Refill Social History Tobacco Use Types [...] 2:49 PM EDT Medication was sent to [id number] on 07/19/24 with 11 refills. Patient can call pharmacy and transfer medication. * Telephone Encounter - Conrado Paez - 09/14/2024 2:46 PM EDT TC from pt requesting medication refill. Medications needing refill : topiramate (Topamax) 50 MG tablet To be sent to: [facility] - [place], [place] - [address] [facility] documented in this encounter Plan of Treatment Not on file documented as of this encounter Visit Diagnoses Not on filedocumented in this encounter Additional Health Concerns Assessment Noted Time PHQ-9 Depression Total Score: 0 07/20/19 1:54 PM EDT documented as of this encounter Care Teams Parts Administrator Relationship Specialty Start Date End Date Pooja Medina FNP [address] [facility] [place] [address] PCP - General Family Medicine 11/15/20 documented as of this encounter
--- OUTSIDE RECORDS SUMMARY | 2025-02-07 16:37 | XMS_ITS | Encounter Summary ---
Author Organization [employer] Address [address] [place] [address] 7 [place] [address] Care Team Providers Care Pharmacovigilance Scientist Name Role Phone [place] [facility] Primary Care Provider [phone] Encounter Details Date Type Department Care Team (Late st Contact Info) Description 03/22/2022 Abstract [facility] MEDICINE [address] [place], [place] [phone] [place] [facility] [address] [place], [place] [phone] Social History Tobacco Use Types Packs/Day Years [...] on filedocumented in this encounter Care Teams Pharmacovigilance Scientist Relationship Specialty Start Date End Date Pooja Medina FNP [address] [place] [id number] PCP - General Family Medicine 11/15/20 documented as of this encounter
--- OUTSIDE RECORDS SUMMARY | 2025-02-07 16:38 | XMS_ITS | Encounter Summary ---
Author Organization [employer] Address [address] [place] [address] 7 [place] [address] Care Team Providers Care Stretcher Leveler Operator Helper Name Role Phone [facility] Primary Care Provider [phone] Reason for Visit * Reason Onset Date Comments Med Refill 01/20/2025 Encounter Details Date Type Department Care Team ([facility] st Contact Info) Description 01/20/2025 Telephone [facility] MEDICINE [address] [place] [address] [facility] [address] [place] [address] Med Refill Social History Tobacco Use Types [...] housing situation today? I have marilyn menard 01/24/[address] you li ve. Do you have problems with any of the following? None of the above 01/24/2025 Food Insecurity Answer Date Recorded Within the past 12 months, y ou worried that your food would run out before you got money to buy more: Never True 01/24/2025 Within the past 12 months,th e food you bought just didn't last and you didn't have enough money to get more: Never True 09/2024 Transportation Answer Date Recorded In the past 12 months, has l ack of transportation kept you from medical appts, meetings, work or from getting things needed for daily living? No 01/24/2025 Utilities Answer Date Recorded In the past 12 months, has t he electric, gas, oil or water company threatened to shut off services in your home? No 01/24/2025 Depression Answer Date Recorded Patient Health Questionnaire-2 Score 0 10/27/2024 Internet Access Answer Date Recorded Internet Access Q1 Yes 01/24/2025 Internet Access Q2 Not on file 01/24/2025 Comments No Sex and Gender Information Value Date Recorded Sex Assigned at Female 12/17/2021 10:18 AM EDT Legal Sex Female 10:18 AM EDT Gender Identity Female 12/17/2021 10:18 AM EDT Sexual Orientation Choose not to disclose 2021 10:18 AM EDT documented as of this encounter Miscellaneous Notes * Telephone Encounter - Cornelia Sinha LPN - 01/20/2025 9:14 AM EST Medication pended to PCP. * Telephone Encounter - Cirilo Olvera - 01/20/2025 9:08 AM EST TC from pt requesting medication refill. Medications needing refill : phentermine 37.5 MG capsule To be sent to: [facility]/pharmacy [address] [place] [address] documented in this encounter Plan of Treatment Not on file documented as of this encounter Visit Diagnoses Not on filedocumented in this encounter Additional Health Concerns Assessment Noted Time PHQ-9 Depression Total Score: 0 10/28/19 25 3:02 PM EDT documented as of this encounter Care Teams Stretcher Leveler Operator Helper Relationship Specialty Start Date End Date Pooja Medina FNP [address] [place] [address] PCP - General Family Medicine 11/15/20 documented as of this encounter
--- OUTSIDE RECORDS SUMMARY | 2025-02-07 16:38 | XMS_ITS | Encounter Summary ---
Author Organization [employer] Address [address] [place] [address] [address] [place] [address] Care Team Providers Care Office Copy Selector Name Role Phone Pooja Medina [facility] Primary Care Provider [phone] Reason for Visit * Reason Comments Med Refill Encounter Details Date Type Department Care Team ([facility] st Contact Info) Description 02/07/2024 Refill [facility] MEDICINE [address] [place], [place] [phone] Diandra Judd MD [address] [place], [place] [phone] Thyroid dysfunction Social History Tobacco Use Types [...] documented as of this encounter Care Teams Office Copy Selector Relationship Specialty Start Date End Date Pooja Medina FNP [address] [place] [id number] PCP - General Family Medicine 11/15/20 documented as of this encounter
--- OUTSIDE RECORDS SUMMARY | 2025-02-07 16:38 | XMS_ITS | Encounter Summary ---
Author Organization [employer] Address [address] [place] [address] [address] [place] [address] Care Team Providers Care 3Rd Pressman Name Role Phone [place] [facility] Primary Care Provider Reason for Visit * Reason Comments Med Refill Encounter Details Date Type Department Care Team ([facility] st Contact Info) Description 02/07/2025 Refill [facility] MEDICINE [address] [place], [place] [phone] [facility] 230 [place], [place] [phone] Chronic midline low back pain with bilateral [...] documented as of this encounter Care Teams 3Rd Pressman Relationship Specialty Start Date End Date Pooja Medina FNP [address] [place] [address] PCP - General Family Medicine 11/15/20 documented as of this encounter
--- OUTSIDE RECORDS SUMMARY | 2025-02-07 16:38 | XMS_ITS | Clinical Summary ---
Author Organization [email or web address] Address [address] [place] [address] 7[address] [place] [address] Care Team Providers Care Director Global Strategic Publisher Sales Name Role Phone Pooja Medina [facility] Primary Care Provider [phone] Allergies Active Allergy Reactions Criticality Noted Date Comments Lactose Diarrhea 02/26/2023 Shellfish Allergy Shortness of breath High Shellfish Protein-Containing Drug Products Anaphylaxis High 04/13/2020 Medications * This document contains information received from the source organization and may not represent a complete record from that organization. omeprazole (PriLOSEC) [address] capsuleIndication s:Gastroesophagea l reflux disease with esophagitis without hemorrhage Take 1 capsule (40 mg) by mouth 2 times daily. 60 capsule 11 024 Active cholecalciferol (Vitamin D-3) 50 MCG (1999 UT) tabletIndications :Vitamin D deficiency TAKE 1 TABLET BY MOUTH EVERY DAY 90 tablet 1 024 Active fluticasone (Flonase) 50 MCG/ACT nasal sprayIndications: Other chronic nonsuppurative otitis media of both ears ADMINISTER 1-2 SPRAYS INTO EACH NOSTRIL ONCE PER DAY. SHAKE GENTLY. BEFORE FIRST USE, PRIME PUMP. AFTER USE, CLEAN TIP AND REPLACE CAP. 48 mL 025 2025 Active topiramate (Topamax) 50 MG tabletIndications :Class 3 severe obesity due to excess calories with serious comorbidity and body mass index (BMI) of 40.0 to 44.9 in adult (HCC) Take 1 tablet (50 mg) by mouth at bedtime. 30 tablet 11 5 3:26 PM EST 025 2025 Active metFORMIN XR (Glucophage-XR) 500 MG 24 hr tabletIndications :Prediabetes Take 1 tablet (500 mg) by mouth with evening meal. Do not crush, chew, or split. If tolerating well OK to increase to 1 tablet twice daily 30 tablet 11 5 3:26 PM EST 025 2025 Active levothyroxine (Tirosint) 25 MCG [...] mouth Once per day. 30 tablet 5 3:26 PM EST Active ibuprofen 600 MG tabletIndications :Chronic midline low back pain with bilateral sciatica TAKE 1 TABLET BY MOUTH EVERY 8 HOURS NEEDED FOR MODERATE PAIN. 60 tablet 1 025 Active cetirizine (ZyrTEC) 10 MG tabletIndications :Mild persistent asthma without complication TAKE 1 TABLET (10 MG) BY MOUTH ONCE PER DAY. 90 tablet 3 025 Active phentermine 37.5 MG capsuleIndication s:Class 3 severe obesity due to excess calories with serious comorbidity and body mass index (BMI) of 40.0 to 44.9 in adult (HCC) TAKE 1 CAPSULE BY MOUTH BEFORE BREAKFAST 30 capsule 025 Active hydrocortisone 1 % ointmentIndicatio ns:Rash Apply topically 2 times daily. 28 g 5 12:16 PM EST 025 Active cetirizine (ZyrTEC) 10 MG tabletIndications :Mild persistent asthma without complication Take 1 tablet (10 mg) by mouth Once per day. 30 tablet 11 024 2024 Discontinued phentermine 37.5 MG capsuleIndication s:Class 3 severe obesity due to excess calories with serious comorbidity and body mass index (BMI) of 40.0 to 44.9 in adult (HCC) Take 1 capsule (37.5 mg) by mouth before breakfast. 30 capsule 025 2024 Discontinued(R eorder (will not trigger notification to Pharmacy)) Active Problems Problem Noted Date Diagnosed Date [...] or muscle weakness - Previously seen by [facility] ortho for knee pain--last visit 03/2021. Has trialed injections with sx improvement. - Negative HARVEY, RF, ESR, CRP 04/2021 Prediabetes 10/01/2022 Hepatic steatosis 10/01/2022 Overview (10/01/2022): Hx of elevated liver tests now resolved - Abd u/s from 04/2018 c/w hepatic steatosis - 09/2017 Liver fibrosis score of 0.05, Stage F0 Followed by [facility] GI Assessment & Plan (10/01/2022 6:24 AM EDT): Continue to follow with [facility] Continue to work with nutrition for weight loss Abnormal uterine bleeding 10/01/2022 Overview (10/01/2022): Followed by [facility] MEDICAL SCIENTIFIC OFFICER Subclinical hypothyroidism 10/01/2022 Overview (10/01/2022): Tirosint 25mcg [...] Pap: NIL HPV neg 09/2021, followed by [facility] MEDICAL SCIENTIFIC OFFICER C-scope:08/2019, repeat 2029 BMD: Routine Immunizations: UTD Chronic constipation 10/01/2022 Polyp of colon 03/05/2021 Overview (10/01/2022): Colonoscopy 08/2019 negative with polyp (hyperplastic) 10 year repeat Gastroesophageal reflux disease 12/23/2019 Overview (10/01/2022): Followed by [facility] GI EGD 02/2022 with reactive gastropathy and [...] hx of intubation Anemia 07/24/2011 10/01/2022 Encounters * This document contains information received from the source organization and may not represent a complete record from that organization. Date Type Department Care Team Description 02/07/2025 Refill [facility] [address] [place] [address] Pooja Medina FNP Chronic midline low back pain with bilateral sciatica 01/24/2025 1:45 PM EST Office Visit [facility] [address] [place] [address] Pooja Medina FNP Class 2 severe obesity due to excess calories with serious comorbidity and body mass index (BMI) of 39.0 to 39.9 in adult (Primary Dx); Prediabetes; Rash; Encounter for immunization; Depressed mood 01/24/2025 Travel 01/20/2025 Telephone [facility] [address] [place] [address] Pooja Medina FNP Med Refill 01/20/2025 Refill [facility] [address] [place] [address] Pooja Medina FNP Mild persistent asthma without complication; Class 3 severe obesity due to excess calories with serious comorbidity and body mass index (BMI) of 40.0 to 44.9 in adult ([facility]) 01/17/2025 Travel 12/16/2024 Refill [facility] [address] [place] [address] [facility] [facility] Chronic midline low back pain with bilateral sciatica 12/08/2024 Refill [facility] [address] [place] [address] [facility] Class 3 severe obesity due to excess calories with serious comorbidity and body mass index (BMI) of 40.0 to 44.9 in adult ([facility]) 11/29/2024 Telephone [facility] [address] [place] [address] [facility] Dec recall 11/24/2024 Orders Only [facility] External Provider, [facility] from Last 3 Months Immunizations Immunization Administration Dates Next Due Hep A, ped/adol, 2 dose 03/12/2007,07/28/2006 Hep B, Adolescent or Pediatric 07/28/2006,2005,02/24/2005 Influenza injectable quadriv alent IIV4 with preservative 02/13/2017 Influenza injectable quadriv alent preservative free 11/23/2021,04/25/2016,05/18/2014 Influenza, IIV3, injectable 11/09/2010, 0,01/24/2006 Influenza, Split (incl. shannon fied surface antigen) 12/04/2012,11/26/2011 Influenza, seasonal, injecta ble, preservative free 01/24/2025,10/31/2023 MMR 07/23/2018,03/12/2007 Pfizer Covid-19 Vaccine 12+ 12/15/2023 [...] Sign Reading Time Taken Comments Blood Pressure 110/78 01/24/2025 1:41 PM EST Pulse 68 01/24/2025 1:41 PM EST Temperature 36 C (96.8 F) 01/24/2025 1:41 PM EST Respiratory Rate 20 01/24/2025 1:41 PM EST Oxygen Saturation 98% 01/06/2023 12:09 PM EST Inhaled Oxygen Concentration - - Weight 94.5 kg (208 lb 6.4 oz) 01/24/2025 1:41 P M EST Height 154.9 cm (5' 1 ) 01/24/2025 1:41 PM EST Body Mass Index 39.38 01/24/2025 1:41 PM EST Plan of Treatment Health Maintenance Due Date Last Done Comments Family Planning (PISQ) 08/11/1995 HPV Vaccines (1 - 3-dose series) 08/11/1995 COVID-19 Vaccine ( season) 2024 12/15/2023, 01/05/2021, 06/19/2020, Additional history exists Diabetes: Hemoglobin A1C 04/24/2025 025, 05/21/2024, 09/19/2022, Additional history exists Mammogram 05/12/2025 05/12/2024, 04/18, 05/12/2024, Additional history exists Alcohol/Substance Use Screening 07/19/2025 07/19/2024 Disability Screening 10/26/2025 10/26/2024 Depression Screening 10/27/2025 10/27/2024, 10/28/19 25 SDOH Screening 01/24/2026 01/24/2025 Tobacco Screening 01/30/2026 01/30/2025 Cervical Cancer Screening 10/04/2026 HPV/Cotest 10/04/2026 10/04/2021 [...] Patients (6 to 49) Years Completed 10/31/2023 Influenza Vaccine Completed 01/24/2025, , 11/23/2021, Additional history exists HIB Vaccines Aged Out [...] Procedure Name Priority Date/Time Associated Diagnosis Comments COMPREHENSIVE METABOLIC PANEL Routine 02/07/2025 2:01 PM EST Prediabetes POCT GLYCATED HEMOGLOBIN, TOTAL Routine 01/24/2025 2:03 PM EST Prediabetes POCT GLUCOSE (CPT-73226) Routine 01/24/2025 2:03 PM EST Prediabetes XR CHEST 2 VIEWS Routine 11/24/2024 2:05 PM EDT COVID-19 ID NOW (SHORT) Routine 11/24/2024 1:56 PM EDT INFLUENZA A B2 ID NOW (SHORT) Routine 11/24/2024 1:56 PM EDT STREP A NUCLEIC ACID Routine 11/24/2024 1:56 PM EDT BI US BREAST LIMITED LEFT Routine 05/12/2024 [...] Recently Relevant to Health Maintenance Results * (ABNORMAL) Comprehensive Metabolic Panel (02/07/2025 2:01 PM EST) Sodium 143 135 - 145 mmol/L [facility] Potassium 4.1 3.3 - 5.1 mmol/L [facility] Chloride 109(H) 96 - 108 mmol/L [facility] Carbon Dioxide 26 22 - 29 mmol/L [facility] Anion Gap 12 12 - 20 [facility] Urea Nitrogen (BUN) 19(H) 9 - 16 mg/dL [facility] Creatinine, Serum 0.77 0.5 - 1.4 mg/dL [facility] Estimated Glomerular Filt Rate >60 [facility] Comment:Chronic Kidney Disea se: Estimated GFR < 60 mL/min/1.19i8Ywckat Kidney Disease: Estimated GFR < 15 mL/min/1.73m2 Glucose 92 60 - 115 mg/dL [facility] Calcium 10.2 8.4 - 10.2 mg/dL [facility] Bilirubin, Total 0.2 0.0 - 1.0 mg/dL [facility] Aspartate Amino Transferase 27 5 - 31 U/L [facility] Alanine Aminotransferase 36(H) 0 - 31 U/L [facility] Total Protein 8.3(H) 6.5 - 8.0 g/dL [facility] Albumin Level 4.8 3.5 - 5.0 g/dL [facility] Alkaline Phosphatase 70 39 - 117 U/L [facility] Blood Venous blood specimen / Unknown 02/07/2025 2:01 PM EST 02/07/2025 2:01 PM EST [facility] REGULATORY AGENCY DIRECTOR LAB BLOOD ORDERABLES Final Re sult [facility] [address] [place] [phone] * (ABNORMAL) POCT Hgb A1c (01/24/2025 2:03 PM EST) Hemoglobin A1C 5.8(A) 4.0 - 5.7 % Blood 01/24/2025 2:03 PM EST [facility] REGULATORY AGENCY DIRECTOR POINT OF CARE TEST ENTER/EDIT ORDERABLES Final Result * POCT Glucose (01/24/2025 2:03 PM EST) Glucose Blood, POC 107 60 - 200 mg/dL Blood Capillary blood specimen / Unknown 01/24/2025 2:03 PM EST [facility] REGULATORY AGENCY DIRECTOR POINT OF CARE TEST ENTER/EDIT ORDERABLES Final Result * XR Chest 2 Views (11/24/2024 2:05 PM EDT) Anatomical Region Laterality Modality Chest Radiographic Areli ging 11/24/2024 2:05 PM EDT Narrative 11/24/2024 2:12 PM EDT [address] [address] XRay Report Signed Patient: Kasie Funes MR#: [id number] 960 : 1980 Acct:[id number] Age/Sex: 44 / F ADM Date: 11/24/24 Loc: .ED Attending Dr: Ordering Physician: Dorene Banegas NP Date of Service: 11/24/24 Procedure(s): XR chest 2V Accession Number(s): [id number] cc: Dorene Banegas [facility]; [facility] Reason for Exam: cough and fever EXAMINATION: [...] Varinder Hernandez MD 11/24/2024 02:10 PM EDT RP Dictated By: Varinder Hernandez MD Signed By: <Electronically signed by Varinder Hernandez MD in OV> 11/24/24 1410 DD/ 1405 TD/TT: 11/24/24 1407 Forging Engineer: Procedure Note Donotuseinterpreter, Image - 11/24/2024 [place] [address] XRay Report Signed Patient: Kasie Funes#: [id number] 960 : 1980Acct:[id number] Age/Sex: 44 / FADM Date: 11/24/24 Loc: .ED Attending Dr: Ordering Physician: Dorene Banegas NP Date of Service: 11/24/24 Procedure(s): XR chest 2V Accession Number(s): [id number] cc: Dorene Banegas [facility]; [facility] Reason for Exam: cough and fever EXAMINATION: [...] Varinder Hernandez MD 11/24/2024 02:10 PM EDT RP Dictated By: Varinder Hernandez MD Signed By: <Electronically signed by Varinder Hernandez MD in OV> 11/24/24 1410 DD/ 1405 TD/TT: 11/24/24 1407 Forging Engineer: [facility] External Provider IMG XR PROCEDURES Final Result * Influenza A B2 ID NOW (Short) (11/24/2024 1:56 PM EDT) IDNOW SERIAL# [id number] [facility] Influenza A Negative Negative [facility] Influenza B2 Negative Negative [facility] Influenza A B2 Note See Note [facility] Comment:The Short ID NOW In [...] LAB MICROBIOLOGY - GENERAL ORDERABLES Final Result [facility] [address] [place] [phone] * Strep A Nucleic Acid (11/24/2024 1:56 PM EDT) IDNOW SERIAL# [id number] [facility] Strep A Nucleic Acid Negative Negative [facility] Comment:All test results mus t [...] LAB MICROBIOLOGY - GENERAL ORDERABLES Final Result Performing Organization Address City/[facility]/ZIP Co de Phone Number [facility] [address] [place] [phone] * COVID-19 ID NOW (SHORT) (11/24/2024 1:56 PM EDT) IDNOW SERIAL# [id number] [facility] COVID-19 TEST Negative Negative [facility] COVID-19 NOTE See Note [facility] Comment: Results are for the identification of SARS-CoV2 RNA. TheSARS-CoV2 RNA is generally detectable in respiratory samplesduring the acute phase of infection. Positive results areindicative of the presence of SARS-CoV-2 RNA; clinicalcorrelation with patient history and other diagnosticinformation is necessary to determine patient infectionstatus. Positive results do not rule out bacterial infectionor co- infection with other viruses.Testing facilities within the [facility] and [facility] are required to report all positive results [...] use by authorized laboratories.Testing performed on the Short ID NOW utilizing NAAT. 11/24/2024 1:56 PM EDT 11/24/2024 2:01 PM EDT us Generic External Data Provider LAB MOLECULAR VIC GNOSTICS ORDERABLES Final Result Performing Organization Address City/[facility]/ZIP Co de Phone Number [facility] [address] [place] [phone] * BI US Breast Limited Left (05/12/2024 2:00 PM EDT) Anatomical Region Laterality Modality Breast Left Ultrasound 05/12/2024 2:00 PM EDT Narrative 05/12/2024 2:36 PM EDT [facility] [address] [place] [address] Ultrasound Report Signed Patient: Kasie Funes MR#: [id number] 960 : 1980 Acct:[id number] Age/Sex: 43 / F ADM Date: 05/12/24 Loc: HO.MAMMO Attending Dr: Pooja Medina REGULATORY AGENCY DIRECTOR Ordering Physician: Pooja Medina Date of Service: 05/12/24 Procedure(s): US breast LT limited mamm only Accession Number(s): [id number] cc: Pooja Medina EXAMINATION: MM DIAGNOSTIC DIGITAL [...] 05/12/24 1433 DD/ 1400 TD/TT: 05/12/24 1426 Forging Engineer: Procedure Note Donotuseinterpreter, Image - 05/12/2024 [place] [facility] [address] [place] [address] Ultrasound Report Signed Patient: Kasie FunesMR#: [id number] 960 : 1980Acct:[id number] Age/Sex: 43 / FADM Date: 05/12/24 Loc: HO.MAMMO Attending Dr: Pooja Medina REGULATORY AGENCY DIRECTOR Ordering Physician: Pooja Medina Date of Service: 05/12/24 Procedure(s): US breast LT limited mamm only Accession Number(s): [id number] cc: Pooja Medina REGULATORY AGENCY DIRECTOR EXAMINATION: MM DIAGNOSTIC DIGITAL BREAST TOMOSYNTHESIS, BILATERAL [...] 05/12/24 1433 DD/ 1400 TD/TT: 05/12/24 1426 [facility]ging [facility] Final Resul t * Lipid Panel, Standard (10/31/2023 1:40 PM EDT) Triglycerides 66 <150 mg/dL [facility] Comment:Desirable Triglyceri de: less than 150 mg/dLBorderline High Triglyceride 150-199 mg/dLHigh Triglyceride: 200-499 mg/dLVery High Triglyceride: greater than or equal to 5OO mg/dL Cholesterol 160 <200 mg/dL [facility] Comment:Desirable Cholestero l: less than 200 mg/dLBorderline High Cholesterol: 200-239 mg/dLHigh Cholesterol: greater than 239 mg/dL LDL Cholesterol Calculated 79 <100 mg/dL [facility] Comment:Desirable LDL: less than 100 mg/dLNear Optimal/Above Optimal LDL: 110- 129 mg/dLBorderline High LDL: 130-159 mg/dLHigh LDL: 160-189 mg/dLVery High LDL: greater than or equal to 190 mg/dL HDL Cholesterol 68 >40 mg/dL [facility] Comment:Desirable HDL: great er than 40 mg/dL Note: This HDL assay may give artificially low results in patients with liver disease. Blood Venous blood specimen / Unknown 10/31/2023 1:40 PM EDT 10/31/2023 3:58 PM EDT [facility] LAB BLOOD ORDERABLES Final Re sult [facility] [address], [place] [phone] * THINPREP TIS PAP AND HPV mRNA E6/E7 WITH REFLEX TO HPV 16,18/45 (10/04/2021 10:02 AM EDT) Clinical Information: None given [facility] COMMENT SEE COMMENT FOUNDAT[facility] ON [...] has been evaluated with computer assisted technology. [facility] Cytotechnologis t: SEE COMMENT [facility] Comment: JNA, CT(ASCP) CT screening location: [place] [address] HPV nRNA E6/E7 Not Detected Not Detected [facility] Comment: Methodology: Channel Marketing Program Manager-Mediated Amplification This assay detects E6/E7 viral messenger RNA (mRNA) from 14 high-risk HPV types (16,18,31,33,35,39,45,51,52,56,58,59,66,68). Cervical sources are required for HPV testing. If a vaginal source from a patient who has had a total hysterectomy with removal of cervix was submitted, please contact the testing laboratory for alternative testing options. For additional information, please refer to http://education.[employer]/faq/BTT434r7 (This link if provided for information/ educational purposes only.) Infection Shift in vaginal sin suggestive of bacterial vaginosis. [facility] Interpretation/ Result: Negative for intraepithelial lesion or malignancy. [facility] LMP: 06/2021 [facility] [...] Padron CNM LAB PATHOLOGY ORDERABLES Final Result [facility] [address] [place] [address], * Pap Smear (10/04/2021 12:00 AM EDT) Swab Iris Padron [facility] LAB CYTOLOGY ORDERABLES F inal Result [facility] [address] [facility], [facility], [place] [phone] * HEPATITIS C AB W/REFL TO HCV RNA, QN, PCR (04/30/2021 2:02 PM EDT) HEPATITIS C ANTIBODY NON-REACT DAVE NON-REACT DAVE [facility] INDEX 0.02 <1.00 [facility] Comment: HCV antibody was non-reactive. There is no laboratory evidence of HCV infection. In most cases, no further action is required. However, if recent HCV exposure is suspected, a test for HCV RNA (test code 18394) is suggested. For additional information please refer to http://education.[employer]/faq/AME73j6 (This link is being provided for informational/ educational purposes only.) 04/30/2021 2:02 PM EDT [facility] REGULATORY AGENCY DIRECTOR HISTORICAL/NON ORDERABLE LABS Final Result [facility] [address] [place] [address], * HIV 1/2 ANTIGEN/ANTIBODY,FOURTH GENERATION W/RFL (04/30/2021 [...] purpose. For additional information please refer to http://education.[employer]/faq/NUP539 (This link is being provided for informational/ educational purposes only.) The performance of this assay has not been clinically validated in patients less than 2 years old. 04/30/2021 2:02 PM EDT [facility] LAB BLOOD ORDERABLES Final Re sult [facility] [address] from Last 3 Months or Most Recently Relevant to Health Maintenance Insurance [facility] [place] [address] [place] [id number] [place] [address] Care Teams Director Global Strategic Publisher Sales Relationship Specialty Start Date End Date [facility] [address] [place] [phone] PCP - General Family Medicine 11/15/20
== END 2025-02-07 13:51 | disposition home or self-care (01) ==
LOC: HO.HOS 13:14
PROVIDERS: PCP Registered Nurse; Visit Provider Orthopaedic Surgery
DX: M17.11 Unilateral primary osteoarthritis, right knee (principal)
CPT/HCPCS: 99213